=== PATIENT | female | born 1935 | race Caucasian/White ===

== ENCOUNTER 2016-12-10 10:21 | Inpatient (IN) ==
[~2016-12-10 10:21] MED LIST: Heparin 1,000 UNITS/500 mL NS 500 ML ONE
[2016-12-10] MEDS ORDERED: Lidocaine 1% 20 ML MDV ID ONE (10:38)
[2016-12-10] MEDS ORDERED: Vancomycin 1,250 MG in D5% in Water 250 ML IVPB ONE ×2 (10:38→23:00)
[2016-12-10] MEDS ORDERED: CeFAZolin Pre 2,000 MG/100 ML 2,000 MG/100 ML BAG IVPB ONE (10:38)
[2016-12-10] MEDS ORDERED: Ringers Solution, Lactated 1,000 ML IVC SCH (10:45)
--- NOTE | 2016-12-10 10:51 | Anesthesia Evaluation PreOp ---
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 History: CVA Other Medical History: Diabetes Type II Anesthesia History: No Prior Anesthetic Complications, Past Anesthesia (Rt CEA) : No Alcohol Use: none Drug use: none Medications and Allergies Albuterol Sulfate [Albuterol Inhaler] 0 puff IH Q4HR 02/27/16 [History] Aspirin [Adult Low Dose Aspirin EC] 81 mg PO DAILY 02/27/16 [History] Atorvastatin [Lipitor] 40 mg PO HS 02/27/16 [History] Cholecalciferol (Vitamin D3) [Vitamin D3] 5,000 unit PO DAILY 02/27/16 [History] Clopidogrel [Plavix] 75 mg PO DAILY 02/27/16 [History] Cyclobenzaprine HCl 5 mg PO TID 02/27/16 [History] Fluticasone/Salmeterol [Advair 250-50 Diskus] DAILY 02/27/16 [History] Furosemide [Lasix] 20 mg PO DAILY 02/27/16 [History] Insulin ASPART [Novolog Flexpen] 6 unit SQ TID 02/27/16 [History] Insulin Glargine,Hum.rec.anlog [Lantus Solostar] 20 unit SQ DAILY 02/27/16 [ History] Lisinopril [Zestril] 40 mg PO DAILY 02/27/16 [History] Pregabalin [Lyrica] 150 mg PO BID 02/27/16 [History] Tiotropium [Spiriva] 18 mcg AER DAILY 02/27/16 [History] HYDROcodone/Acet 5/325 mg [Howe 5-325 mg] 1 tab PO Q4H PRN #25 tablet 02/28/16 [Rx] Allergies No Known Allergies Allergy (Unverified 02/04/16 08:09) - Meds/Allergy Pre-op Review Medications Reviewed: Yes Allergies Reviewed: Yes Beta Blockers on Current Med List: No Anesthesia Results - Labs Laboratory Tests 12/05/16 12/05/16 12/05/16 08:34 08:34 08:34 Hgb 12.3 Hct 39.8 Plt Count 239 PT 12.2 H INR 1.1 APTT 36.1 H Sodium 140 Potassium 5.0 H BUN 11 Creatinine 0.81 - Imaging EKG: report reviewed (SR) Additional studies: 2016 Stress Test negative for ischemia...EF 70% Anesthesia Exam O2 Sat Height 1.68 m Weight 87.09 kg Height: 5'6 Weight: 192 lbs NPO (# of Hours): MN Pain Scale: 0 - HEENT Pupil (Motor): Pupils equal, EOMI Mallampati: III Denture Type: Upper: Complete Oral Opening: Less than or equal to 3 - FOREST SCIENTIST LOC: Oriented FOREST SCIENTIST Motor: Normal RUE, Normal LUE, Normal RLE, Normal LLE, Normal Face [employer]EST SCIENTIST Sensory: Normal: RUE, LUE, RLE, LLE, Face - Cardiac Rhythm: Regular Murmur: None JVD: No Carotid Bruit: No - Pulmonary Breath Sounds: bilateral Clear Respiratory Effort: Symmetrical Anesthesia Assess/Plan ASA Score: 4 (HTN PVD DM COPD on home oxygen) Modified [place] Scale for Level of Consciousness: Cooperative, oriented, and tranquil Anesthetic Plan: General Monitoring Plan: Standard Monitors, A-Line Recovery Plan: PACU (Discussed GA and A line, agrees to proceed)
[2016-12-10] MEDS ORDERED: Famotidine 20 MG/2 ML VIAL IVP ONE (10:58)
[2016-12-10] MEDS ORDERED: Acetaminophen IV 1,000 MG/100 ML INFUS..BTL IVPB ONE (10:59)
[2016-12-10] MEDS ORDERED: *HR* FentaNYL (PF) 100 MCG/2 ML VIAL ONE (11:01)
[2016-12-10] MEDS ORDERED: *HR* Propofol 200 MG/20 ML VIAL IVP ONE (11:01)
[2016-12-10] MEDS ORDERED: *HR* Remifentanil 1 MG VIAL IVP ONE (11:01)
[2016-12-10] MEDS ORDERED: Lidocaine -MPF 2% 2 ML VIAL ONE ×3 (11:04→12:47)
[2016-12-10] MEDS ORDERED: Ondansetron 4 MG/2 ML VIAL ONE (11:05)
[2016-12-10] MEDS ORDERED: *HR* Succinylcholine 200 MG/10 ML VIAL IVP ONE (11:05)
[2016-12-10] MEDS ORDERED: Bupivacaine-MPF 0.25% 10 ML VIAL ONE (11:05)
[2016-12-10] MEDS ORDERED: Dexamethasone 4 MG/ML VIAL ONE (11:05)
[2016-12-10] MEDS ORDERED: Protamine Sulfate 50 MG/5 ML VIAL IVP ONE ×2 (11:05→14:59)
[2016-12-10] MEDS ORDERED: Lidocaine 1% 20 ML MDV ONE (11:05)
[2016-12-10] MEDS ORDERED: Vancomycin 1,000 MG VIAL ONE (11:06)
[2016-12-10] MEDS ORDERED: Heparin 1,000 UNITS/500 mL NS 1,000 ML ONE (11:06)
--- NOTE | 2016-12-10 11:06 | History & Physical Report ---
Date of Encounter: 12/10/16 Time of Encounter: 11:00 24 Hour HP Update - Instructions Instructions: If the History and Physical is less than 30 days old and was completed prior to A.M. admission and or procedure and has NOT been updated on calendar day of procedure please complete this update prior to performing procedure. - Update Patient reports changes in Medical Condition: No Changes in assessment/condition: No Changes in Medication: No Preop tests/diagnostics Reviewed: Yes Surgery Remains Indicated: Yes Consent for Planned Operative Procedure(s) Verified: Yes - Pre-Operative Checklist Preoperative Checklist Indicated: Yes Prophylactic Antibiotic Ordered: Yes (Vancomycin due to risk of MRSA) Home Medications Include Beta Atif: No Beta Atif Taken Today (Day of Surgery): No Beta Atif Taken Yesterday (Day Prior to Surgery): No Is VTE Prophylaxis Indicated?: Yes
[2016-12-10] MEDS ORDERED: *HR* Phenylephrine 10 MG/ML VIAL ONE (12:47)
[2016-12-10] MEDS ORDERED: EPHEDrine 50 MG/ML VIAL ONE (12:56)
[2016-12-10] MEDS ORDERED: *HR* Heparin 5,000 UNIT/ML VIAL ONE (14:57)
[2016-12-10] MEDS ORDERED: *HR* Labetalol 100 MG/20 ML MDV IVP PRN (15:03)
[2016-12-10] MEDS ORDERED: *HR* HYDROmorphone (PF) 1 MG/ML SYRINGE IVP PRN (15:03)
[2016-12-10] MEDS ORDERED: Ondansetron 4 MG/2 ML VIAL IVP PRN ×2 (15:03→16:30)
--- NOTE | 2016-12-10 15:35 | Operative Note ---
Date of procedure: 12/10/16 Pre-op diagnosis: 80-99% Left internal carotid artery stenosis Post-op diagnosis: same Procedure: Left carotid endarterectomy with hemashield patch angioplasty. Complications: None Anesthesia: AUGUSTINAA Surgeon: Lyle Arias Estimated blood loss (cc): 100 Specimen: Left carotid plaque Condition: stable Disposition: PACU Procedure in Detail: Indications: The patient is a 81 year old female who was found to have an 80-99 % left internal carotid artery stenosis. A left carotid endarterectomy was recommended to reduce his risk of stroke. Procedure: The patient was identified in the preoperative area. The risks, benefits, and alternatives of the procedure were discussed and all questions were answered. The patient was then taken to the operating room and placed in supine position on the operating table. After induction of general endotracheal anesthesia, the patient was cleaned and draped in normal sterile fashion. A longitudinal incision was made anterior to the left sternocleidomastoid muscle. Hemostasis was obtained via electrocautery. Through a process of blunt , sharp, and electrocautery dissection, the platysma was traversed. The jugular vein was identified. The facial vein was clamped, divided and tied off with a 2-0 silk suture ligature. The jugular vein was retracted, exposing the carotid bifurcation. The patient received 2000 units of heparin intravenously at this time. Proximal dissection of the common and external carotid arteries were performed circumferentially. Dissection of the internal carotid was performed circumferentially. Vessels loops were passed around the internal and external carotid and an umbilical tape was passed from the common carotid artery. The patient received additional 3000 units of heparin intravenously. Additional heparin was given throughout the case to maintain adequate anticoagulation. After waiting adequate time for the heparin to circulate, the vessels were occluded and a longitudinal arteriotomy was made into the common carotid artery. It was then extended into the internal carotid beyond the plaque. Vigorous pulsatile retrograde flow was noted from the internal carotid artery upon release of the loop; therefore, no shunt was placed. A dental freer was used to perform a standard endarterectomy. Proximal and distal endpoints were inspected. No elevated flaps were noted. A Hemashield patch was cut to fit the defect and sutured in place with running 6 -0 Prolene. Prior to completing the closure, each vessel was flushed and then reoccluded. Heparinized saline was infused into the lumen. The patch was completed. Flow was restored in the external carotid artery, followed the common carotid artery, lastly the internal carotid artery was opened. A low resistance arterialized signal was present within the internal carotid artery beyond the patch. Thrombin and Gelfoam were used to aid in hemostasis. Meticulous hemostasis was obtained throughout the wound with electrocautery. Upon obtaining hemostasis with suture, platelet rich and platelet poor plasma were infused into the wounds. The sternocleidomastoid was reapproximated with interrupted 3-0 Vicryl. Platelet rich and platelet poor plasma were infused into the wound. A TLS drain was brought through a separate stab incision and sutured in place with 0 silk suture. The platysma was reapproximated with running 3-0 Vicryl. Local anesthetic was infused in the skin. A 3-0 Monocryl was used to reapproximate the skin. Sterile dressing was applied. The patient was extubated, taken to the recovery room in stable condition.
--- NOTE | 2016-12-10 16:17 | Anesthesia Evaluation Post Op ---
Date of Encounter: 12/10/16 Time of Encounter: 16:15 - Vital Signs Vital Signs: Vital Signs/O2 Sat, Most Current Temp Pulse Resp BP Pulse Ox 97.1 F L 110 16 124/64 100 12/10/16 15:58 12/10/16 15:58 12/10/16 15:58 12/10/16 15:58 12/10/16 15:58 - Lungs Lungs: Clear Ascult./Percussion - Airway Airway: Non-obstructed - Cardiovascular Regular Rate - Mental Status Mental Status: Alert & Oriented, Answers Appropriately - Pain Pain Scale: 0 Pain Scale used: Numeric (1 - 10) - Nausea Vomiting Nausea Vomiting: Present - Hydration Hydration: Ice chips, Saeed catheter - Discharge PostOp Status: Transfer Patient to floor
[2016-12-10] MEDS ORDERED: Acetaminophen 325 MG TABLET PO PRN (16:30)
[2016-12-10] MEDS ORDERED: *HR* Promethazine 25 MG/ML VIAL IVP PRN (16:30)
[2016-12-10] MEDS ORDERED: Dextrose Gel 15 GM PO PRN ×2 (16:30)
[2016-12-10] MEDS ORDERED: *HR* Dextrose 50 % in Water (Syg) 50 ML SYRINGE IVP PRN (16:30)
[2016-12-10] MEDS ORDERED: Naloxone 0.4 MG/ML INJ IVP PRN (16:30)
[2016-12-10] MEDS ORDERED: *HR* Labetalol 20 MG/4 ML SYRINGE IVP PRN (16:30)
[2016-12-10] MEDS ORDERED: D5% in Water 1,000 ML IV PRN (16:30)
[2016-12-10] MEDS ORDERED: *HR* HYDROcodone/Acet 5/325 mg TABLET PO PRN (16:30)
[2016-12-10] MEDS ORDERED: *HR* Morphine 2 MG/ML SYRINGE IVP PRN (16:30)
[2016-12-10] MEDS ORDERED: *HR* OxyCODONE Immed Rel 5 MG TABLET PO PRN (16:30)
[2016-12-10] MEDS: Insulin LISPRO 300 UNITS/3 ML VIAL SQ SCH (17:00)
[2016-12-10] MEDS: *HR* Metoprolol 5 MG/5 ML VIAL IVP SCH (17:38)
[2016-12-10] MEDS: ceFAZolin 2,000 MG in D5% in Water 100 ML IVPB SCH (18:47)
[2016-12-10] MEDS ORDERED: Insulin LISPRO 300 UNITS/3 ML VIAL SQ SCH (21:00)
[2016-12-10] MEDS ORDERED: NON-FORMULARY MEDICATION 1 EACH EACH (Fluticasone/Salmeterol [Advair 250-50 Diskus] 1 PUFF IH SCH (21:00)
[2016-12-10] MEDS ORDERED: Furosemide 20 MG TABLET PO SCH (21:00)
[2016-12-10] MEDS ORDERED: Lisinopril 20 MG TABLET PO SCH (21:00)
[2016-12-10] MEDS: Pregabalin 75 MG CAPSULE PO SCH (21:02)
[2016-12-10] MEDS ORDERED: Budesonide/Formoterol 80/4.5 MDI IH SCH (22:00)
[2016-12-11] MEDS: *HR* Metoprolol 5 MG/5 ML VIAL IVP SCH ×2 (00:16→06:16)
[2016-12-11 03:43] VITALS: BP 100/59
[2016-12-11] MEDS: ceFAZolin 2,000 MG in D5% in Water 100 ML IVPB SCH (04:25)
[2016-12-11] MEDS ORDERED: *HR* Heparin 5,000 UNIT/ML VIAL SQ SCH ×2 (06:00)
--- NOTE | 2016-12-11 08:02 | Discharge Summary ---
Date of Encounter: 12/11/16 Time of Encounter: 07:50 - Discharge Diagnosis (1) Carotid stenosis, symptomatic, with infarction Priority: Primary Status: Chronic Comments: The patient is postoperative day #1 after left carotid endarterectomy. She is healing well. She has no drainage or hematoma. She is neurologically intact. She will be discharged today. (2) Essential hypertension Priority: Secondary Status: Chronic Comments: The patient was counseled regarding smoking cessation. (3) Mixed hyperlipidemia Priority: Secondary Status: Chronic (4) Type 2 diabetes mellitus with other circulatory complications Priority: Secondary Status: Chronic (5) COPD (chronic obstructive pulmonary disease) Priority: Secondary Status: Chronic Qualifiers: COPD type: emphysema Emphysema type: panlobular Qualified Code(s): J43.1 - Panlobular emphysema - Discharge Medications Prescriptions: HYDROcodone/Acet 5/325 mg [Baldwin 5-325 mg] 1 tab PO Q4H PRN #30 tablet PRN Reason: POSTOPERATIVE PAIN Home Medications: Albuterol Sulfate [Albuterol Inhaler] 2 puff IH Q4HR PRN 02/27/16 [History] Aspirin [Adult Low Dose Aspirin EC] 81 mg PO DAILY 02/27/16 [History] Cholecalciferol (Vitamin D3) [Vitamin D3] 5,000 unit PO DAILY 02/27/16 [History] Clopidogrel [Plavix] 75 mg PO HS 02/27/16 [History] Cyclobenzaprine HCl 5 mg PO TID 02/27/16 [History] Fluticasone/Salmeterol [Advair 250-50 Diskus] 1 puff IH BID 02/27/16 [History] Furosemide [Lasix] 20 mg PO HS 02/27/16 [History] Insulin ASPART [Novolog Flexpen] 6 unit SQ TID 02/27/16 [History] Insulin Glargine,Hum.rec.anlog [Lantus Solostar] 16 unit SQ HS 02/27/16 [History ] Lisinopril [Zestril] 40 mg PO HS 02/27/16 [History] Pregabalin [Lyrica] 150 mg PO BID 02/27/16 [History] Tiotropium [Spiriva] 18 mcg AER DAILY 02/27/16 [History] Metformin HCl [Metformin HCl ER] 500 mg PO DAILY 12/10/16 [History] Oxygen 2 l NS AD 12/10/16 [History] Simvastatin [Zocor] 20 mg PO HS 12/10/16 [History] HYDROcodone/Acet 5/325 mg [Baldwin 5-325 mg] 1 tab PO Q4H PRN #30 tablet 12/11/16 [Rx] Allergies/Adverse Reactions: Allergies No Known Allergies Allergy (Verified 12/10/16 11:41) Date of admission: 12/10/16 16:26 Primary care physician: Joe King MD Procedure(s) Performed: Left carotid endarterectomy Discharging clinician: Lyle Arias Anticipated date of discharge: 12/11/16 - Patient Status Disposition: Home, Self-Care Condition: Good Functional capacity at discharge: independent ambulation Overall status at discharge: patient is back to baseline - Discharge Instructions Instructions: Hydrocodone/Acetaminophen (By mouth), Carotid Endarterectomy (DC) , Chronic Obstructive Pulmonary Disease (DC) Follow Up With: Joe King MD [Primary Care Provider] - 12/18/16 3:00 pm Lyle Arias MD [Partnered Physician] - 01/25/17 1:50 pm Additional Instructions: May remove bandage and shower on 12/12/16. Wash wounds gently and pat to dry. Call [phone] with questions or concerns - Diet and Activity Activity: increase activity as tolerated Diet: advance to your usual diet - Hospital Course Hospital course: Ms. Dacosta is a 81 year old female with a history of carotid stenosis. She was admitted on 12/10/16 and she underwent a left carotid endarterectomy. She was discharged in stable consition on postoperative day #1 without complication. - Time Spent with Patient Total time spent providing and/or coordinating discharge services: Exam General: Present: Conversant HEENT: Present: Trachea midline, Pupils equal Neck: Present: Other (incision clean, dry and intact without erythema, drainage or hematoma.). Absent: JVD Cardiac: Present: Reg Rate and Rhythm Lungs: Present: Normal Breath Sounds Neuro: Present: Alert and responsive, No focal deficits noted, Motor nerves grossly intact, Sensory nerves grossly intact Abdomen: Present: Soft Vascular: Present: Normal capillary refill. Absent: Cyanosis, Edema Skin: Present: No rashes noted on visualized skin - VTE Documentation of Mechanical Device: Intermittent pneumatic compression device
[2016-12-11] MEDS: Insulin LISPRO 300 UNITS/3 ML VIAL SQ SCH (08:45)
[2016-12-11] MEDS: Pregabalin 75 MG CAPSULE PO SCH (08:49)
[2016-12-11] MEDS ORDERED: Tiotropium 18 MCG inhalation IH SCH (09:00)
[2016-12-11] MEDS ORDERED: Cholecalciferol (D-3) 1,000 UNIT TABLET PO SCH (09:00)
[2016-12-11] MEDS ORDERED: *HR* Metformin 500 MG TABLET PO SCH (09:00)
[2016-12-11] MEDS ORDERED: Aspirin Enteric Coated 81 MG Tablet PO SCH (09:00)
== END 2016-12-11 10:08 | disposition home or self-care (01) | DRG 39 ==
LOC: SAMDAY 10:21 → 2NNU 16:26
PROVIDERS: ADMIT Surgery; ATTEND Surgery

== ENCOUNTER 2016-12-26 11:59 | Inpatient (IN) ==
[2016-12-26] MEDS ORDERED: 0.9 % Sodium Chloride 1,000 ML IVC ONE (12:24)
--- NOTE | 2016-12-26 12:27 | Emergency Department Note ---
Disposition Clinical Impression: COPD (chronic obstructive pulmonary disease), Frail elderly, Essential hypertension, Mixed hyperlipidemia, Type 2 diabetes mellitus with other circulatory complications, Abnormal chest x-ray, Hypoxemia, Hyperkalemia, Hiatal hernia, Diverticulosis Fall Qualifiers: Encounter type: initial encounter Qualified Code(s): W19.XXXA - Unspecified fall, initial encounter Hip injury Qualifiers: Encounter type: initial encounter Laterality: left Qualified Code(s): S79.912A - Unspecified injury of left hip, initial encounter Foot injury Qualifiers: Encounter type: initial encounter Laterality: left Qualified Code(s): S99.922A - Unspecified injury of left foot, initial encounter GI bleed Qualifiers: GI bleed type/associated pathology: melena Qualified Code(s): K92.1 - Melena Disposition: Admitted As Inpatient General Adult HPI - General Chief complaint: ED Extremity Injury, Lower Stated complaint: L hip and Foot pain Time Seen by Provider: 12/26/16 12:07 Source: patient, family, EMS Limitations: no limitations - History of Present Illness HPI Narrative: 81-year-old female with multiple medical problems reports in emergency department via EMS with her daughter, the patient lives at home. Per the daughter, the patient has been very weak and shaky, she fell out of bed onto her left side and injured her left hip and foot. She has been feeling poorly and has been symptomatic for 2 days. Per the daughter the patient is usually quite alert oriented and usually stays in bed but does not normally have shakes tremors or feelings of weakness that she does now. There is no history of acute head trauma or acute neck pain. There has been no back injury or pain no neck pain chest pain or syncope. The patient has a history of COPD and wears oxygen at home. There is no history of cough or coughing up blood. No history of karri confusion or seizure. There is no history of abdominal pain vomiting diarrhea or laceration. The patient had a recent carotid endarterectomy December 2016 at this institution. The patient has generalized body spasms per the history. She is known to take diuretic medications, she is not in renal failure and does not have a history of dialysis therapy. The patient reportedly takes Plavix but no other anticoagulant medication. She is known to be diabetic as well. There is no history of sore throat and runny nose or ear pain. No acute headache. Pain Scale: 8 - Related Data Home Medications Medication Instructions Recorded Confirmed Albuterol Sulfate [Albuterol 2 puff IH Q4HR PRN 02/27/16 12/26/16 Inhaler] Aspirin [Adult Low Dose Aspirin EC] 81 mg PO DAILY 02/27/16 12/26/16 Cholecalciferol (Vitamin D3) 5,000 unit PO DAILY 02/27/16 12/26/16 [Vitamin D3] Clopidogrel [Plavix] 75 mg PO HS 02/27/16 12/26/16 Cyclobenzaprine HCl 5 mg PO TID 02/27/16 12/26/16 Fluticasone/Salmeterol [Advair 1 puff IH BID 02/27/16 12/26/16 250-50 Diskus] Furosemide [Lasix] 20 mg PO HS 02/27/16 12/26/16 Insulin ASPART [Novolog Flexpen] 6 unit SQ TID 02/27/16 12/26/16 Insulin Glargine,Hum.rec.anlog 16 unit SQ HS 02/27/16 12/26/16 [Lantus Solostar] Lisinopril [Zestril] 40 mg PO HS 02/27/16 12/26/16 Pregabalin [Lyrica] 150 mg PO BID 02/27/16 12/26/16 Tiotropium [Spiriva] 18 mcg IH DAILY 02/27/16 12/26/16 Metformin HCl [Metformin HCl ER] 500 mg PO DAILY 12/10/16 12/26/16 Oxygen 2 l NS AD 12/10/16 12/26/16 Simvastatin [Zocor] 20 mg PO HS 12/10/16 12/26/16 Previous Rx's Medication Instructions Recorded HYDROcodone/Acet 5/325 mg [War 1 tab PO Q4H PRN #30 tablet 12/11/16 5-325 mg] Allergies Allergy/AdvReac Type Severity Reaction Status Date / Time No Known Allergies Allergy Verified 12/10/16 11:41 All systems ED: reviewed and negative except as stated. Past Medical History - Past Medical History Medical history: Reports: cancer, COPD, coronary artery disease, CVA, diabetes, hyperlipidemia, hypertension, other Surgical history: Reports: cholecystectomy, other Psychiatric history: Reports: no psych history END PACKER history: Reports: no END PACKER history - Social History Smoking Status: Unknown if ever smoked Smokeless Tobacco Status: No Alcohol use: Reports: none Drug use: Reports: none Physical Exam - General Limitations: no limitations General appearance: alert, other (The patient appears to be generally tremulous , but she is able to follow commands and set up with assistance. She is alert and oriented and does not appear to be confused and does not display dysarthria. ) - Head Head exam: atraumatic, normocephalic, normal inspection - Eye Eye exam: Present: normal appearance, PERRL, EOMI. Absent: scleral icterus, conjunctival injection, miosis, mydriasis - ENT ENT exam: normal exam, normal oropharynx, mucous membranes moist, TM's normal bilaterally, normal external ear exam - Neck Neck exam: Present: normal inspection, full ROM, trachea midline. Absent: tenderness - Chest Chest inspection: Present: normal inspection, symmetric chest wall rise. Absent : tenderness - Respiratory Respiratory exam: Present: prolonged expiratory phase. Absent: respiratory distress, accessory muscle use - Cardiovascular Cardiovascular exam: Present: normal rhythm, tachycardia - Abdominal Exam Abdominal exam: Present: soft, Non-Tender, trauma (Minimal bruising lower abdomen right side appears to be old). Absent: tenderness, distention, guarding , rebound, rigidity, normal bowel sounds, pulsatile mass - Rectal Exam Rectal exam: Present: normal inspection, normal rectal tone, black stool - Extremities Exam Extremities exam: Present: normal inspection, tenderness, normal capillary refill, other (The upper extremities are warm and well-perfused and supple without evidence of trauma. The right lower extremity is supple warm and well perfused without evidence of injury. Left lower extremity shows significant pain in the foot and hip with movement or palpation no overt trauma is noted. All 4 extremities are warm and well perfused without cyanosis or significant edema. All 4 tremors are mobile and sensate.). Absent: pedal edema, joint swelling, calf tenderness - Expanded Lower Extremity Exam Lower leg exam: Absent: Homans' sign Neurovascular/Tendon exam: Absent: pulse deficit, motor deficit, sensory deficit , tendon deficit, extremity cold to touch, pallor - Neurological Exam Neurological exam: Present: alert, oriented X3, CN II-XII intact. Absent: motor sensory deficit - Psychiatric Psychiatric exam: Present: normal affect, normal mood - Skin Skin exam: Present: warm, dry, intact, normal color. Absent: rash, cyanosis, diaphoresis, erythema, pallor, mottled Course Vital Signs Temperature 97.6 F 12/26/16 12:02 Pulse Rate 109 12/26/16 12:02 Respiratory Rate 20 12/26/16 12:02 Blood Pressure 86/67 12/26/16 12:02 O2 Sat by Pulse Oximetry 90 L 12/26/16 12:02 Temperature 98.9 F 12/26/16 17:26 Pulse Rate 108 12/26/16 17:26 Respiratory Rate 18 12/26/16 17:26 Blood Pressure 129/57 12/26/16 17:26 O2 Sat by Pulse Oximetry 94 L 12/26/16 17:26 Oxygen Delivery Oxygen Delivery Nasal Cannula Medical Decision Making - MDM Narrative Medical decision making narrative: The patient was monitored here in the emergency department, IV fluids were given , the lab had an initial report of a hemoglobin that was low, secondary final report shows a hemoglobin of 6.8. The patient's stool is black and I have ordered a transfusion and a Protonix injection and drip. A Hemoccult card was sent, but the lab reports it is negative. The patient does not appear to be septic, she had an initial blood pressure reading which was low but secondary pressure readings were normotensive. She does not express shortness of breath but has been somewhat hypoxemic on oxygen here. The patient denies any abdominal trauma. Her clinical exam suggests gastrointestinal bleeding. She has a history of Coumadin therapy, her INR is 1.2 and appears to be fairly normotensive. The patient has no personal history of intra-abdominal aneurysm. She denies blunt trauma to the abdomen. Regarding the fall her daughter reports she just sort of slipped out of bed and hurt her left foot more than anything else. Her x-rays regarding her left lower extremity do not suggest fracture. The patient has remained slightly tachycardic here in the ED she was given IV fluids, packed red cells were ordered. As a precaution, CT scan of the abdomen and pelvis were obtained to ensure there is no retroperitoneal or intra-abdominal bleeding. Currently stable. I discussed the case with the hospitalist on-call who has accepted the patient to their care. The patient is currently stable. Abdominal CT scan reveals no evidence of intra-abdominal bleeding or aneurysm. - Lab Data Lab results reviewed: Yes I reviewed the patient's lab results. Result diagrams: 12/26/16 15:09 12/26/16 15:09 Lab Results 12/26/16 12/26/16 12/26/16 Range/Units 12:52 14:28 14:28 WBC (4.3-11.1) K/mcL RBC (3.82-4.97) M/mcL Hgb (11.5-15.4) g/dL Hct (35.3-44.9) % MCV (83.0-100.0) fL MCH (28.0-33.3) pg MCHC (31.6-35.5) g/dL RDW (11.5-14.5) % Plt Count (140-400) K/mcL MPV (9.4-12.4) fL Immature Gran % (0-4) % Seg Neutrophils % % Lymphocytes % % Monocytes % % Eosinophils % % Basophils % % Neutrophils # (1.6-8.9) K/mcL Lymphocytes # (0.6-4.6) K/mcL Monocytes # (0.0-1.3) K/mcL Eosinophils # (0.0-0.6) K/mcL Basophils # (0.0-0.2) K/mcL Immature Plt Fraction (1.1-6.1) % PT 12.8 H (9.4-12.1) Seconds INR 1.2 APTT (26.0-36.0) Seconds Sodium (136-145) mEq/L Potassium (3.5-4.5) mEq/L Chloride (98-109) mEq/L Carbon Dioxide (19-29) mEq/L BUN (7-20) mg/dL Creatinine (0.57-1.11) mg/dL Est GFR ( Amer) (> 60) Est GFR (Non-Af Amer) (> 60) BUN/Creatinine Ratio (6-26) Glucose (70-99) mg/dL POC Glucose (58-89) Calculated Osmolality (280-300) Lactic Acid (0.5-2.2) mmol/L Calcium (8.6-10.8) mg/dL Phosphorus (2.3-4.7) mg/dL Magnesium (1.6-2.6) mg/dL Total Bilirubin (0.2-1.2) mg/dL Direct Bilirubin (0.0-0.5) mg/dL Indirect Bilirubin (0.0-1.2) mg/dL AST (5-34) Units/L ALT (0-55) Units/L Alkaline Phosphatase (38-126) Units/L Creatine Kinase (29-168) Units/L Troponin I (0-0.03) ng/mL C-Reactive Protein (Less than 5) mg/L B-Natriuretic Peptide (0-100) pg/mL Serum Total Protein (6.0-8.3) g/dL Albumin (3.5-5.0) g/dL Globulin (2.4-3.5) g/dL Albumin/Globulin Ratio (1.1-2.2) Lipase (8-78) Units/L Urine Color Yellow (Yellow) Urine Clarity Clear (Clear) Urine pH 5.5 (5.0-8.0) pH Units Ur Specific Nicolaus 1.019 (1.010-1.025) Urine Protein Negative (Neg-Trace) mg/dL Urine Glucose (UA) 100 H (Normal) mg/dL Urine Ketones Negative (Negative) mg/dL Urine Blood Negative (Negative) Urine Nitrite Negative (Negative) Urine Bilirubin Negative (Negative) Urine Urobilinogen Normal (Normal) mg/dL Ur Leukocyte Esterase Negative (Negative) Ur Culture Indicated? NO (NO) Stool Occult Blood (Negative) Specimen Rejected MCV Delta Blood Type Antibody Screen Crossmatch 12/26/16 12/26/16 12/26/16 Range/Units 15:07 15:09 15:09 WBC (4.3-11.1) K/mcL RBC (3.82-4.97) M/mcL Hgb (11.5-15.4) g/dL Hct (35.3-44.9) % MCV (83.0-100.0) fL MCH (28.0-33.3) pg MCHC (31.6-35.5) g/dL RDW (11.5-14.5) % Plt Count (140-400) K/mcL MPV (9.4-12.4) fL Immature Gran % (0-4) % Seg Neutrophils % % Lymphocytes % % Monocytes % % Eosinophils % % Basophils % % Neutrophils # (1.6-8.9) K/mcL Lymphocytes # (0.6-4.6) K/mcL Monocytes # (0.0-1.3) K/mcL Eosinophils # (0.0-0.6) K/mcL Basophils # (0.0-0.2) K/mcL Immature Plt Fraction (1.1-6.1) % PT (9.4-12.1) Seconds INR APTT (26.0-36.0) Seconds Sodium 144 (136-145) mEq/L Potassium 4.6 H (3.5-4.5) mEq/L Chloride 103 (98-109) mEq/L Carbon Dioxide 29 (19-29) mEq/L BUN 25 H (7-20) mg/dL Creatinine 0.89 (0.57-1.11) mg/dL Est GFR ( Amer) > 60 (> 60) Est GFR (Non-Af Amer) > 60 (> 60) BUN/Creatinine Ratio 28 H (6-26) Glucose 154 H (70-99) mg/dL POC Glucose (58-89) Calculated Osmolality 305 H (280-300) Lactic Acid 2.2 (0.5-2.2) mmol/L Calcium 8.9 (8.6-10.8) mg/dL Phosphorus 4.0 (2.3-4.7) mg/dL Magnesium 1.6 (1.6-2.6) mg/dL Total Bilirubin (0.2-1.2) mg/dL Direct Bilirubin (0.0-0.5) mg/dL Indirect Bilirubin (0.0-1.2) mg/dL AST (5-34) Units/L ALT (0-55) Units/L Alkaline Phosphatase (38-126) Units/L Creatine Kinase (29-168) Units/L Troponin I (0-0.03) ng/mL C-Reactive Protein (Less than 5) mg/L B-Natriuretic Peptide (0-100) pg/mL Serum Total Protein (6.0-8.3) g/dL Albumin (3.5-5.0) g/dL Globulin (2.4-3.5) g/dL Albumin/Globulin Ratio (1.1-2.2) Lipase (8-78) Units/L Urine Color (Yellow) Urine Clarity (Clear) Urine pH (5.0-8.0) pH Units Ur Specific Nicolaus (1.010-1.025) Urine Protein (Neg-Trace) mg/dL Urine Glucose (UA) (Normal) mg/dL Urine Ketones (Negative) mg/dL Urine Blood (Negative) Urine Nitrite (Negative) Urine Bilirubin (Negative) Urine Urobilinogen (Normal) mg/dL Ur Leukocyte Esterase (Negative) Ur Culture Indicated? (NO) Stool Occult Blood (Negative) Specimen Rejected Blood Type A POSITIVE Antibody Screen NEGATIVE Crossmatch See Detail 12/26/16 12/26/16 12/26/16 Range/Units 15:09 15:09 15:09 WBC 11.8 H (4.3-11.1) K/mcL RBC 2.26 L (3.82-4.97) M/mcL Hgb 6.8 L (11.5-15.4) g/dL Hct 22.8 L (35.3-44.9) % MCV 100.9 H D (83.0-100.0) fL MCH 30.1 (28.0-33.3) pg MCHC 29.8 L (31.6-35.5) g/dL RDW 17.0 H (11.5-14.5) % Plt Count 283 (140-400) K/mcL MPV 12.4 (9.4-12.4) fL Immature Gran % 0.6 (0-4) % Seg Neutrophils % 80.3 % Lymphocytes % 11.0 % Monocytes % 6.9 % Eosinophils % 0.9 % Basophils % 0.3 % Neutrophils # 9.5 H (1.6-8.9) K/mcL Lymphocytes # 1.3 (0.6-4.6) K/mcL Monocytes # 0.8 (0.0-1.3) K/mcL Eosinophils # 0.1 (0.0-0.6) K/mcL Basophils # 0.0 (0.0-0.2) K/mcL Immature Plt Fraction 9.4 H (1.1-6.1) % PT (9.4-12.1) Seconds INR APTT (26.0-36.0) Seconds Sodium (136-145) mEq/L Potassium (3.5-4.5) mEq/L Chloride (98-109) mEq/L Carbon Dioxide (19-29) mEq/L BUN (7-20) mg/dL Creatinine (0.57-1.11) mg/dL Est GFR ( Amer) (> 60) Est GFR (Non-Af Amer) (> 60) BUN/Creatinine Ratio (6-26) Glucose (70-99) mg/dL POC Glucose (58-89) Calculated Osmolality (280-300) Lactic Acid (0.5-2.2) mmol/L Calcium (8.6-10.8) mg/dL Phosphorus (2.3-4.7) mg/dL Magnesium (1.6-2.6) mg/dL Total Bilirubin 0.3 (0.2-1.2) mg/dL Direct Bilirubin 0.2 (0.0-0.5) mg/dL Indirect Bilirubin 0.1 (0.0-1.2) mg/dL AST 16 (5-34) Units/L ALT 12 (0-55) Units/L Alkaline Phosphatase 58 (38-126) Units/L Creatine Kinase 60 (29-168) Units/L Troponin I 0.01 (0-0.03) ng/mL C-Reactive Protein 11 H (Less than 5) mg/L B-Natriuretic Peptide (0-100) pg/mL Serum Total Protein 6.0 (6.0-8.3) g/dL Albumin 3.3 L (3.5-5.0) g/dL Globulin 2.7 (2.4-3.5) g/dL Albumin/Globulin Ratio 1.2 (1.1-2.2) Lipase 20 (8-78) Units/L Urine Color (Yellow) Urine Clarity (Clear) Urine pH (5.0-8.0) pH Units Ur Specific Nicolaus (1.010-1.025) Urine Protein (Neg-Trace) mg/dL Urine Glucose (UA) (Normal) mg/dL Urine Ketones (Negative) mg/dL Urine Blood (Negative) Urine Nitrite (Negative) Urine Bilirubin (Negative) Urine Urobilinogen (Normal) mg/dL Ur Leukocyte Esterase (Negative) Ur Culture Indicated? (NO) Stool Occult Blood (Negative) Specimen Rejected Blood Type Antibody Screen Crossmatch 12/26/16 12/26/16 12/26/16 Range/Units 15:09 15:09 15:19 WBC (4.3-11.1) K/mcL RBC (3.82-4.97) M/mcL Hgb (11.5-15.4) g/dL Hct (35.3-44.9) % MCV (83.0-100.0) fL MCH (28.0-33.3) pg MCHC (31.6-35.5) g/dL RDW (11.5-14.5) % Plt Count (140-400) K/mcL MPV (9.4-12.4) fL Immature Gran % (0-4) % Seg Neutrophils % % Lymphocytes % % Monocytes % % Eosinophils % % Basophils % % Neutrophils # (1.6-8.9) K/mcL Lymphocytes # (0.6-4.6) K/mcL Monocytes # (0.0-1.3) K/mcL Eosinophils # (0.0-0.6) K/mcL Basophils # (0.0-0.2) K/mcL Immature Plt Fraction (1.1-6.1) % PT (9.4-12.1) Seconds INR APTT 31.1 (26.0-36.0) Seconds Sodium (136-145) mEq/L Potassium (3.5-4.5) mEq/L Chloride (98-109) mEq/L Carbon Dioxide (19-29) mEq/L BUN (7-20) mg/dL Creatinine (0.57-1.11) mg/dL Est GFR ( Amer) (> 60) Est GFR (Non-Af Amer) (> 60) BUN/Creatinine Ratio (6-26) Glucose (70-99) mg/dL POC Glucose 154 H (58-89) Calculated Osmolality (280-300) Lactic Acid (0.5-2.2) mmol/L Calcium (8.6-10.8) mg/dL Phosphorus (2.3-4.7) mg/dL Magnesium (1.6-2.6) mg/dL Total Bilirubin (0.2-1.2) mg/dL Direct Bilirubin (0.0-0.5) mg/dL Indirect Bilirubin (0.0-1.2) mg/dL AST (5-34) Units/L ALT (0-55) Units/L Alkaline Phosphatase (38-126) Units/L Creatine Kinase (29-168) Units/L Troponin I (0-0.03) ng/mL C-Reactive Protein (Less than 5) mg/L B-Natriuretic Peptide 109 H (0-100) pg/mL Serum Total Protein (6.0-8.3) g/dL Albumin (3.5-5.0) g/dL Globulin (2.4-3.5) g/dL Albumin/Globulin Ratio (1.1-2.2) Lipase (8-78) Units/L Urine Color (Yellow) Urine Clarity (Clear) Urine pH (5.0-8.0) pH Units Ur Specific Nicolaus (1.010-1.025) Urine Protein (Neg-Trace) mg/dL Urine Glucose (UA) (Normal) mg/dL Urine Ketones (Negative) mg/dL Urine Blood (Negative) Urine Nitrite (Negative) Urine Bilirubin (Negative) Urine Urobilinogen (Normal) mg/dL Ur Leukocyte Esterase (Negative) Ur Culture Indicated? (NO) Stool Occult Blood (Negative) Specimen Rejected Blood Type Antibody Screen Crossmatch 12/26/16 Range/Units 15:55 WBC (4.3-11.1) K/mcL RBC (3.82-4.97) M/mcL Hgb (11.5-15.4) g/dL Hct (35.3-44.9) % MCV (83.0-100.0) fL MCH (28.0-33.3) pg MCHC (31.6-35.5) g/dL RDW (11.5-14.5) % Plt Count (140-400) K/mcL MPV (9.4-12.4) fL Immature Gran % (0-4) % Seg Neutrophils % % Lymphocytes % % Monocytes % % Eosinophils % % Basophils % % Neutrophils # (1.6-8.9) K/mcL Lymphocytes # (0.6-4.6) K/mcL Monocytes # (0.0-1.3) K/mcL Eosinophils # (0.0-0.6) K/mcL Basophils # (0.0-0.2) K/mcL Immature Plt Fraction (1.1-6.1) % PT (9.4-12.1) Seconds INR APTT (26.0-36.0) Seconds Sodium (136-145) mEq/L Potassium (3.5-4.5) mEq/L Chloride (98-109) mEq/L Carbon Dioxide (19-29) mEq/L BUN (7-20) mg/dL Creatinine (0.57-1.11) mg/dL Est GFR ( Amer) (> 60) Est GFR (Non-Af Amer) (> 60) BUN/Creatinine Ratio (6-26) Glucose (70-99) mg/dL POC Glucose (58-89) Calculated Osmolality (280-300) Lactic Acid (0.5-2.2) mmol/L Calcium (8.6-10.8) mg/dL Phosphorus (2.3-4.7) mg/dL Magnesium (1.6-2.6) mg/dL Total Bilirubin (0.2-1.2) mg/dL Direct Bilirubin (0.0-0.5) mg/dL Indirect Bilirubin (0.0-1.2) mg/dL AST (5-34) Units/L ALT (0-55) Units/L Alkaline Phosphatase (38-126) Units/L Creatine Kinase (29-168) Units/L Troponin I (0-0.03) ng/mL C-Reactive Protein (Less than 5) mg/L B-Natriuretic Peptide (0-100) pg/mL Serum Total Protein (6.0-8.3) g/dL Albumin (3.5-5.0) g/dL Globulin (2.4-3.5) g/dL Albumin/Globulin Ratio (1.1-2.2) Lipase (8-78) Units/L Urine Color (Yellow) Urine Clarity (Clear) Urine pH (5.0-8.0) pH Units Ur Specific Nicolaus (1.010-1.025) Urine Protein (Neg-Trace) mg/dL Urine Glucose (UA) (Normal) mg/dL Urine Ketones (Negative) mg/dL Urine Blood (Negative) Urine Nitrite (Negative) Urine Bilirubin (Negative) Urine Urobilinogen (Normal) mg/dL Ur Leukocyte Esterase (Negative) Ur Culture Indicated? (NO) Stool Occult Blood Negative (Negative) Specimen Rejected Blood Type Antibody Screen Crossmatch - Radiology Data Radiology results reviewed: Yes I reviewed the patient's radiology results.
[2016-12-26 13:02] LABS: Bilirubin,Urine Negative (Negative); Blood,Urine Negative (Negative); Clarity,Urine Clear (Clear); Color,Urine Yellow (Yellow); Glucose,Urine (UA) 100 mg/dL (Normal); Ketones,Urine Negative (Negative); Leukocyte Esterase,Urine Negative (Negative); Nitrite,Urine Negative (Negative); PH,Urine 5.5 pH Units (5.0-8.0); Protein,Urine Negative (Neg-Trace); Specific Gravity,Urine 1.019 (1.010-1.025); Urobilinogen,Urine Normal (Normal)
[2016-12-26] MEDS ORDERED: Lidocaine -MPF 1% 2 ML VIAL ID PRN (14:37)
[2016-12-26 14:45] LABS: INR 1.2; Prothrombin Time 12.8 Seconds (9.4-12.1)
[2016-12-26 15:20] LABS: Basophils % 0.3 %; Eosinophils # 0.1 K/mcL (0.0-0.6); Eosinophils % 0.9 %; Hematocrit 22.8 % (35.3-44.9); Hemoglobin 6.8 g/dL (11.5-15.4); Immature Granulocytes % 0.6 % (0-4); Immature Platelets 9.4 % (1.1-6.1); Lymphocytes # 1.3 K/mcL (0.6-4.6); Mean Corpuscular HGB Conc 29.8 g/dL (31.6-35.5); Mean Corpuscular Hemoglobin 30.1 pg (28.0-33.3); Mean Corpuscular Volume 100.9 fL (83.0-100.0); Mean Platelet Volume 12.4 fL (9.4-12.4); Monocytes # 0.8 K/mcL (0.0-1.3); Monocytes % 6.9 %; Neutrophils # 9.5 K/mcL (1.6-8.9); Platelet Count 283 K/mcL (140-400); Red Blood Count 2.26 M/mcL (3.82-4.97); Segmented Neutrophils % 80.3 %
[2016-12-26 15:33] LABS: BUN/Creatinine Ratio 28 (6-26); Blood Urea Nitrogen 25 mg/dL (7-20); Calcium 8.9 mg/dL (8.6-10.8); Carbon Dioxide 29 mEq/L (19-29); Chloride 103 mEq/L (98-109); Glucose 154 mg/dL (70-99); Magnesium 1.6 mg/dL (1.6-2.6); Osmolality,Calculated 305 (280-300); Potassium 4.6 mEq/L (3.5-4.5); Sodium 144 mEq/L (136-145); eGFR For African Americans > 60 (> 60); eGFR For Non-African Americans > 60 (> 60)
[2016-12-26 15:38] LABS: Albumin 3.3 g/dL (3.5-5.0); Albumin/Globulin Ratio 1.2 (1.1-2.2); Bilirubin,Direct 0.2 mg/dL (0.0-0.5); Bilirubin,Indirect 0.1 mg/dL (0.0-1.2); Bilirubin,Total 0.3 mg/dL (0.2-1.2); Globulin 2.7 g/dL (2.4-3.5)
[2016-12-26] MEDS ORDERED: *HR* LORazepam 2 MG/ML VIAL IVP ONE (15:59)
[2016-12-26] MEDS ORDERED: Pantoprazole 40 MG VIAL IVP ONE (15:59)
[2016-12-26] MEDS ORDERED: Pantoprazole 40 MG in 0.9 % Sodium Chloride Mini Bag 100 ML IVC SCH (16:00)
[2016-12-26] MEDS ORDERED: Ondansetron 4 MG/2 ML VIAL IVP PRN (16:37)
[2016-12-26] MEDS ORDERED: Acetaminophen 325 MG TABLET PO PRN (16:37)
[2016-12-26] MEDS ORDERED: D5% in Water 1,000 ML IV PRN (16:47)
[2016-12-26] MEDS ORDERED: Dextrose Gel 15 GM PO PRN ×2 (16:47)
[2016-12-26] MEDS ORDERED: *HR* Dextrose 50 % in Water (Syg) 50 ML SYRINGE IVP PRN (16:47)
[2016-12-26] MEDS ORDERED: Ipratropium/Albuterol Neb 3 ML IH PRN (16:48)
--- NOTE | 2016-12-26 17:00 | Internal Med History&Physical ---
Date of Encounter: 12/26/16 Time of Encounter: 16:30 Assessment and Plan (1) Fall Current visit: Yes Status: Acute Secondary to anemia. consult PT/OT Qualifiers: Encounter type: initial encounter Qualified Code(s): W19.XXXA - Unspecified fall, initial encounter (2) Tremor Current visit: Yes Status: Acute Generalized tremors. normal calcium, magnesium and potassium. flexeril prn. (3) Acute blood loss anemia Current visit: Yes Status: Acute Symptomatic acute blood loss anemia. Tachycardic with heart rate 115. She reports black stools and generalized weakness. Hemoglobin today was 6.8. Patient received 1 L of IV fluids and tachycardia has slowed down. Blood pressure is adequate. Transfused units of packed red blood cells. IV PPI twice a day. Consult gastroenterology for EGD and colonoscopy. Hemoglobin in the morning after blood transfusion. (4) GI bleed Current visit: Yes Status: Acute Melena for 2 days. Plan as above. Qualifiers: GI bleed type/associated pathology: melena Qualified Code(s): K92.1 - Melena (5) Foot injury Current visit: Yes Status: Acute negative X ray of foot for any acute process. pain control. Qualifiers: Encounter type: initial encounter Laterality: left Qualified Code(s): S99.922A - Unspecified injury of left foot, initial encounter (6) Hip injury Current visit: Yes Status: Acute negative X ray of hip for any acute process. pain control. Qualifiers: Encounter type: initial encounter Laterality: left Qualified Code(s): S79.912A - Unspecified injury of left hip, initial encounter (7) COPD (chronic obstructive pulmonary disease) Current visit: No Status: Chronic Stable. Symbicort. Albuterol Atrovent nebulizations when necessary. Qualifiers: COPD type: emphysema Emphysema type: panlobular Qualified Code(s): J43.1 - Panlobular emphysema (8) Chronic respiratory failure Current visit: Yes Status: Acute Patient uses 2 L of oxygen at home. At baseline. Qualifiers: Respiratory failure complication: hypoxia Qualified Code(s): J96.11 - Chronic respiratory failure with hypoxia (9) Carotid artery stenosis Current visit: Yes Status: Acute Continue Lipitor. Holding aspirin and Plavix due to acute anemia. Qualifiers: Laterality: left Qualified Code(s): I65.22 - Occlusion and stenosis of left carotid artery (10) Essential hypertension Current visit: Yes Status: Chronic Controlled. Holding home dose of lisinopril due to GI bleed. 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 Diabetic diet. Internal Medicine - H&P: HPI Chief complaint: severe generalized tremors for 2 days Admitted From: Home Plans for Post Hospital Care: Home History of present illness: Ms. Dacosta is a 81 year old female with past medical history of diabetes type 2 , COPD, oxygen dependent at 2 L, hypertension, hypercholesterolemia, tremor in left lower leg and carotid stenosis who underwent left carotid endarterectomy on 12/10/2016. She developed severe generalized tremor yesterday morning that lasted a few hours and then came back today with associated pain in her left leg. Because of her tremors and inability to control her movements and ambulation, she fell on her left side injuring her left heel and left foot. In ED, patient was tachycardic. Hemoglobin was 6.8. INR 1.2. Patient takes Clopidogrel and aspirin at home. No coumadin. Upon questioning, she reports black stools for the past few days. Rectal examination revealed balck stools. Chest x-ray showed no acute process. X rays of her left pelvis, femur, tibia, and foot were negative for any acute process. CT of the head was negative for any acute process. No family history of CVA. No history of recent EGD. Past Med Surg Social Fam HX - Past Medical History Medical history: cancer, COPD, coronary artery disease, CVA, diabetes, hyperlipidemia, hypertension, other Psychiatric history: no psych history - Past Surgical History Surgical History: cholecystectomy, other - Social History Smoking Status: Unknown if ever smoked Smokeless Tobacco Status: No Alcohol use: none Drug use: none Internal Medicine - H&P: Meds Albuterol Sulfate [Albuterol Inhaler] 2 puff IH Q4HR PRN 02/27/16 [History] Aspirin [Adult Low Dose Aspirin EC] 81 mg PO DAILY 02/27/16 [History] Cholecalciferol (Vitamin D3) [Vitamin D3] 5,000 unit PO DAILY 02/27/16 [History] Clopidogrel [Plavix] 75 mg PO HS 02/27/16 [History] Cyclobenzaprine HCl 5 mg PO TID 02/27/16 [History] Fluticasone/Salmeterol [Advair 250-50 Diskus] 1 puff IH BID 02/27/16 [History] Furosemide [Lasix] 20 mg PO HS 02/27/16 [History] Insulin ASPART [Novolog Flexpen] 6 unit SQ TID 02/27/16 [History] Insulin Glargine,Hum.rec.anlog [Lantus Solostar] 16 unit SQ HS 02/27/16 [History ] Lisinopril [Zestril] 40 mg PO HS 02/27/16 [History] Pregabalin [Lyrica] 150 mg PO BID 02/27/16 [History] Tiotropium [Spiriva] 18 mcg AER DAILY 02/27/16 [History] Metformin HCl [Metformin HCl ER] 500 mg PO DAILY 12/10/16 [History] Oxygen 2 l NS AD 12/10/16 [History] Simvastatin [Zocor] 20 mg PO HS 12/10/16 [History] HYDROcodone/Acet 5/325 mg [[place] 5-325 mg] 1 tab PO Q4H PRN #30 tablet 12/11/16 [Rx] Allergies No Known Allergies Allergy (Verified 12/10/16 11:41) All Systems PM: A 10-system review of systems was performed and is negative for pertinent findings except as documented above in the HPI. - Constitutional Vitals: Temp Pulse Resp BP Pulse Ox 97.6 F 111 18 124/89 92 L 12/26/16 12:02 12/26/16 15:50 12/26/16 16:27 12/26/16 16:27 12/26/16 15:50 General appearance: Present: cooperative, A&O X 3, pleasant, no acute distress, obese, answers questions appropriately - Eye Eye exam: Present: PERRL, sclera anicteric - ENT ENT exam: Present: mucous membranes moist - Neck Neck exam general surgery: Present: supple, trachea midline. Absent: lymphadenopathy - Respiratory Respiratory exam: Present: CTAB - Cardiovascular Cardiovascular exam: Present: RRR - GI/Abdominal GI/Abdominal exam: Present: normal bowel sounds, soft. Absent: distended, tenderness - Extremities Exam Additional comments: hyperesthesia of left leg. diffuse tremors. - Back Exam Back exam: Absent: CVA tenderness (L), CVA tenderness (R) - Neurological Exam Neurological exam: Present: alert, oriented X3, no focal deficits. Absent: facial droop, speech deficit - Skin Skin exam: Present: pallor. Absent: rash Internal Med - H&P Results - Labs CBC & Chem 7: 12/26/16 15:09 12/26/16 15:09
[2016-12-26] MEDS ORDERED: 0.9 % Sodium Chloride 1,000 ML ONE (17:05)
--- NOTE | 2016-12-26 18:53 | Event Note ---
Date of Encounter: 12/26/16 Time of Encounter: 18:[address] Ballard to see this patient due to family request. The patient has been admitted for anemia and is reciving PRBCs due to a hgb orf 6.8. She is alert and comfortable. The daughter reports recent black stools. Dr. Pollock has been consulted. Her ASA and Plavix should be held at this time. The patient has previously undergone a left carotid endarterectomy. Examination of her wound reveals that it is healing well without hematoma or drainage. She has no focal neurologic deficits. The patient has a history of intermittent tremors. She had some yesterday and they stopped. They have recurred again today and the daughter reports that they are subsiding. She did fall prior to her presentation at the hospital. She has pain in the left lower extremity. Her foot is warm without evidence of ischemia. I suspect that her pain is related to her recent fall. The patient was discussed with Dr. Ballard.
[2016-12-26] MEDS: Budesonide/Formoterol 160/4.5 MDI IH SCH (20:38)
[2016-12-26] MEDS ORDERED: 0.9 % Sodium Chloride 250 ML ONE (21:57)
[2016-12-26] MEDS: Insulin LISPRO 300 UNITS/3 ML VIAL SQ SCH (22:12)
[2016-12-27] MEDS: Pantoprazole 40 MG VIAL IVP SCH ×2 (04:08→07:51)
[2016-12-27 04:37] LABS: BUN/Creatinine Ratio 24 (6-26); Blood Urea Nitrogen 18 mg/dL (7-20); Calcium 8.3 mg/dL (8.6-10.8); Carbon Dioxide 30 mEq/L (19-29); Chloride 104 mEq/L (98-109); Glucose 163 mg/dL (70-99); Magnesium 1.8 mg/dL (1.6-2.6); Osmolality,Calculated 301 (280-300); Phosphorous 3.3 mg/dL (2.3-4.7); Potassium 3.8 mEq/L (3.5-4.5); Sodium 143 mEq/L (136-145); eGFR For African Americans > 60 (> 60); eGFR For Non-African Americans > 60 (> 60)
[2016-12-27 04:52] LABS: Basophils % 0.4 %; Eosinophils # 0.4 K/mcL (0.0-0.6); Eosinophils % 4.4 %; Hematocrit 27.5 % (35.3-44.9); Hemoglobin 8.6 g/dL (11.5-15.4); Immature Granulocytes % 0.4 % (0-4); Immature Platelets 9.6 % (1.1-6.1); Lymphocytes # 1.3 K/mcL (0.6-4.6); Lymphocytes % 13.8 %; Mean Corpuscular HGB Conc 31.3 g/dL (31.6-35.5); Mean Corpuscular Hemoglobin 29.3 pg (28.0-33.3); Mean Corpuscular Volume 93.5 fL (83.0-100.0); Mean Platelet Volume 12.2 fL (9.4-12.4); Monocytes # 0.7 K/mcL (0.0-1.3); Monocytes % 7.5 %; Neutrophils # 6.7 K/mcL (1.6-8.9); Platelet Count 236 K/mcL (140-400); Red Blood Count 2.94 M/mcL (3.82-4.97); Red Cell Distribution Width 17.8 % (11.5-14.5); Segmented Neutrophils % 73.5 %
[2016-12-27] MEDS: *HR* Morphine 2 MG/ML SYRINGE IVP PRN ×2 (04:55→22:51)
[2016-12-27] MEDS: Insulin LISPRO 300 UNITS/3 ML VIAL SQ SCH ×4 (08:03→21:14)
--- NOTE | 2016-12-27 08:46 | Internal Med Progress Note ---
Date of Encounter: 12/27/16 Time of Encounter: 08:43 - Assessment and plan (1) GI bleed Current Visit: Yes Status: Acute Assessment and plan: Reported melena but stool occult blood testing in the emergency room was negative. GI consulted and patient is scheduled for possible EGD today. Continue IV PPI and keep nothing by mouth for now. IV hydration. Supportive care. Qualifiers: GI bleed type/associated pathology: melena Qualified Code(s): K92.1 - Melena (2) Fall Current Visit: Yes Status: Acute Assessment and plan: Due to gait imbalance and lower extremity tremors of uncertain etiology. Fall precautions. Physical and occupational therapy evaluation. Qualifiers: Encounter type: initial encounter Qualified Code(s): W19.XXXA - Unspecified fall, initial encounter (3) Acute blood loss anemia Current Visit: Yes Status: Acute Assessment and plan: Acute anemia, possibly due to GI bleed. Received 2 units of PRBC and hemoglobin improved to 8.6 today. Continue to monitor hemoglobin closely. No signs of overt bleeding at this time. (4) Carotid artery disease Current Visit: Yes Status: Chronic Assessment and plan: Status post recent surgery for left carotid endarterectomy. Vascular surgery follow-up appreciated, no intervention. Qualifiers: Laterality: left Qualified Code(s): I77.9 - Disorder of arteries and arterioles, unspecified (5) COPD (chronic obstructive pulmonary disease) Current Visit: Yes Status: Chronic Assessment and plan: Not noted to be in acute exacerbation. On home oxygen. Continue bronchodilators and supplemental oxygen as needed. Qualifiers: COPD type: unspecified COPD Qualified Code(s): J44.9 - Chronic obstructive pulmonary disease, unspecified (6) Chronic respiratory failure Current Visit: Yes Status: Chronic Qualifiers: Respiratory failure complication: hypoxia Qualified Code(s): J96.11 - Chronic respiratory failure with hypoxia (7) Essential hypertension Current Visit: Yes Status: Chronic (8) Type 2 diabetes mellitus with other circulatory complications Current Visit: Yes Status: Chronic Assessment and plan: Accu-Chek blood glucose monitoring with sliding scale insulin. Blood sugars noted to be adequately controlled. Diabetic diet when tolerated. - Subjective Interval history: Reports feeling well but hungry. No chest pain, abdominal pain, shortness of breath. No vomiting or bowel movement. - Constitutional Vitals: Temp Pulse Resp BP Pulse Ox 98.2 F 94 17 111/67 98 12/27/16 06:52 12/27/16 06:52 12/27/16 06:52 12/27/16 06:52 12/27/16 06:52 General appearance: Present: A&O X 3, answers questions appropriately - Respiratory Respiratory exam: Present: CTAB. Absent: accessory muscle use, rales, rhonchi, wheezes - Cardiovascular Cardiovascular exam: Present: RRR, +S1, +S2. Absent: diastolic murmur, gallop, rubs, systolic murmur - GI/Abdominal GI/Abdominal exam: Present: normal bowel sounds, soft, no peritoneal signs. Absent: distended, tenderness - Extremities Exam Extremities exam: Present: full ROM, warm, radial pulses palpable and symetrical. Absent: calf tenderness, cyanotic, pedal edema Internal Medicine: Result - Labs CBC & Chem 7: 12/27/16 04:00 12/27/16 04:00 Labs: Short CBC 12/27/16 Range/Units 04:00 WBC 9.1 (4.3-11.1) K/mcL Hgb 8.6 L D (11.5-15.4) g/dL Hct 27.5 L (35.3-44.9) % Plt Count 236 (140-400) K/mcL Neutrophils # 6.7 (1.6-8.9) K/mcL BMP 12/27/16 04:00 Sodium 143 Potassium 3.8 Chloride 104 Carbon Dioxide 30 H BUN 18 Creatinine 0.75 Glucose 163 H Calcium 8.3 L - ABG Interpretation ABG results: PT/INR, D-dimer PT 12.8 Seconds (9.4-12.1) H 12/26/16 14:28 Consult Discharge Plan - Plan
[2016-12-27] MEDS: Budesonide/Formoterol 160/4.5 MDI IH SCH ×2 (08:50→22:36)
--- NOTE | 2016-12-27 11:54 | Gastroenterology Consult Note ---
Date of Encounter: 12/27/16 Time of Encounter: 11:00 - Time Spent With Patient Patient with blood loss anemia with melena. Hemoglobin is was down to 6. Has been transfused 2 unit of blood. Currently on twice a day PPI. Plan is for EGD today and if negative then she will need a colonoscopy GI History of Present Illness - Data of Consult Requesting Physician: Astrid Navarrete MD - Consult Narrative Reason for consult: Melena and anemia History of present illness: Ms. Dacosta is a 81 year old female with past medical history of diabetes type 2 , COPD, oxygen dependent at 2 L, hypertension, hypercholesterolemia, tremor in left lower leg and carotid stenosis who underwent left carotid endarterectomy on 12/10/2016. She developed severe generalized tremor yesterday morning that lasted a few hours and then came back today with associated pain in her left leg. Because of her tremors and inability to control her movements and ambulation, she fell on her left side injuring her left heel and left foot. In ED, patient was tachycardic. Hemoglobin was 6.8. INR 1.2. Patient takes Clopidogrel and aspirin at home. No coumadin. Upon questioning, she reports black stools for the past few days. Rectal examination revealed balck stools. Chest x-ray showed no acute process. X rays of her left pelvis, femur, tibia, and foot were negative for any acute process. CT of the head was negative for any acute process. No family history of CVA. No history of recent EGD. During her hospitalization she has received 2 units of blood her last black stool was 2 days ago. Denies any abdominal pain Past Med Surg Social Fam HX - Past Medical History Medical history: cancer, COPD, coronary artery disease, CVA, diabetes, hyperlipidemia, hypertension, other Psychiatric history: no psych history - Past Surgical History Surgical History: cholecystectomy, other - Social History Smoking Status: Unknown if ever smoked Smokeless Tobacco Status: No Alcohol use: none Drug use: none Review of Systems: GI: as per ALGAAC[employer], no abdominal pain GENERAL: denies fever, does complain of shakes in her lower extremities EYES: denies yellow discoloration ENT: denies pain with swallowing or difficulty swallowing CARDIO: denies chest pain, palpitations RESP: denies shortness of breath or wheezing : denies change in color of urine NEURO: Prior to hospitalization was complaining of feeling weak in general and also had shakes HEME: Denies any bruising MS: denies joint pain, joint swelling or back pain. DERM: denies rash or itching PSYCH: denies history of: depression or anxiety - Constitutional Vitals: Temp Pulse Resp BP Pulse Ox 98.2 F 86 17 119/54 99 12/27/16 11:19 12/27/16 11:19 12/27/16 11:19 12/27/16 11:19 12/27/16 11:19 General appearance: Present: A&O X 3, answers questions appropriately - Head Head exam: Present: atraumatic, normocephalic - Neck Additional comments: left Neck endarterectomy scar - Respiratory Additional comments: Bilateral good air entry no wheezing Results - Labs CBC & Chem 7: 12/27/16 04:00 12/27/16 04:00 Labs: Last Result Calcium 8.3 mg/dL (8.6-10.8) L 12/27/16 04:00 Troponin I 0.01 ng/mL (0-0.03) 12/26/16 15:09 C-Reactive Protein 11 mg/L (Less than 5) H 12/26/16 15:09 Stool Occult Blood Negative (Negative) 12/26/16 15:55 Entire Visit Hgb 8.6 g/dL (11.5-15.4) L D 12/27/16 04:00 Hct 27.5 % (35.3-44.9) L 12/27/16 04:00 PT 12.8 Seconds (9.4-12.1) H 12/26/16 14:28 Total Bilirubin 0.3 mg/dL (0.2-1.2) 12/26/16 15:09 AST 16 Units/L (5-34) 12/26/16 15:09 ALT 12 Units/L (0-55) 12/26/16 15:09 Lipase 20 Units/L (8-78) 12/26/16 15:09 - ABG ABG results: PT/INR, D-dimer PT 12.8 Seconds (9.4-12.1) H 12/26/16 14:28 Consult Discharge Plan - Plan Referrals: Joe King MD [Primary Care Provider] -
[2016-12-27] MEDS ORDERED: *HR* Midazolam HCl 5 MG/5 ML VIAL IVP ONE (12:00)
[2016-12-27] MEDS ORDERED: *HR* FentaNYL (PF) 100 MCG/2 ML VIAL ONE (12:00)
[2016-12-27] MEDS ORDERED: Simethicone 40 MG/0.6 ML MLS IR ONE (12:06)
[2016-12-27] MEDS ORDERED: Tetracaine/Benzocaine/Butamben 200MG/SPRAY (100SPY/BOT) MM ONE (12:06)
--- NOTE | 2016-12-27 12:07 | Pre-Sedation Evaluation ---
Pre-sedation evaluation - Pre-sedation checklist Date of procedure: 12/27/16 Recent Vitals: Last Vital Signs Temp 98.2 F 12/27/16 11:19 Pulse 86 12/27/16 11:19 Resp 17 12/27/16 11:19 BP 119/54 12/27/16 11:19 Pulse Ox 99 12/27/16 11:19 ASA Classification *see protocol: CLASS III-Severe systemic disease Plan of Care: Pt appropriate candidate for procedure/moderate/conscious sedation , Risks/benefits of procedure/sedation discussed w/ patient/family
[2016-12-27] MEDS: *HR* Midazolam HCl 5 MG/5 ML VIAL IVP PRN ×2 (12:21→12:23)
[2016-12-27] MEDS: *HR* FentaNYL (PF) 100 MCG/2 ML VIAL IVP PRN ×2 (12:21→12:23)
[2016-12-27] MEDS ORDERED: SODIUM CHLORIDE/NAHCO3/KCL/PEG 4,000 ML SOLN.RECON PO ONE (12:33)
[2016-12-28 05:33] LABS: Basophils % 0.4 %; Eosinophils # 0.6 K/mcL (0.0-0.6); Eosinophils % 7.3 %; Hematocrit 28.5 % (35.3-44.9); Immature Granulocytes % 0.4 % (0-4); Lymphocytes # 0.9 K/mcL (0.6-4.6); Lymphocytes % 11.7 %; Mean Corpuscular HGB Conc 31.6 g/dL (31.6-35.5); Mean Corpuscular Hemoglobin 29.9 pg (28.0-33.3); Mean Corpuscular Volume 94.7 fL (83.0-100.0); Mean Platelet Volume 12.4 fL (9.4-12.4); Monocytes # 0.5 K/mcL (0.0-1.3); Monocytes % 6.3 %; Neutrophils # 5.9 K/mcL (1.6-8.9); Platelet Count 221 K/mcL (140-400); Red Blood Count 3.01 M/mcL (3.82-4.97); Red Cell Distribution Width 17.2 % (11.5-14.5); Segmented Neutrophils % 73.9 %
[2016-12-28 05:44] LABS: BUN/Creatinine Ratio 19 (6-26); Blood Urea Nitrogen 14 mg/dL (7-20); Calcium 8.3 mg/dL (8.6-10.8); Carbon Dioxide 25 mEq/L (19-29); Chloride 103 mEq/L (98-109); Glucose 170 mg/dL (70-99); Osmolality,Calculated 294 (280-300); Potassium 4.3 mEq/L (3.5-4.5); Sodium 140 mEq/L (136-145); eGFR For African Americans > 60 (> 60); eGFR For Non-African Americans > 60 (> 60)
[2016-12-28] MEDS: Budesonide/Formoterol 160/4.5 MDI IH SCH ×2 (08:01→22:51)
[2016-12-28] MEDS: Pantoprazole 40 MG VIAL IVP SCH ×2 (08:05→20:33)
[2016-12-28] MEDS: Insulin LISPRO 300 UNITS/3 ML VIAL SQ SCH ×4 (08:09→20:34)
--- NOTE | 2016-12-28 09:39 | Internal Med Progress Note ---
Date of Encounter: 12/28/16 Time of Encounter: 09:37 - Assessment and plan (1) GI bleed Current Visit: Yes Status: Acute Assessment and plan: Reported melena but stool occult blood testing in the emergency room was negative. GI consulted and patient underwent EGD which showed salmon colored mucosal patches in esophagus, suggestive of As[place]'s esophagus and biopsies are pending, no active bleed/ulcers. Plan for colonoscopy today. Continue IV PPI and keep nothing by mouth for now. IV hydration. Supportive care. Qualifiers: GI bleed type/associated pathology: melena Qualified Code(s): K92.1 - Melena (2) Fall Current Visit: Yes Status: Acute Assessment and plan: Due to gait imbalance and lower extremity tremors of uncertain etiology. Fall precautions. Physical and occupational therapy evaluation pending. Qualifiers: Encounter type: initial encounter Qualified Code(s): W19.XXXA - Unspecified fall, initial encounter (3) Acute blood loss anemia Current Visit: Yes Status: Acute Assessment and plan: Acute anemia, possibly due to GI bleed. Received 2 units of PRBC and hemoglobin remained stable around 9. Continue to monitor hemoglobin closely. No signs of overt bleeding at this time. (4) Carotid artery disease Current Visit: Yes Status: Chronic Qualifiers: Laterality: left Qualified Code(s): I77.9 - Disorder of arteries and arterioles, unspecified (5) COPD (chronic obstructive pulmonary disease) Current Visit: Yes Status: Chronic Assessment and plan: Not noted to be in acute exacerbation. On home oxygen. Continue bronchodilators and supplemental oxygen as needed. Qualifiers: COPD type: unspecified COPD Qualified Code(s): J44.9 - Chronic obstructive pulmonary disease, unspecified (6) Chronic respiratory failure Current Visit: Yes Status: Chronic Qualifiers: Respiratory failure complication: hypoxia Qualified Code(s): J96.11 - Chronic respiratory failure with hypoxia (7) Essential hypertension Current Visit: Yes Status: Chronic (8) Type 2 diabetes mellitus with other circulatory complications Current Visit: Yes Status: Chronic Assessment and plan: Accu-Chek blood glucose monitoring with sliding scale insulin. Blood sugars noted to be adequately controlled. Diabetic diet when tolerated. - Subjective Interval history: Underwent EGD yesterday, which showed no evidence of active bleeding. Awaiting colonoscopy today. Has been noncompliant with bowel prep yesterday as she claims it gave her too much diarrhea. Started drinking GoLytely today. No abdominal pain, nausea, vomiting. - Constitutional Vitals: Temp Pulse Resp BP Pulse Ox 98.4 F 78 16 132/56 96 12/28/16 07:40 12/28/16 07:40 12/28/16 08:01 12/28/16 08:01 12/28/16 08:01 General appearance: Present: A&O X 3, answers questions appropriately - Respiratory Respiratory exam: Present: CTAB. Absent: accessory muscle use, rales, rhonchi, wheezes - Cardiovascular Cardiovascular exam: Present: RRR, +S1, +S2. Absent: diastolic murmur, gallop, rubs, systolic murmur - GI/Abdominal GI/Abdominal exam: Present: normal bowel sounds, soft (obese), no peritoneal signs. Absent: distended, tenderness Internal Medicine: Result - Labs CBC & Chem 7: 12/28/16 05:04 12/28/16 05:04 Labs: Short CBC 12/28/16 Range/Units 05:04 WBC 8.0 (4.3-11.1) K/mcL Hgb 9.0 L (11.5-15.4) g/dL Hct 28.5 L (35.3-44.9) % Plt Count 221 (140-400) K/mcL Neutrophils # 5.9 (1.6-8.9) K/mcL BMP 12/28/16 05:04 Sodium 140 Potassium 4.3 Chloride 103 Carbon Dioxide 25 BUN 14 Creatinine 0.74 Glucose 170 H Calcium 8.3 L - ABG Interpretation ABG results: PT/INR, D-dimer PT 12.8 Seconds (9.4-12.1) H 12/26/16 14:28 Consult Discharge Plan - Plan Referrals: Joe King MD [Primary Care Provider] -
[2016-12-28] MEDS ORDERED: *HR* Morphine 2 MG/ML SYRINGE IVP PRN (13:16)
[2016-12-28] MEDS ORDERED: Polyethylene Glycol 3350 255 GM POWDER PO ONE (15:08)
[2016-12-29 06:00] LABS: Basophils % 0.1 %; Eosinophils # 0.2 K/mcL (0.0-0.6); Eosinophils % 2.4 %; Hematocrit 30.3 % (35.3-44.9); Hemoglobin 9.6 g/dL (11.5-15.4); Immature Granulocytes % 0.4 % (0-4); Lymphocytes # 0.8 K/mcL (0.6-4.6); Lymphocytes % 9.6 %; Mean Corpuscular HGB Conc 31.7 g/dL (31.6-35.5); Mean Corpuscular Hemoglobin 29.4 pg (28.0-33.3); Mean Corpuscular Volume 92.7 fL (83.0-100.0); Mean Platelet Volume 11.9 fL (9.4-12.4); Monocytes # 0.5 K/mcL (0.0-1.3); Monocytes % 6.9 %; Neutrophils # 6.3 K/mcL (1.6-8.9); Platelet Count 235 K/mcL (140-400); Red Blood Count 3.27 M/mcL (3.82-4.97); Red Cell Distribution Width 15.9 % (11.5-14.5); Segmented Neutrophils % 80.6 %
--- NOTE | 2016-12-29 06:05 | Electrocardiograph Report ---
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
--- NOTE | 2016-12-29 06:21 | Electrocardiograph Report ---
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
[2016-12-29] MEDS: Budesonide/Formoterol 160/4.5 MDI IH SCH ×2 (07:46→20:36)
[2016-12-29] MEDS: Pantoprazole 40 MG VIAL IVP SCH ×2 (08:31→21:12)
[2016-12-29] MEDS: Insulin LISPRO 300 UNITS/3 ML VIAL SQ SCH ×4 (08:33→22:20)
[2016-12-29] MEDS ORDERED: Simethicone 40 MG/0.6 ML MLS IR ONE (12:48)
[2016-12-29] MEDS ORDERED: Tetracaine/Benzocaine/Butamben 200MG/SPRAY (100SPY/BOT) MM ONE (12:48)
--- NOTE | 2016-12-29 12:50 | Anesthesia Evaluation PreOp ---
Date of Encounter: 12/29/16 Time of Encounter: 12:48 - Past History Planned Operation: colonoscopy Cardiac History: HTN, Hyperlipidemia Pulmonary History: Former smoker, COPD (home oxygen 2L all the time) PICTURE COPYIST History: Denies Any Significant HX, Other (s/p [place] CEA for carotid stenosis - pt denies hx of CVA) Other Medical History: Diabetes Type II Anesthesia History: No Prior Anesthetic Complications, Past Anesthesia (R and L CEA) Alcohol Use: none Drug use: none Medications and Allergies Albuterol Sulfate [Albuterol Inhaler] 2 puff IH Q4HR PRN 02/27/16 [History] Aspirin [Adult Low Dose Aspirin EC] 81 mg PO DAILY 02/27/16 [History] Cholecalciferol (Vitamin D3) [Vitamin D3] 5,000 unit PO DAILY 02/27/16 [History] Clopidogrel [Plavix] 75 mg PO HS 02/27/16 [History] Cyclobenzaprine HCl 5 mg PO TID 02/27/16 [History] Fluticasone/Salmeterol [Advair 250-50 Diskus] 1 puff IH BID 02/27/16 [History] Furosemide [Lasix] 20 mg PO HS 02/27/16 [History] Insulin ASPART [Novolog Flexpen] 6 unit SQ TID 02/27/16 [History] Insulin Glargine,Hum.rec.anlog [Lantus Solostar] 16 unit SQ HS 02/27/16 [History ] Lisinopril [Zestril] 40 mg PO HS 02/27/16 [History] Pregabalin [Lyrica] 150 mg PO BID 02/27/16 [History] Tiotropium [Spiriva] 18 mcg IH DAILY 02/27/16 [History] Metformin HCl [Metformin HCl ER] 500 mg PO DAILY 12/10/16 [History] Oxygen 2 l NS AD 12/10/16 [History] Simvastatin [Zocor] 20 mg PO HS 12/10/16 [History] HYDROcodone/Acet 5/325 mg [[place] 5-325 mg] 1 tab PO Q4H PRN #30 tablet 12/11/16 [Rx] Allergies No Known Allergies Allergy (Verified 12/10/16 11:41) - Meds/Allergy Pre-op Review Medications Reviewed: Yes Allergies Reviewed: Yes Beta Blockers on Current Med List: No Anesthesia Results - Labs 12/29/16 05:18 12/28/16 05:04 - Imaging EKG: report reviewed, image reviewed (SR) Anesthesia Exam Last Vital Signs Temp 98.5 F 12/29/16 11:58 Pulse 98 12/29/16 12:47 Resp 22 12/29/16 12:47 BP 179/77 12/29/16 12:47 Pulse Ox 100 12/29/16 12:47 Weight: 78 kg NPO (# of Hours): >> 8 hrs - HEENT Pupil (Motor): Pupils equal, EOMI Mallampati: III Oral Opening: Greater than 3 - PICTURE COPYIST LOC: Oriented PICTURE COPYIST Motor: Normal RUE, Normal LUE, Normal RLE, Normal LLE, Normal Face - Cardiac Rhythm: Regular Murmur: None - Pulmonary Breath Sounds: bilateral Clear Respiratory Effort: Symmetrical Anesthesia Assess/Plan ASA Score: 4 (home O2, copd, carotid stenosis, HTN, DM 2) Modified Ruby Scale for Level of Consciousness: Cooperative, oriented, and tranquil Anesthetic Plan: MAC Monitoring Plan: Standard Monitors Recovery Plan: PACU
[2016-12-29] MEDS ORDERED: 0.9 % Sodium Chloride 500 ML IVC SCH (13:00)
--- NOTE | 2016-12-29 13:58 | Anesthesia Evaluation Post Op ---
Date of Encounter: 12/29/16 Time of Encounter: 13:56 - Vital Signs Vital Signs: 3 Vital Signs Time 1358 BP 127/51 Pulse 94 Resp 20 O2 Sat 95 - Lungs Lungs: Clear Ascult./Percussion - Airway Airway: Non-obstructed - Cardiovascular Regular Rate - Mental Status Mental Status: Alert & Oriented, Answers Appropriately - Pain Pain Scale: 0 Pain Scale used: Numeric (1 - 10) - Nausea Vomiting Nausea Vomiting: Not Present - Hydration Hydration: NPO, Has not voided - Discharge PostOp Status: Transfer Patient to floor
--- NOTE | 2016-12-29 16:33 | Internal Med Progress Note ---
Date of Encounter: 12/29/16 Time of Encounter: 14:00 - Assessment and plan (1) Episode of shaking Current Visit: Yes Status: Acute Assessment and plan: consults neurology, check MRI brain,check 25 hydroxy vitamin D, check vitamin B12, check EEG, discussed the case with neurology (2) Acute blood loss anemia Current Visit: Yes Status: Acute Assessment and plan: status post EGD and colonoscopy, no active bleeding. check anemia workup (3) Type 2 diabetes mellitus with other circulatory complications Current Visit: Yes Status: Chronic - Time Spent With Patient 25 - 35 minutes - Subjective Interval history: patient denies any chest pain or shortness of breath. Colonoscopy done today. No evidence of active bleeding. Patient daughter concerned about her shaking episodes which resulting in fall . No motor or sensory changes. NO Visual changes - Constitutional Vitals: Temp Pulse Resp BP Pulse Ox 97.8 F 89 16 156/68 100 12/29/16 14:15 12/29/16 14:15 12/29/16 14:15 12/29/16 14:15 12/29/16 14:15 General appearance: Present: A&O X 3, answers questions appropriately - Head Head exam: Present: atraumatic, normocephalic - Neck Neck exam general surgery: Present: supple, trachea midline. Absent: lymphadenopathy - Respiratory Respiratory exam: Present: CTAB. Absent: accessory muscle use, rales, rhonchi, wheezes - Cardiovascular Cardiovascular exam: Present: RRR, +S1, +S2. Absent: diastolic murmur, gallop, rubs, systolic murmur - GI/Abdominal GI/Abdominal exam: Present: normal bowel sounds, soft, no peritoneal signs. Absent: distended, tenderness - Extremities Exam Extremities exam: Present: warm, radial pulses palpable and symetrical. Absent : calf tenderness, cyanotic, pedal edema - Neurological Exam Neurological exam: Present: CN II-XII intact, oriented X3, no focal deficits. Absent: pronater drift, facial droop, speech deficit Internal Medicine: Result - Labs CBC & Chem 7: 12/29/16 05:18 12/28/16 05:04 Labs: Short CBC 12/29/16 Range/Units 05:18 WBC 7.8 (4.3-11.1) K/mcL Hgb 9.6 L (11.5-15.4) g/dL Hct 30.3 L (35.3-44.9) % Plt Count 235 (140-400) K/mcL Neutrophils # 6.3 (1.6-8.9) K/mcL - ABG Interpretation ABG results: PT/INR, D-dimer PT 12.8 Seconds (9.4-12.1) H 12/26/16 14:28 - VTE Documentation of Mechanical Device: Venous foot pump, device Consult Discharge Plan - Plan Referrals: Joe King MD [Primary Care Provider] - 01/05/17 2:00 pm
[2016-12-29] MEDS ORDERED: *HR* LORazepam 2 MG/ML VIAL IVP ONE (20:33)
[2016-12-30 05:43] LABS: Hemoglobin 9.1 g/dL (11.5-15.4)
[2016-12-30 06:00] LABS: % Iron Saturation 9 % (15-50); BUN/Creatinine Ratio 10 (6-26); Blood Urea Nitrogen 7 mg/dL (7-20); Calcium 8.4 mg/dL (8.6-10.8); Carbon Dioxide 25 mEq/L (19-29); Chloride 102 mEq/L (98-109); Glucose 200 mg/dL (70-99); Iron 26 mcg/dL (50-170); Magnesium 1.8 mg/dL (1.6-2.6); Osmolality,Calculated 290 (280-300); Phosphorous 2.5 mg/dL (2.3-4.7); Potassium 3.7 mEq/L (3.5-4.5); Sodium 138 mEq/L (136-145); Transferrin 196 mg/dL (180-382); eGFR For African Americans > 60 (> 60); eGFR For Non-African Americans > 60 (> 60)
[2016-12-30] MEDS ORDERED: Iron Sucrose Complex 400 MG in 0.9 % Sodium Chloride 250 ML IVPB ONE (10:56)
[2016-12-30] MEDS ORDERED: Insulin DETEMIR 100 UNIT/ML X5UNITS SQ SCH (11:00)
[2016-12-30] MEDS: Budesonide/Formoterol 160/4.5 MDI IH SCH ×2 (11:06→20:59)
--- NOTE | 2016-12-30 11:26 | Neurology - Consult Note ---
Date of Encounter: 12/30/16 Time of Encounter: 08:25 Assessment and Plan (1) Jerking, massive myoclonic Current Visit: Yes Status: Acute Patient's symptoms and history seems to be consistent with myoclonic type jerking and shaking, seems to be stimulus-related as according to the patient that certain movements particularly getting out of the bed seems to trigger these jerking movement which can last for several days and then it spontaneously resolved by itself. No seizures are in the differential but she did not have any altered consciousness with these spells she is already scheduled for an EEG reviewed to EEG for any interictal abnormalities. But the symptoms and history does not sound like a typical complex partial seizure, though these could be simple partial seizures for that we will review the EEG for any abnormalities. Other possibility that sometimes these generalized jerking could be related to underlying central cervical stenosis though it is a possibility but certainly need to be excluded suggest getting an MRI of the cervical spine for any critical stenosis. Also need to check for other metabolic abnormalities particularly liver functions and ammonia hypo-thyroidism, vitamin B12 deficiencies, as well as any renal abnormalities particularly high BUN/creatinine sometimes could be the contributing factors. No evidence of any stroke on current examination. CT scan has shown evidence of old cerebellar infarct, though this should not cause any myoclonic type of jerking but certainly can cause difficulty with her gait and balance. Perhaps may need an MRI of the brain as well especially if MRI of the cervical spine is negative. As far as any medical treatment is concerned that she could be started on anticonvulsive agents like Depakote that seems to help reduce myoclonic type of jerking other option will be on clonazepam but that can make difficulty of balance worse particularly in this age group. She will certainly benefit from physical therapy evaluation and particularly for gait and balance rehabilitation (2) History of bilateral carotid endarterectomy Current Visit: Yes Status: Acute She is on antiplatelet agent suggested to continue on it along with the statin, if there is a concern off GI bleed, perhaps she could be maintained only on one agent instead of aspirin and Plavix together especially if she does not have any active bleeding (3) Difficulty balancing Current Visit: Yes Status: Acute History of Present Illness HPI: Ms. Dacosta is a 81 year old female with past medical history of diabetes type 2 , COPD, oxygen dependent at 2 L, hypertension, hypercholesterolemia, tremor in left lower leg and carotid stenosis who underwent left carotid endarterectomy on 12/10/2016. admited with generalized tremor for quite some time, according to pt, she has been having these generalized shaking of her whole body for the past several months , can last for a few hours and then resolved spontaneously . She has been having these shaking off and on for the past several months it can last for several days recently she has been falling because of it and she not been able to control her balance. she fell on her left side injuring her left heel and left foot. In the emergency room X rays of her left pelvis, femur, tibia, and foot were negative for any acute process. CT of the head was negative for any acute process. According to the patient these shaking spells which comes and spontaneously but most of the time they happen when she is trying to get out of the bed or trying to get up mostly associated with certain movements but never happened when she is laying down in the bed. At the same time she is quite awake during those spells and did not have any altered consciousness. By an shaking is just all over the body without any control. She denies any weakness after the spell Past Med Surg Social Fam HX - Past Medical History Medical history: cancer, COPD, coronary artery disease, CVA, diabetes, hyperlipidemia, hypertension, other Psychiatric history: no psych history - Past Surgical History Surgical History: cholecystectomy, other - Social History Smoking Status: Unknown if ever smoked Smokeless Tobacco Status: No Alcohol use: none Drug use: none Medications and Allergies Albuterol Sulfate [Albuterol Inhaler] 2 puff IH Q4HR PRN 02/27/16 [History] Aspirin [Adult Low Dose Aspirin EC] 81 mg PO DAILY 02/27/16 [History] Cholecalciferol (Vitamin D3) [Vitamin D3] 5,000 unit PO DAILY 02/27/16 [History] Clopidogrel [Plavix] 75 mg PO HS 02/27/16 [History] Cyclobenzaprine HCl 5 mg PO TID 02/27/16 [History] Fluticasone/Salmeterol [Advair 250-50 Diskus] 1 puff IH BID 02/27/16 [History] Furosemide [Lasix] 20 mg PO HS 02/27/16 [History] Insulin ASPART [Novolog Flexpen] 6 unit SQ TID 02/27/16 [History] Insulin Glargine,Hum.rec.anlog [Lantus Solostar] 16 unit SQ HS 02/27/16 [History ] Lisinopril [Zestril] 40 mg PO HS 02/27/16 [History] Pregabalin [Lyrica] 150 mg PO BID 02/27/16 [History] Tiotropium [Spiriva] 18 mcg IH DAILY 02/27/16 [History] Metformin HCl [Metformin HCl ER] 500 mg PO DAILY 12/10/16 [History] Oxygen 2 l NS AD 12/10/16 [History] Simvastatin [Zocor] 20 mg PO HS 12/10/16 [History] HYDROcodone/Acet 5/325 mg [Point 5-325 mg] 1 tab PO Q4H PRN #30 tablet 12/11/16 [Rx] Allergies No Known Allergies Allergy (Verified 12/10/16 11:41) All Systems: A 10-system review of systems was performed and is negative for pertinent findings except as documented above in the HPI. Physical Examination - Vital Signs Vital Signs: Initial Vital Signs Temp Pulse Resp BP Pulse Ox 97.6 F 109 20 86/67 90 L 12/26/16 12:02 12/26/16 12:02 12/26/16 12:02 12/26/16 12:02 12/26/16 12:02 - Exam Exam: Heart S1 and S2 audible, abdomen is soft, lung clear to auscultation, mild extremity pedal edema. - Constitutional General appearance: comfortable - Neurologic Sensorimotor examination: other (Decreased to pinprick in lower extremities but quite inconsistent) Detailed motor examination: grossly full strength in all extremities Motor examination - right side: 4/5: deltoids, biceps, triceps, wrist flexion, wrist extension, laborer cement gun placing, hip flexors, tibialis Anterior, quadriceps, toe extension (EHL) Motor examination - left side: 4/5: deltoids, biceps, triceps, wrist flexion, wrist extension, hip flexors, laborer cement gun placing, quadriceps, tibialis Anterior, toe extension (EHL) Detailed sensory examination: intact, other (Decreased in lower extremities) Reflexes: Biceps: 1+, Triceps: 1+, Brachioradialis: 1+, Patella: 0, Achilles: 0 Mental Status Examination: awake, alert, oriented to person, oriented to place, oriented to time, follows commands appropriately, answers questions appropriately, no aphasia Cranial nerve examination: PERRL, EOMI, visual mccoy intact, no facial asymmetry is present, no dysarthria Cerebellar examination: no dysmetria Results - Laboratory Findings CBC and BMP: 12/30/16 04:51 12/30/16 04:51 Abnormal lab findings: Abnormal lab results RBC 3.27 M/mcL (3.82-4.97) L 12/29/16 05:18 Hgb 9.1 g/dL (11.5-15.4) L 12/30/16 04:51 Hct 29.0 % (35.3-44.9) L 12/30/16 04:51 RDW 15.9 % (11.5-14.5) H 12/29/16 05:18 Immature Plt Fraction 9.6 % (1.1-6.1) H 12/27/16 04:00 PT 12.8 Seconds (9.4-12.1) H 12/26/16 14:28 Glucose 200 mg/dL (70-99) H 12/30/16 04:51 POC Glucose 229 (58-89) H 12/30/16 07:26 Hemoglobin A1c 6.0 % (-5.6) H 12/29/16 05:18 Calcium 8.4 mg/dL (8.6-10.8) L 12/30/16 04:51 Iron 26 mcg/dL (50-170) L 12/30/16 04:51 % Saturation 9 % (15-50) L 12/30/16 04:51 C-Reactive Protein 11 mg/L (Less than 5) H 12/26/16 15:09 B-Natriuretic Peptide 109 pg/mL (0-100) H 12/26/16 15:09 Albumin 3.3 g/dL (3.5-5.0) L 12/26/16 15:09 Urine Glucose (UA) 100 mg/dL (Normal) H 12/26/16 12:52 - Diagnostic Findings Additional findings: CT scan of the head did not shows any acute abnormality Consult Discharge Plan - Plan Referrals: Joe King MD [Primary Care Provider] - 01/05/17 2:00 pm
[2016-12-30] MEDS: Pantoprazole 40 MG VIAL IVP SCH (11:38)
[2016-12-30] MEDS: Insulin LISPRO 300 UNITS/3 ML VIAL SQ SCH ×3 (11:46→16:36)
[2016-12-30] MEDS ORDERED: *HR* LORazepam 2 MG/ML VIAL IVP ONE (12:43)
[2016-12-30 15:22] VITALS: BP 165/82
--- NOTE | 2016-12-30 17:31 | Discharge Summary ---
Date of Encounter: 12/30/16 Time of Encounter: 17:29 - Discharge Diagnosis (1) Type 2 diabetes mellitus with other circulatory complications Priority: Secondary Status: Chronic (2) Iron (Fe) deficiency anemia Priority: Primary Status: Acute Qualifiers: Iron deficiency anemia type: chronic blood loss Qualified Code(s): D50.0 - Iron deficiency anemia secondary to blood loss (chronic) (3) CVA (cerebrovascular accident) Priority: Secondary Status: Acute Qualifiers: CVA mechanism: unspecified Qualified Code(s): I63.9 - Cerebral infarction, unspecified (4) Myoclonic jerking Priority: Primary Status: Acute (5) Fall Priority: Primary Status: Acute Qualifiers: Encounter type: initial encounter Qualified Code(s): W19.XXXA - Unspecified fall, initial encounter (6) Ashton esophagus Priority: Secondary Status: Acute Qualifiers: 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 Ferrous Sulfate 325 mg PO BIDWM #180 tablet Folic Acid 1 mg PO DAILY #90 tablet Pantoprazole Sodium [Protonix] 40 mg PO DAILY #90 granpkt. Home Medications: Albuterol Sulfate [Albuterol Inhaler] 2 puff IH Q4HR PRN 02/27/16 [History] Aspirin [Adult Low Dose Aspirin EC] 81 mg PO DAILY 02/27/16 [History] Cholecalciferol (Vitamin D3) [Vitamin D3] 5,000 unit PO DAILY 02/27/16 [History] Clopidogrel [Plavix] 75 mg PO HS 02/27/16 [History] Fluticasone/Salmeterol [Advair 250-50 Diskus] 1 puff IH BID 02/27/16 [History] Furosemide [Lasix] 20 mg PO HS 02/27/16 [History] Lisinopril [Zestril] 40 mg PO HS 02/27/16 [History] Pregabalin [Lyrica] 150 mg PO BID 02/27/16 [History] Tiotropium [Spiriva] 18 mcg IH DAILY 02/27/16 [History] Metformin HCl [Metformin HCl ER] 500 mg PO DAILY 12/10/16 [History] Oxygen 2 l NS AD 12/10/16 [History] Simvastatin [Zocor] 20 mg PO HS 12/10/16 [History] Cyanocobalamin (B-12) [Vitamin B12] 1,000 mcg PO DAILY #90 tablet 12/30/16 [Rx] Cyclobenzaprine HCl 5 mg PO TID PRN #0 12/30/16 [Rx] Divalproex Sodium [Depakote] 250 mg PO DAILY #90 tablet. 12/30/16 [Rx] Ferrous Sulfate 325 mg PO BIDWM #180 tablet 12/30/16 [Rx] Folic Acid 1 mg PO DAILY #90 tablet 12/30/16 [Rx] Insulin ASPART [Novolog Flexpen] 4 unit SQ TID #0 12/30/16 [Rx] Insulin Glargine,Hum.rec.anlog [Lantus Solostar] 10 unit SQ HS #0 12/30/16 [Rx] Pantoprazole Sodium [Protonix] 40 mg PO DAILY #90 granpkt. 12/30/16 [Rx] Allergies/Adverse Reactions: Allergies No Known Allergies Allergy (Verified 12/10/16 11:41) Procedures/tests Complete & Pending: Procedures Performed prior 72 hours Category Date Time Status MR cervical spine wo con [MR] Routine MRI 12/30/16 12:02 Completed MR head/brain wo con [MR] Stat MRI 12/29/16 16:38 Completed Date of admission: 12/26/16 16:37 Primary care physician: Joe iKng MD Consults: 12/26/16 17:07 Consult to Occupational Therapy [CONS] Routine Comment: Evaluate, develop and implement POC Consult to Physical Therapy [CONS] Routine Comment: Evaluate, develop and implement POC 12/26/16 18:29 Consult to Claim Benefit Specialist [CONS] Routine Reason for SW Consult: possible home health or ECF placement 12/26/16 18:37 Consult to Gastroenterology [CONS] Routine Consulting Provider: Josue Gonzáles Reason for Consult: melena Call Completed: Yes 12/29/16 09:22 Consult to Claim Benefit Specialist [CONS] Routine Reason for SW Consult: discharge planning 12/30/16 09:59 Consult to Interpret Exam [CONS] Routine Consulting Provider: Hakan,Howe I Consult to Interpret Exam: Interpret EEG Discharging clinician: Ligia Blevins - Patient Status Disposition: Home Health Service Condition: Good Functional capacity at discharge: uses cane/walker Overall status at discharge: patient is progressing back to baseline - Discharge Instructions Instructions: Anemia (GEN) Follow Up With: Joe King MD [Primary Care Provider] - 01/05/17 2:00 pm Forms: ED Satisfaction Letter - Diet and Activity Activity: increase activity as tolerated Diet: diabetic diet, low salt diet Hospital course: Ms. Dacosta is a 81 year old female with past medical history of diabetes type 2 , COPD, oxygen dependent at 2 L, hypertension, hypercholesterolemia, tremor in left lower leg and carotid stenosis who underwent left carotid endarterectomy on 12/10/2016. admited with generalized tremor for quite some time, according to pt, she has been having these generalized shaking of her whole body twice over last year ,Last one happened on the day of admission end up by sliding and falling from bed , No post ictal seizureand it resolved spontaneously .In the emergency room X rays of her left pelvis, femur, tibia, and foot were negative for any acute process. CT of the head was negative for any acute process. 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 The MRI C- spine done no significant spinal stenosis. Patient has history carotid stenosis who underwent left carotid endarterectomy on 12/10/2016.In ED, patient was tachycardic. Hemoglobin was 6.8. INR 1.2. Patient takes Clopidogrel and aspirin at home. No coumadin. Upon questioning, she reports black stools for the past few days. Rectal examination revealed balck stools. Chest x-ray showed no acute process. X rays of her left pelvis, femur, tibia, and foot were negative for any acute process. CT of the head was negative for any acute process. No family history of CVA. No history of recent EGD. Patient admitted to the hospital EGD was done which showed possible Ashton's esophagus. Biopsy obtained which showed consistent with the dysplasia but esophagus. Patient also had colonoscopy biopsy obtained but pending. H&H was stable during hospitalization, recommended to continue current anticoagulant in addition adding Protonix. Neurology was consulted and he recommended to add Depakote 250 daily on discharge follow-up as an outpatient. Patient needs to follow up with overhead distribution engineer may need repeated EGD down the road for her Ashton's esophagus. Discussed the results of MRI was daughter and patient at bedside. Patient stated she had episodes of hypoglycemia at home. Hemoglobin A1c is 6 which shows just that could be the patient has recurrent episodes of hypoglycemia which could be septic as secondary cause which can cause shaking episode and seizure-like activity. Discussed with patient that we need to correct Lantus try to keep hemoglobin A1c between 6.5 and 7 - Time Spent with Patient Total time spent providing and/or coordinating discharge services: Greater than 30 minutes - Constitutional Vitals: Temp Pulse Resp BP Pulse Ox 98.7 F 107 14 165/82 95 12/30/16 15:22 12/30/16 15:22 12/30/16 15:22 12/30/16 15:22 12/30/16 15:22 General appearance: Present: A&O X 3, answers questions appropriately - VTE Documentation of Mechanical Device: Venous foot pump, device
--- NOTE | 2016-12-30 18:16 | Discharge Summary ---
Date of Encounter: 12/30/16 Time of Encounter: 18:14 - Discharge Diagnosis (1) Type 2 diabetes mellitus with other circulatory complications Priority: Secondary Status: Chronic (2) Iron (Fe) deficiency anemia Priority: Secondary Status: Acute Qualifiers: Iron deficiency anemia type: chronic blood loss Qualified Code(s): D50.0 - Iron deficiency anemia secondary to blood loss (chronic) (3) CVA (cerebrovascular accident) Priority: Secondary Status: Acute Qualifiers: CVA mechanism: unspecified Qualified Code(s): I63.9 - Cerebral infarction, unspecified (4) Myoclonic jerking Priority: Primary Status: Acute (5) Fall Priority: Primary Status: Acute Qualifiers: Encounter type: initial encounter Qualified Code(s): W19.XXXA - Unspecified fall, initial encounter (6) Ashton esophagus Priority: Secondary Status: Acute Qualifiers: Ashton's esophagus type: with low grade dysplasia Qualified Code(s): K22.710 - Ashton's esophagus with low grade dysplasia - Discharge Medications Prescriptions: Cyanocobalamin (B-12) [Vitamin B12] 1,000 mcg PO DAILY #90 tablet Divalproex Sodium [Depakote] 250 mg PO DAILY #90 tablet. Ferrous Sulfate 325 mg PO BIDWM #180 tablet Folic Acid 1 mg PO DAILY #90 tablet Pantoprazole Sodium [Protonix] 40 mg PO DAILY #90 granpkt. Home Medications: Albuterol Sulfate [Albuterol Inhaler] 2 puff IH Q4HR PRN 02/27/16 [History] Aspirin [Adult Low Dose Aspirin EC] 81 mg PO DAILY 02/27/16 [History] Cholecalciferol (Vitamin D3) [Vitamin D3] 5,000 unit PO DAILY 02/27/16 [History] Clopidogrel [Plavix] 75 mg PO HS 02/27/16 [History] Fluticasone/Salmeterol [Advair 250-50 Diskus] 1 puff IH BID 02/27/16 [History] Furosemide [Lasix] 20 mg PO HS 02/27/16 [History] Lisinopril [Zestril] 40 mg PO HS 02/27/16 [History] Pregabalin [Lyrica] 150 mg PO BID 02/27/16 [History] Tiotropium [Spiriva] 18 mcg IH DAILY 04/21/16 [History] Metformin HCl [Metformin HCl ER] 500 mg PO DAILY 12/10/16 [History] Oxygen 2 l NS AD 12/10/16 [History] Simvastatin [Zocor] 20 mg PO HS 12/10/16 [History] Cyanocobalamin (B-12) [Vitamin B12] 1,000 mcg PO DAILY #90 tablet 12/30/16 [Rx] Cyclobenzaprine HCl 5 mg PO TID PRN #0 12/30/16 [Rx] Divalproex Sodium [Depakote] 250 mg PO DAILY #90 tablet. 12/30/16 [Rx] Ferrous Sulfate 325 mg PO BIDWM #180 tablet 12/30/16 [Rx] Folic Acid 1 mg PO DAILY #90 tablet 12/30/16 [Rx] Insulin ASPART [Novolog Flexpen] 4 unit SQ TID #0 12/30/16 [Rx] Insulin Glargine,Hum.rec.anlog [Lantus Solostar] 10 unit SQ HS #0 12/30/16 [Rx] Pantoprazole Sodium [Protonix] 40 mg PO DAILY #90 granpkt. 12/30/16 [Rx] Allergies/Adverse Reactions: Allergies No Known Allergies Allergy (Verified 12/10/16 11:41) Procedures/tests Complete & Pending: Procedures Performed prior 72 hours Category Date Time Status MR cervical spine wo con [MR] Routine MRI 12/30/16 12:02 Completed MR head/brain wo con [MR] Stat MRI 12/29/16 16:38 Completed Date of admission: 12/26/16 16:37 Primary care physician: Joe King MD Consults: 12/26/16 17:07 Consult to Occupational Therapy [CONS] Routine Comment: Evaluate, develop and implement POC Consult to Physical Therapy [CONS] Routine Comment: Evaluate, develop and implement POC 12/26/16 18:29 Consult to Rig Manager [CONS] Routine Reason for SW Consult: possible home health or ECF placement 12/26/16 18:37 Consult to Gastroenterology [CONS] Routine Consulting Provider: Josue Gonzáles Reason for Consult: melena Call Completed: Yes 12/29/16 09:22 Consult to Rig Manager [CONS] Routine Reason for SW Consult: discharge planning 12/30/16 09:59 Consult to Interpret Exam [CONS] Routine Consulting Provider: Hakna,Howe I Consult to Interpret Exam: Interpret EEG Discharging clinician: Ligia Blevins - Patient Status Disposition: Home Health Service Condition: Good - Discharge Instructions Follow Up With: Joe King MD [Primary Care Provider] - 01/05/17 2:00 pm Forms: ED Satisfaction Letter Hospital course: Ms. Dacosta is a 81 year old female - Time Spent with Patient Total time spent providing and/or coordinating discharge services: - Constitutional Vitals: Temp Pulse Resp BP Pulse Ox 98.7 F 107 14 165/82 95 12/30/16 15:22 12/30/16 15:22 12/30/16 15:22 12/30/16 15:22 12/30/16 15:22 General appearance: Present: A&O X 3, answers questions appropriately - VTE Documentation of Mechanical Device: Venous foot pump, device
[2016-12-30] MEDS ORDERED: *HR* Propofol 500 MG/50 ML BOTTLE IVC ONE (20:41)
--- NOTE | 2016-12-31 09:26 | Physician Discharge Referral ---
Home Health/Hosp Referral Info Transfer to: Home Health Provider in Charge Post Discharge: PCP - Diagnosis (1) Type 2 diabetes mellitus with other circulatory complications Priority: Secondary Status: Chronic (2) Iron (Fe) deficiency anemia Priority: Primary Status: Acute (3) CVA (cerebrovascular accident) Priority: Secondary Status: Acute (4) Myoclonic jerking Priority: Primary Status: Acute (5) Fall Priority: Primary Status: Acute (6) [place] esophagus Priority: Secondary Status: Acute (7) Iron deficiency anemia secondary to blood loss (chronic) Priority: Primary Status: Acute - Respiratory Orders Oxygen / L per min (2 liter) Smoking Cessation: Smoking cessation has been advised. For more information, call the [place] Tobacco Quit Line at 1-476-HOPF-NOW. - Diet/Nutrition Diet/Nutrition Orders: Cardiac - Activity Activity Orders: Ambulate, Walker - Services Needed Following services are medically necessary services: Nursing, Physical Therapy, Occupational Therapy - Transfer Medications Prescriptions: Cyanocobalamin (B-12) [Vitamin B12] 1,000 mcg PO DAILY #90 tablet Divalproex Sodium [Depakote] 250 mg PO DAILY #90 tablet. Ferrous Sulfate 325 mg PO BIDWM #180 tablet Folic Acid 1 mg PO DAILY #90 tablet Pantoprazole Sodium [Protonix] 40 mg PO DAILY #90 granpkt. Home Medications: Albuterol Sulfate [Albuterol Inhaler] 2 puff IH Q4HR PRN 02/27/16 [History] Aspirin [Adult Low Dose Aspirin EC] 81 mg PO DAILY 02/27/16 [History] Cholecalciferol (Vitamin D3) [Vitamin D3] 5,000 unit PO DAILY 02/27/16 [History] Clopidogrel [Plavix] 75 mg PO HS 02/27/16 [History] Fluticasone/Salmeterol [Advair 250-50 Diskus] 1 puff IH BID 02/27/16 [History] Furosemide [Lasix] 20 mg PO HS 02/27/16 [History] Lisinopril [Zestril] 40 mg PO HS 02/27/16 [History] Pregabalin [Lyrica] 150 mg PO BID 02/27/16 [History] Tiotropium [Spiriva] 18 mcg IH DAILY 02/27/16 [History] Metformin HCl [Metformin HCl ER] 500 mg PO DAILY 12/10/16 [History] Oxygen 2 l NS AD 12/10/16 [History] Simvastatin [Zocor] 20 mg PO HS 12/10/16 [History] Cyanocobalamin (B-12) [Vitamin B12] 1,000 mcg PO DAILY #90 tablet 12/30/16 [Rx] Cyclobenzaprine HCl 5 mg PO TID PRN #0 12/30/16 [Rx] Divalproex Sodium [Depakote] 250 mg PO DAILY #90 tablet. 12/30/16 [Rx] Ferrous Sulfate 325 mg PO BIDWM #180 tablet 12/30/16 [Rx] Folic Acid 1 mg PO DAILY #90 tablet 12/30/16 [Rx] Insulin ASPART [Novolog Flexpen] 4 unit SQ TID #0 12/30/16 [Rx] Insulin Glargine,Hum.rec.anlog [Lantus Solostar] 10 unit SQ HS #0 12/30/16 [Rx] Pantoprazole Sodium [Protonix] 40 mg PO DAILY #90 granpkt. 12/30/16 [Rx] Allergies/Adverse Reactions: Allergies No Known Allergies Allergy (Verified 12/10/16 11:41) Certification: Further, I certify that my clinical findings support that this patient is homebound (i.e. absences from home require considerable and taxing effort and are for medical reasons or yarsanism services or infrequently or short duration when for other reasons) because: Homebound Reason: Patient requires assistance of a person or device to safely leave home, Leaving home requires considerable and taxing effort due to condition Attestation: My signature below is to certify that this patient is under my care and that I, or nurse practitioner, or a physician's ophthalmic surgical assistant working with me, has a face-to -face encounter with this patient.
--- NOTE | 2016-12-31 15:28 | EEG/EMG/Oth Biometrics Report ---
EEG Procedure Report Date of procedure: 12/30/16 EEG Procedure: Routine EEG Procedure Note: PT WITH GENERALIZED JERKING OF BODY Routine EEG Routine 18-channel digital EEG was obtained to rule out any seizure activity or focal abnormalities. FINDINGS: Background rhythm during awake stage shows well-organized, well- developed, average voltage 8 to 9 hertz alpha activity in the posterior regions. It blocks with eye opening and it is bilaterally synchronous and symmetrical. No [id number] discharges or any lateralizing abnormalities are seen. Photic stimulation did not produce any abnormalities. Hyperventilation was not performed. No abnormalities were found during the procedure. Intermittent EMG artifacts were seen. Stage II sleep was not achieved. There is some intermittent slowing noted during this study do not particularly specific for any seizure abnormality IMPRESSION: Normal awake study. No epileptiform discharges or any other paroxysmal activities or focal abnormalities seen. Clinical correlation is recommended. note that normal EEG does not exclude the diagnosis of seizure epilepsy If clinical suspicion of seizure is high consider 48 hours ambulatory EEG as an outpatient
== END 2016-12-30 20:42 | disposition home health service (06) | DRG 378 ==
LOC: EMEROO 11:59 → 3ANU 11:59
PROVIDERS: ADMIT Internal Medicine; ATTEND Internal Medicine
PROC: ENDOEBX (2016-12-27 12:00)

== ENCOUNTER 2017-02-05 16:44 | Inpatient (IN) ==
--- NOTE | 2017-02-05 16:59 | Emergency Department Note ---
Disposition Clinical Impression: Frail elderly, [place] esophagus, Anemia, Tachycardia, Type 2 diabetes mellitus with other circulatory complications, COPD (chronic obstructive pulmonary disease), Weakness, Abnormal EKG, UTI (urinary tract infection) Disposition: Admitted As Inpatient Referrals: NO,PCP [Non-Partnered Physician] - Forms: Work/School Release, ED Satisfaction Letter General Adult HPI - General Chief complaint: ED General Medical Stated complaint: hyperglycemia Time Seen by Provider: 02/05/17 16:52 Source: patient, family, EMS Limitations: no limitations - History of Present Illness HPI Narrative: 81-year-old female reports to the emergency department, there is concern for a high blood sugar and weakness. The patient's daughter reports the patient sugar was 589 today, they called their primary care physician's office and he recommended the patient come to the ED. The patient has been weak and unable to stand up well. She has also been intermittently confused per the family. The patient reportedly had an outpatient carotid study yesterday and had low blood sugar and may have not taken her full dose of insulin this morning. There is no history of acute weakness or numbness of the arms or legs, she has chronic left lower extremity defects. The patient denies any chest pain, she has had a cough but no shortness of breath. No coughing of blood or leg swelling no syncope. There is no history of convulsion, there is no history of abdominal pain and vomiting or diarrhea. The patient is currently taking Plavix but is not anticoagulated otherwise. There is been no acute back pain. No history of fever headache neck stiffness or rash. No acute unilateral arm or leg weakness or numbness no dysarthria or fall or injury. Pain Scale: 0 - Related Data Home Medications Medication Instructions Recorded Confirmed Albuterol Sulfate [Albuterol 2 puff IH Q4HR PRN 02/27/16 12/26/16 Inhaler] Aspirin [Adult Low Dose Aspirin EC] 81 mg PO DAILY 02/27/16 12/26/16 Cholecalciferol (Vitamin D3) 5,000 unit PO DAILY 02/27/16 12/26/16 [Vitamin D3] Clopidogrel [Plavix] 75 mg PO HS 02/27/16 12/26/16 Fluticasone/Salmeterol [Advair 1 puff IH BID 02/27/16 12/26/16 250-50 Diskus] Furosemide [Lasix] 20 mg PO HS 02/27/16 12/26/16 Lisinopril [Zestril] 40 mg PO HS 02/27/16 12/26/16 Pregabalin [Lyrica] 150 mg PO BID 02/27/16 12/26/16 Tiotropium [Spiriva] 18 mcg IH DAILY 02/27/16 12/26/16 Metformin HCl [Metformin HCl ER] 500 mg PO DAILY 12/10/16 12/26/16 Oxygen 2 l NS AD 12/10/16 12/26/16 Simvastatin [Zocor] 20 mg PO HS 12/10/16 12/26/16 Previous Rx's Medication Instructions Recorded Cyanocobalamin (B-12) [Vitamin B12] 1,000 mcg PO DAILY #90 tablet 12/30/16 Cyclobenzaprine HCl 5 mg PO TID PRN #0 12/30/16 Divalproex Sodium [Depakote] 250 mg PO DAILY #90 tablet. 12/30/16 Ferrous Sulfate 325 mg PO BIDWM #180 tablet 12/30/16 Folic Acid 1 mg PO DAILY #90 tablet 12/30/16 Insulin ASPART [Novolog Flexpen] 4 unit SQ TID #0 12/30/16 Insulin Glargine,Hum.rec.anlog 10 unit SQ HS #0 12/30/16 [Lantus Solostar] Pantoprazole Sodium [Protonix] 40 mg PO DAILY #90 granpkt. 12/30/16 Allergies Allergy/AdvReac Type Severity Reaction Status Date / Time No Known Allergies Allergy Verified 12/10/16 11:41 All systems ED: reviewed and negative except as stated. Past Medical History - Past Medical History Medical history: Reports: cancer, COPD, coronary artery disease, CVA, diabetes, hyperlipidemia, hypertension, other Surgical history: Reports: cholecystectomy, other Psychiatric history: Reports: no psych history GROUP ACTIVITIES AIDE history: Reports: no GROUP ACTIVITIES AIDE history - Social History Smoking Status: Unknown if ever smoked Smokeless Tobacco Status: No Alcohol use: Reports: none Drug use: Reports: none Physical Exam - General Limitations: no limitations General appearance: alert, in no apparent distress - Head Head exam: atraumatic, normocephalic, normal inspection - Eye Eye exam: Present: normal appearance, PERRL, EOMI. Absent: scleral icterus, conjunctival injection, miosis, mydriasis - ENT ENT exam: normal exam, normal oropharynx, mucous membranes moist, TM's normal bilaterally, normal external ear exam - Neck Neck exam: Present: normal inspection, full ROM, trachea midline - Chest Chest inspection: Present: symmetric chest wall rise. Absent: tenderness - Respiratory Respiratory exam: Present: normal lung sounds bilaterally. Absent: respiratory distress - Cardiovascular Cardiovascular exam: Present: regular rate, normal rhythm, normal heart sounds - Abdominal Exam Abdominal exam: Present: soft, Non-Tender, normal bowel sounds. Absent: tenderness, distention, guarding, rebound, rigidity, pulsatile mass - Rectal Exam Quill Layer present during exam: Yes Rectal exam: Present: normal rectal tone, black stool. Absent: hemorrhoids - Extremities Exam Extremities exam: Present: normal inspection, full ROM, normal capillary refill. Absent: tenderness, pedal edema, joint swelling, calf tenderness - Expanded Lower Extremity Exam Lower leg exam: Absent: Homans' sign Neurovascular/Tendon exam: Present: normal capillary refill, extremity cold to touch. Absent: motor deficit, sensory deficit, tendon deficit, pallor - Back Exam Back exam: Present: normal inspection, full ROM. Absent: tenderness, CVA tenderness (R), CVA tenderness (L), vertebral tenderness - Neurological Exam Neurological exam: Present: alert, oriented X3, CN II-XII intact, motor sensory deficit (Left leg weakness versus the right. Family and patient report this is chronic.) - Psychiatric Psychiatric exam: Present: normal affect, normal mood - Skin Skin exam: Present: warm, dry, intact, normal color. Absent: rash, cyanosis, diaphoresis, erythema, pallor, mottled Course Vital Signs Temperature 98.1 F 02/05/17 16:46 Pulse Rate 104 02/05/17 16:46 Respiratory Rate 18 02/05/17 16:46 Blood Pressure 109/60 02/05/17 16:46 O2 Sat by Pulse Oximetry 100 02/05/17 16:46 Temperature 98.1 F 02/05/17 16:46 Pulse Rate 108 02/05/17 19:55 Respiratory Rate 18 02/05/17 19:55 Blood Pressure 101/70 02/05/17 19:55 O2 Sat by Pulse Oximetry 100 02/05/17 19:55 Oxygen Delivery Oxygen Delivery Nasal Cannula Medical Decision Making - [facility] Narrative Medical decision making narrative: The patient complained of generalized weakness, her cardiac testing as well as CT head were negative. The patient's hemoglobin is 6.4, on reviewing the records the patient had a recent admission for anemia and had an EGD. The patient's hemoglobin on last check was in the 10 range. A rectal exam shows blackened material on the glove. Hemoccult sent. 2 units of packed red cells were ordered transfusion. The patient has symptomatic anemia. Protonix was also ordered IV fluid was ordered. Based on the patient's age, significant weakness, UTI, very low hemoglobin and likely gastrointestinal bleeding, I have consulted with the hospitalist legal nurse consultant for admission. The patient is currently stable. - Lab Data Lab results reviewed: Yes I reviewed the patient's lab results. Result diagrams: 02/05/17 18:35 02/05/17 18:35 Lab Results 02/05/17 02/05/17 02/05/17 Range/Units 09:31 09:31 09:31 WBC (4.3-11.1) K/mcL RBC (3.82-4.97) M/mcL Hgb (11.5-15.4) g/dL Hct (35.3-44.9) % MCV (83.0-100.0) fL MCH (28.0-33.3) pg MCHC (31.6-35.5) g/dL RDW (11.5-14.5) % Plt Count (140-400) K/mcL MPV (9.4-12.4) fL Immature Gran % (0-4) % Seg Neutrophils % % Lymphocytes % % Monocytes % % Eosinophils % % Basophils % % Neutrophils # (1.6-8.9) K/mcL Lymphocytes # (0.6-4.6) K/mcL Monocytes # (0.0-1.3) K/mcL Eosinophils # (0.0-0.6) K/mcL Basophils # (0.0-0.2) K/mcL Nucleated RBCs/100 WBC (0) /100 WBC PT (9.4-12.1) Seconds INR APTT (26.0-36.0) Seconds Sodium (136-145) mEq/L Potassium (3.5-4.5) mEq/L Chloride (98-109) mEq/L Carbon Dioxide (19-29) mEq/L BUN (7-20) mg/dL Creatinine (0.57-1.11) mg/dL Est GFR ( Amer) (> 60) Est GFR (Non-Af Amer) (> 60) BUN/Creatinine Ratio (6-26) Glucose (70-99) mg/dL POC Glucose (58-89) Calculated Osmolality (280-300) Lactic Acid (0.5-2.2) mmol/L Calcium (8.6-10.8) mg/dL Total Bilirubin (0.2-1.2) mg/dL Direct Bilirubin (0.0-0.5) mg/dL Indirect Bilirubin (0.0-1.2) mg/dL AST (5-34) Units/L ALT (0-55) Units/L Alkaline Phosphatase (38-126) Units/L Ammonia (18-72) mcmol/L Troponin I (0-0.03) ng/mL C-Reactive Protein (Less than 5) mg/L Serum Total Protein (6.0-8.3) g/dL Albumin (3.5-5.0) g/dL Globulin (2.4-3.5) g/dL Albumin/Globulin Ratio (1.1-2.2) TSH (0.350-4.840) mcIU/mL Urine Color Yellow (Yellow) Urine Clarity Cloudy A (Clear) Urine pH 5.5 (5.0-8.0) pH Units Ur Specific [place] 1.022 (1.010-1.025) Urine Protein Negative (Neg-Trace) mg/dL Urine Glucose (UA) 100 H (Normal) mg/dL Urine Ketones Trace H (Negative) mg/dL Urine Blood Negative (Negative) Urine Nitrite Positive A (Negative) Urine Bilirubin Small H (Negative) Urine Urobilinogen Normal (Normal) mg/dL Ur Leukocyte Esterase Large H (Negative) Urine Microscopic RBC 5-15 H (0-3) per hpf Urine Microscopic WBC TNTC H (0-3) per hpf Ur Squamous Epith Cells Many H (None-Few) per lpf Urine Bacteria Many H (None-Few) per hpf Hyaline Casts None Seen (None-Few) per lpf Ur Culture Indicated? YES A (NO) Stool Occult Blood Negative (Negative) Urine Opiates Screen Negative (Fpwafk=879) ng/mL Ur Barbiturates Screen Negative (Nvtlrc=039) ng/mL Ur Phencyclidine Scrn Negative (Cutoff=25) ng/mL Ur Amphetamines Screen Negative (Rboytj=8865) ng/mL U Benzodiazepines Scrn Negative (Cjwfvu=311) ng/mL Urine Cocaine Screen Negative (Cutoff= 300) ng/mL U Marijuana (THC) Screen Negative (Cutoff = 50) ng/mL 02/05/17 02/05/17 02/05/17 Range/Units 16:52 18:35 18:35 WBC 9.2 (4.3-11.1) K/mcL RBC 2.08 L (3.82-4.97) M/mcL Hgb 6.4 L (11.5-15.4) g/dL Hct 21.6 L (35.3-44.9) % MCV 103.8 H (83.0-100.0) fL MCH 30.8 (28.0-33.3) pg MCHC 29.6 L (31.6-35.5) g/dL RDW 17.3 H (11.5-14.5) % Plt Count 208 (140-400) K/mcL MPV 12.7 H (9.4-12.4) fL Immature Gran % 0.7 (0-4) % Seg Neutrophils % 73.0 % Lymphocytes % 13.8 % Monocytes % 6.9 % Eosinophils % 5.2 % Basophils % 0.4 % Neutrophils # 6.7 (1.6-8.9) K/mcL Lymphocytes # 1.3 (0.6-4.6) K/mcL Monocytes # 0.6 (0.0-1.3) K/mcL Eosinophils # 0.5 (0.0-0.6) K/mcL Basophils # 0.0 (0.0-0.2) K/mcL Nucleated RBCs/100 WBC 0.3 H (0) /100 WBC PT 12.9 H (9.4-12.1) Seconds INR 1.2 APTT 28.7 (26.0-36.0) Seconds Sodium (136-145) mEq/L Potassium (3.5-4.5) mEq/L Chloride (98-109) mEq/L Carbon Dioxide (19-29) mEq/L BUN (7-20) mg/dL Creatinine (0.57-1.11) mg/dL Est GFR ( Amer) (> 60) Est GFR (Non-Af Amer) (> 60) BUN/Creatinine Ratio (6-26) Glucose (70-99) mg/dL POC Glucose 128 H (58-89) Calculated Osmolality (280-300) Lactic Acid (0.5-2.2) mmol/L Calcium (8.6-10.8) mg/dL Total Bilirubin (0.2-1.2) mg/dL Direct Bilirubin (0.0-0.5) mg/dL Indirect Bilirubin (0.0-1.2) mg/dL AST (5-34) Units/L ALT (0-55) Units/L Alkaline Phosphatase (38-126) Units/L Ammonia (18-72) mcmol/L Troponin I (0-0.03) ng/mL C-Reactive Protein (Less than 5) mg/L Serum Total Protein (6.0-8.3) g/dL Albumin (3.5-5.0) g/dL Globulin (2.4-3.5) g/dL Albumin/Globulin Ratio (1.1-2.2) TSH (0.350-4.840) mcIU/mL Urine Color (Yellow) Urine Clarity (Clear) Urine pH (5.0-8.0) pH Units Ur Specific [place] (1.010-1.025) Urine Protein (Neg-Trace) mg/dL Urine Glucose (UA) (Normal) mg/dL Urine Ketones (Negative) mg/dL Urine Blood (Negative) Urine Nitrite (Negative) Urine Bilirubin (Negative) Urine Urobilinogen (Normal) mg/dL Ur Leukocyte Esterase (Negative) Urine Microscopic RBC (0-3) per hpf Urine Microscopic WBC (0-3) per hpf Ur Squamous Epith Cells (None-Few) per lpf Urine Bacteria (None-Few) per hpf Hyaline Casts (None-Few) per lpf Ur Culture Indicated? (NO) Stool Occult Blood (Negative) Urine Opiates Screen (Ckdxfk=891) ng/mL Ur Barbiturates Screen (Rusber=211) ng/mL Ur Phencyclidine Scrn (Cutoff=25) ng/mL Ur Amphetamines Screen (Hibcgi=4277) ng/mL U Benzodiazepines Scrn (Lgoukq=068) ng/mL Urine Cocaine Screen (Cutoff= 300) ng/mL U Marijuana (THC) Screen (Cutoff = 50) ng/mL 03/31/17 03/31/17 03/31/17 Range/Units 18:35 18:35 18:35 WBC (4.3-11.1) K/mcL RBC (3.82-4.97) M/mcL Hgb (11.5-15.4) g/dL Hct (35.3-44.9) % MCV (83.0-100.0) fL MCH (28.0-33.3) pg MCHC (31.6-35.5) g/dL RDW (11.5-14.5) % Plt Count (140-400) K/mcL MPV (9.4-12.4) fL Immature Gran % (0-4) % Seg Neutrophils % % Lymphocytes % % Monocytes % % Eosinophils % % Basophils % % Neutrophils # (1.6-8.9) K/mcL Lymphocytes # (0.6-4.6) K/mcL Monocytes # (0.0-1.3) K/mcL Eosinophils # (0.0-0.6) K/mcL Basophils # (0.0-0.2) K/mcL Nucleated RBCs/100 WBC (0) /100 WBC PT (9.4-12.1) Seconds INR APTT (26.0-36.0) Seconds Sodium 141 (136-145) mEq/L Potassium 4.6 H (3.5-4.5) mEq/L Chloride 104 (98-109) mEq/L Carbon Dioxide 32 H (19-29) mEq/L BUN 29 H (7-20) mg/dL Creatinine 0.85 (0.57-1.11) mg/dL Est GFR ( Amer) > 60 (> 60) Est GFR (Non-Af Amer) > 60 (> 60) BUN/Creatinine Ratio 34 H (6-26) Glucose 132 H (70-99) mg/dL POC Glucose (58-89) Calculated Osmolality 300 (280-300) Lactic Acid (0.5-2.2) mmol/L Calcium 9.3 (8.6-10.8) mg/dL Total Bilirubin 0.2 (0.2-1.2) mg/dL Direct Bilirubin 0.1 (0.0-0.5) mg/dL Indirect Bilirubin 0.1 (0.0-1.2) mg/dL AST 12 (5-34) Units/L ALT 8 (0-55) Units/L Alkaline Phosphatase 56 (38-126) Units/L Ammonia 14 L (18-72) mcmol/L Troponin I 0.01 (0-0.03) ng/mL C-Reactive Protein 20 H (Less than 5) mg/L Serum Total Protein 6.1 (6.0-8.3) g/dL Albumin 2.9 L (3.5-5.0) g/dL Globulin 3.2 (2.4-3.5) g/dL Albumin/Globulin Ratio 0.9 L (1.1-2.2) TSH 1.569 (0.350-4.840) mcIU/mL Urine Color (Yellow) Urine Clarity (Clear) Urine pH (5.0-8.0) pH Units Ur Specific [place] (1.010-1.025) Urine Protein (Neg-Trace) mg/dL Urine Glucose (UA) (Normal) mg/dL Urine Ketones (Negative) mg/dL Urine Blood (Negative) Urine Nitrite (Negative) Urine Bilirubin (Negative) Urine Urobilinogen (Normal) mg/dL Ur Leukocyte Esterase (Negative) Urine Microscopic RBC (0-3) per hpf Urine Microscopic WBC (0-3) per hpf Ur Squamous Epith Cells (None-Few) per lpf Urine Bacteria (None-Few) per hpf Hyaline Casts (None-Few) per lpf Ur Culture Indicated? (NO) Stool Occult Blood (Negative) Urine Opiates Screen (Fmijox=506) ng/mL Ur Barbiturates Screen (Zhwwdj=894) ng/mL Ur Phencyclidine Scrn (Cutoff=25) ng/mL Ur Amphetamines Screen (Xgmfed=8398) ng/mL U Benzodiazepines Scrn (Evjlxm=235) ng/mL Urine Cocaine Screen (Cutoff= 300) ng/mL U Marijuana (THC) Screen (Cutoff = 50) ng/mL 02/05/17 Range/Units 18:35 WBC (4.3-11.1) K/mcL RBC (3.82-4.97) M/mcL Hgb (11.5-15.4) g/dL Hct (35.3-44.9) % MCV (83.0-100.0) fL MCH (28.0-33.3) pg MCHC (31.6-35.5) g/dL RDW (11.5-14.5) % Plt Count (140-400) K/mcL MPV (9.4-12.4) fL Immature Gran % (0-4) % Seg Neutrophils % % Lymphocytes % % Monocytes % % Eosinophils % % Basophils % % Neutrophils # (1.6-8.9) K/mcL Lymphocytes # (0.6-4.6) K/mcL Monocytes # (0.0-1.3) K/mcL Eosinophils # (0.0-0.6) K/mcL Basophils # (0.0-0.2) K/mcL Nucleated RBCs/100 WBC (0) /100 WBC PT (9.4-12.1) Seconds INR APTT (26.0-36.0) Seconds Sodium (136-145) mEq/L Potassium (3.5-4.5) mEq/L Chloride (98-109) mEq/L Carbon Dioxide (19-29) mEq/L BUN (7-20) mg/dL Creatinine (0.57-1.11) mg/dL Est GFR ( Amer) (> 60) Est GFR (Non-Af Amer) (> 60) BUN/Creatinine Ratio (6-26) Glucose (70-99) mg/dL POC Glucose (58-89) Calculated Osmolality (280-300) Lactic Acid 1.1 (0.5-2.2) mmol/L Calcium (8.6-10.8) mg/dL Total Bilirubin (0.2-1.2) mg/dL Direct Bilirubin (0.0-0.5) mg/dL Indirect Bilirubin (0.0-1.2) mg/dL AST (5-34) Units/L ALT (0-55) Units/L Alkaline Phosphatase (38-126) Units/L Ammonia (18-72) mcmol/L Troponin I (0-0.03) ng/mL C-Reactive Protein (Less than 5) mg/L Serum Total Protein (6.0-8.3) g/dL Albumin (3.5-5.0) g/dL Globulin (2.4-3.5) g/dL Albumin/Globulin Ratio (1.1-2.2) TSH (0.350-4.840) mcIU/mL Urine Color (Yellow) Urine Clarity (Clear) Urine pH (5.0-8.0) pH Units Ur Specific [place] (1.010-1.025) Urine Protein (Neg-Trace) mg/dL Urine Glucose (UA) (Normal) mg/dL Urine Ketones (Negative) mg/dL Urine Blood (Negative) Urine Nitrite (Negative) Urine Bilirubin (Negative) Urine Urobilinogen (Normal) mg/dL Ur Leukocyte Esterase (Negative) Urine Microscopic RBC (0-3) per hpf Urine Microscopic WBC (0-3) per hpf Ur Squamous Epith Cells (None-Few) per lpf Urine Bacteria (None-Few) per hpf Hyaline Casts (None-Few) per lpf Ur Culture Indicated? (NO) Stool Occult Blood (Negative) Urine Opiates Screen (Hkfmbq=002) ng/mL Ur Barbiturates Screen (Vygqke=961) ng/mL Ur Phencyclidine Scrn (Cutoff=25) ng/mL Ur Amphetamines Screen (Gnxqbj=0340) ng/mL U Benzodiazepines Scrn (Qecuew=982) ng/mL Urine Cocaine Screen (Cutoff= 300) ng/mL U Marijuana (THC) Screen (Cutoff = 50) ng/mL - Radiology Data Radiology results reviewed: Yes I reviewed the patient's radiology results. - EKG Data EKG #1 EKG shows normal: sinus rhythm Rate: normal Rhythm: PVC's Interpretation: no acute changes
[2017-02-05 18:46] LABS: Basophils % 0.4 %; Eosinophils # 0.5 K/mcL (0.0-0.6); Eosinophils % 5.2 %; Hematocrit 21.6 % (35.3-44.9); Hemoglobin 6.4 g/dL (11.5-15.4); Immature Granulocytes % 0.7 % (0-4); Lymphocytes # 1.3 K/mcL (0.6-4.6); Lymphocytes % 13.8 %; Mean Corpuscular HGB Conc 29.6 g/dL (31.6-35.5); Mean Corpuscular Hemoglobin 30.8 pg (28.0-33.3); Mean Corpuscular Volume 103.8 fL (83.0-100.0); Mean Platelet Volume 12.7 fL (9.4-12.4); Monocytes # 0.6 K/mcL (0.0-1.3); Monocytes % 6.9 %; Neutrophils # 6.7 K/mcL (1.6-8.9); Nucleated Red Blood Cells 0.3 /100 WBC (0); Platelet Count 208 K/mcL (140-400); Red Blood Count 2.08 M/mcL (3.82-4.97); Red Cell Distribution Width 17.3 % (11.5-14.5)
[2017-02-05 18:50] LABS: INR 1.2; Prothrombin Time 12.9 Seconds (9.4-12.1)
[2017-02-05 18:53] LABS: Activated Partial Thrombo Time 28.7 Seconds (26.0-36.0)
[2017-02-05 19:01] LABS: Alanine Aminotransferase 8 Units/L (0-55); Albumin 2.9 g/dL (3.5-5.0); Albumin/Globulin Ratio 0.9 (1.1-2.2); Alkaline Phosphatase 56 Units/L (38-126); Aspartate Amino Transferase 12 Units/L (5-34); BUN/Creatinine Ratio 34 (6-26); Bilirubin,Direct 0.1 mg/dL (0.0-0.5); Bilirubin,Indirect 0.1 mg/dL (0.0-1.2); Bilirubin,Total 0.2 mg/dL (0.2-1.2); Blood Urea Nitrogen 29 mg/dL (7-20); C-Reactive Protein 20 mg/L (Less than 5); Calcium 9.3 mg/dL (8.6-10.8); Carbon Dioxide 32 mEq/L (19-29); Chloride 104 mEq/L (98-109); Globulin 3.2 g/dL (2.4-3.5); Glucose 132 mg/dL (70-99); Osmolality,Calculated 300 (280-300); Potassium 4.6 mEq/L (3.5-4.5); Sodium 141 mEq/L (136-145); Total Protein 6.1 g/dL (6.0-8.3); eGFR For African Americans > 60 (> 60); eGFR For Non-African Americans > 60 (> 60)
[2017-02-05] MEDS ORDERED: Pantoprazole 80 MG in 0.9 % Sodium Chloride 50 ML IVPB ONE (19:35)
[2017-02-05 19:42] LABS: Thyroid Stimulating Hormone 1.569 mcIU/mL (0.350-4.840)
[2017-02-05 19:42] LABS: Bilirubin,Urine Small (Negative); Blood,Urine Negative (Negative); Clarity,Urine Cloudy (Clear); Color,Urine Yellow (Yellow); Glucose,Urine (UA) 100 mg/dL (Normal); Ketones,Urine Trace mg/dL (Negative); Leukocyte Esterase,Urine Large (Negative); Nitrite,Urine Positive (Negative); PH,Urine 5.5 pH Units (5.0-8.0); Protein,Urine Negative (Neg-Trace); Specific Gravity,Urine 1.022 (1.010-1.025); Urobilinogen,Urine Normal (Normal)
[2017-02-05 19:44] LABS: Bacteria,Urine Many per hpf (None-Few); Hyaline Casts,Urine None Seen per lpf (None-Few); Squamous Epithelial Cell,Urine Many per lpf (None-Few); WBC,Urine TNTC per hpf (0-3)
[2017-02-05 19:48] LABS: Amphetamine Screen,Urine Negative ng/mL (Cutoff=1000); Barbiturate Screen,Urine Negative ng/mL (Cutoff=200); Benzodiazepines Screen,Urine Negative ng/mL (Cutoff=200); Cannabinoid Screen,Urine Negative ng/mL (Cutoff = 50); Cocaine Screen,Urine Negative ng/mL (Cutoff= 300); Opiate Screen,Urine Negative ng/mL (Cutoff=300); Phencyclidine Screen,Urine Negative ng/mL (Cutoff=25)
[2017-02-05] MEDS: Pantoprazole 40 MG in 0.9 % Sodium Chloride Mini Bag 100 ML IVC SCH (19:53)
[2017-02-05] MEDS ORDERED: 0.9 % Sodium Chloride 1,000 ML IVC ONE (20:09)
[2017-02-05] MEDS ORDERED: *HR* Morphine 2 MG/ML SYRINGE IVP PRN (22:19)
[2017-02-05] MEDS ORDERED: Ondansetron 4 MG/2 ML VIAL IVP PRN (22:19)
[2017-02-05] MEDS ORDERED: Acetaminophen 325 MG TABLET PO ONE (22:19)
[2017-02-05] MEDS ORDERED: Acetaminophen 325 MG TABLET PO PRN (22:19)
[2017-02-05] MEDS ORDERED: Furosemide 20 MG/2 ML VIAL IVP ONE (22:19)
[2017-02-05] MEDS ORDERED: *HR* OxyCODONE Immed Rel 5 MG TABLET PO PRN (22:19)
[2017-02-05] MEDS ORDERED: Naloxone 0.4 MG/ML INJ IVP PRN (22:19)
[2017-02-05] MEDS ORDERED: 0.9 % Sodium Chloride 1,000 ML IVC SCH (22:30)
[2017-02-05] MEDS ORDERED: NON-FORMULARY MEDICATION 1 EACH EACH (Oxygen [Oxygen] 2 L) NS SCH (22:45)
--- NOTE | 2017-02-05 22:52 | Internal Med History&Physical ---
Date of Encounter: 02/05/17 Time of Encounter: 22:00 Assessment and Plan (1) Symptomatic anemia Status: Acute . (2) Generalized weakness Status: Acute . (3) Frail elderly Status: Acute . (4) UTI (urinary tract infection) Status: Acute . Qualifiers: Urinary tract infection type: acute cystitis Hematuria presence: without hematuria Qualified Code(s): N30.00 - Acute cystitis without hematuria Internal Medicine - H&P: HPI Chief complaint: High blood sugar. Generalized weakness. Admitted From: Emergency Dept Plans for Post Hospital Care: Home History of present illness: Ms. Dacosta is a 81 year old female is admitted to [facility] via the emergency department when she presents by EMS services from home in the company of family with complaints of pang weakness. Concern was also raises of high blood sugar trends. The daughter reporting that the patient's blood sugar was high as 589 the day of presentation. They called the primary care physician prior to that decision and that office recommended presented to the ED for evaluation. The patient is stated that weakness has been so severe that she is unable to stand up and becomes lightheaded simply gives away when attempting to live members also mentioned that she intermittently is confused and disoriented. A four-day history of cough and shortness of breath was also reported as well as 1 day of generalized weakness and decline in ability to complete activities of daily living independently. Chronic medical concerns include: COPD/emphysema/chronic respiratory failure continuous oxygen dependent, BRENDA/?OHS, iron def, anemia, GERD/Ashton's esophagus, diverticulosis coli, hypertension, dyslipidemia, iron deficiency, anemia of chronic disease, h/o GI bleed/melena, type II DM, peripheral neuropathy, osteoarthritis, osteoporosis, PAD/RICAocclusion/s/p LCEA , CAD, h/o CVA/TIA, ess tremor/myoclonus, chronic MSK pain, morbid obesity, nicotine dependency, h/o medical treatment noncompliance. Findings in the ED: temperature 98.1 pulse 108 respirations 18 BP 109/60 O2 saturation 100% on 2 L per nasal cannula. Urinalysis large glucose trace ketones and positive nitrite. Small bilirubin large leukocyte esterase. 15 RBC. 2 numerous to count WBC. Many squamous epithelial cells. Many bacteria. Urine drug screen negative. Stool occult blood negative. WBC 9.2 hemoglobin 6.4 hematocrit 21.6 platelets 208,000. RDW 17.3. MPV 12.6. MCV 103.9. MCHC 29.6. PT 12.9 INR 1.2 PTT 28.7. Comprehensive metabolic panel normal except potassium 4.6. Carbon dioxide 32. BUN 29. Glucose 132 osmolality 300. Hepatic function normal. Albumin 2.9-6.1. C-reactive protein 20. Ammonia 14. Troponin 0.01. TSH 1.56. Lactic acid 1.1. EKG normal sinus rhythm. Premature ventricular contractions. No acute ischemic changes. Chest x-ray finds no acute pulmonary disease. CT head no acute intracranial abnormality. Mild chronic ischemic changes. Preliminary impression suggest symptomatic acute on chronic blood loss anemia with associated somatic complaints of postural dizziness and generalized weakness. Associated abnormal urinary sediment suggestive of UTI. Modest metabolic and electrolyte derangements are noted. Lactic acidemia. Metabolic alkalosis compensatory for chronic respiratory failure. Patient is at risk for further clinical decline. Workup and treatments will proceed comprehensively. The patient was visited and interviewed and examined. Cumulative laboratory and radiographic data base will be considered and discussed. Pertinent ancillary medical records including ECW and PCI documentation when available was reviewed and considered. Given the patient's presenting concerns, past medical history, clinical findings and symptoms, she is admitted at this time will undergo further evaluation and disposition. Orders were written as per Computerized physician clerical order filler system.......................................................................... .................... Consultative opinions will be sought as clinical circumstances justify. Pain management needs will be addressed. Laboratory /radiographic data base will be updated as appropriate. Studies include: Cultures of blood urine sputum, GI stool panel, pt/inr, aptt, ddimer, cpk, UA, UDS, cardiac injury panel, BNP, metabolic and hematologic panel, magnesium, phosphorus, ionized calcium, thyroid panel, lipid profile, A1c, C- peptide, CRP, sedimentation rate, respiratory virus panel, blood gas, lactic acid, serologies, etc. Bowel rest imposed. Intravenous Protonix drip initiated following loading dose. Anti-emetics, prokinetic, probiotic therapy is initiated. Fluid rehydration and careful attention to metabolic and acid base deficit correction. Liquid diet to advance to diabetic diet reduction as clinical status permits. Type and screen: 2 units of packed red blood cells. Transfuse when available. Goal hemoglobin >9.0 as based on clinical findings and symptoms. Precautions: Aspiration, fall, delirium protocol/surveillance initiated. Telemetry with continuous hemodynamic monitoring and pulse oximetry initiated. Orthostatic vital signs. Empiric antibiotic coverage: Intravenous ciprofloxacin and metronidazole pending culture data. Special studies: CT head, chest x-ray, telemetry, EKG. Pulmonary toilet: Incentive spirometry, aerosol bronchodilator, mucolytic, antitussive, supplemental oxygen. Corticosteroid therapy PRN. CPAP/BiPAP supplemental oxygen delivery. Aerosol Mucomyst therapy. Fluid and electrolyte repletion efforts will proceed. Careful attention to fluid balance and renal recovery will be emphasized. Avoidance of nephrotoxic exposure and adverse drug drug interaction in the setting of impaired renal function will be monitored closely. Acute coronary syndrome protocol/surveillance initiated. DVT and PUD prophylaxis initiated: PPI therapy, intermittent pneumatic cuffs. Subcutaneous heparin. Early ambulation will be encouraged. Immunization updates recommended. Influenza and pneumococcal vaccinations as part of ongoing preventative healthcare recommendations strongly recommended. Smoking cessation counseling briefly addressed. Patient is a former smoker. Continue substitution will be provided on requested basis. Advanced care directive discussion briefly addressed. Patient does not declare any healthcare restrictions at this time. Cardiovascular risk appraisal and cardiovascular risk reduction efforts will be emphasized. Physical /occupational therapy may be consulted to evaluate patient's functional capacity and progress mobility if her circumstances justify. Sliding scale/basal/nutritional insulin coverage, ADA dietary restraint and schedule an as-needed basis fingerstick glucose assessments were initiated. Nutrition/diabetes education counseling requested. Outpatient medication schedules will be reviewed, confirmed and facilitated as appropriate. Reconciliation of home treatments including adjustments, substitutions and reintroduction into the treatment regimen will address necessary maintenance therapies for chronic pre-existing medical conditions. Plan of care has been reviewed and discussed in detail with the patient and family. Questions addressed. Hospital course dictated by clinical findings, treatment response and potential consultative interventions. Patient is a risk for further acute clinical decline due to advanced age, chief complaints and co-morbidities. Condition is serious. Prognosis is guarded. CODE STATUS is full. Past Med Surg Social Fam HX - Past Medical History Source: old records reviewed Medical history: arthritis, asthma, cancer, COPD (Panlobular emphysema. Obstructive sleep apnea. Continuous supplemental oxygen dependency.), coronary artery disease, CVA, diabetes, GERD (Ashton's esophagitis. Diverticulosis coli.), GI bleed, hyperlipidemia, hypertension, osteoporosis (Vitamin D deficiency.), peripheral artery disease, other (Iron deficiency anemia. Chronic musculoskeletal pain.) Psychiatric history: other - Past Surgical History Surgical History: cholecystectomy, other - Social History Smoking Status: Former smoker Smokeless Tobacco Status: No Alcohol use: none Drug use: none Occupational status: retired Current living situation: Home, With Family Activity Level: Independent ambulation, Mostly sedentary Recent Out of Country Travel Within the Last 8 Weeks: No Exposure or Possible Exposure to Illness During Travel: No - Family History Mother Hx Family Endocrine Disorder: Yes (DM) Internal Medicine - H&P: Meds Albuterol Sulfate [Albuterol Inhaler] 2 puff IH Q4HR PRN 02/27/16 [History] Aspirin [Adult Low Dose Aspirin EC] 81 mg PO DAILY 02/27/16 [History] Cholecalciferol (Vitamin D3) [Vitamin D3] 5,000 unit PO Q48H 02/27/16 [History] Clopidogrel [Plavix] 75 mg PO HS 02/27/16 [History] Fluticasone/Salmeterol [Advair 250-50 Diskus] 1 puff IH BID 02/27/16 [History] Furosemide [Lasix] 20 mg PO DAILY 02/27/16 [History] Lisinopril [Zestril] 20 mg PO HS 02/27/16 [History] Pregabalin [Lyrica] 150 mg PO BID 02/27/16 [History] Tiotropium [Spiriva] 18 mcg IH DAILY 02/27/16 [History] Oxygen 2 l NS AD 12/10/16 [History] Cyanocobalamin (B-12) [Vitamin B12] 1,000 mcg PO DAILY #90 tablet 12/30/16 [Rx] Cyclobenzaprine HCl 5 mg PO TID PRN #0 12/30/16 [Rx] Ferrous Sulfate 325 mg PO BIDWM #180 tablet 12/30/16 [Rx] Folic Acid 1 mg PO DAILY #90 tablet 12/30/16 [Rx] Insulin ASPART [Novolog Flexpen] 4 unit SQ TID #0 12/30/16 [Rx] Pantoprazole Sodium [Protonix] 40 mg PO DAILY #90 12/30/16 [Rx] Atorvastatin [Lipitor] 40 mg PO HS 02/05/17 [History] Ciprofloxacin [Cipro] 500 mg PO BID #10 tablet 02/06/17 [Rx] Insulin Glargine,Hum.rec.anlog [Lantus Solostar] 15 unit SQ HS #0 02/06/17 [Rx] Metformin HCl [Metformin HCl ER] 1,000 mg PO DAILY #30 [id number] 02/06/17 [Rx] Allergies No Known Allergies Allergy (Verified 02/08/17 15:41) All Systems PM: A 10-system review of systems was performed and is negative for pertinent findings except as documented above in the HPI. Allergies Allergy/AdvReac Type Severity Reaction Status Date / Time No Known Allergies Allergy Verified 12/10/16 11:41 Patient Problems (Last Updated 02/05/17 @ 20:09 by Kevin Victoria MD) Carotid stenosis, symptomatic, with infarction (Chronic Medical) I63.239 Type 2 diabetes mellitus with other circulatory complications (Chronic Medical) E11.59 Mixed hyperlipidemia (Chronic Medical) E78.2 COPD (chronic obstructive pulmonary disease) (Chronic Medical) J44.9 Essential hypertension (Chronic Medical) I10 Fall (Acute Medical) W19.XXXA COPD (chronic obstructive pulmonary disease) (Chronic Medical) J44.9 Hip injury (Acute Medical) S79.919A Foot injury (Acute Medical) S99.929A Frail elderly (Acute Medical) R54 Abnormal chest x-ray (Acute Medical) R93.8 GI bleed (Acute Medical) K92.2 Hypoxemia (Acute Medical) R09.02 Acute blood loss anemia (Acute Medical) D62 Chronic respiratory failure (Chronic Medical) J96.10 Carotid artery stenosis (Acute Medical) I65.29 Hyperkalemia (Acute Medical) E87.5 Hiatal hernia (Acute Medical) K44.9 Diverticulosis (Acute Medical) K57.90 Tremor (Acute Medical) R25.1 Carotid artery disease (Chronic Medical) I77.9 Episode of shaking (Acute Medical) R25.1 Jerking, massive myoclonic (Acute Medical) G40.822 History of bilateral carotid endarterectomy (Acute Surgical) Z98.890 Difficulty balancing (Acute Medical) R29.818 Iron (Fe) deficiency anemia (Acute Medical) D50.9 CVA (cerebrovascular accident) (Acute Medical) I63.9 Myoclonic jerking (Acute Medical) G25.3 Ashton esophagus (Acute Medical) K22.70 Ashton esophagus (Acute Medical) K22.70 Iron deficiency anemia secondary to blood loss (chronic) (Acute Medical) D50.0 Anemia (Acute Medical) D64.9 Tachycardia (Acute Medical) R00.0 Weakness (Acute Medical) R53.1 Abnormal EKG (Acute Medical) R94.31 UTI (urinary tract infection) (Acute Medical) N39.0 Lower extremity weakness (Inactive Medical) M62.81 Tremor (Inactive Medical) R25.1 - Constitutional Constitutional: as per HPI, fatigue, malaise, weakness, other, no chills, no fever(s), no night sweats - EENT Eyes: as per HPI, no change in vision, no discharge, no pain, no photophobia Ears: as per HPI, no ear discharge, no ear pain, no tinnitus Nose, mouth and throat: as per HPI, no dysphagia, no nasal discharge, no neck pain, no sore throat - Cardiovascular Cardiovascular ROS IM: as per HPI, no chest pain, no diaphoresis, no dyspnea, no lightheadedness, no palpitations, no syncope - Respiratory Respiratory: as per HPI, no cough, no dyspnea, no wheezing, no excessive phlegm production - Gastrointestinal Gastrointestinal: as per HPI, no abdominal pain, no diarrhea, no hematemesis, no hematochezia, no melena, no nausea, no vomiting - Genitourinary Genitourinary: as per HPI, no change in urinary stream, no dysuria, no flank pain, no hematuria - Musculoskeletal Musculoskeletal ROS IM: as per HPI, no numbness, no tingling - Integumentary Integumentary IM: as per HPI, no rash, no unusual bruising - Neurological Neurological ROS: as per HPI, no confusion, no convulsions, no focal weakness, no numbness, no tingling, no tremor(s) - Psychiatric Psychiatric: as per HPI - Endocrine Endocrine IM: as per HPI - Hematologic/Lymphatic Hematologic/Lymphatic: as per HPI, no easy bruising - Allergic/Immunologic Allergic/Immunologic: as per HPI - Constitutional Vitals: Temp Pulse Resp BP Pulse Ox 98.3 F 63 14 101/55 100 02/05/17 22:43 02/05/17 22:43 02/05/17 22:43 02/05/17 22:43 02/05/17 22:43 Vital Signs Temp Pulse Resp BP Pulse Ox 02/05/17 22:43 98.3 F 63 14 101/55 100 02/05/17 21:21 97.4 F L 18 110/74 02/05/17 19:55 108 18 101/70 100 02/05/17 18:25 102 18 119/71 100 02/05/17 16:46 98.1 F 104 18 109/60 100 Intake and Output 02/05/17 02/05/17 02/05/17 07:59 15:59 23:59 Intake Total 1050 / 1050 Output Total 0 / 0 Balance 1050 / 1050 Intake: IV Fluids 1050 / 1050 0.9 % Sodium Chloride 1, 1000 / 1000 000 ML @ 3750 mls/hr IVC .Q16M ONE Rx#:[id number] Protonix 80 MG In 0.9 % 50 / 50 Sodium Chloride 50 ML @ 600 mls/hr IVPB ONCE ONE Rx#:[id number] Oral 0 / 0 Output: Urine 0 / 0 Other: Weight 184 kg Blood Glucose* 128 Patient Weight 02/05/17 23:59 Weight 184 kg General appearance: Present: mild distress, A&O X 3, obese, answers questions appropriately - Head Head exam: Present: atraumatic, normocephalic - Eye Eye exam: Present: EOMI, PERRL, conjuntiva pink, sclera anicteric Pupils: Present: normal accommodation, PERRL - ENT ENT exam: Present: mucous membranes moist, normal oropharynx - Neck Neck exam general surgery: Present: supple, trachea midline. Absent: lymphadenopathy - Respiratory Respiratory exam: Present: chest wall tenderness, decreased breath sounds. Absent: accessory muscle use, CTAB, rales, rhonchi, wheezes - Cardiovascular Cardiovascular exam: Present: distant heart sounds, RRR, +S1, +S2. Absent: diastolic murmur, gallop, rubs, systolic murmur - GI/Abdominal GI/Abdominal exam: Present: normal bowel sounds, soft, no peritoneal signs. Absent: distended, tenderness - Extremities Exam Extremities exam: Present: full ROM, warm, radial pulses palpable and symetrical. Absent: calf tenderness, cyanotic, pedal edema - Neurological Exam Neurological exam: Present: alert, altered, CN II-XII intact, oriented X3, no focal deficits. Absent: pronater drift, facial droop, speech deficit - Psychiatric Psychiatric exam: Present: normal affect, normal mood - Skin Skin exam: Present: dry, intact, warm Internal Med - H&P Results - Labs CBC & Chem 7: 02/06/17 14:31 02/06/17 08:27 Labs: Short CBC 02/05/17 Range/Units 18:35 WBC 9.2 (4.3-11.1) K/mcL Hgb 6.4 L (11.5-15.4) g/dL Hct 21.6 L (35.3-44.9) % Plt Count 208 (140-400) K/mcL Neutrophils # 6.7 (1.6-8.9) K/mcL BMP 02/05/17 Range/Units 18:35 Sodium 141 (136-145) mEq/L Potassium 4.6 H (3.5-4.5) mEq/L Chloride 104 (98-109) mEq/L Carbon Dioxide 32 H (19-29) mEq/L BUN 29 H (7-20) mg/dL Creatinine 0.85 (0.57-1.11) mg/dL Glucose 132 H (70-99) mg/dL Calcium 9.3 (8.6-10.8) mg/dL Cardiac Enzymes 02/05/17 Range/Units 18:35 Troponin I 0.01 (0-0.03) ng/mL Liver Function 02/05/17 Range/Units 18:35 Total Bilirubin 0.2 (0.2-1.2) mg/dL Direct Bilirubin 0.1 (0.0-0.5) mg/dL AST 12 (5-34) Units/L ALT 8 (0-55) Units/L Alkaline Phosphatase 56 (38-126) Units/L Albumin 2.9 L (3.5-5.0) g/dL Urine 02/05/17 Range/Units 09:31 Urine Color Yellow (Yellow) Urine Clarity Cloudy A (Clear) Urine pH 5.5 (5.0-8.0) pH Units Ur Specific [place] 1.022 (1.010-1.025) Urine Protein Negative (Neg-Trace) mg/dL Urine Glucose (UA) 100 H (Normal) mg/dL Abnormal lab results RBC 2.08 M/mcL (3.82-4.97) L 02/05/17 18:35 Hgb 6.4 g/dL (11.5-15.4) L 02/05/17 18:35 Hct 21.6 % (35.3-44.9) L 02/05/17 18:35 MCV 103.8 fL (83.0-100.0) H 02/05/17 18:35 MCHC 29.6 g/dL (31.6-35.5) L 02/05/17 18:35 RDW 17.3 % (11.5-14.5) H 02/05/17 18:35 MPV 12.7 fL (9.4-12.4) H 02/05/17 18:35 Nucleated RBCs/100 WBC 0.3 /100 WBC (0) H 02/05/17 18:35 PT 12.9 Seconds (9.4-12.1) H 02/05/17 18:35 Potassium 4.6 mEq/L (3.5-4.5) H 02/05/17 18:35 Carbon Dioxide 32 mEq/L (19-29) H 02/05/17 18:35 BUN 29 mg/dL (7-20) H 02/05/17 18:35 BUN/Creatinine Ratio 34 (6-26) H 02/05/17 18:35 Glucose 132 mg/dL (70-99) H 02/05/17 18:35 POC Glucose 128 (58-89) H 02/05/17 16:52 Ammonia 14 mcmol/L (18-72) L 02/05/17 18:35 C-Reactive Protein 20 mg/L (Less than 5) H 02/05/17 18:35 Albumin 2.9 g/dL (3.5-5.0) L 02/05/17 18:35 Albumin/Globulin Ratio 0.9 (1.1-2.2) L 02/05/17 18:35 Urine Clarity Cloudy (Clear) A 02/05/17 09:31 Urine Glucose (UA) 100 mg/dL (Normal) H 02/05/17 09:31 Urine Ketones Trace mg/dL (Negative) H 02/05/17 09:31 Urine Nitrite Positive (Negative) A 02/05/17 09:31 Urine Bilirubin Small (Negative) H 02/05/17 09:31 Ur Leukocyte Esterase Large (Negative) H 02/05/17 09:31 Urine Microscopic RBC 5-15 per hpf (0-3) H 02/05/17 09:31 Urine Microscopic WBC TNTC per hpf (0-3) H 02/05/17 09:31 Ur Squamous Epith Cells Many per lpf (None-Few) H 02/05/17 09:31 Urine Bacteria Many per hpf (None-Few) H 02/05/17 09:31 Ur Culture Indicated? YES (NO) A 02/05/17 09:31 Laboratory Last Values WBC 9.2 K/mcL (4.3-11.1) 02/05/17 18:35 RBC 2.08 M/mcL (3.82-4.97) L 02/05/17 18:35 Hgb 6.4 g/dL (11.5-15.4) L 02/05/17 18:35 Hct 21.6 % (35.3-44.9) L 02/05/17 18:35 MCV 103.8 fL (83.0-100.0) H 02/05/17 18:35 MCH 30.8 pg (28.0-33.3) 02/05/17 18:35 MCHC 29.6 g/dL (31.6-35.5) L 02/05/17 18:35 RDW 17.3 % (11.5-14.5) H 02/05/17 18:35 Plt Count 208 K/mcL (140-400) 02/05/17 18:35 MPV 12.7 fL (9.4-12.4) H 02/05/17 18:35 Immature Gran % 0.7 % (0-4) 02/05/17 18:35 Seg Neutrophils % 73.0 % 02/05/17 18:35 Lymphocytes % 13.8 % 02/05/17 18:35 Monocytes % 6.9 % 02/05/17 18:35 Eosinophils % 5.2 % 02/05/17 18:35 Basophils % 0.4 % 02/05/17 18:35 Neutrophils # 6.7 K/mcL (1.6-8.9) 02/05/17 18:35 Lymphocytes # 1.3 K/mcL (0.6-4.6) 02/05/17 18:35 Monocytes # 0.6 K/mcL (0.0-1.3) 02/05/17 18:35 Eosinophils # 0.5 K/mcL (0.0-0.6) 02/05/17 18:35 Basophils # 0.0 K/mcL (0.0-0.2) 02/05/17 18:35 Nucleated RBCs/100 WBC 0.3 /100 WBC (0) H 02/05/17 18:35 PT 12.9 Seconds (9.4-12.1) H 02/05/17 18:35 INR 1.2 02/05/17 18:35 APTT 28.7 Seconds (26.0-36.0) 02/05/17 18:35 Sodium 141 mEq/L (136-145) 02/05/17 18:35 Potassium 4.6 mEq/L (3.5-4.5) H 02/05/17 18:35 Chloride 104 mEq/L (98-109) 02/05/17 18:35 Carbon Dioxide 32 mEq/L (19-29) H 02/05/17 18:35 BUN 29 mg/dL (7-20) H 02/05/17 18:35 Creatinine 0.85 mg/dL (0.57-1.11) 02/05/17 18:35 Est GFR ( Amer) > 60 (> 60) 02/05/17 18:35 Est GFR (Non-Af Amer) > 60 (> 60) 02/05/17 18:35 BUN/Creatinine Ratio 34 (6-26) H 02/05/17 18:35 Glucose 132 mg/dL (70-99) H 02/05/17 18:35 POC Glucose 128 (58-89) H 02/05/17 16:52 Calculated Osmolality 300 (280-300) 02/05/17 18:35 Lactic Acid 1.1 mmol/L (0.5-2.2) 02/05/17 18:35 Calcium 9.3 mg/dL (8.6-10.8) 02/05/17 18:35 Total Bilirubin 0.2 mg/dL (0.2-1.2) 02/05/17 18:35 Direct Bilirubin 0.1 mg/dL (0.0-0.5) 02/05/17 18:35 Indirect Bilirubin 0.1 mg/dL (0.0-1.2) 02/05/17 18:35 AST 12 Units/L (5-34) 02/05/17 18:35 ALT 8 Units/L (0-55) 02/05/17 18:35 Alkaline Phosphatase 56 Units/L (38-126) 02/05/17 18:35 Ammonia 14 mcmol/L (18-72) L 02/05/17 18:35 Troponin I 0.01 ng/mL (0-0.03) 02/05/17 18:35 C-Reactive Protein 20 mg/L (Less than 5) H 02/05/17 18:35 Serum Total Protein 6.1 g/dL (6.0-8.3) 02/05/17 18:35 Albumin 2.9 g/dL (3.5-5.0) L 02/05/17 18:35 Globulin 3.2 g/dL (2.4-3.5) 02/05/17 18:35 Albumin/Globulin Ratio 0.9 (1.1-2.2) L 02/05/17 18:35 TSH 1.569 mcIU/mL (0.350-4.840) 02/05/17 18:35 Urine Color Yellow (Yellow) 02/05/17 09:31 Urine Clarity Cloudy (Clear) A 02/05/17 09:31 Urine pH 5.5 pH Units (5.0-8.0) 02/05/17 09:31 Ur Specific [place] 1.022 (1.010-1.025) 02/05/17 09:31 Urine Protein Negative mg/dL (Neg-Trace) 02/05/17 09:31 Urine Glucose (UA) 100 mg/dL (Normal) H 02/05/17 09:31 Urine Ketones Trace mg/dL (Negative) H 02/05/17 09:31 Urine Blood Negative (Negative) 02/05/17 09:31 Urine Nitrite Positive (Negative) A 02/05/17 09:31 Urine Bilirubin Small (Negative) H 02/05/17 09:31 Urine Urobilinogen Normal mg/dL (Normal) 02/05/17 09:31 Ur Leukocyte Esterase Large (Negative) H 02/05/17 09:31 Urine Microscopic RBC 5-15 per hpf (0-3) H 02/05/17 09:31 Urine Microscopic WBC TNTC per hpf (0-3) H 02/05/17 09:31 Ur Squamous Epith Cells Many per lpf (None-Few) H 02/05/17 09:31 Urine Bacteria Many per hpf (None-Few) H 02/05/17 09:31 Hyaline Casts None Seen per lpf (None-Few) 02/05/17 09:31 Ur Culture Indicated? YES (NO) A 02/05/17 09:31 Stool Occult Blood Negative (Negative) 02/05/17 09:31 Urine Opiates Screen Negative ng/mL (Veigwm=955) 02/05/17 09:31 Ur Barbiturates Screen Negative ng/mL (Jdepft=634) 02/05/17 09:31 Ur Phencyclidine Scrn Negative ng/mL (Cutoff=25) 02/05/17 09:31 Ur Amphetamines Screen Negative ng/mL (Urjmrb=9582) 02/05/17 09:31 U Benzodiazepines Scrn Negative ng/mL (Eoxzhg=313) 02/05/17 09:31 Urine Cocaine Screen Negative ng/mL (Cutoff= 300) 02/05/17 09:31 U Marijuana (THC) Screen Negative ng/mL (Cutoff = 50) 02/05/17 09:31 Blood Type A POSITIVE 02/05/17 20:11 Antibody Screen NEGATIVE 02/05/17 20:11 Crossmatch See Detail 02/05/17 20:11 - Impressions Chest X-Ray 02/05/17 17:09 IMPRESSION: No acute cardiopulmonary disease. D/ / Sterling Martinez MD / Sterling Martinez MD Interpreting Provider: Sterling Martinez MD Head CT 02/05/17 17:09 IMPRESSION: No acute intracranial abnormality. . No significant change D/ / Jose Rios MD / Jose Rios MD Interpreting Provider: Jose Rios MD - Attending Attestation Allergies No Known Allergies Allergy (Verified 12/10/16 11:41) Home Medications Medication Instructions Recorded Confirmed Type Albuterol Sulfate [Albuterol 2 puff IH Q4HR PRN 02/27/16 02/05/17 History Inhaler] Aspirin [Adult Low Dose Aspirin EC] 81 mg PO DAILY 02/27/16 02/05/17 History Cholecalciferol (Vitamin D3) 5,000 unit PO Q48H 02/27/16 02/05/17 History [Vitamin D3] Clopidogrel [Plavix] 75 mg PO HS 02/27/16 02/05/17 History Fluticasone/Salmeterol [Advair 1 puff IH BID 02/27/16 02/05/17 History 250-50 Diskus] Furosemide [Lasix] 20 mg PO HS 02/27/16 02/05/17 History Lisinopril [Zestril] 20 mg PO HS 02/27/16 02/05/17 History Pregabalin [Lyrica] 150 mg PO BID 02/27/16 02/05/17 History Tiotropium [Spiriva] 18 mcg IH DAILY 02/27/16 02/05/17 History Metformin HCl [Metformin HCl ER] 500 mg PO DAILY 12/10/16 02/05/17 History Oxygen 2 l NS AD 12/10/16 02/05/17 History Atorvastatin [Lipitor] 40 mg PO HS 02/05/17 02/05/17 History I & O 02/02/17 02/03/17 02/04/17 02/05/17 23:59 23:59 23:59 23:59 Intake Total 1050 / 1050 Output Total 0 / 0 Balance 1050 / 1050 Weight 184 kg Intake: IV Fluids 1050 / 1050 0.9 % Sodium Chloride 1, 1000 / 1000 000 ML @ 3750 mls/hr IVC .Q16M ONE Rx#:[id number] Protonix 80 MG In 0.9 % 50 / 50 Sodium Chloride 50 ML @ 600 mls/hr IVPB ONCE ONE Rx#:[id number] Oral 0 / 0 Output: Urine 0 / 0 Other: Blood Glucose* 128 Medications Acetaminophen (Tylenol) 650 mg PO Q6HR PRN PRN Reason: Mild Pain (1-3) Stop: 08/07/17 22:20 Acetaminophen (Tylenol) 650 mg PO ONCE ONE Stop: 02/05/17 22:20 Albuterol Sulfate (Albuterol Inhaler) 2 puff IH Q4HR PRN PRN Reason: Shortness Of Breath Stop: 08/07/17 22:37 Aspirin (Aspirin Ec) 81 mg PO DAILY [facility] Stop: 08/08/17 09:01 Atorvastatin Calcium (Lipitor) 40 mg PO HS [facility] Stop: 08/08/17 21:01 Diphenhydramine HCl (Benadryl) 25 mg IVP ONCE ONE Stop: 02/05/17 22:20 Docusate Sodium (Colace) 100 mg PO BID PRN PRN Reason: Constipation Stop: 08/07/17 22:20 Folic Acid (Folic Acid) 1 mg PO DAILY ROZINA Stop: 08/08/17 09:01 Furosemide (Lasix) 20 mg IV ONCE ONE Stop: 02/05/17 22:20 Furosemide (Lasix) 20 mg PO HS [facility] Stop: 08/08/17 21:01 Pantoprazole Sodium 40 mg/ (Sodium Chloride) 100 mls @ 20 mls/hr IVC .Q5H ROZINA Stop: 08/07/17 19:46 Last Admin: 02/05/17 19:53 Dose: 20 mls/hr Sodium Chloride (0.9 % Sodium Chloride) 1,000 mls @ 50 mls/hr IVC .Q20H ROZINA Stop: 08/07/17 22:31 Morphine Sulfate (Morphine Sulfate) 2 mg IVP Q4HR PRN PRN Reason: Severe Pain (7-10) Stop: 08/07/17 22:20 Naloxone HCl (Narcan) 0.4 mg IVP Q2MIN PRN PRN Reason: Opioid Reversal Stop: 08/07/17 22:20 Non-Formulary Medication (Cyclobenzaprine Hcl [Cyclobenzaprine Hcl]) 5 mg PO TID PRN PRN Reason: Muscle Spasm Non-Formulary Medication (Fluticasone/Salmeterol [Advair 250-50 Diskus]) 1 puff IH BID ROZINA Stop: 08/08/17 09:01 Non-Formulary Medication (Insulin Aspart [Novolog Flexpen]) 4 unit SQ TID ROZINA Stop: 08/08/17 09:01 Non-Formulary Medication (Insulin Glargine,Hum.Rec.Anlog [Lantus Solostar]) 10 unit SQ HS ROZINA Stop: 08/08/17 21:01 Non-Formulary Medication (Lisinopril [Zestril]) 20 mg PO HS ROZINA Stop: 08/08/17 21:01 Non-Formulary Medication (Oxygen [Oxygen]) 2 l NS AD ROZINA Stop: 08/07/17 22:46 Non-Formulary Medication (Pregabalin [Lyrica]) 150 mg PO BID ROZINA Stop: 08/08/17 09:01 Ondansetron HCl (Zofran) 4 mg IVP Q8HR PRN PRN Reason: Nausea And Vomiting Stop: 08/07/17 22:20 Oxycodone HCl (Roxicodone) 5 mg PO Q6HR PRN PRN Reason: Moderate Pain (4-6) Stop: 08/07/17 22:20 Tiotropium [place] (Spiriva) 18 mcg IH DAILY ROZINA PRN Reason: Protocol Stop: 08/08/17 09:01 Discontinued Medications Pantoprazole Sodium 80 mg/ (Sodium Chloride) 50 mls @ 600 mls/hr IVPB ONCE ONE Stop: 02/05/17 19:39 Last Infusion: 02/05/17 21:20 Dose: 0 mls/hr Ceftriaxone Sodium 1,000 mg/ (Dextrose) 100 mls @ 200 mls/hr IVPB ONCE ONE Stop: 02/05/17 20:38 Last Admin: 02/05/17 20:32 Dose: 200 mls/hr Sodium Chloride (0.9 % Sodium Chloride) 1,000 mls @ 3,750 mls/hr IVC .Q16M ONE Stop: 02/05/17 20:24 Last Infusion: 02/05/17 21:19 Dose: 0 mls/hr Nursing Notes 02/05/17 21:19 Nurse Note by Ray Hernandez REPORT CALLED TO 3A. DEJUAN Cuevas/SIRENA;RN. PT READY FOR INPT UNIT AT THIS TIME. Initialized on 02/05/17 21:19 - END OF NOTE 02/05/17 19:42 Transport Report by Clara Thomas Date: 02/05/17 Transport Method: Ambulatory No Known Allergies Allergy (Verified 12/10/16 11:41) Resuscitation Status 02/05/17 17:08 ECG 12 lead ECG [ECG] Stat Mode Of Transportation: Ambulatory Reason For Exam: altered mental status Exam Performed At:: [facility] Medical Oxygen: Mental Status: Fall Risk: Isolation: Nurse Required for Transport: No ___ Yes Limb Restrictions: No ___ Yes Behavioral issue/Risk for Elopement: No ___ Yes Telemetry Room Notification: Destination: MRI XRAY STRESS ULTRASOUND CT DIALYSIS ENDO OTHER: Depart Time: Nurse: Transporter: Arrive Time: Received by: ___ Return Time: Nurse: Transporter: ] Initialized on 02/05/17 19:42 - END OF NOTE 02/05/17 17:11 Transport Report by Kyleigh Rain Date: 02/05/17 Transport Method: Ambulatory No Known Allergies Allergy (Verified 12/10/16 11:41) Resuscitation Status 02/05/17 17:08 ECG 12 lead ECG [ECG] Stat Mode Of Transportation: Ambulatory Reason For Exam: altered mental status Exam Performed At:: [facility] 02/05/17 17:09 CT head/brain wo con [CT] Stat Mode Of Transportation: Ambulatory Reason For Exam: altered mental status Exam Performed At:: [facility] Allergic to Contrast: No XR chest 2V [XR] Stat Mode Of Transportation: Ambulatory Reason For Exam: Weakness Order Doctor: Kevin Victoria Exam Performed At:: [facility] Oxygen: Mental Status: Fall Risk: Isolation: Nurse Required for Transport: No ___ Yes Limb Restrictions: No ___ Yes Behavioral issue/Risk for Elopement: No ___ Yes Telemetry Room Notification: Destination: MRI XRAY STRESS ULTRASOUND CT DIALYSIS ENDO OTHER: Depart Time: Nurse: Transporter: Arrive Time: Received by: ___ Return Time: Nurse: Transporter: ] Initialized on 02/05/17 17:11 - END OF NOTE Orders 02/05/17 09:31 Culture,Urine [RM] Stat GERI Source: [facility] [place] Specimen Description: Drug Screen, Urine [UCHEM] Stat Comment: Specimen: Has been collected Fecal Hemoccult [Occult Blood,Stool] [BF] Stat Comment: Specimen: Send someone from the department to collect Urinalysis Reflex Cult & Micro [URIN] Stat Comment: Specimen: Has been collected 02/05/17 16:52 POC Glucometer Test [POC] Routine 02/05/17 17:08 12 lead ECG assessment [RC] NOW Cardiac monitoring [RC] .ONCE NPO (Nursing Order) [RC] NOW Saline lock [RC] .ONCE Vital Signs Assessment [RC] PROTOCOL ECG 12 lead ECG [ECG] Stat Mode Of Transportation: Ambulatory Reason For Exam: altered mental status Exam Performed At:: [facility] 02/05/17 17:09 CT head/brain wo con [CT] Stat Mode Of Transportation: Ambulatory Reason For Exam: altered mental status Exam Performed At:: [facility] Allergic to Contrast: No XR chest 2V [XR] Stat Mode Of Transportation: Ambulatory Reason For Exam: Weakness Order Doctor: Kevin Victoria Exam Performed At:: [facility] 02/05/17 18:35 Activated Partial Thrombo Time [COAG] Stat Comment: Specimen: Send someone from the department to collect Ammonia Stat Comment: Specimen: Send someone from the department to collect Basic Metabolic Panel Stat Comment: Specimen: Send someone from the department to collect C-Reactive Protein Stat Complete Blood Count [HEME] Stat Comment: Specimen: Send someone from the department to collect Hepatic Panel Stat Comment: Specimen: Send someone from the department to collect Lactic Acid ([facility] Only) Stat Comment: Specimen: Send someone from the department to collect Prothrombin Time INR [COAG] Stat Comment: Specimen: Send someone from the department to collect Thyroid Stimulating Hormone Stat Troponin I Stat Comment: Specimen: Send someone from the department to collect 02/05/17 19:[address] Stat Comment: Reason for Visit: Weakness, Hg 6.4, probable GI bleed Transfusion, red blood cells [RC] .ONCE 02/05/17 19:35 Pantoprazole [Protonix] 80 mg 0.9 % Sodium Chloride 50 ml IVPB ONCE 02/05/17 19:45 0.9 % Sodium Chloride Mini Bag [0.9 % Sodium Chloride (Mini-Bag +)] 100 ml Pantoprazole [Protonix] 40 mg IVC 20 mls/hr 02/05/17 20:09 0.9 % Sodium Chloride 1,000 ml IVC 3,750 mls/hr CefTRIAXone [Rocephin] 1,000 mg D5% in Water (Mini-Bag+) [Dextrose 5% (Minibag +) 100 ML] 100 ml IVPB ONCE 02/05/17 20:11 Red Blood Cells [BBK] Stat F[employer] Wristband Number: [id number] Comment: Quantity: 1 Specimen: Send someone from the department to collect Indicate Reason for RBC Trans: Hgb < 7g/dl Indicate condition for HGB <8: Signs/Symtoms of Anemia Has pt been within the last 3 months?: No Has pt been transfused within the last 3 months?: Yes Type and Screen [BBK] Stat TAKOK Wristband Number: [id number] 02/05/17 22:19 Apply anti-embolic stockings [RC] .ONCE Continuous pulse oximetry [RC] .ONCE Comment: Intermittent pneumatic donna [RC] .ONCE Intermit Pneumatic Compression Device: Calf Pumps Vital Signs Assessment [RC] Q4H Acetaminophen [Tylenol] 650 mg PO ONCE ONE Acetaminophen [Tylenol] 650 mg PO Q6HR PRN DiphenhydraMINE [Benadryl] 25 mg IVP ONCE ONE Docusate [Colace] 100 mg PO BID PRN Furosemide [Lasix] 20 mg IV ONCE ONE Morphine [Morphine Sulfate] 2 mg IVP Q4HR PRN Naloxone [Narcan] 0.4 mg IVP Q2MIN PRN Ondansetron [Zofran] 4 mg IVP Q8HR PRN OxyCODONE Immed Rel [Roxicodone] 5 mg PO Q6HR PRN 02/05/17 22:20 Admit as Inpatient Routine Estimated Total Length of Stay (Days): 3 Plans for Post Hospital Care: Home Inpatient Status Required: Unresolved acute problem Explain each choice below Explain Concerns: Patient presents with acute illness and is at risk for further decline due to comorbid conditions Potential Adverse Outcome: Cardiac Perfusion Respiratory Failure Worsening Renal Failure Is VTE Prophylaxis Indicated?: Yes Peripheral IV [RC] CONT Signed consent on chart [RC] .ONCE 02/05/17 22:21 Bed rest [RC] .CONT Physician Instructions: Bed rest w/bedside commode [RC] .PRN Cardiac Monitoring Med/Surg [RC] .CONT Telemetry Reason: ACS/CP Continuous pulse oximetry [RC] CONT Comment: Measure intake and output [RC] QSHIFT Measure weight [RC] DAILY Oxygen via nasal cannula Nasal Cannula 2 lpm Comment: Titrate O2 to main O2 sat greater than: 92% RT has an order or consult [RC] NOW 02/05/17 22:30 0.9 % Sodium Chloride 1,000 ml IVC 50 mls/hr Up with Assist Daily Comment: Physician Instructions: 02/05/17 22:35 Aspiration precautions [RC] .CONTINUOUS Falls precautions (Luis-Briseyda [RC] ONCE 02/05/17 22:36 Albuterol Sulfate [Albuterol Inhaler] 2 puff IH Q4HR PRN Cyclobenzaprine HCl [Cyclobenzaprine HCl] 5 mg PO TID PRN How will this medication be supplied?: Pharmacy to Subsitute 02/05/17 22:41 Consult to Physical Therapy [CONS] Routine Comment: Evaluate, develop and implement POC OT [Consult to Occupational Therapy] [CONS] Routine Comment: Evaluate, develop and implement POC 02/05/17 22:45 Oxygen [Oxygen] 2 l NS AD How will this medication be supplied?: Pharmacy to Subsitute 02/05/17 Breakfast NPO Diet Diet Modifications: 02/05/17 Dinner NPO Diet Diet Modifications: ice chips. sips of water w/meds. 02/05/17 Lunch NPO Diet Diet Modifications: 02/06/17 04:00 Basic Metabolic Panel AM 0400 Comment: Specimen: Send someone from the department to collect Complete Blood Count w/o Diff [HEME] AM 0400 Comment: Specimen: Send someone from the department to collect Hgb A1C AM 0400 Comment: Specimen: Send someone from the department to collect Iron Profile AM 0400 Comment: Specimen: Send someone from the department to collect Magnesium AM 0400 Comment: Specimen: Send someone from the department to collect Phosphorous AM 0400 Comment: Specimen: Send someone from the department to collect Thyroid Stimulating Hormone AM 0400 Comment: Specimen: Send someone from the department to collect 02/06/17 09:00 Aspirin Enteric Coated [Aspirin EC] 81 mg PO DAILY Fluticasone/Salmeterol [Advair 250-50 Diskus] 1 puff IH BID How will this medication be supplied?: Pharmacy to Subsitute Folic Acid 1 mg PO DAILY Insulin ASPART [Novolog Flexpen] 4 unit SQ TID How will this medication be supplied?: Pharmacy to Subsitute Pregabalin [Lyrica] 150 mg PO BID How will this medication be supplied?: Pharmacy to Subsitute Tiotropium [Spiriva] 18 mcg IH DAILY 02/06/17 21:00 Atorvastatin [Lipitor] 40 mg PO HS Furosemide [Lasix] 20 mg PO HS Insulin Glargine,Hum.rec.anlog [Lantus Solostar] 10 unit SQ HS How will this medication be supplied?: Pharmacy to Subsitute Lisinopril [Zestril] 20 mg PO HS How will this medication be supplied?: Pharmacy to Subsitute 02/06/17 22:30 Up with Assist Daily Comment: Physician Instructions: 02/07/17 22:30 Up with Assist Daily Comment: Physician Instructions: Patient Problems (Last Updated 02/05/17 @ 20:09 by Kevin Victoria MD) 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0-100.0) fL MCH (28.0-33.3) pg MCHC (31.6-35.5) g/dL RDW (11.5-14.5) % Plt Count (140-400) K/mcL MPV (9.4-12.4) fL Immature Gran % (0-4) % Seg Neutrophils % % Lymphocytes % % Monocytes % % Eosinophils % % Basophils % % Neutrophils # (1.6-8.9) K/mcL Lymphocytes # (0.6-4.6) K/mcL Monocytes # (0.0-1.3) K/mcL Eosinophils # (0.0-0.6) K/mcL Basophils # (0.0-0.2) K/mcL Nucleated RBCs/100 WBC (0) /100 WBC PT (9.4-12.1) Seconds INR APTT (26.0-36.0) Seconds Sodium (136-145) mEq/L Potassium (3.5-4.5) mEq/L Chloride (98-109) mEq/L Carbon Dioxide (19-29) mEq/L BUN (7-20) mg/dL Creatinine (0.57-1.11) mg/dL Est GFR ( Amer) (> 60) Est GFR (Non-Af Amer) (> 60) BUN/Creatinine Ratio (6-26) Glucose (70-99) mg/dL POC Glucose (58-89) Calculated Osmolality (280-300) Lactic Acid (0.5-2.2) mmol/L Calcium (8.6-10.8) mg/dL Total Bilirubin (0.2-1.2) mg/dL Direct Bilirubin (0.0-0.5) mg/dL Indirect Bilirubin (0.0-1.2) mg/dL AST (5-34) Units/L ALT (0-55) Units/L Alkaline Phosphatase (38-126) Units/L Ammonia (18-72) mcmol/L Troponin I (0-0.03) ng/mL C-Reactive Protein (Less than 5) mg/L Serum Total Protein (6.0-8.3) g/dL Albumin (3.5-5.0) g/dL Globulin (2.4-3.5) g/dL Albumin/Globulin Ratio (1.1-2.2) TSH (0.350-4.840) mcIU/mL Urine Color Yellow (Yellow) Urine Clarity Cloudy A (Clear) Urine pH 5.5 (5.0-8.0) pH Units Ur Specific [place] 1.022 (1.010-1.025) Urine Protein Negative (Neg-Trace) mg/dL Urine Glucose (UA) 100 H (Normal) mg/dL Urine Ketones Trace H (Negative) mg/dL Urine Blood Negative (Negative) Urine Nitrite Positive A (Negative) Urine Bilirubin Small H (Negative) Urine Urobilinogen Normal (Normal) mg/dL Ur Leukocyte Esterase Large H (Negative) Urine Microscopic RBC 5-15 H (0-3) per hpf Urine Microscopic WBC TNTC H (0-3) per hpf Ur Squamous Epith Cells Many H (None-Few) per lpf Urine Bacteria Many H (None-Few) per hpf Hyaline Casts None Seen (None-Few) per lpf Ur Culture Indicated? YES A (NO) Stool Occult Blood Negative (Negative) Urine Opiates Screen Negative (Pysdif=304) ng/mL Ur Barbiturates Screen Negative (Kmuwem=852) ng/mL Ur Phencyclidine Scrn Negative (Cutoff=25) ng/mL Ur Amphetamines Screen Negative (Kdqbbj=7733) ng/mL U Benzodiazepines Scrn Negative (Asmjhm=229) ng/mL Urine Cocaine Screen Negative (Cutoff= 300) ng/mL U Marijuana (THC) Screen Negative (Cutoff = 50) ng/mL Blood Type Antibody Screen Crossmatch 02/05/17 02/05/17 02/05/17 Range/Units 16:52 18:35 18:35 WBC 9.2 (4.3-11.1) K/mcL RBC 2.08 L (3.82-4.97) M/mcL Hgb 6.4 L (11.5-15.4) g/dL Hct 21.6 L (35.3-44.9) % MCV 103.8 H (83.0-100.0) fL MCH 30.8 (28.0-33.3) pg MCHC 29.6 L (31.6-35.5) g/dL RDW 17.3 H (11.5-14.5) % Plt Count 208 (140-400) K/mcL MPV 12.7 H (9.4-12.4) fL Immature Gran % 0.7 (0-4) % Seg Neutrophils % 73.0 % Lymphocytes % 13.8 % Monocytes % 6.9 % Eosinophils % 5.2 % Basophils % 0.4 % Neutrophils # 6.7 (1.6-8.9) K/mcL Lymphocytes # 1.3 (0.6-4.6) K/mcL Monocytes # 0.6 (0.0-1.3) K/mcL Eosinophils # 0.5 (0.0-0.6) K/mcL Basophils # 0.0 (0.0-0.2) K/mcL Nucleated RBCs/100 WBC 0.3 H (0) /100 WBC PT 12.9 H (9.4-12.1) Seconds INR 1.2 APTT 28.7 (26.0-36.0) Seconds Sodium (136-145) mEq/L Potassium (3.5-4.5) mEq/L Chloride (98-109) mEq/L Carbon Dioxide (19-29) mEq/L BUN (7-20) mg/dL Creatinine (0.57-1.11) mg/dL Est GFR ( Amer) (> 60) Est GFR (Non-Af Amer) (> 60) BUN/Creatinine Ratio (6-26) Glucose (70-99) mg/dL POC Glucose 128 H (58-89) Calculated Osmolality (280-300) Lactic Acid (0.5-2.2) mmol/L Calcium (8.6-10.8) mg/dL Total Bilirubin (0.2-1.2) mg/dL Direct Bilirubin (0.0-0.5) mg/dL Indirect Bilirubin (0.0-1.2) mg/dL AST (5-34) Units/L ALT (0-55) Units/L Alkaline Phosphatase (38-126) Units/L Ammonia (18-72) mcmol/L Troponin I (0-0.03) ng/mL C-Reactive Protein (Less than 5) mg/L Serum Total Protein (6.0-8.3) g/dL Albumin (3.5-5.0) g/dL Globulin (2.4-3.5) g/dL Albumin/Globulin Ratio (1.1-2.2) TSH (0.350-4.840) mcIU/mL Urine Color (Yellow) Urine Clarity (Clear) Urine pH (5.0-8.0) pH Units Ur Specific [place] (1.010-1.025) Urine Protein (Neg-Trace) mg/dL Urine Glucose (UA) (Normal) mg/dL Urine Ketones (Negative) mg/dL Urine Blood (Negative) Urine Nitrite (Negative) Urine Bilirubin (Negative) Urine Urobilinogen (Normal) mg/dL Ur Leukocyte Esterase (Negative) Urine Microscopic RBC (0-3) per hpf Urine Microscopic WBC (0-3) per hpf Ur Squamous Epith Cells (None-Few) per lpf Urine Bacteria (None-Few) per hpf Hyaline Casts (None-Few) per lpf Ur Culture Indicated? (NO) Stool Occult Blood (Negative) Urine Opiates Screen (Wugwjt=616) ng/mL Ur Barbiturates Screen (Bpdxup=912) ng/mL Ur Phencyclidine Scrn (Cutoff=25) ng/mL Ur Amphetamines Screen (Tmfdto=0451) ng/mL U Benzodiazepines Scrn (Bqfzfs=825) ng/mL Urine Cocaine Screen (Cutoff= 300) ng/mL U Marijuana (THC) Screen (Cutoff = 50) ng/mL Blood Type Antibody Screen Crossmatch 02/05/17 02/05/17 02/05/17 Range/Units 18:35 18:35 18:35 WBC (4.3-11.1) K/mcL RBC (3.82-4.97) M/mcL Hgb (11.5-15.4) g/dL Hct (35.3-44.9) % MCV (83.0-100.0) fL MCH (28.0-33.3) pg MCHC (31.6-35.5) g/dL RDW (11.5-14.5) % Plt Count (140-400) K/mcL MPV (9.4-12.4) fL Immature Gran % (0-4) % Seg Neutrophils % % Lymphocytes % % Monocytes % % Eosinophils % % Basophils % % Neutrophils # (1.6-8.9) K/mcL Lymphocytes # (0.6-4.6) K/mcL Monocytes # (0.0-1.3) K/mcL Eosinophils # (0.0-0.6) K/mcL Basophils # (0.0-0.2) K/mcL Nucleated RBCs/100 WBC (0) /100 WBC PT (9.4-12.1) Seconds INR APTT (26.0-36.0) Seconds Sodium 141 (136-145) mEq/L Potassium 4.6 H (3.5-4.5) mEq/L Chloride 104 (98-109) mEq/L Carbon Dioxide 32 H (19-29) mEq/L BUN 29 H (7-20) mg/dL Creatinine 0.85 (0.57-1.11) mg/dL Est GFR ( Amer) > 60 (> 60) Est GFR (Non-Af Amer) > 60 (> 60) BUN/Creatinine Ratio 34 H (6-26) Glucose 132 H (70-99) mg/dL POC Glucose (58-89) Calculated Osmolality 300 (280-300) Lactic Acid (0.5-2.2) mmol/L Calcium 9.3 (8.6-10.8) mg/dL Total Bilirubin 0.2 (0.2-1.2) mg/dL Direct Bilirubin 0.1 (0.0-0.5) mg/dL Indirect Bilirubin 0.1 (0.0-1.2) mg/dL AST 12 (5-34) Units/L ALT 8 (0-55) Units/L Alkaline Phosphatase 56 (38-126) Units/L Ammonia 14 L (18-72) mcmol/L Troponin I 0.01 (0-0.03) ng/mL C-Reactive Protein 20 H (Less than 5) mg/L Serum Total Protein 6.1 (6.0-8.3) g/dL Albumin 2.9 L (3.5-5.0) g/dL Globulin 3.2 (2.4-3.5) g/dL Albumin/Globulin Ratio 0.9 L (1.1-2.2) TSH 1.569 (0.350-4.840) mcIU/mL Urine Color (Yellow) Urine Clarity (Clear) Urine pH (5.0-8.0) pH Units Ur Specific [place] (1.010-1.025) Urine Protein (Neg-Trace) mg/dL Urine Glucose (UA) (Normal) mg/dL Urine Ketones (Negative) mg/dL Urine Blood (Negative) Urine Nitrite (Negative) Urine Bilirubin (Negative) Urine Urobilinogen (Normal) mg/dL Ur Leukocyte Esterase (Negative) Urine Microscopic RBC (0-3) per hpf Urine Microscopic WBC (0-3) per hpf Ur Squamous Epith Cells (None-Few) per lpf Urine Bacteria (None-Few) per hpf Hyaline Casts (None-Few) per lpf Ur Culture Indicated? (NO) Stool Occult Blood (Negative) Urine Opiates Screen (Mlapzc=676) ng/mL Ur Barbiturates Screen (Rtvewo=129) ng/mL Ur Phencyclidine Scrn (Cutoff=25) ng/mL Ur Amphetamines Screen (Wksyeg=6315) ng/mL U Benzodiazepines Scrn (Sxddna=151) ng/mL Urine Cocaine Screen (Cutoff= 300) ng/mL U Marijuana (THC) Screen (Cutoff = 50) ng/mL Blood Type Antibody Screen Crossmatch 02/05/17 02/05/17 Range/Units 18:35 20:11 WBC (4.3-11.1) K/mcL RBC (3.82-4.97) M/mcL Hgb (11.5-15.4) g/dL Hct (35.3-44.9) % MCV (83.0-100.0) fL MCH (28.0-33.3) pg MCHC (31.6-35.5) g/dL RDW (11.5-14.5) % Plt Count (140-400) K/mcL MPV (9.4-12.4) fL Immature Gran % (0-4) % Seg Neutrophils % % Lymphocytes % % Monocytes % % Eosinophils % % Basophils % % Neutrophils # (1.6-8.9) K/mcL Lymphocytes # (0.6-4.6) K/mcL Monocytes # (0.0-1.3) K/mcL Eosinophils # (0.0-0.6) K/mcL Basophils # (0.0-0.2) K/mcL Nucleated RBCs/100 WBC (0) /100 WBC PT (9.4-12.1) Seconds INR APTT (26.0-36.0) Seconds Sodium (136-145) mEq/L Potassium (3.5-4.5) mEq/L Chloride (98-109) mEq/L Carbon Dioxide (19-29) mEq/L BUN (7-20) mg/dL Creatinine (0.57-1.11) mg/dL Est GFR ( Amer) (> 60) Est GFR (Non-Af Amer) (> 60) BUN/Creatinine Ratio (6-26) Glucose (70-99) mg/dL POC Glucose (58-89) Calculated Osmolality (280-300) Lactic Acid 1.1 (0.5-2.2) mmol/L Calcium (8.6-10.8) mg/dL Total Bilirubin (0.2-1.2) mg/dL Direct Bilirubin (0.0-0.5) mg/dL Indirect Bilirubin (0.0-1.2) mg/dL AST (5-34) Units/L ALT (0-55) Units/L Alkaline Phosphatase (38-126) Units/L Ammonia (18-72) mcmol/L Troponin I (0-0.03) ng/mL C-Reactive Protein (Less than 5) mg/L Serum Total Protein (6.0-8.3) g/dL Albumin (3.5-5.0) g/dL Globulin (2.4-3.5) g/dL Albumin/Globulin Ratio (1.1-2.2) TSH (0.350-4.840) mcIU/mL Urine Color (Yellow) Urine Clarity (Clear) Urine pH (5.0-8.0) pH Units Ur Specific [place] (1.010-1.025) Urine Protein (Neg-Trace) mg/dL Urine Glucose (UA) (Normal) mg/dL Urine Ketones (Negative) mg/dL Urine Blood (Negative) Urine Nitrite (Negative) Urine Bilirubin (Negative) Urine Urobilinogen (Normal) mg/dL Ur Leukocyte Esterase (Negative) Urine Microscopic RBC (0-3) per hpf Urine Microscopic WBC (0-3) per hpf Ur Squamous Epith Cells (None-Few) per lpf Urine Bacteria (None-Few) per hpf Hyaline Casts (None-Few) per lpf Ur Culture Indicated? (NO) Stool Occult Blood (Negative) Urine Opiates Screen (Zrrogo=910) ng/mL Ur Barbiturates Screen (Tyzjxd=160) ng/mL Ur Phencyclidine Scrn (Cutoff=25) ng/mL Ur Amphetamines Screen (Xbbauw=8379) ng/mL U Benzodiazepines Scrn (Qcwvui=328) ng/mL Urine Cocaine Screen (Cutoff= 300) ng/mL U Marijuana (THC) Screen (Cutoff = 50) ng/mL Blood Type A POSITIVE Antibody Screen NEGATIVE Crossmatch See Detail Assessments/Treatments 12 lead ECG assessment Start: 02/05/17 17: 08 Freq: NOW Status: Complete Document 02/05/17 18:38 [id number] (Rec: 02/05/17 18:38 [id number]) EKG Time EKG Completed 18:35 EKG performed by Torri WILKINSON EKG shown to and signed by Dr. Victoria Cardiac monitoring Start: 02/05/17 16: 45 Freq: Status: Active Document 02/05/17 16:55 CRB (Rec: 02/05/17 16:58 CRB [id number]) Cardiac Monitoring Heart Rate 97 Monitoring Method Staff Air Tactical Officer Number [id number] ED Discharge Assessment Start: 02/05/17 16: 45 Freq: Status: Active Document 02/05/17 21:21 CMD (Rec: 02/05/17 21:22 CMD [id number]) ED Discharge Assessment ED Discharge Disposition Admitted Med Rec/Patient Pharmacy Completed? No Admitted to 3A Bed assigned 3a34 Transported by therapeutic massage technician Transported with oxygen IV Temperature (97.6 F-99.6 F) 97.4 F L Pain Scale 0 Pain Scale Used Standard (1-10) Blood Pressure 110/74 Heart rate 78 Respiratory Rate 18 Oxygen Delivery Room Air Oxygen Saturation 98 Critical Care Minutes 0 ED General Medical Assessment Start: 02/05/17 16: 45 Freq: Status: Active Document 02/05/17 16:55 CRB (Rec: 02/05/17 16:58 CRB [id number]) General Medical Level Of Consciousness Awake Alert Appropriate Follows Commands Patient Orientation Person Place Time Name Age Date of Day of Month Day of Week Month Year Time of Day Pupil Reaction Brisk Pupil Scheller PERRLA Skin Temperature Warm Skin Moisture Dry Skin Turgor Elastic Respiratory Depth Normal Respiratory Effort Normal for Patient Spontaneous Non-Labored Chest Pain Intensity (out of 10) 0 Abdomen Description Soft Non-Tender Large Round Nausea/Vomiting Presence None Capillary Refill < 3 Seconds Glucose, blood point of care measurement Start: 02/05/17 16: 58 Freq: Status: Active Document 02/05/17 16:55 CRB (Rec: 02/05/17 16:59 CRB [id number]) Blood Glucose Assessment Blood Glucose* 128 Hyperglycemia Symptoms Fatigue Increased Thirst Initial Patient Assessment Start: 02/05/17 21: 45 Freq: .ONCE Status: Active Document 02/05/17 21:45 AMW (Rec: 02/05/17 21:51 AMW [id number]) General Questions Date of Arrival on Unit 02/05/17 Time of Arrival on Unit 21:45 Admitted From Home Chief Complaint low blood sugar shakes Onset of Chief Complaint 02/05/17 History Provided By Patient Orientation To Call Light Bed Phone TV Bathroom Smoking Policy Visiting Hours Procedures ID Bracelet On Emergency Contact Name Keagan Yao Relationship to Patient daughter Bands applied ID band Patient Health Portal Patient was provided information on Yes accessing patient portal Patient Requests Portal Enrollment No Reason No Portal Enrollment No Email Malnutrition Screening Tool (MST) Have You Recently Lost Weight Without No Trying Advance Directives Advance Directives Yes Advance Directives on File Yes Living Will Yes Power of Chain Hooker Yes [employer] [place] Name Deirdre Yao Patient Rights Copy of Rights Given and Verbalizes Yes Understanding Tobacco Free [place]: Copy of [facility] Yes Statement Given and Patient Verbalizes Understanding Communication Ability Preferred Language [place] Able to Read Yes Able to Write Yes Hearing Ability Normal Visual Assistive Devices None Pain Assessment Do You Have Any Ongoing (Chronic) Pain Yes Problems What treatment or medications are you lyrica receiving for pain management Educated on Pain Scale Yes Past Medical History Medical history cancer COPD coronary artery disease CVA diabetes hyperlipidemia hypertension other Female Surgical History cholecystectomy other Additional surgical history lumpectomy Psychiatric history no psych history Smoking Status Former smoker Smokeless Tobacco Status No Alcohol use none Drug use none Occupational status retired Current living situation Home With Family Activity level Uses cane/walker Recent Out of Country Travel Within the No Last 8 Weeks Exposure or Possible Exposure to Illness No During Travel Family History-Meaningful Use Mother Hx Family Endocrine Disorder Yes: DM Spiritual Needs Spiritual Referral None Psychosocial Over Age 75 and Lives Alone or Over Age Yes 80 Potential Need for Follow-up Care (ECF, No Home Health, ECT) Developmentally Disabled or History of No Mental Health Problems Diagnosis with Senior Care Need or No Terminal Implications Responsible for Care of Others No Financial Concerns No Suspected Abuse or Neglect No Suicidal or Homicidal Ideation No Social Service Consult Needed No Functional Assessment Employment Status Retired Community Services Used Prior to Home Health Care Services Admission Oxygen Therapy Eating (Feeding) Ability Setup Bathing Ability Standby Assistance Upper Body Dressing Ability Independent Lower Body Dressing Ability Standby Assistance Ambulation Ability Independent Toileting Ability Independent Bladder Continent Bowel Continent Normal Bowel Pattern 1 to 3 Times Weekly Intake and Output, Strict Start: 02/05/17 21: 45 Freq: Q8H Status: Active Document 02/05/17 22:43 LMO (Rec: 02/05/17 22:45 LMO [id number]) Intake and Output Intake, Oral Amount 0 Output, Urine Amount 0 Measure weight Start: 02/05/17 22: 21 Freq: DAILY Status: Active Document 02/05/17 22:43 LMO (Rec: 02/05/17 22:45 LMO [id number]) Height and Weight Height 1.68 m Weight 184 kg Weight Measurement Method Built in [facility] Body Mass Index (BMI) 65.45 BMI Classification Extreme Obesity Obesity Class III Med Rec Tech Start: 02/05/17 20: 50 Freq: Status: Active Document 02/05/17 20:50 MRB (Rec: 02/05/17 20:50 MRB [id number]) Pharmacy Med Rec Tech Home Medicatons Reconciled? Yes Was this to catch up from previous day No Does patient take 10 or more medications Yes ? Does patient request medication No education Do home meds include Coumadin, Xarelto, Yes Pradaxa, Eliquis Added Patient Preferred Pharmacy Yes Verified Allergies Yes Would Patient Like to use [facility] Patient Pharmacy Patient Belongings Start: 02/05/17 21: 45 Freq: .ONCE Status: Active Document 02/05/17 21:51 AMW (Rec: 02/05/17 21:52 AMW [id number]) Patient Belongings Belongings With Patient on Admission Yes At Bedside Patient Belongings Shoes Socks Belongings Comment shirt Patient Rounding Start: 02/05/17 21: 45 Freq: Q1H Status: Active Document 02/05/17 22:43 LMO (Rec: 02/05/17 22:45 LMO [id number]) Hourly Rounding Hourly Rounding Checked for Patient Positioning Patient Personal Items Placed Within Reach Hourly Rounding Completed Yes Patient Awake Is family present? No Safety Call Light Within Reach Bed Position Low Phone Within Reach Bed Brake On Side Rails Up X2 Are the Floors Free From Trip Hazards? Yes Is the Room Free From Clutter? Yes Turn and Postion Bedrest No Turn Q 2HR No Patient Position Back Saline lock insertion/management Start: 02/05/17 16: 45 Freq: Status: Active Document 02/05/17 16:55 CRB (Rec: 02/05/17 16:58 CRB [id number]) IV Insertion/Site Assessment Right Antecubital IV Established DIANETICIST Yes Date of Insertion 02/05/17 Reason for IV Insertion Provide Access for IV Medication(s) Provide Access for Emergency IV Catheter Type Peripheral IV Gauge (gauge) 18 Site Observation Patent [place] Dressing Applied Transparent Dressing Patient Tolerance Tolerated Well Thrombosis Risk Factor Assessment Start: 02/05/17 21: 45 Freq: .ONCE Status: Active Document 02/05/17 21:45 AMW (Rec: 02/05/17 21:51 AMW [id number]) Thrombosis Risk Factor Assessment Each Risk Factor Represents 3 Points Age over 75 years Total Risk Factor Score 3 Risk Level Higher Risk Triage Start: 02/05/17 16: 45 Freq: Status: Active Document 02/05/17 16:46 CRB (Rec: 02/05/17 16:55 CRB [id number]) Triage Chief Complaint triage ED General Medical Patient Stated Complaint hyperglycemia ARLEEN 3 Onset (ago) hour(s) Description of Symptoms family states sugar was high earlier but dosed it and now sugar under control @ 128 General Appearance alert in no apparent distress Mode of arrival EMS Source patient family EMS Limitations no limitations Ebola Risk: Travel/Contact With Anyone No From Affected Area/s Temperature (97.6 F-99.6 F) 98.1 F Temperature Source Oral Pulse Rate 104 Respiratory Rate 18 Blood Pressure 109/60 O2 Sat by Pulse Oximetry 100 Oxygen Delivery Nasal Cannula Height 1.68 m Weight 83.461 kg Weight Measurement Method Estimated by Patient Pain Scale 0 Pain Scale Used Standard (1-10) Medical history cancer COPD coronary artery disease CVA diabetes hyperlipidemia hypertension other Additional surgical history PMH back surgery, partial hyst, L carotid endartectomy 12/10/16 R carotid endartectomy Psychiatric history no psych history Smoking Status Unknown if ever smoked Smokeless Tobacco Status No Alcohol Use none Drug Use none Safety Concerns Feels Safe At This Time Do you currently feel hopless, have No thoughts of self harm, or thoughts of harming others History of fall in last 14 days? No CREW CALLER history no CREW CALLER history Coma Scale Eye Opening Spontaneous Coma Scale Motor Response Obeys Commands Coma Scale Verbal Response Oriented Coma Scale Total 15 Vital Signs Assessment Start: 02/05/17 17: 08 Freq: PROTOCOL Status: Active Document 02/05/17 18:25 CRB (Rec: 02/05/17 19:59 CRB [id number]) ED Vital Signs Pain Reported No Pain Reported Pain Scale Used Standard (1-10) Blood Pressure 119/71 Pulse Rate 102 Respiratory Rate 18 Depth Normal Effort Normal for Patient Spontaneous Non-Labored Pulse Oximetry 100 Oxygen Delivery Nasal Cannula Oxygen Flow Rate (LPM) 2 Document 02/05/17 19:55 CRB (Rec: 02/05/17 20:00 CRB [id number]) ED Vital Signs Pain Reported No Pain Reported Pain Scale Used Standard (1-10) Blood Pressure 101/70 Pulse Rate 108 Respiratory Rate 18 Depth Normal Effort Normal for Patient Spontaneous Non-Labored Pulse Oximetry 100 Oxygen Delivery Nasal Cannula Oxygen Flow Rate (LPM) 2 Vital Signs Assessment Start: 02/05/17 22: 19 Freq: Q4H Status: Active Document 02/05/17 22:43 LMO (Rec: 02/05/17 22:45 LMO [id number]) Vital Signs with MEWS Temperature (97.6 F-99.6 F) 98.3 F Temperature Source Oral Pulse Rate 63 Respiratory Rate 14 Pulse Oximetry 100 Oxygen Delivery Nasal Cannula Oxygen Flow Rate (LPM) 3.5 Blood Pressure 101/55 Blood Pressure Location Left Arm Source Automatic Cuff Position HOB Elevated Neuro Status *recalled from last Alert documentation MEWS Score 0 Discharge Information ED Provider: Kevin Victoria Status: Departed Time Seen by Provider: 02/05/17 16:52 Condition: Triaged At: 02/05/17 16:46 Emergency Discharge Date/Time: 02/05/17 21:22 Emergency Discharge Disposition: Admitted As Inpatient Clinical Impression Frail elderly Ashton esophagus Anemia Tachycardia Type 2 diabetes mellitus with other circulatory complications COPD (chronic obstructive pulmonary disease) Weakness Abnormal EKG UTI (urinary tract infection) Emergency Discharge Comment: Admit Intervention Last Done ED General Medical Assessment 02/05/17 16:55 Query Result Level Of Consciousness Awake Alert Appropriate Follows Commands Patient Orientation Person Place Time Name Age Date of Day of Month Day of Week Month Year Time of Day Pupil Reaction Brisk Pupil Scheller PERRLA Skin Temperature Warm Skin Moisture Dry Skin Turgor Elastic Respiratory Depth Normal Respiratory Effort Normal for Patient Spontaneous Non-Labored Chest Pain Intensity 0 Abdomen Description Soft Non-Tender Large Round Nausea/Vomiting Presence None Capillary Refill < 3 Seconds ED Discharge Assessment 02/05/17 21:21 Query Result ED Discharge Disposition Admitted Med Rec/Patient Phamracy completed? No ED Admit to 3A Bed assigned 3a34 Transported by therapeutic massage technician Transported with oxygen IV Temperature 97.4 F Severity scale (1-10) 0 Pain Scale Used Standard (1-10) Blood Pressure 110/74 Heart rate 78 Respiratory Rate 18 Oxygen Delivery Room Air Pulse Oximetry Reading 98 Critical Care Minutes 0 Inpatient Discharge Date/Time: Inpatient Discharge Disposition: Inpatient Discharge Comment: Instructions: Stand-Alone Forms: Prescriptions: Visit Report - Forms: - Referrals: Joe King MD (Primary Care Provider) Radiology Results Chest X-Ray 02/05/17 17:09 IMPRESSION: No acute cardiopulmonary disease. D/ / Sterling Martinez MD / Sterling Martinez MD Interpreting Provider: Sterling Martinez MD Head CT 02/05/17 17:09
[2017-02-06] MEDS ORDERED: 0.9 % Sodium Chloride 250 ML ONE ×2 (00:09→04:00)
[2017-02-06] MEDS: Pantoprazole 40 MG in 0.9 % Sodium Chloride Mini Bag 100 ML IVC SCH (07:25)
[2017-02-06] MEDS ORDERED: NON-FORMULARY MEDICATION 1 EACH EACH (Insulin Aspart [Novolog Flexpen] 4 UNIT) SQ SCH (09:00)
[2017-02-06] MEDS ORDERED: Pregabalin 75 MG CAPSULE PO SCH (09:00)
[2017-02-06] MEDS ORDERED: Aspirin Enteric Coated 81 MG Tablet PO SCH (09:00)
[2017-02-06] MEDS ORDERED: Folic Acid 1 MG TABLET PO SCH (09:00)
[2017-02-06] MEDS ORDERED: Tiotropium 18 MCG inhalation IH SCH (09:00)
[2017-02-06] MEDS ORDERED: Insulin LISPRO 300 UNITS/3 ML VIAL SQ SCH ×3 (09:00→21:00)
[2017-02-06 09:09] LABS: BUN/Creatinine Ratio 35 (6-26); Blood Urea Nitrogen 28 mg/dL (7-20); Calcium 8.8 mg/dL (8.6-10.8); Carbon Dioxide 28 mEq/L (19-29); Chloride 102 mEq/L (98-109); Glucose 291 mg/dL (70-99); Magnesium 1.6 mg/dL (1.6-2.6); Osmolality,Calculated 308 (280-300); Phosphorous 3.7 mg/dL (2.3-4.7); Potassium 4.7 mEq/L (3.5-4.5); Sodium 141 mEq/L (136-145); eGFR For African Americans > 60 (> 60); eGFR For Non-African Americans > 60 (> 60)
[2017-02-06 09:31] LABS: Thyroid Stimulating Hormone 1.516 mcIU/mL (0.350-4.840)
[2017-02-06] MEDS ORDERED: Budesonide/Formoterol 80/4.5 MDI IH SCH (10:00)
[2017-02-06 10:23] LABS: Hematocrit 27.5 % (35.3-44.9); Hemoglobin 8.8 g/dL (11.5-15.4); Immature Platelets 11.3 % (1.1-6.1); Mean Corpuscular Volume 93.9 fL (83.0-100.0); Mean Platelet Volume 12.9 fL (9.4-12.4); Red Blood Count 2.93 M/mcL (3.82-4.97)
[2017-02-06 11:00] VITALS: BP 134/62
--- NOTE | 2017-02-06 12:02 | Discharge Summary ---
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 (4) Type 2 diabetes mellitus with other circulatory complications Priority: Secondary Status: Chronic (5) UTI (urinary tract infection) Priority: Secondary Status: Acute Qualifiers: Urinary tract infection type: acute cystitis Hematuria presence: without hematuria Qualified Code(s): N30.00 - Acute cystitis without hematuria - Discharge Medications Prescriptions: Ciprofloxacin [Cipro] 500 mg PO BID #10 tablet Metformin HCl [Metformin HCl ER] 1,000 mg PO DAILY #30 [id number] Home Medications: Albuterol Sulfate [Albuterol Inhaler] 2 puff IH Q4HR PRN 02/27/16 [History] Aspirin [Adult Low Dose Aspirin EC] 81 mg PO DAILY 02/27/16 [History] Cholecalciferol (Vitamin D3) [Vitamin D3] 5,000 unit PO Q48H 02/27/16 [History] Clopidogrel [Plavix] 75 mg PO HS 02/27/16 [History] Fluticasone/Salmeterol [Advair 250-50 Diskus] 1 puff IH BID 02/27/16 [History] Furosemide [Lasix] 20 mg PO HS 02/27/16 [History] Lisinopril [Zestril] 20 mg PO HS 02/27/16 [History] Pregabalin [Lyrica] 150 mg PO BID 02/27/16 [History] Tiotropium [Spiriva] 18 mcg IH DAILY 02/27/16 [History] Oxygen 2 l NS AD 12/10/16 [History] Cyanocobalamin (B-12) [Vitamin B12] 1,000 mcg PO DAILY #90 tablet 12/30/16 [Rx] Cyclobenzaprine HCl 5 mg PO TID PRN #0 12/30/16 [Rx] Ferrous Sulfate 325 mg PO BIDWM #180 tablet 12/30/16 [Rx] Folic Acid 1 mg PO DAILY #90 tablet 12/30/16 [Rx] Insulin ASPART [Novolog Flexpen] 4 unit SQ TID #0 12/30/16 [Rx] Pantoprazole Sodium [Protonix] 40 mg PO DAILY #90 granpkt. 12/30/16 [Rx] Atorvastatin [Lipitor] 40 mg PO HS 02/05/17 [History] Ciprofloxacin [Cipro] 500 mg PO BID #10 tablet 02/06/17 [Rx] Insulin Glargine,Hum.rec.anlog [Lantus Solostar] 15 unit SQ HS #0 02/06/17 [Rx] Metformin HCl [Metformin HCl ER] 1,000 mg PO DAILY #30 [id number] 02/06/17 [Rx] Allergies/Adverse Reactions: Allergies No Known Allergies Allergy (Verified 12/10/16 11:41) Date of admission: 02/05/17 20:53 Primary care physician: Joe King MD Consults: 02/05/17 22:41 Consult to Physical Therapy [CONS] Routine Comment: Evaluate, develop and implement POC OT [Consult to Occupational Therapy] [CONS] Routine Comment: Evaluate, develop and implement POC Discharging clinician: Isabella Paris Anticipated date of discharge: 02/06/17 - Patient Status Disposition: Home Health Service Condition: Good Functional capacity at discharge: independent ambulation Overall status at discharge: patient is progressing back to baseline - Discharge Instructions Instructions: Anemia (GEN) Follow Up With: Joe King MD [Primary Care Provider] - (In one week) Additional Instructions: Follow-up with Dr. Pollock within 1 week for further workup regarding acute on chronic anemia and Ashton's esophagitis - Diet and Activity Activity: as per physical therapy Diet: diabetic diet, low salt diet Hospital course: Ms. Dacosta is a 81 year old female with a history of chronic anemia, Ashton's esophagitis, COPD, obstructive sleep apnea, hypertension presented to the ER with complaints of high blood sugars. She was worked up and was found to have severe anemia along with significant weakness. In addition to her high blood sugars. She was started on treatment for this with 2 units of packed red blood cell transfusion with improvement in her symptoms this morning. She is no longer feeling lightheadedness or dizzy. Her blood counts are much improved. Patient does have a history of Ashton's esophagitis and underwent upper GI endoscopy and colonoscopy. She does complain of dark stools but she does not also takes iron supplements. At this time, patient is clinically stable for discharge as her blood counts remained stable after transfusion. However she will need to follow up with GI next week for further workup which may include capsule endoscopy to diagnose the cause of her anemia. She will continue to take oral as iron supplements. Her urinalysis was suggestive of acute UTI and she will complete a short course of ciprofloxacin therapy. I discussed this plan with both the patient and her family in agreement with this treatment plan. Patient already has home health and will be provided with a referral to resume this once she is discharged from our facility. For her diabetes and high blood sugars, I am increasing her Lantus dosage to 15 units daily at bedtime. I am also increasing her metformin dosage to 1000 mg by mouth daily. - Time Spent with Patient Total time spent providing and/or coordinating discharge services: Less than 30 minutes (30 min) - Constitutional Vitals: Temp Pulse Resp BP Pulse Ox 97.7 F 107 16 134/62 93 02/06/17 10:58 02/06/17 10:58 02/06/17 10:58 02/06/17 10:58 02/06/17 10:58 General appearance: Present: A&O X 3, pleasant, no acute distress, obese, answers questions appropriately - Neck Neck exam general surgery: Present: supple, trachea midline. Absent: lymphadenopathy - Cardiovascular Cardiovascular exam: Present: RRR, +S1, +S2. Absent: diastolic murmur, gallop, rubs, systolic murmur - GI/Abdominal GI/Abdominal exam: Present: normal bowel sounds, soft, no peritoneal signs. Absent: distended, tenderness - Skin Skin exam: Present: dry, intact, pallor - VTE Documentation of Mechanical Device: Graduated compression elastic hosiery - Attending Attestation This document has been at least partially created by [employer] recognition technology by Dr. Paris. Errors in grammar, wording or other phrases may exist. If errors are found after the documentation is signed, they will be addressed individually in the addendum section of this document when appropriate.
--- NOTE | 2017-02-06 12:11 | Physician Discharge Referral ---
Home Health/Hosp Referral Info Transfer to: Home Health Provider in Charge Post Discharge: PCP - Diagnosis (1) Symptomatic anemia Priority: Primary Status: Acute (2) Anemia Priority: Secondary Status: Acute (3) Ashton esophagus Priority: Secondary Status: Chronic (4) Type 2 diabetes mellitus with other circulatory complications Priority: Secondary Status: Chronic (5) UTI (urinary tract infection) Priority: Secondary Status: Acute - Respiratory Orders Oxygen / L per min (2) Smoking Cessation: Smoking cessation has been advised. For more information, call the [employer] Quit Line at 3-033-QDDQ-NOW. - Diet/Nutrition Diet/Nutrition Orders: Cardiac (And diabetic), No Concentrated Sweets - Activity Activity Orders: Walker Activity: List: Activity per evaluation by physical therapy - Services Needed Following services are medically necessary services: Physical Therapy, Occupational Therapy - Transfer Medications Prescriptions: Ciprofloxacin [Cipro] 500 mg PO BID #10 tablet Metformin HCl [Metformin HCl ER] 1,000 mg PO DAILY #30 [id number] Home Medications: Albuterol Sulfate [Albuterol Inhaler] 2 puff IH Q4HR PRN 02/27/16 [History] Aspirin [Adult Low Dose Aspirin EC] 81 mg PO DAILY 02/27/16 [History] Cholecalciferol (Vitamin D3) [Vitamin D3] 5,000 unit PO Q48H 02/27/16 [History] Clopidogrel [Plavix] 75 mg PO HS 02/27/16 [History] Fluticasone/Salmeterol [Advair 250-50 Diskus] 1 puff IH BID 02/27/16 [History] Furosemide [Lasix] 20 mg PO HS 02/27/16 [History] Lisinopril [Zestril] 20 mg PO HS 02/27/16 [History] Pregabalin [Lyrica] 150 mg PO BID 02/27/16 [History] Tiotropium [Spiriva] 18 mcg IH DAILY 02/27/16 [History] Oxygen 2 l NS AD 12/10/16 [History] Cyanocobalamin (B-12) [Vitamin B12] 1,000 mcg PO DAILY #90 tablet 12/30/16 [Rx] Cyclobenzaprine HCl 5 mg PO TID PRN #0 12/30/16 [Rx] Ferrous Sulfate 325 mg PO BIDWM #180 tablet 12/30/16 [Rx] Folic Acid 1 mg PO DAILY #90 tablet 12/30/16 [Rx] Insulin ASPART [Novolog Flexpen] 4 unit SQ TID #0 12/30/16 [Rx] Pantoprazole Sodium [Protonix] 40 mg PO DAILY #90 12/30/16 [Rx] Atorvastatin [Lipitor] 40 mg PO HS 02/05/17 [History] Ciprofloxacin [Cipro] 500 mg PO BID #10 tablet 02/06/17 [Rx] Insulin Glargine,Hum.rec.anlog [Lantus Solostar] 15 unit SQ HS #0 02/06/17 [Rx] Metformin HCl [Metformin HCl ER] 1,000 mg PO DAILY #30 [id number] 02/06/17 [Rx] Allergies/Adverse Reactions: Allergies No Known Allergies Allergy (Verified 12/10/16 11:41) Certification: Further, I certify that my clinical findings support that this patient is homebound (i.e. absences from home require considerable and taxing effort and are for medical reasons or tenriism services or infrequently or short duration when for other reasons) because: Homebound Reason: Patient requires assistance of a person or device to safely leave home, Severity of cardiac or pulmonary status limits activity tolerance Attestation: My signature below is to certify that this patient is under my care and that I, or nurse practitioner, or a physician's media assistant working with me, has a face-to -face encounter with this patient.
[2017-02-06 14:47] LABS: Hematocrit 30.3 % (35.3-44.9); Hemoglobin 9.4 g/dL (11.5-15.4)
[2017-02-06] MEDS ORDERED: Insulin DETEMIR 100 UNIT/ML X5UNITS SQ SCH (21:00)
[2017-02-06] MEDS ORDERED: Lisinopril 20 MG TABLET PO SCH (21:00)
[2017-02-06] MEDS ORDERED: Furosemide 20 MG TABLET PO SCH (21:00)
--- NOTE | 2017-02-07 10:43 | Electrocardiograph Report ---
[place] [id number] Test Date: 2017-02-05 Pat Name: Kiesha Redifer Department: 103 Room: 3A34 Gender: F Court Monitor: [facility] : 1935 Requested By: Kevin Victoria Order Number: [id number] Reading MD: Diego Cummings MD Measurements Intervals Sarah Rate: 107 P: 58 AL: 142 QRS: 5 QRSD: 80 T: 62 QT: 320 QTc: 383 Interpretive Statements SINUS TACHYCARDIA WITH FREQUENT VENTRICULAR PREMATURE COMPLEXES WITH OCCASIONAL SUPRAVENTRICULAR PREMATURE COMPLEXES Electronically Signed On 02-07-2017 10:42:14 EDT by Diego Cummings MD
== END 2017-02-06 15:40 | disposition home health service (06) | DRG 638 ==
LOC: EMEROO 16:44 → 3ANU 20:53
PROVIDERS: ADMIT Internal Medicine; ATTEND Internal Medicine

== ENCOUNTER 2017-02-08 15:39 | Inpatient (IN) ==
[~2017-02-08 15:39] MED LIST changes: +*HR* Adenosine 6 MG/2 ML SYRINGE IVP ONE; -Heparin 1,000 UNITS/500 mL NS 500 ML ONE
--- NOTE | 2017-02-08 16:11 | Emergency Department Note ---
Disposition Clinical Impression: Confusion, Lower GI bleed, Tachycardia Anemia Qualifiers: Anemia type: unspecified type Qualified Code(s): D64.9 - Anemia, unspecified Disposition: Admitted As Inpatient Condition: Fair Time of Disposition: 19:57 General Adult HPI - General Chief complaint: ED General Medical Stated complaint: hyperglycemia Time Seen by Provider: 02/08/17 15:51 Source: patient, EMS Mode of arrival: EMS Limitations: altered mental status, physical limitation Nursing Notes Reviewed: Yes Vital Signs Reviewed: Yes - History of Present Illness HPI Narrative: Patient is a 81-year-old female with past medical history of hypertension, hyperlipidemia, COPD, is CAD, previous stroke and on Plavix, anemia. She presents today due to generalized weakness, confusion. She is confused on exam of only able to answer some questions appropriately. Daughter is present and gets most of the history. Daughter states that she was here 2 days ago with similar symptoms, was found to be severely anemic and required transfusions. She has had hyperglycemia at that time. She was released yesterday from the hospital. She presents today due to similar symptoms. She was found to be confused, generalized weakness just like on Wednesday. The patient herself denies any chest pain, shortness of breath, abdominal pain. She does report seeing red blood in her stool. Family member states that she had a colonoscopy about a month ago that was negative for any major findings except for some polyps. Patient denies any nausea, vomiting, fevers, urinary symptoms. Pain Scale: 0 - Related Data Home Medications Medication Instructions Recorded Confirmed Albuterol Sulfate [Albuterol 2 puff IH Q4HR PRN 02/27/16 02/08/17 Inhaler] Aspirin [Adult Low Dose Aspirin EC] 81 mg PO DAILY 02/27/16 02/08/17 Cholecalciferol (Vitamin D3) 5,000 unit PO Q48H 02/27/16 02/08/17 [Vitamin D3] Clopidogrel [Plavix] 75 mg PO HS 02/27/16 02/08/17 Fluticasone/Salmeterol [Advair 1 puff IH BID 02/27/16 02/08/17 250-50 Diskus] Furosemide [Lasix] 20 mg PO DAILY 02/27/16 02/08/17 Lisinopril [Zestril] 20 mg PO HS 02/27/16 02/08/17 Pregabalin [Lyrica] 150 mg PO BID 02/27/16 02/08/17 Tiotropium [Spiriva] 18 mcg IH DAILY 02/27/16 02/08/17 Oxygen 2 l NS AD 12/10/16 02/08/17 Atorvastatin [Lipitor] 40 mg PO HS 02/05/17 02/08/17 Previous Rx's Medication Instructions Recorded Cyanocobalamin (B-12) [Vitamin B12] 1,000 mcg PO DAILY #90 tablet 12/30/16 Cyclobenzaprine HCl 5 mg PO TID PRN #0 12/30/16 Ferrous Sulfate 325 mg PO BIDWM #180 tablet 12/30/16 Folic Acid 1 mg PO DAILY #90 tablet 12/30/16 Insulin ASPART [Novolog Flexpen] 4 unit SQ TID #0 12/30/16 Pantoprazole Sodium [Protonix] 40 mg PO DAILY #90 granpkt. 12/30/16 Ciprofloxacin [Cipro] 500 mg PO BID #10 tablet 02/06/17 Insulin Glargine,Hum.rec.anlog 15 unit SQ HS #0 02/06/17 [Lantus Solostar] Metformin HCl [Metformin HCl ER] 1,000 mg PO DAILY #30 [id number] 02/06/17 Allergies Allergy/AdvReac Type Severity Reaction Status Date / Time No Known Allergies Allergy Verified 02/08/17 15:41 Constitutional: Denies: fever Cardiovascular: Denies: chest pain, palpitations, dyspnea on exertion Respiratory: Denies: cough, dyspnea, wheezes Gastrointestinal: Denies: abdominal pain, nausea, vomiting, diarrhea Genitourinary: Denies: urgency, dysuria, frequency Musculoskeletal: Denies: back pain Integumentary: Denies: rash Neurological: Reports: weakness (generalizes). Denies: headache, numbness, paresthesias Psychiatric: Denies: anxiety Past Medical History - Past Medical History Attestation: Yes The following information was validated with the patient. Source: patient Medical history: Reports: arthritis, asthma, cancer, COPD, coronary artery disease, CVA, diabetes, GERD, GI bleed, hyperlipidemia, hypertension, osteoporosis, peripheral artery disease, other Surgical history: Reports: cholecystectomy, other Psychiatric history: Reports: other SLAB TRIPPER history: Reports: no SLAB TRIPPER history - Social History Smoking Status: Former smoker Smokeless Tobacco Status: No Alcohol use: Reports: none Drug use: Reports: none Physical Exam - General Limitations: altered mental status, physical limitation General appearance: alert, lethargic - Head Head exam: atraumatic, normocephalic, normal inspection - Eye Eye exam: Present: normal appearance, PERRL, EOMI - ENT ENT exam: normal exam, normal oropharynx, mucous membranes moist - Neck Neck exam: Present: normal inspection, full ROM, trachea midline - Chest Chest inspection: Present: normal inspection, symmetric chest wall rise - Respiratory Respiratory exam: Present: normal lung sounds bilaterally. Absent: respiratory distress, wheezes - Cardiovascular Cardiovascular exam: Present: normal rhythm, tachycardia, normal heart sounds - Abdominal Exam Abdominal exam: Present: soft, Non-Tender. Absent: tenderness, distention, guarding, rebound, rigidity - Extremities Exam Extremities exam: Present: normal inspection, full ROM. Absent: tenderness, pedal edema - Back Exam Back exam: Present: normal inspection, full ROM. Absent: tenderness - Neurological Exam Neurological exam: Present: alert, oriented X3 - Psychiatric Psychiatric exam: Present: normal affect, normal mood - Skin Skin exam: Present: warm, dry, intact, normal color, pallor Course Course Narrative: Patient mildly tachycardic otherwise rest of the vitals were within normal limits. Physical exam shows a pale patient with occasional tremors. Burning to the daughter, these tremors are chronic and she is being worked up by neurology. She is mildly confused on exam. Otherwise, no tenderness of the abdomen, lungs clear to auscultation, mildly tachycardic but regular rhythm. We will obtain head CT, chest x-ray, EKG, basic blood work, troponin, urinalysis. 19:57 blood work shows anemia of 8.7, down from 9.4 at discharge. She is tachycardic. CT of the head is negative, chest x-ray negative. BMP shows mildly increased creatinine. Negative UA. We will plan for admission for confusion, anemia, lower GI bleed, tachycardia. Chest X-Ray 02/08/17 16:03 IMPRESSION: COPD without acute cardiopulmonary process. Stable appearing chest. D/ / Sterling Moran MD / Sterling Moran MD Interpreting Provider: Sterling Moran MD Head CT 02/08/17 16:05 IMPRESSION: No acute intracranial abnormality. MRI is more sensitive for acute ischemia. D/ / Marcelo Monge MD / Marcelo Monge MD Interpreting Provider: Marcelo Monge MD Vital Signs Temperature 98.4 F 02/08/17 15:42 Pulse Rate 103 02/08/17 15:42 Respiratory Rate 24 02/08/17 15:42 Blood Pressure 122/75 02/08/17 15:42 O2 Sat by Pulse Oximetry 94 02/08/17 15:42 Temperature 98.4 F 02/08/17 15:42 Pulse Rate 104 02/08/17 20:17 Respiratory Rate 20 02/08/17 21:26 Blood Pressure 126/62 02/08/17 21:26 O2 Sat by Pulse Oximetry 96 02/08/17 20:17 Oxygen Delivery Oxygen Delivery Nasal Cannula Medical Decision Making - MDM Narrative Medical decision making narrative: Patient mildly tachycardic otherwise rest of the vitals were within normal limits. Physical exam shows a pale patient with occasional tremors. Burning to the daughter, these tremors are chronic and she is being worked up by neurology. She is mildly confused on exam. Otherwise, no tenderness of the abdomen, lungs clear to auscultation, mildly tachycardic but regular rhythm. We will obtain head CT, chest x-ray, EKG, basic blood work, troponin, urinalysis. 19:57 blood work shows anemia of 8.7, down from 9.4 at discharge. She is tachycardic. CT of the head is negative, chest x-ray negative. BMP shows mildly increased creatinine. Negative UA. We will plan for admission for confusion, anemia, lower GI bleed, tachycardia. - Medical Records Medical records reviewed: Yes I reviewed the patient's medical records. - Lab Data Lab results reviewed: Yes I reviewed the patient's lab results. Result diagrams: 02/08/17 19:03 02/08/17 17:10 Lab Results 02/08/17 02/08/17 02/08/17 Range/Units 15:51 16:50 17:10 WBC (4.3-11.1) K/mcL RBC (3.82-4.97) M/mcL Hgb (11.5-15.4) g/dL Hct (35.3-44.9) % MCV (83.0-100.0) fL MCH (28.0-33.3) pg MCHC (31.6-35.5) g/dL RDW (11.5-14.5) % Plt Count (140-400) K/mcL MPV (9.4-12.4) fL Immature Gran % (0-4) % Seg Neutrophils % % Lymphocytes % % Monocytes % % Eosinophils % % Basophils % % Neutrophils # (1.6-8.9) K/mcL Lymphocytes # (0.6-4.6) K/mcL Monocytes # (0.0-1.3) K/mcL Eosinophils # (0.0-0.6) K/mcL Basophils # (0.0-0.2) K/mcL Immature Plt Fraction (1.1-6.1) % Sodium 142 (136-145) mEq/L Potassium 5.0 H (3.5-4.5) mEq/L Chloride 106 (98-109) mEq/L Carbon Dioxide 24 (19-29) mEq/L BUN 28 H (7-20) mg/dL Creatinine 1.15 H (0.57-1.11) mg/dL Est GFR ( Amer) 55 L (> 60) Est GFR (Non-Af Amer) 46 L (> 60) BUN/Creatinine Ratio 24 (6-26) Glucose 210 H (70-99) mg/dL POC Glucose 286 H (58-89) Calculated Osmolality 306 H (280-300) Calcium 9.0 (8.6-10.8) mg/dL Total Bilirubin 0.4 (0.2-1.2) mg/dL AST 19 (5-34) Units/L ALT 8 (0-55) Units/L Alkaline Phosphatase 61 (38-126) Units/L Troponin I (0-0.03) ng/mL Serum Total Protein 5.9 L (6.0-8.3) g/dL Albumin 2.6 L (3.5-5.0) g/dL Globulin 3.3 (2.4-3.5) g/dL Albumin/Globulin Ratio 0.8 L (1.1-2.2) Urine Color Yellow (Yellow) Urine Clarity Clear (Clear) Urine pH 5.0 (5.0-8.0) pH Units Ur Specific [place] 1.019 (1.010-1.025) Urine Protein Negative (Neg-Trace) mg/dL Urine Glucose (UA) 100 H (Normal) mg/dL Urine Ketones Negative (Negative) mg/dL Urine Blood Negative (Negative) Urine Nitrite Negative (Negative) Urine Bilirubin Small H (Negative) Urine Urobilinogen Normal (Normal) mg/dL Ur Leukocyte Esterase Negative (Negative) Ur Culture Indicated? NO (NO) Stool Occult Blood (Negative) 02/08/17 02/08/17 02/08/17 Range/Units 17:10 19:03 19:40 WBC 7.9 (4.3-11.1) K/mcL RBC 2.92 L (3.82-4.97) M/mcL Hgb 8.7 L (11.5-15.4) g/dL Hct 29.2 L (35.3-44.9) % MCV 100.0 D (83.0-100.0) fL MCH 29.8 (28.0-33.3) pg MCHC 29.8 L (31.6-35.5) g/dL RDW 19.2 H (11.5-14.5) % Plt Count 218 (140-400) K/mcL MPV 12.4 (9.4-12.4) fL Immature Gran % 0.6 (0-4) % Seg Neutrophils % 73.4 % Lymphocytes % 11.5 % Monocytes % 8.9 % Eosinophils % 5.2 % Basophils % 0.4 % Neutrophils # 5.8 (1.6-8.9) K/mcL Lymphocytes # 0.9 (0.6-4.6) K/mcL Monocytes # 0.7 (0.0-1.3) K/mcL Eosinophils # 0.4 (0.0-0.6) K/mcL Basophils # 0.0 (0.0-0.2) K/mcL Immature Plt Fraction 10.7 H (1.1-6.1) % Sodium (136-145) mEq/L Potassium (3.5-4.5) mEq/L Chloride (98-109) mEq/L Carbon Dioxide (19-29) mEq/L BUN (7-20) mg/dL Creatinine (0.57-1.11) mg/dL Est GFR ( Amer) (> 60) Est GFR (Non-Af Amer) (> 60) BUN/Creatinine Ratio (6-26) Glucose (70-99) mg/dL POC Glucose (58-89) Calculated Osmolality (280-300) Calcium (8.6-10.8) mg/dL Total Bilirubin (0.2-1.2) mg/dL AST (5-34) Units/L ALT (0-55) Units/L Alkaline Phosphatase (38-126) Units/L Troponin I 0.00 (0-0.03) ng/mL Serum Total Protein (6.0-8.3) g/dL Albumin (3.5-5.0) g/dL Globulin (2.4-3.5) g/dL Albumin/Globulin Ratio (1.1-2.2) Urine Color (Yellow) Urine Clarity (Clear) Urine pH (5.0-8.0) pH Units Ur Specific [place] (1.010-1.025) Urine Protein (Neg-Trace) mg/dL Urine Glucose (UA) (Normal) mg/dL Urine Ketones (Negative) mg/dL Urine Blood (Negative) Urine Nitrite (Negative) Urine Bilirubin (Negative) Urine Urobilinogen (Normal) mg/dL Ur Leukocyte Esterase (Negative) Ur Culture Indicated? (NO) Stool Occult Blood Negative (Negative) - Radiology Data Radiology results reviewed: Yes I reviewed the patient's radiology results. Chest X-Ray 02/08/17 16:03 IMPRESSION: COPD without acute cardiopulmonary process. Stable appearing chest. D/ / Sterling Moran MD / Sterling Moran MD Interpreting Provider: Sterling Moran MD Head CT 02/08/17 16:05 IMPRESSION: No acute intracranial abnormality. MRI is more sensitive for acute ischemia. D/ / Marcelo Monge MD / Marcelo Monge MD Interpreting Provider: Marcelo Monge MD - EKG Data EKG #1 EKG attestation: Yes I reviewed and interpreted this EKG. EKG results narrative: 02/08/2017 at 15:56. Sinus tachycardia. Rate 13. QRS 86. QTc 428. Occasional PVCs. Normal axis. No acute ST elevation or depression. Unchanged from previous EKG on 02/05/2017 S.Haris - Elder Situation: Demographics, MOA Background: Presenting Complaint, Relevant PMH, Meds, & Allergies Assessment: Vital Signs, Course and respsone to treatment, Exam Concerns, Patient/Family Expectation, Pertinant Lab Results, Outstanding Labs Recommendation: Barrier(s) to disposition, Recommendation based on pending studies, treatments, or consults SKboe Report Given to: Dr. Benedict Friedman Repor Time: 20:37 Attestation Statement - Attestation Attestation: I examined this patient and my medical decision-making was reviewed with the Resident Physician. I agree with the documented findings, disposition and treatment plan as described except to the extent set forth below. Continued bleeding since discharge, Hgb down 0.7 grams last 2 days. Mildly tachycardic in ED (100-105) with stable BP.
[2017-02-08 17:01] LABS: Bilirubin,Urine Small (Negative); Blood,Urine Negative (Negative); Clarity,Urine Clear (Clear); Color,Urine Yellow (Yellow); Glucose,Urine (UA) 100 mg/dL (Normal); Ketones,Urine Negative (Negative); Leukocyte Esterase,Urine Negative (Negative); Nitrite,Urine Negative (Negative); Protein,Urine Negative (Neg-Trace); Specific Gravity,Urine 1.019 (1.010-1.025); Urobilinogen,Urine Normal (Normal)
[2017-02-08 17:37] LABS: Albumin 2.6 g/dL (3.5-5.0); Albumin/Globulin Ratio 0.8 (1.1-2.2); Bilirubin,Total 0.4 mg/dL (0.2-1.2); Globulin 3.3 g/dL (2.4-3.5); Total Protein 5.9 g/dL (6.0-8.3)
[2017-02-08 19:13] LABS: Basophils % 0.4 %; Eosinophils # 0.4 K/mcL (0.0-0.6); Eosinophils % 5.2 %; Hematocrit 29.2 % (35.3-44.9); Hemoglobin 8.7 g/dL (11.5-15.4); Immature Granulocytes % 0.6 % (0-4); Immature Platelets 10.7 % (1.1-6.1); Lymphocytes # 0.9 K/mcL (0.6-4.6); Lymphocytes % 11.5 %; Mean Corpuscular HGB Conc 29.8 g/dL (31.6-35.5); Mean Corpuscular Hemoglobin 29.8 pg (28.0-33.3); Mean Platelet Volume 12.4 fL (9.4-12.4); Monocytes # 0.7 K/mcL (0.0-1.3); Monocytes % 8.9 %; Neutrophils # 5.8 K/mcL (1.6-8.9); Platelet Count 218 K/mcL (140-400); Red Blood Count 2.92 M/mcL (3.82-4.97); Red Cell Distribution Width 19.2 % (11.5-14.5); Segmented Neutrophils % 73.4 %
--- NOTE | 2017-02-08 23:36 | Internal Med History&Physical ---
Date of Encounter: 02/08/17 Time of Encounter: 23:30 Assessment and Plan (1) Confusion Current visit: Yes Status: Acute Patient with confusion upon return to the emergency department, evaluation the patient was in what appears to be her baseline. We will continue monitoring neurological status. Head CT was unremarkable. She was recently discharged with diagnoses of urinary tract infection, she was receiving treatment with Cipro. We will continue with IV Rocephin at this point. Neuro checks. (2) UTI (urinary tract infection) Current visit: No Status: Acute therapy for UTI, switch from Cipro outpatient to IV Rocephin. Qualifiers: Urinary tract infection type: acute cystitis Hematuria presence: without hematuria Qualified Code(s): N30.00 - Acute cystitis without hematuria (3) Hyperkalemia Current visit: No Status: Acute 5.0, Will Give a Dose of Kayexalate. Monitor K Levels Tomorrow in A.M. (4) COPD (chronic obstructive pulmonary disease) Current visit: No Status: Chronic Not in acute exacerbation. Resume home medications. Qualifiers: COPD type: emphysema Emphysema type: panlobular Qualified Code(s): J43.1 - Panlobular emphysema (5) Hyperglycemia Current visit: Yes Status: Acute Insulin therapy. Monitor Accu-Cheks. (6) Essential hypertension Current visit: No Status: Chronic (7) Tremor Current visit: No Status: Acute Presented with generalized tremors. She has been evaluated by our neurologist in the office for this same issue, impression was that tremors are likely the result of a diffuse encephalopathy that may or may not be complicated by superimposed anxiety. At that point, recommendation was to obtain a sleep study to rule out possibility of obstructive sleep apnea which the patient has many risk factors for, avoidance of benzodiazepines was also recommended. (8) Difficulty balancing Current visit: No Status: Acute physical therapy. (9) Generalized weakness Current visit: No Status: Acute (10) Anemia Current visit: Yes Status: Acute Hb is stable, we will continue monitoring. Qualifiers: Anemia type: unspecified type Qualified Code(s): D64.9 - Anemia, unspecified Internal Medicine - H&P: HPI Chief complaint: tremors Admitted From: Emergency Dept Plans for Post Hospital Care: Home History of present illness: Ms. Dacosta is a 81 year old female with a history of chronic anemia, [place]'s esophagitis, COPD, obstructive sleep apnea, hypertension, severe anemia (for which she recently received 2 units of prbc). She was recently discharged from this facility due to hyperglycemia and generalized weakness with severe symptomatic anemia. She was supposed to follow-up as outpatient with gastroenterology. She had both colonoscopy and EGD a few months ago. The patient lives at home with her daughter. According to documentation in the emergency department she was confused upon initial evaluation. She also was found to be hyperglycemic. I saw and examined this patient when she was already in the inpatient unit. During my encounter with her she states it has been complaining of intermittent generalized tremors. She has been dealing with tremors for many years. The patient was alert, awake, oriented in time, place and person. She did not seem to be confused during my evaluation, however she admits having intermittent periods of confusion in the past. The patient denies chest pain, fever, chills, blood in the stools. However she admits that she has black colored stools. She was discharged on by mouth Cipro for continued to a urinary tract infection, Klebsiella was sensitive to Cipro according to microbiology results. Past Med Surg Social Fam HX - Past Medical History Medical history: arthritis, asthma, cancer, COPD, coronary artery disease, CVA, diabetes, GERD, GI bleed, hyperlipidemia, hypertension, osteoporosis, peripheral artery disease, other Psychiatric history: other - Past Surgical History Surgical History: cholecystectomy, other - Social History Smoking Status: Former smoker Smokeless Tobacco Status: No Alcohol use: none Drug use: none - Family History Mother Hx Family Endocrine Disorder: Yes (DM) Internal Medicine - H&P: Meds Albuterol Sulfate [Albuterol Inhaler] 2 puff IH Q4HR PRN 02/27/16 [History] Aspirin [Adult Low Dose Aspirin EC] 81 mg PO DAILY 02/27/16 [History] Cholecalciferol (Vitamin D3) [Vitamin D3] 5,000 unit PO Q48H 02/27/16 [History] Clopidogrel [Plavix] 75 mg PO HS 02/27/16 [History] Fluticasone/Salmeterol [Advair 250-50 Diskus] 1 puff IH BID 02/27/16 [History] Furosemide [Lasix] 20 mg PO DAILY 02/27/16 [History] Lisinopril [Zestril] 20 mg PO HS 02/27/16 [History] Pregabalin [Lyrica] 150 mg PO BID 02/27/16 [History] Tiotropium [Spiriva] 18 mcg IH DAILY 02/27/16 [History] Oxygen 2 l NS AD 12/10/16 [History] Cyanocobalamin (B-12) [Vitamin B12] 1,000 mcg PO DAILY #90 tablet 12/30/16 [Rx] Cyclobenzaprine HCl 5 mg PO TID PRN #0 12/30/16 [Rx] Ferrous Sulfate 325 mg PO BIDWM #180 tablet 12/30/16 [Rx] Folic Acid 1 mg PO DAILY #90 tablet 12/30/16 [Rx] Insulin ASPART [Novolog Flexpen] 4 unit SQ TID #0 12/30/16 [Rx] Pantoprazole Sodium [Protonix] 40 mg PO DAILY #90 gran 12/30/16 [Rx] Atorvastatin [Lipitor] 40 mg PO HS 02/05/17 [History] Ciprofloxacin [Cipro] 500 mg PO BID #10 tablet 02/06/17 [Rx] Insulin Glargine,Hum.rec.anlog [Lantus Solostar] 15 unit SQ HS #0 02/06/17 [Rx] Metformin HCl [Metformin HCl ER] 1,000 mg PO DAILY #30 [id number] 02/06/17 [Rx] Allergies No Known Allergies Allergy (Verified 02/08/17 15:41) All Systems PM: A 10-system review of systems was performed and is negative for pertinent findings except as documented above in the HPI. - Constitutional Constitutional: as per HPI, fatigue, no chills, no fever(s), no night sweats - EENT Eyes: as per HPI, no change in vision, no discharge, no pain, no photophobia Ears: as per HPI, no ear discharge, no ear pain, no tinnitus Nose, mouth and throat: as per HPI, no dysphagia, no nasal discharge, no neck pain, no sore throat - Breasts Breasts: as per HPI - Cardiovascular Cardiovascular ROS IM: as per HPI, no chest pain, no diaphoresis, no dyspnea, no lightheadedness, no palpitations, no syncope - Respiratory Respiratory: as per HPI, no cough, no dyspnea, no wheezing, no excessive phlegm production - Gastrointestinal Gastrointestinal: as per HPI, no abdominal pain, no diarrhea, no hematemesis, no hematochezia, no melena, no nausea, no vomiting - Genitourinary Genitourinary: as per HPI, no change in urinary stream, no dysuria, no flank pain, no hematuria Menstruation: as per HPI - Musculoskeletal Musculoskeletal ROS IM: as per HPI, no numbness, no tingling - Integumentary Integumentary IM: as per HPI, no rash, no unusual bruising - Neurological Neurological ROS: as per HPI, no confusion, no convulsions, no focal weakness, no numbness, no tingling, no tremor(s) - Psychiatric Psychiatric: as per HPI - Endocrine Endocrine IM: as per HPI - Hematologic/Lymphatic Hematologic/Lymphatic: as per HPI, no easy bruising - Allergic/Immunologic Allergic/Immunologic: as per HPI - Constitutional Vitals: Temp Pulse Resp BP Pulse Ox 98.0 F 89 16 101/52 95 02/08/17 22:36 02/08/17 22:36 02/08/17 22:36 02/08/17 22:36 02/08/17 22:36 General appearance: Present: cooperative, A&O X 3, pleasant, obese Exam: breathing with nasal cannula. She has tremors in both upper and lower extremities. Not in respiratory distress. - Head Head exam: Present: atraumatic, normocephalic - Eye Eye exam: Present: PERRL, conjuntiva pink, sclera anicteric Pupils: Present: PERRL - Neck Neck exam general surgery: Present: supple, trachea midline. Absent: lymphadenopathy - Respiratory Respiratory exam: Present: decreased breath sounds. Absent: accessory muscle use, rales, rhonchi, wheezes - Cardiovascular Cardiovascular exam: Present: RRR, +S1, +S2. Absent: diastolic murmur, gallop, rubs, systolic murmur - GI/Abdominal GI/Abdominal exam: Present: normal bowel sounds, soft, no peritoneal signs. Absent: distended, tenderness - Extremities Exam Extremities exam: Present: warm, radial pulses palpable and symetrical. Absent : calf tenderness, cyanotic, pedal edema - Neurological Exam Neurological exam: Present: CN II-XII intact, oriented X3, no focal deficits. Absent: pronater drift, facial droop, speech deficit - Skin Skin exam: Present: dry, intact Internal Med - H&P Results - Labs CBC & Chem 7: 02/08/17 19:03 02/08/17 17:10
[2017-02-08] MEDS ORDERED: Naloxone 0.4 MG/ML INJ IVP PRN (23:56)
[2017-02-08] MEDS ORDERED: Albuterol 2.5 MG/3 ML NEBULIZER IH PRN (23:56)
[2017-02-08] MEDS ORDERED: Acetaminophen 325 MG TABLET PO PRN (23:56)
[2017-02-08] MEDS ORDERED: *HR* HYDROcodone/Acet 5/325 mg TABLET PO PRN (23:56)
[2017-02-08] MEDS ORDERED: *HR* Dextrose 50 % in Water (Syg) 50 ML SYRINGE IVP PRN (23:56)
[2017-02-08] MEDS ORDERED: Dextrose Gel 15 GM PO PRN ×2 (23:56)
[2017-02-08] MEDS ORDERED: *HR* Morphine 2 MG/ML SYRINGE IVP PRN (23:56)
[2017-02-08] MEDS ORDERED: D5% in Water 1,000 ML IVC PRN (23:56)
[2017-02-08] MEDS ORDERED: Ondansetron 4 MG/2 ML VIAL IVP PRN (23:56)
[2017-02-09] MEDS: Cholecalciferol (D-3) 1,000 UNIT TABLET PO SCH (00:44)
[2017-02-09 06:00] LABS: Basophils # 0.1 K/mcL (0.0-0.2); Basophils % 0.6 %; Eosinophils # 0.8 K/mcL (0.0-0.6); Eosinophils % 9.1 %; Hematocrit 26.9 % (35.3-44.9); Hemoglobin 8.1 g/dL (11.5-15.4); Immature Granulocytes % 0.5 % (0-4); Lymphocytes # 1.1 K/mcL (0.6-4.6); Lymphocytes % 12.1 %; Mean Corpuscular HGB Conc 30.1 g/dL (31.6-35.5); Mean Corpuscular Hemoglobin 30.1 pg (28.0-33.3); Mean Platelet Volume 12.8 fL (9.4-12.4); Monocytes # 0.6 K/mcL (0.0-1.3); Monocytes % 6.8 %; Neutrophils # 6.2 K/mcL (1.6-8.9); Platelet Count 211 K/mcL (140-400); Red Blood Count 2.69 M/mcL (3.82-4.97); Red Cell Distribution Width 19.2 % (11.5-14.5); Segmented Neutrophils % 70.9 %
[2017-02-09 06:01] LABS: INR 1.2; Prothrombin Time 12.9 Seconds (9.4-12.1)
[2017-02-09 06:13] LABS: Hemoglobin A1C 6.1 %
[2017-02-09 06:21] LABS: Alanine Aminotransferase 8 Units/L (0-55); Albumin 2.6 g/dL (3.5-5.0); Albumin/Globulin Ratio 0.8 (1.1-2.2); Alkaline Phosphatase 61 Units/L (38-126); Aspartate Amino Transferase 15 Units/L (5-34); BUN/Creatinine Ratio 26 (6-26); Bilirubin,Total 0.3 mg/dL (0.2-1.2); Blood Urea Nitrogen 23 mg/dL (7-20); Calcium 8.7 mg/dL (8.6-10.8); Carbon Dioxide 27 mEq/L (19-29); Chloride 103 mEq/L (98-109); Globulin 3.1 g/dL (2.4-3.5); Glucose 240 mg/dL (70-99); Magnesium 1.7 mg/dL (1.6-2.6); Osmolality,Calculated 302 (280-300); Sodium 140 mEq/L (136-145); Total Protein 5.7 g/dL (6.0-8.3); eGFR For African Americans > 60 (> 60); eGFR For Non-African Americans > 60 (> 60)
[2017-02-09] MEDS: Famotidine 20 MG/2 ML VIAL IVP SCH ×2 (06:29→17:46)
[2017-02-09] MEDS: Folic Acid 1 MG TABLET PO SCH (08:17)
[2017-02-09] MEDS: Aspirin Enteric Coated 81 MG Tablet PO SCH (08:17)
[2017-02-09] MEDS: Furosemide 20 MG TABLET PO SCH (08:18)
[2017-02-09] MEDS: Cyanocobalamin (B-12) 1,000 MCG TABLET PO SCH (08:18)
[2017-02-09] MEDS: Pregabalin 75 MG CAPSULE PO SCH ×2 (08:18→21:02)
[2017-02-09] MEDS: Insulin LISPRO 300 UNITS/3 ML VIAL SQ SCH ×4 (08:30→17:50)
[2017-02-09] MEDS: Tiotropium 18 MCG inhalation IH SCH (09:15)
[2017-02-09] MEDS: Budesonide/Formoterol 80/4.5 MDI IH SCH ×2 (09:15→20:25)
--- NOTE | 2017-02-09 12:12 | Gastroenterology Consult Note ---
<Andrei Llanos Shaina - Last Filed: 02/09/17 12:19> Date of Encounter: 02/09/17 Time of Encounter: 10:40 - Assessment and plan (1) Melena Current Visit: Yes Status: Acute Assessment and plan: Patient had EGD and colonoscopy in Dec 2016, which were negative for source of bleeding. Plan for enteroscopy tomorrow. NPO at midnight. She can have regular diet today. If enteroscopy negative, consider capsule endoscopy as outpatient. 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 Restart PPI. There is a potential drug interaction between PPIs and Plavix as both are metabolized by cytochrome 450 enzymes and especially Plavix require these enzymes to become active. In the presence of PPI, there is a potential for reduced effectiveness of Plavix. Recommend spacing out the PPI and the Plavix (PPI in the morning, and Plavix at night or vice versa). Avoid omeprazole (Prilosec) and esmoprazole (Nexium) and use other PPIs. 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 Continue to monitor CBC and transfuse PRBC as needed. Plan for enteroscopy tomorrow. - Time Spent With Patient Total time spent is greater than 50% in coordination of care (as documented) at patient's floor/unit and/or counseling patient: GI History of Present Illness - Data of Consult Patient: known to practice within the last 3 years Consult date: 02/09/17 Requesting Physician: Deandre Mcmullen MD - Consult Narrative Reason for consult: anemia History of present illness: Ms. Dacosta is a 81 year old female with PMHx of arthritis, asthma, COPD, CAD, CVA, DM, GERD, GI bleed, HLD, HTN, who presented to the ED with weakness and severe symptomatic anemia. Hgb on admission was 8.7 this a.m. Hgb 8.1. Patient was admitted to the hospital in December for anemia and completed an EGD and colonoscopy which were negative for source of bleeding. Patient was able to answer all of my questions and was alert and oriented during my exam. She denies chest pain, fever, chills, abdominal pain, nausea, vomiting, or hematochezia. Procedures: EGD 12/27/2016 with Ashton's esophagus, no dysplasia noted. Colonoscopy 12/29/2016 with diverticulosis and tubular adenoma. NSAIDs: ASA Anticoagulation: Plavix Past Med Surg Social Fam HX - Past Medical History Medical history: arthritis, asthma, cancer, COPD, coronary artery disease, CVA, diabetes, GERD, GI bleed, hyperlipidemia, hypertension, osteoporosis, peripheral artery disease, other Psychiatric history: other - Past Surgical History Surgical History: cholecystectomy, other - Social History Smoking Status: Former smoker Smokeless Tobacco Status: No Alcohol use: none Drug use: none - Family History Mother Hx Family Endocrine Disorder: Yes (DM) - Gastrointestinal Gastrointestinal: Present: as per HPI - Constitutional Constitutional: as per HPI - EENT Eyes: as per HPI Ears: Present: as per HPI Nose, mouth and throat: Present: as per HPI - Cardiovascular Cardiovascular ROS: Present: as per HPI - Respiratory Respiratory IM: Present: as per HPI - Genitourinary Genitourinary: Absent: change in color, Urinary frequency - Neurological ROS Neurological GI: Present: as per HPI - Hematologic/Lymphatic Hematologic/Lymphatic pediatric: Present: as per HPI - Musculoskeletal Musculoskeletal ROS GI: Present: as per HPI - Integumentary Integumentary GI: Present: as per HPI - Psychiatric ROS Psychiatric GI: Present: as per HPI - Endocrine Endocrine IM: Present: as per HPI - Constitutional Vitals: Temp Pulse Resp BP Pulse Ox 97.7 F 88 18 104/59 92 02/09/17 08:10 02/09/17 08:10 02/09/17 09:17 02/09/17 08:10 02/09/17 09:17 General appearance: Present: cooperative, A&O X 3, no acute distress, answers questions appropriately - Head Head exam: Present: atraumatic, normocephalic - Eye Eye exam: Present: normal appearance, sclera anicteric - ENT ENT exam: Present: mucous membranes dry - Neck Neck exam general surgery: Present: normal inspection, trachea midline - Respiratory Respiratory exam: Present: CTAB. Absent: rales, rhonchi, wheezes - Cardiovascular Cardiovascular exam: Present: RRR, +S1, +S2 - GI/Abdominal GI/Abdominal exam: Present: soft, no peritoneal signs. Absent: distended, firm , guarding, tenderness - Rectal Rectal exam: Present: deferred - Extremities Exam Extremities exam: Present: warm - Neurological Exam Neurological exam: Present: no focal deficits - Psychiatric Psychiatric exam: Present: normal affect, normal mood - Skin Skin exam: Present: dry, intact, normal color, warm Results - Labs CBC & Chem 7: 02/09/17 05:45 02/09/17 05:45 Labs: Last Result Calcium 8.7 mg/dL (8.6-10.8) 02/09/17 05:45 Troponin I 0.00 ng/mL (0-0.03) 02/08/17 17:10 Stool Occult Blood Negative (Negative) 02/08/17 19:40 Entire Visit Hgb 8.1 g/dL (11.5-15.4) L 02/09/17 05:45 Hct 26.9 % (35.3-44.9) L 02/09/17 05:45 PT 12.9 Seconds (9.4-12.1) H 02/09/17 05:45 Total Bilirubin 0.3 mg/dL (0.2-1.2) 02/09/17 05:45 AST 15 Units/L (5-34) 02/09/17 05:45 ALT 8 Units/L (0-55) 02/09/17 05:45 - ABG ABG results: PT/INR, D-dimer PT 12.9 Seconds (9.4-12.1) H 02/09/17 05:45 Consult Discharge Plan - Plan Referrals: Joe King MD [Primary Care Provider] - <Mari Pollock - Last Filed: 02/09/17 12:51> Date of Encounter: 02/09/17 Time of Encounter: 11:00 - Time Spent With Patient Total time spent is greater than 50% in coordination of care (as documented) at patient's floor/unit and/or counseling patient: GI History of Present Illness - Data of Consult Requesting Physician: Deandre Mcmullen MD - Consult Narrative History of present illness: Ms. Dacosta is a 81 year old female - Constitutional Vitals: Temp Pulse Resp BP Pulse Ox 98.3 F 95 15 103/43 95 02/09/17 12:43 02/09/17 12:43 02/09/17 12:43 02/09/17 12:43 02/09/17 12:43 Results - Labs CBC & Chem 7: 02/09/17 05:45 02/09/17 05:45 Labs: Last Result Calcium 8.7 mg/dL (8.6-10.8) 02/09/17 05:45 Troponin I 0.00 ng/mL (0-0.03) 02/08/17 17:10 Stool Occult Blood Negative (Negative) 02/08/17 19:40 Entire Visit Hgb 8.1 g/dL (11.5-15.4) L 02/09/17 05:45 Hct 26.9 % (35.3-44.9) L 02/09/17 05:45 PT 12.9 Seconds (9.4-12.1) H 02/09/17 05:45 Total Bilirubin 0.3 mg/dL (0.2-1.2) 02/09/17 05:45 AST 15 Units/L (5-34) 02/09/17 05:45 ALT 8 Units/L (0-55) 02/09/17 05:45 - ABG ABG results: PT/INR, D-dimer PT 12.9 Seconds (9.4-12.1) H 02/09/17 05:45 - Attending Attestation I examined this patient and my medical decision-making was reviewed with the TRAFFIC CONTROL OPERATOR/PA/Advanced Practice Nurse/Resident Physician. I agree with the documented findings, disposition and treatment plan as described except to the extent set forth below. Patient with recurrent severe anemia with a hemoglobin down to the 6 range. EGD / colonoscopy in December were negative, patient is anemic again. She will have a enteroscopy to make sure there are no AVM in the small bowel if negative then she will have a capsule as an outpatient
--- NOTE | 2017-02-09 17:34 | Electrocardiograph Report ---
[place] [address] Test Date: 2017-02-08 Pat Name: Kiesha Redifer Department: 103 Room: 3A Gender: F Assistant Manager Quality Management: [facility] : 1935 Requested By: Tang Hylton Order Number: [id number] Reading MD: oTrri Hand Measurements Intervals [place] Rate: 103 P: ME: 0 QRS: 23 QRSD: 86 T: 58 QT: 368 QTc: 428 Interpretive Statements SINUS TACHYCARDIA WITH FREQUENT VENTRICULAR PREMATURE COMPLEXES WITH OCCASIONAL SUPRAVENTRICULAR PREMATURE COMPLEXES ABNORMAL RHYTHM ECG Electronically Signed On 02-09-2017 17:32:19 EDT by Torri Hand
--- NOTE | 2017-02-09 18:53 | Internal Med Progress Note ---
Date of Encounter: 02/09/17 Time of Encounter: 09:00 - Assessment and plan (1) DVT prophylaxis Current Visit: Yes Status: Acute Assessment and plan: No pharmacological prophylaxis due to possible GI bleeding. Will use SCDs. 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 Add insulin pre-meal coverage and continue with insulin Levemir. Monitor blood glucose 4 times daily. (3) COPD (chronic obstructive pulmonary disease) Current Visit: No Status: Chronic Assessment and plan: Inhaled bronchodilators as needed. Oxygen by nasal cannula as needed. Qualifiers: COPD type: emphysema Emphysema type: panlobular Qualified Code(s): J43.1 - Panlobular emphysema (4) Essential hypertension Current Visit: No Status: Chronic (5) GI bleed Current Visit: No Status: Acute Assessment and plan: Case was discussed with GI. We will consult GI service. She is being now evaluated for a possible push enteroscopy tomorrow. In the meantime we will monitor vital signs closely. We will check hemoglobin and hematocrit in the morning. Qualifiers: GI bleed type/associated pathology: melena Qualified Code(s): K92.1 - Melena - Subjective Interval history: She was brought to the hospital for evaluation of anemia and altered mental status. She had multiple recent admissions and workup done for GI bleed. She had recent upper endoscopy and colonoscopy which were negative. She currently reports several episodes of black tarry stools without any abdominal pain nausea or vomiting. Denies rectal bleeding. - Constitutional Vitals: Temp Pulse Resp BP Pulse Ox 98.3 F 95 15 103/43 95 02/09/17 12:43 02/09/17 12:43 02/09/17 12:43 02/09/17 12:43 02/09/17 12:43 General appearance: Present: cooperative, A&O X 3, pleasant, obese - Respiratory Respiratory exam: Present: CTAB. Absent: accessory muscle use, rales, rhonchi, wheezes - Cardiovascular Cardiovascular exam: Present: RRR, +S1, +S2. Absent: diastolic murmur, gallop, rubs, systolic murmur - GI/Abdominal GI/Abdominal exam: Present: normal bowel sounds, soft, no peritoneal signs. Absent: distended, tenderness - Extremities Exam Extremities exam: Present: warm, radial pulses palpable and symetrical. Absent : calf tenderness, cyanotic, pedal edema - Neurological Exam Neurological exam: Present: CN II-XII intact, oriented X3, no focal deficits. Absent: pronater drift, facial droop, speech deficit Additional comments: Tremors of upper and lower extremities. Internal Medicine: Result - Labs CBC & Chem 7: 02/09/17 05:45 02/09/17 05:45 Labs: Short CBC 02/09/17 Range/Units 05:45 WBC 8.7 (4.3-11.1) K/mcL Hgb 8.1 L (11.5-15.4) g/dL Hct 26.9 L (35.3-44.9) % Plt Count 211 (140-400) K/mcL Neutrophils # 6.2 (1.6-8.9) K/mcL BMP 02/09/17 05:45 Sodium 140 Potassium 4.0 D Chloride 103 Carbon Dioxide 27 BUN 23 H Creatinine 0.87 Glucose 240 H Calcium 8.7 Liver Function 02/09/17 Range/Units 05:45 Total Bilirubin 0.3 (0.2-1.2) mg/dL AST 15 (5-34) Units/L ALT 8 (0-55) Units/L Alkaline Phosphatase 61 (38-126) Units/L Albumin 2.6 L (3.5-5.0) g/dL - ABG Interpretation ABG results: PT/INR, D-dimer PT 12.9 Seconds (9.4-12.1) H 02/09/17 05:45 Consult Discharge Plan - Plan Referrals: Joe King MD [Primary Care Provider] - 02/19/17 11:15 am
[2017-02-09] MEDS ORDERED: Insulin LISPRO 300 UNITS/3 ML VIAL SQ SCH (21:00)
[2017-02-09] MEDS ORDERED: Insulin DETEMIR 100 UNIT/ML X5UNITS SQ SCH (21:00)
[2017-02-10] MEDS: Cholecalciferol (D-3) 1,000 UNIT TABLET PO SCH ×2 (00:04→23:48)
[2017-02-10 05:38] LABS: Basophils % 0.5 %; Eosinophils # 0.7 K/mcL (0.0-0.6); Hematocrit 26.6 % (35.3-44.9); Hemoglobin 8.2 g/dL (11.5-15.4); Immature Granulocytes % 0.5 % (0-4); Lymphocytes # 1.2 K/mcL (0.6-4.6); Lymphocytes % 15.2 %; Mean Corpuscular HGB Conc 30.8 g/dL (31.6-35.5); Mean Corpuscular Hemoglobin 30.3 pg (28.0-33.3); Mean Corpuscular Volume 98.2 fL (83.0-100.0); Mean Platelet Volume 12.6 fL (9.4-12.4); Monocytes # 0.7 K/mcL (0.0-1.3); Monocytes % 8.9 %; Neutrophils # 5.3 K/mcL (1.6-8.9); Platelet Count 224 K/mcL (140-400); Red Blood Count 2.71 M/mcL (3.82-4.97); Red Cell Distribution Width 18.9 % (11.5-14.5); Segmented Neutrophils % 65.9 %
[2017-02-10 05:50] LABS: BUN/Creatinine Ratio 20 (6-26); Blood Urea Nitrogen 16 mg/dL (7-20); Calcium 8.6 mg/dL (8.6-10.8); Carbon Dioxide 32 mEq/L (19-29); Chloride 100 mEq/L (98-109); Glucose 223 mg/dL (70-99); Osmolality,Calculated 296 (280-300); Potassium 3.9 mEq/L (3.5-4.5); Sodium 139 mEq/L (136-145); eGFR For African Americans > 60 (> 60); eGFR For Non-African Americans > 60 (> 60)
[2017-02-10] MEDS: Famotidine 20 MG/2 ML VIAL IVP SCH ×2 (05:52→18:50)
[2017-02-10] MEDS: Tiotropium 18 MCG inhalation IH SCH (08:34)
[2017-02-10] MEDS: Insulin LISPRO 300 UNITS/3 ML VIAL SQ SCH ×5 (08:36→18:50)
[2017-02-10] MEDS: Budesonide/Formoterol 80/4.5 MDI IH SCH ×2 (10:28→20:30)
[2017-02-10] MEDS ORDERED: Insulin LISPRO 300 UNITS/3 ML VIAL SQ SCH (14:03)
[2017-02-10] MEDS ORDERED: *HR* Propofol 200 MG/20 ML VIAL IVP ONE (15:06)
[2017-02-10] MEDS: Folic Acid 1 MG TABLET PO SCH (15:11)
[2017-02-10] MEDS: Cyanocobalamin (B-12) 1,000 MCG TABLET PO SCH (15:11)
[2017-02-10] MEDS: Aspirin Enteric Coated 81 MG Tablet PO SCH (15:11)
[2017-02-10] MEDS: Furosemide 20 MG TABLET PO SCH (15:11)
--- NOTE | 2017-02-10 17:24 | Anesthesia Evaluation PreOp ---
Date of Encounter: 02/10/17 Time of Encounter: 17:22 - Past History Planned Operation: Enteroscopy Cardiac History: HTN (maintained on Lisinopril, Lasix), Hyperlipidemia ( maintained on Atorvastatin), Other (CAD - maintained on ASA, Plavix. PVD) Pulmonary History: Former smoker, Asthma (maintained on Albuterol), COPD ( maintained on Spiriva, Advair. 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 Chronic Pain maintained on Lyrica) Other Medical History: Renal (UTI this admission), Diabetes Type II (maintained on Metformin, Insulin), GERD (Ashton's esophagus maintained on Protonix) Anesthesia History: Past Anesthesia ([place]) Alcohol Use: none Drug use: none Medications and Allergies Albuterol Sulfate [Albuterol Inhaler] 2 puff IH Q4HR PRN 02/27/16 [History] Aspirin [Adult Low Dose Aspirin EC] 81 mg PO DAILY 02/27/16 [History] Cholecalciferol (Vitamin D3) [Vitamin D3] 5,000 unit PO Q48H 02/27/16 [History] Clopidogrel [Plavix] 75 mg PO HS 02/27/16 [History] Fluticasone/Salmeterol [Advair 250-50 Diskus] 1 puff IH BID 02/27/16 [History] Furosemide [Lasix] 20 mg PO DAILY 02/27/16 [History] Lisinopril [Zestril] 20 mg PO HS 02/27/16 [History] Pregabalin [Lyrica] 150 mg PO BID 02/27/16 [History] Tiotropium [Spiriva] 18 mcg IH DAILY 02/27/16 [History] Oxygen 2 l NS AD 12/10/16 [History] Cyanocobalamin (B-12) [Vitamin B12] 1,000 mcg PO DAILY #90 tablet 12/30/16 [Rx] Cyclobenzaprine HCl 5 mg PO TID PRN #0 12/30/16 [Rx] Ferrous Sulfate 325 mg PO BIDWM #180 tablet 12/30/16 [Rx] Folic Acid 1 mg PO DAILY #90 tablet 12/30/16 [Rx] Insulin ASPART [Novolog Flexpen] 4 unit SQ TID #0 12/30/16 [Rx] Pantoprazole Sodium [Protonix] 40 mg PO DAILY #90 [id number] 12/30/16 [Rx] Atorvastatin [Lipitor] 40 mg PO HS 02/05/17 [History] Ciprofloxacin [Cipro] 500 mg PO BID #10 tablet 02/06/17 [Rx] Insulin Glargine,Hum.rec.anlog [Lantus Solostar] 15 unit SQ HS #0 02/06/17 [Rx] Metformin HCl [Metformin HCl ER] 1,000 mg PO DAILY #30 [id number] 02/06/17 [Rx] Allergies No Known Allergies Allergy (Verified 02/08/17 15:41) - Meds/Allergy Pre-op Review Medications Reviewed: Yes Allergies Reviewed: Yes Beta Blockers on Current Med List: No Anesthesia Results - Labs 02/10/17 05:00 02/10/17 05:00 Laboratory Tests 02/09/17 02/09/17 02/09/17 05:45 05:45 05:45 PT 12.9 H INR 1.2 Est GFR (Non-Af Amer) POC Glucose Est Mean Plasma Glucose 128 Hemoglobin A1c 6.1 H B-Natriuretic Peptide 171 H 02/10/17 02/10/17 05:00 17:04 PT INR Est GFR (Non-Af Amer) > 60 POC Glucose 158 H Est Mean Plasma Glucose Hemoglobin A1c B-Natriuretic Peptide Laboratory Results Impressions Chest X-Ray 02/08/17 16:03 IMPRESSION: COPD without acute cardiopulmonary process. Stable appearing chest. D/ / Sterling Moran MD / Sterling Moran MD Interpreting Provider: Sterling Moran MD Head CT 02/08/17 16:05 IMPRESSION: No acute intracranial abnormality. MRI is more sensitive for acute ischemia. D/ / Marcelo Monge MD / Marcelo Monge MD Interpreting Provider: Marcelo Monge MD - Imaging EKG: image reviewed Anesthesia Exam Vital Signs Temp Pulse Resp BP Pulse Ox 02/10/17 16:10 98.1 F 97 15 146/74 94 02/10/17 11:30 98.1 F 98 18 136/64 94 02/10/17 10:28 16 96 02/10/17 07:15 97.9 F 109 17 130/52 95 02/10/17 04:19 98.3 F 96 16 158/64 94 02/10/17 00:00 97.7 F 100 15 93/60 94 02/09/17 20:45 97.8 F 100 16 143/62 95 02/09/17 20:27 18 94 Intake and Output 02/10/17 02/10/17 02/10/17 07:59 15:59 23:59 Intake Total 0 / 0 100 / 100 Output Total 250 / 250 300 / 300 0 / 0 Balance -250 / -250 -200 / -200 0 / 0 Intake: IV Fluids 100 / 100 Rocephin 1,000 MG In 100 / 100 Dextrose 5% (Minibag+) 100 ML 100 ML @ 200 mls/ hr IVPB DAILY ROZINA Rx#: [id number] Oral 0 / 0 Output: Urine 250 / 250 300 / 300 0 / 0 Other: Meal NPO Weight 80.371 kg Blood Glucose* 266 89 158 Patient Weight 02/10/17 23:59 Weight 80.371 kg Height: 5'6" Weight: 177# bmi = 29 NPO (# of Hours): mnoC - HEENT Pupil (Motor): Pupils equal, EOMI Mallampati: II Teeth: Edentulous Denture Type: Upper: Complete, Lower: Complete Oral Opening: Greater than 3 - REFINERY OPERATOR LOC: Oriented REFINERY OPERATOR Motor: Normal RUE, Normal LUE, Normal RLE, Normal LLE, Normal Face REFINERY OPERATOR Sensory: Normal: RUE, LUE, RLE, LLE, Face - Cardiac Murmur: None - Pulmonary Breath Sounds: bilateral Clear Respiratory Effort: Symmetrical Anesthesia Assess/Plan ASA Score: 3 (COPD, DM, HTN, Chol,) Modified Ruby Scale for Level of Consciousness: Cooperative, oriented, and tranquil Anesthetic Plan: MAC Monitoring Plan: Standard Monitors Recovery Plan: Other Anes Supervising Prov Stmt: Pt seen/evaluated, R&B discussed, questions answered and consent obtained. Lawrence Mohamud MD
[2017-02-10] MEDS ORDERED: 0.9 % Sodium Chloride 1,000 ML IVC SCH (17:45)
--- NOTE | 2017-02-10 19:27 | Internal Med Progress Note ---
Date of Encounter: 02/10/17 Time of Encounter: 15:00 - Assessment and plan (1) DVT prophylaxis Current Visit: Yes Status: Acute Assessment and plan: No pharmacological prophylaxis due to possible GI bleeding. Will use SCDs. 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 Add insulin pre-meal coverage and continue with insulin Levemir. Monitor blood glucose 4 times daily. (3) COPD (chronic obstructive pulmonary disease) Current Visit: No Status: Chronic Assessment and plan: Inhaled bronchodilators as needed. Oxygen by nasal cannula as needed. Qualifiers: COPD type: emphysema Emphysema type: panlobular Qualified Code(s): J43.1 - Panlobular emphysema (4) Essential hypertension Current Visit: No Status: Chronic (5) GI bleed Current Visit: No Status: Acute Assessment and plan: 02/10/2017: Patient to get a push enteroscopy today to evaluate for possible AVMs in the small bowel. We will continue to monitor her hemoglobin and hematocrit. For constipation we will start rectal Dulcolax. February 09: Case was discussed with GI. We will consult GI service. She is being now evaluated for a possible push enteroscopy tomorrow. In the meantime we will monitor vital signs closely. We will check hemoglobin and hematocrit in the morning. Qualifiers: GI bleed type/associated pathology: melena Qualified Code(s): K92.1 - Melena - Subjective Interval history: 2017: Patient's mental status has improved. She denies any more melena. She has not had a bowel movement for last 2 days. She was brought to the hospital for evaluation of anemia and altered mental status. She had multiple recent admissions and workup done for GI bleed. She had recent upper endoscopy and colonoscopy which were negative. She currently reports several episodes of black tarry stools without any abdominal pain nausea or vomiting. Denies rectal bleeding. - Constitutional Vitals: Temp Pulse Resp BP Pulse Ox 97.6 F 104 16 164/74 99 02/10/17 19:00 02/10/17 19:00 02/10/17 19:00 02/10/17 19:00 02/10/17 19:00 General appearance: Present: cooperative, A&O X 3, pleasant, obese Internal Medicine: Result - Labs CBC & Chem 7: 02/10/17 05:00 02/10/17 05:00 Labs: Short CBC 02/10/17 Range/Units 05:00 WBC 8.0 (4.3-11.1) K/mcL Hgb 8.2 L (11.5-15.4) g/dL Hct 26.6 L (35.3-44.9) % Plt Count 224 (140-400) K/mcL Neutrophils # 5.3 (1.6-8.9) K/mcL BMP 02/10/17 05:00 Sodium 139 Potassium 3.9 Chloride 100 Carbon Dioxide 32 H BUN 16 Creatinine 0.80 Glucose 223 H Calcium 8.6 - ABG Interpretation ABG results: PT/INR, D-dimer PT 12.9 Seconds (9.4-12.1) H 02/09/17 05:45 Consult Discharge Plan - Plan Referrals: Joe King MD [Primary Care Provider] - 02/19/17 11:15 am
[2017-02-10] MEDS: Pregabalin 75 MG CAPSULE PO SCH (20:23)
[2017-02-10] MEDS ORDERED: Insulin DETEMIR 100 UNIT/ML X5UNITS SQ SCH (21:00)
[2017-02-11 05:48] LABS: Basophils % 0.4 %; Eosinophils # 0.6 K/mcL (0.0-0.6); Eosinophils % 9.4 %; Hematocrit 28.5 % (35.3-44.9); Hemoglobin 8.6 g/dL (11.5-15.4); Immature Granulocytes % 0.1 % (0-4); Lymphocytes % 14.7 %; Mean Corpuscular HGB Conc 30.2 g/dL (31.6-35.5); Mean Corpuscular Hemoglobin 29.8 pg (28.0-33.3); Mean Corpuscular Volume 98.6 fL (83.0-100.0); Mean Platelet Volume 12.5 fL (9.4-12.4); Monocytes # 0.7 K/mcL (0.0-1.3); Neutrophils # 4.4 K/mcL (1.6-8.9); Platelet Count 246 K/mcL (140-400); Red Blood Count 2.89 M/mcL (3.82-4.97); Red Cell Distribution Width 18.6 % (11.5-14.5); Segmented Neutrophils % 65.4 %
[2017-02-11] MEDS: Famotidine 20 MG/2 ML VIAL IVP SCH ×2 (06:02→16:52)
[2017-02-11 06:09] LABS: BUN/Creatinine Ratio 15 (6-26); Blood Urea Nitrogen 11 mg/dL (7-20); Calcium 8.9 mg/dL (8.6-10.8); Carbon Dioxide 32 mEq/L (19-29); Chloride 100 mEq/L (98-109); Glucose 203 mg/dL (70-99); Osmolality,Calculated 295 (280-300); Potassium 3.9 mEq/L (3.5-4.5); Sodium 140 mEq/L (136-145); eGFR For African Americans > 60 (> 60); eGFR For Non-African Americans > 60 (> 60)
[2017-02-11] MEDS: Pregabalin 75 MG CAPSULE PO SCH (07:36)
[2017-02-11] MEDS: Cyanocobalamin (B-12) 1,000 MCG TABLET PO SCH (07:36)
[2017-02-11] MEDS: Folic Acid 1 MG TABLET PO SCH (07:36)
[2017-02-11] MEDS: Furosemide 20 MG TABLET PO SCH (07:36)
[2017-02-11] MEDS: Aspirin Enteric Coated 81 MG Tablet PO SCH (07:36)
[2017-02-11] MEDS: Insulin LISPRO 300 UNITS/3 ML VIAL SQ SCH ×3 (07:37→16:51)
[2017-02-11] MEDS: Tiotropium 18 MCG inhalation IH SCH (07:45)
[2017-02-11] MEDS: Budesonide/Formoterol 80/4.5 MDI IH SCH (07:46)
[2017-02-11] MEDS ORDERED: *HR* Metformin 500 MG TABLET PO SCH (11:00)
[2017-02-11 15:11] VITALS: BP 142/61
--- NOTE | 2017-02-11 15:42 | Discharge Summary ---
Date of Encounter: 02/14/17 Time of Encounter: 15:39 - Discharge Diagnosis (1) DVT prophylaxis Priority: Secondary Status: Acute (2) Type 2 diabetes mellitus with other circulatory complications Priority: Secondary Status: Chronic (3) COPD (chronic obstructive pulmonary disease) Priority: Secondary Status: Chronic Qualifiers: COPD type: emphysema Emphysema type: panlobular Qualified Code(s): J43.1 - Panlobular emphysema (4) Essential hypertension Priority: Secondary Status: Chronic (5) GI bleed Priority: Primary Status: Acute Qualifiers: GI bleed type/associated pathology: melena Qualified Code(s): K92.1 - Melena (6) Anemia Priority: Secondary Status: Acute Qualifiers: Anemia type: iron deficiency Iron deficiency anemia type: chronic blood loss Qualified Code(s): D50.0 - Iron deficiency anemia secondary to blood loss (chronic) (7) Confusion Priority: Secondary Status: Acute (8) Frail elderly Priority: Secondary Status: Acute - Discharge Medications Prescriptions: HYDROcodone/Acet 5/325 mg [[place] 5-325 mg] 1 tab PO Q4HR PRN #20 tablet PRN Reason: Moderate Pain (4-6) Home Medications: Albuterol Sulfate [Albuterol Inhaler] 2 puff IH Q4HR PRN 02/27/16 [History] Aspirin [Adult Low Dose Aspirin EC] 81 mg PO DAILY 02/27/16 [History] Cholecalciferol (Vitamin D3) [Vitamin D3] 5,000 unit PO Q48H 02/27/16 [History] Clopidogrel [Plavix] 75 mg PO HS 02/27/16 [History] Fluticasone/Salmeterol [Advair 250-50 Diskus] 1 puff IH BID 02/27/16 [History] Furosemide [Lasix] 20 mg PO DAILY 02/27/16 [History] Lisinopril [Zestril] 20 mg PO HS 02/27/16 [History] Tiotropium [Spiriva] 18 mcg IH DAILY 02/27/16 [History] Oxygen 2 l NS AD 12/10/16 [History] Cyanocobalamin (B-12) [Vitamin B12] 1,000 mcg PO DAILY #90 tablet 12/30/16 [Rx] Cyclobenzaprine HCl 5 mg PO TID PRN #0 12/30/16 [Rx] Ferrous Sulfate 325 mg PO BIDWM #180 tablet 12/30/16 [Rx] Folic Acid 1 mg PO DAILY #90 tablet 12/30/16 [Rx] Insulin ASPART [Novolog Flexpen] 4 unit SQ TID #0 12/30/16 [Rx] Pantoprazole Sodium [Protonix] 40 mg PO DAILY #90 granpkt. 12/30/16 [Rx] Atorvastatin [Lipitor] 40 mg PO HS 02/05/17 [History] Insulin Glargine,Hum.rec.anlog [Lantus Solostar] 15 unit SQ HS #0 02/06/17 [Rx] Metformin HCl [Metformin HCl ER] 1,000 mg PO DAILY #30 [id number] 02/06/17 [Rx] Albuterol Neb [Proventil Neb] 2.5 mg IH Q2H PRN #0 inhsol 02/11/17 [Rx] HYDROcodone/Acet 5/325 mg [[place] 5-325 mg] 1 tab PO Q4HR PRN #20 tablet [Rx] Insulin DETEMIR [Levemir] 15 unit SQ HS #0 [id number] 02/11/17 [Rx] Pregabalin [Lyrica] 75 mg PO BID capsule 02/11/17 [Rx] Allergies/Adverse Reactions: Allergies No Known Allergies Allergy (Verified 02/08/17 15:41) Date of admission: 02/08/17 23:56 Primary care physician: Joe King MD Consults: 02/09/17 07:31 Consult to Physical Therapy [CONS] Routine Comment: Evaluate, develop and implement POC OT [Consult to Occupational Therapy] [CONS] Routine Comment: Evaluate, develop and implement POC 02/09/17 10:28 Consult to Gastroenterology [CONS] Routine Consulting Provider: Gastroenterology Nivia Reason for Consult: GI bleed, melena, anemia Call Completed: Yes 02/11/17 08:41 Consult to Invasive Line Access Team [CONS] Routine Reason for Consult: poor peripheral access Line Type: EPIV - Patient Status Disposition: Transfer SNF Condition: Fair Functional capacity at discharge: independent ambulation Overall status at discharge: patient is progressing back to baseline - Discharge Instructions Follow Up With: Joe King MD [Primary Care Provider] - 02/19/17 11:15 am - Diet and Activity Activity: as per physical therapy, increase activity as tolerated Diet: diabetic diet, low fat, low cholesterol, low salt diet Hospital course: Ms. Dacosta is a 81 year old female with a history of chronic anemia, Ashton's esophagitis, COPD, obstructive sleep apnea, hypertension, severe anemia (for which she recently received 2 units of prbc). She was recently discharged from this facility due to hyperglycemia and generalized weakness with severe symptomatic anemia. She was supposed to follow-up as outpatient with gastroenterology. She had both colonoscopy and EGD a few months ago. The patient lives at home with her daughter. She was admitted to the hospital due to low hemoglobin, history of black stools and confusion. She was evaluated by gastroenterology. She had a push enteroscopy done which found no evidence of jejunal bleeding AVM or any other lesions. Her hemoglobin remained stable above 8. She did not require blood transfusion. On the day of discharge she has close to her baseline but appears to be deconditioned. She was evaluated by physical therapy who recommended subacute rehabilitation and therefore she will be discharged to a fdc facility. - Time Spent with Patient Total time spent providing and/or coordinating discharge services: Greater than 30 minutes - Constitutional Vitals: Temp Pulse Resp BP Pulse Ox 98.0 F 100 18 142/61 97 02/11/17 14:59 02/11/17 14:59 02/11/17 14:59 02/11/17 14:59 02/11/17 14:59 General appearance: Present: cooperative, A&O X 3, pleasant, obese
--- NOTE | 2017-02-11 15:46 | Physician Discharge Referral ---
ExtendedCare Referral Info Transfer To: SNF Provider in Charge after Transfer: PCP Institutional Level of Care: Skilled - Diagnosis (1) DVT prophylaxis Status: Acute (2) Type 2 diabetes mellitus with other circulatory complications Status: Chronic (3) COPD (chronic obstructive pulmonary disease) Status: Chronic (4) Essential hypertension Status: Chronic (5) GI bleed Status: Acute - Transfer Medications Prescriptions: HYDROcodone/Acet 5/325 mg [[place] 5-325 mg] 1 tab PO Q4HR PRN #20 tablet PRN Reason: Moderate Pain (4-6) Home Medications: Albuterol Sulfate [Albuterol Inhaler] 2 puff IH Q4HR PRN 02/27/16 [History] Aspirin [Adult Low Dose Aspirin EC] 81 mg PO DAILY 02/27/16 [History] Cholecalciferol (Vitamin D3) [Vitamin D3] 5,000 unit PO Q48H 02/27/16 [History] Clopidogrel [Plavix] 75 mg PO HS 02/27/16 [History] Fluticasone/Salmeterol [Advair 250-50 Diskus] 1 puff IH BID 02/27/16 [History] Furosemide [Lasix] 20 mg PO DAILY 02/27/16 [History] Lisinopril [Zestril] 20 mg PO HS 02/27/16 [History] Tiotropium [Spiriva] 18 mcg IH DAILY 02/27/16 [History] Oxygen 2 l NS AD 12/10/16 [History] Cyanocobalamin (B-12) [Vitamin B12] 1,000 mcg PO DAILY #90 tablet 12/30/16 [Rx] Cyclobenzaprine HCl 5 mg PO TID PRN #0 12/30/16 [Rx] Ferrous Sulfate 325 mg PO BIDWM #180 tablet 12/30/16 [Rx] Folic Acid 1 mg PO DAILY #90 tablet 12/30/16 [Rx] Insulin ASPART [Novolog Flexpen] 4 unit SQ TID #0 12/30/16 [Rx] Pantoprazole Sodium [Protonix] 40 mg PO DAILY #90 12/30/16 [Rx] Atorvastatin [Lipitor] 40 mg PO HS 02/05/17 [History] Insulin Glargine,Hum.rec.anlog [Lantus Solostar] 15 unit SQ HS #0 02/06/17 [Rx] Metformin HCl [Metformin HCl ER] 1,000 mg PO DAILY #30 [id number] 02/06/17 [Rx] Albuterol Neb [Proventil Neb] 2.5 mg IH Q2H PRN #0 inhsol 02/11/17 [Rx] HYDROcodone/Acet 5/325 mg [[place] 5-325 mg] 1 tab PO Q4HR PRN #20 tablet [Rx] Insulin DETEMIR [Levemir] 15 unit SQ HS #0 [id number] 02/11/17 [Rx] Pregabalin [Lyrica] 75 mg PO BID capsule 02/11/17 [Rx] Allergies/Adverse Reactions: Allergies No Known Allergies Allergy (Verified 02/08/17 15:41) - Respiratory Orders Oxygen / L per min Smoking Cessation: Smoking cessation has been advised. For more information, call the [place] Tobacco Quit Line at 8-055-KEHD-NOW. - Advance Directives Living Will: Yes Power of [place] Planning Manager: Yes Code Status: Full Code - Mobility Orders Ambulate - Rehabiliation Orders Rehab Potential: Good Rehab Orders: Evaluation for Physical Therapy - Diet Orders No Added Salt (MALACHI), No Concentrated Sweets, Cardiac CERTIFICATION: I certify that the transfer of the above named patient to an Extended Care Facility is necessary for the continuing treatment of the diagnosis listed. The above information is true and accurate reflection of patient's current condition. Confidential - Redisclosure prohibited without a patient's written consent.
== END 2017-02-11 18:18 | DRG 377 ==
LOC: EMEROO 15:39 → 3ANU 15:39 → SUATTDRO 23:56
PROVIDERS: ADMIT Internal Medicine; ATTEND Internal Medicine

== ENCOUNTER 2017-03-24 10:51 | Inpatient (IN) ==
[2017-03-24] MEDS ORDERED: Ondansetron 4 MG/2 ML VIAL ONE (11:21)
[2017-03-24] MEDS ORDERED: *HR* FentaNYL (PF) 100 MCG/2 ML VIAL ONE (11:21)
[2017-03-24] MEDS ORDERED: *HR* Propofol 200 MG/20 ML VIAL IVP ONE (11:21)
[2017-03-24] MEDS ORDERED: *HR* Rocuronium Bromide 50 MG/5 ML VIAL ONE (11:21)
[2017-03-24] MEDS ORDERED: Dexamethasone 4 MG/ML VIAL ONE (11:21)
[2017-03-24] MEDS ORDERED: Lidocaine -MPF 2% 2 ML VIAL ONE (11:21)
[2017-03-24] MEDS ORDERED: Lidocaine -MPF 4% 5 ML AMPUL ONE (11:22)
[2017-03-24] MEDS ORDERED: *HR* Remifentanil 2 MG VIAL IVP ONE (11:26)
[2017-03-24] MEDS ORDERED: *HR* Phenylephrine 10 MG/ML VIAL ONE (11:27)
[2017-03-24] MEDS ORDERED: EPHEDrine 50 MG/ML VIAL ONE (11:31)
[2017-03-24] MEDS ORDERED: Heparin 1,000 UNITS/500 mL NS 500 ML ONE ×2 (11:40→11:49)
[2017-03-24] MEDS ORDERED: Albuterol 2.5 MG/3 ML NEBULIZER ONE (11:44)
[2017-03-24] MEDS ORDERED: Insulin Regular, Human 100 UNIT/ML IV ONE (11:45)
--- NOTE | 2017-03-24 11:45 | History & Physical Report ---
Date of Encounter: 03/24/17 Time of Encounter: 11:30 24 Hour HP Update - Instructions Instructions: If the History and Physical is less than 30 days old and was completed prior to A.M. admission and or procedure and has NOT been updated on calendar day of procedure please complete this update prior to performing procedure. - Update Patient reports changes in Medical Condition: No Changes in examination, assessment, or condition: No Changes in Medication: No Preop tests/diagnostics Reviewed: Yes Surgery Remains Indicated: Yes Consent for Planned Operative Procedure(s) Verified: Yes - Pre-Operative Checklist Preoperative Checklist Indicated: Yes Prophylactic Antibiotic Ordered: Yes (vancomycin due to MRSA risk) Home Medications Include Beta Atif: No Beta Atif Taken Today (Day of Surgery): No Beta Atif Taken Yesterday (Day Prior to Surgery): No
[2017-03-24] MEDS ORDERED: CeFAZolin Pre 2,000 MG/100 ML 2,000 MG/100 ML BAG IVPB ONE (11:47)
--- NOTE | 2017-03-24 11:47 | Anesthesia Evaluation PreOp ---
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, Other (L LE numbness) Other Medical History: Renal, Diabetes Type II Anesthesia History: No Prior Anesthetic Complications, Past Anesthesia ( multiple carotid surgeries in the past including on L and R in past) Alcohol Use: none Drug use: none Medications and Allergies Albuterol Sulfate [Albuterol Inhaler] 2 puff IH Q4HR PRN 02/27/16 [History] Aspirin [Adult Low Dose Aspirin EC] 81 mg PO DAILY 02/27/16 [History] Cholecalciferol (Vitamin D3) [Vitamin D3] 5,000 unit PO Q48H 02/27/16 [History] Clopidogrel [Plavix] 75 mg PO HS 02/27/16 [History] Fluticasone/Salmeterol [Advair 250-50 Diskus] 1 puff IH BID 02/27/16 [History] Furosemide [Lasix] 20 mg PO DAILY 02/27/16 [History] Lisinopril [Zestril] 20 mg PO HS 02/27/16 [History] Tiotropium [Spiriva] 18 mcg IH DAILY 02/27/16 [History] Oxygen 2 l NS AD 12/10/16 [History] Cyanocobalamin (B-12) [Vitamin B12] 1,000 mcg PO DAILY #90 tablet 12/30/16 [Rx] Cyclobenzaprine HCl 5 mg PO TID PRN #0 12/30/16 [Rx] Ferrous Sulfate 325 mg PO BIDWM #180 tablet 12/30/16 [Rx] Folic Acid 1 mg PO DAILY #90 tablet 12/30/16 [Rx] Insulin ASPART [Novolog Flexpen] 4 unit SQ TID #0 12/30/16 [Rx] Pantoprazole Sodium [Protonix] 40 mg PO DAILY #90 12/30/16 [Rx] Atorvastatin [Lipitor] 40 mg PO HS 02/05/17 [History] Insulin Glargine,Hum.rec.anlog [Lantus Solostar] 15 unit SQ HS #0 02/06/17 [Rx] Metformin HCl [Metformin HCl ER] 1,000 mg PO DAILY #30 [id number] 02/06/17 [Rx] Albuterol Neb [Proventil Neb] 2.5 mg IH Q2H PRN #0 inhsol 02/11/17 [Rx] HYDROcodone/Acet 5/325 mg [[place] 5-325 mg] 1 tab PO Q4HR PRN #20 tablet [Rx] Insulin DETEMIR [Levemir] 15 unit SQ HS #0 [id number] 02/11/17 [Rx] Pregabalin [Lyrica] 75 mg PO BID capsule 02/11/17 [Rx] Allergies No Known Allergies Allergy (Verified 02/08/17 15:41) - Meds/Allergy Pre-op Review Medications Reviewed: Yes Allergies Reviewed: Yes Beta Blockers on Current Med List: No Anesthesia Results - Labs Laboratory Tests 03/18/17 03/18/17 09:00 09:00 WBC 7.5 Hgb 9.0 L Hct 30.1 L Plt Count 250 Sodium 139 Potassium 5.0 H Chloride 102 Carbon Dioxide 29 BUN 28 H Creatinine 0.99 Est GFR ( Amer) > 60 Est GFR (Non-Af Amer) 54 L - Imaging EKG: report reviewed, image reviewed (ST with PVC's) Anesthesia Exam Last Vital Signs Temp 98.8 F 03/24/17 11:24 Pulse 122 03/24/17 11:24 Resp 18 03/24/17 11:24 BP 116/52 03/24/17 11:24 Pulse Ox 96 03/24/17 11:24 Weight: 81 kg NPO (# of Hours): >> 8 hrs - HEENT Pupil (Motor): Pupils equal, EOMI Mallampati: III Teeth: Edentulous Oral Opening: Greater than 3 - [employer]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
[2017-03-24] MEDS ORDERED: Bupivacaine-MPF 0.25% 10 ML VIAL ONE (11:48)
[2017-03-24] MEDS ORDERED: Albuterol 2.5 MG/3 ML NEBULIZER IH ONE (11:48)
[2017-03-24] MEDS ORDERED: Protamine Sulfate 50 MG/5 ML VIAL IVP ONE (11:48)
[2017-03-24] MEDS ORDERED: Vancomycin 1,000 MG VIAL ONE (11:49)
[2017-03-24] MEDS ORDERED: Ringers Solution, Lactated 1,000 ML IVC SCH (12:00)
[2017-03-24] MEDS ORDERED: Vancomycin 1,250 MG in D5% in Water 250 ML IVPB ONE (12:13)
[2017-03-24] MEDS ORDERED: *HR* Heparin 5,000 UNIT/ML VIAL ONE (14:33)
[2017-03-24] MEDS ORDERED: *HR* Vasopressin 20 UNIT/ML VIAL ONE (15:05)
--- NOTE | 2017-03-24 15:42 | Operative Note ---
Date of procedure: 03/24/17 Pre-op diagnosis: Right carotid stenosis Post-op diagnosis: same Procedure: 1. Reoperative right internal carotid endarteretomy which was discontinued intraoperatively due to hemodynamic instability. Complications: None Anesthesia: AUGUSTINAA Surgeon: Lyle Arias Estimated blood loss (cc): 10 Specimen: none Condition: stable Disposition: PACU Procedure in Detail: Indications: The patient is a 81 year old female with multiple medical comorbidities. She has a history of a right carotid endarterectomy and a reoperative right carotid endarterectomy for recurrent stenosis. She was found to have another recurrent 80-99% right internal carotid artery stenosis. Carotid endarterectomy versus carotid stent was discussed with the patient. She declined a carotid stent evaluation. Due to the degree of stenosis, carotid endarterectomy was then recommended. Procedure: The patient was identified in the preoperative area. The risks, benefits, and alternatives of the procedure were discussed and all questions were answered. The patient was then taken to the operating room and placed in supine position on the operating table. After induction of general endotracheal anesthesia, the patient was cleaned and draped in normal sterile fashion. A longitudinal incision was made through her previous scar along the anterior border of the left sternocleidomastoid muscle. Hemostasis was obtained via electrocautery. Through a process of blunt, sharp, and electrocautery dissection, the platysma was traversed. The jugular vein was identified and dissected along it's medial surface Significant scar and inflamatory tissue was encountered which required lengthy dissection. The jugular vein was retracted. This maneuver exposed the carotid bifurcation. The patient received intravenous heparin. Then proximal dissection of the common and external carotid arteries were performed circumferentially. Dissection of the internal carotid was next performed circumferentially. Again, the dissection process was lengthy due to significant scar tissue. Vessels loops were passed around the internal and external carotid and an umbilical tape was passed from the common carotid artery. The patient received additional heparin intravenously. After waiting adequate time for it to circulate, the vessels were about to be occluded when the patient was noted to have developed progressive hypotension. A through evaluation of the hypotension was performed by anesthesiology. It was also difficult to obtain her oxygen saturation during this period. A discussion was held between anesthesia and vascular surgery. Due to the patients hypotension of uncertain etiology, it was determined that it was safest to discontinue the procedure. The procedure was at a point where the surgery could be ended safely. The vessel loops and umbilical tape were removed. Thrombin and Gelfoam were used to aid in hemostasis. Meticulous hemostasis was obtained throughout the wound with electrocautery. Platelet rich and platelet poor plasma were infused into the wounds. The sternocleidomastoid was reapproximated with interrupted 3- 0 Vicryl. Platelet rich and platelet poor plasma were infused into the wound. A TLS drain was brought through a separate stab incision and sutured in place with 0 silk suture. The platysma was reapproximated with running 3-0 Vicryl. Local anesthetic was infused in the skin. A 3-0 Monocryl was used to reapproximate the skin. A sterile dressing was applied. The patient was extubated, taken to the recovery room in stable condition. She was alert and had no focal neurologic deficits.
[2017-03-24] MEDS ORDERED: Albumin Human 5% 0 GM/0 ML VIAL ONE (16:43)
[2017-03-24 17:03] LABS: Basophils % 0.5 %; Eosinophils # 0.3 K/mcL (0.0-0.6); Eosinophils % 3.2 %; Hematocrit 21.5 % (35.3-44.9); Hemoglobin 6.4 g/dL (11.5-15.4); Immature Platelets 14.7 % (1.1-6.1); Lymphocytes # 2.2 K/mcL (0.6-4.6); Lymphocytes % 26.1 %; Mean Corpuscular HGB Conc 29.8 g/dL (31.6-35.5); Mean Corpuscular Hemoglobin 30.9 pg (28.0-33.3); Mean Corpuscular Volume 103.9 fL (83.0-100.0); Mean Platelet Volume 13.1 fL (9.4-12.4); Monocytes # 0.7 K/mcL (0.0-1.3); Monocytes % 8.3 %; Neutrophils # 5.1 K/mcL (1.6-8.9); Nucleated Red Blood Cells 0.4 /100 WBC (0); Platelet Count 213 K/mcL (140-400); Red Blood Count 2.07 M/mcL (3.82-4.97); Red Cell Distribution Width 17.3 % (11.5-14.5); Segmented Neutrophils % 60.9 %
[2017-03-24] MEDS ORDERED: 0.9 % Sodium Chloride 500 ML ONE ×2 (17:10→22:51)
[2017-03-24 17:23] LABS: Hypochromasia Present (Not Present); Platelet Estimate Normal (Normal)
--- NOTE | 2017-03-24 17:28 | Anesthesia Evaluation Post Op ---
Date of Encounter: 03/24/17 Time of Encounter: 17:27 - Vital Signs Vital Signs: Last Vital Signs Temp 98.9 F 03/24/17 16:35 Pulse 107 03/24/17 16:55 Resp 22 03/24/17 16:55 BP 110/51 03/24/17 16:55 Pulse Ox 96 03/24/17 16:55 - Lungs Lungs: Clear Ascult./Percussion - Airway Airway: Non-obstructed - Cardiovascular Regular Rate - Mental Status Mental Status: Alert & Oriented, Answers Appropriately - Pain Pain Scale: 2 - Nausea Vomiting Nausea Vomiting: Not Present - Hydration Hydration: Ice chips - Discharge PostOp Status: Transfer Patient to floor
[2017-03-24] MEDS ORDERED: *HR* Morphine 2 MG/ML SYRINGE IVP PRN (17:31)
[2017-03-24] MEDS ORDERED: Acetaminophen 325 MG TABLET PO PRN (17:31)
[2017-03-24] MEDS ORDERED: NON-FORMULARY MEDICATION 1 EACH EACH (Oxygen [Oxygen] 2 L) NS SCH (17:31)
[2017-03-24] MEDS ORDERED: Ondansetron 4 MG/2 ML VIAL IVP PRN (17:31)
[2017-03-24] MEDS ORDERED: *HR* HYDROcodone/Acet 5/325 mg TABLET PO PRN (17:31)
[2017-03-24] MEDS ORDERED: *HR* Labetalol 20 MG/4 ML SYRINGE IVP PRN (17:31)
[2017-03-24] MEDS ORDERED: Naloxone 0.4 MG/ML INJ IVP PRN (17:31)
[2017-03-24] MEDS ORDERED: *HR* OxyCODONE Immed Rel 5 MG TABLET PO PRN (17:31)
[2017-03-24] MEDS ORDERED: Albuterol 2.5 MG/3 ML NEBULIZER IH PRN (17:31)
--- NOTE | 2017-03-24 17:33 | Event Note ---
Date of Encounter: 03/24/17 Time of Encounter: 17:05 The patient is seen in the recovery room. She is alert and comfortable. She is hemodynamically stable. Her hemoglobin is currently 6.4. This is not consistent with peripoerative blood loss. She has persistent anemia that has not progressed. She has a history of GI bleeding and did receive heparin intraoperatively. Gastroenterology will be consulted. Dr. Pollock has evaluated and treated the patient. The patient will also receive 2 units of PRBCs. Her care was discussed with the PACU team, Dr[facility] Trivedi, [facility] and her family.
[2017-03-24] MEDS ORDERED: D5% in Water 1,000 ML IVC PRN (17:38)
[2017-03-24] MEDS ORDERED: *HR* Dextrose 50 % in Water (Syg) 50 ML SYRINGE IVP PRN (17:38)
[2017-03-24] MEDS ORDERED: Dextrose Gel 15 GM PO PRN ×2 (17:38)
[2017-03-24] MEDS ORDERED: *HR* Heparin 5,000 UNIT/ML VIAL SQ SCH (18:00)
[2017-03-24] MEDS: *HR* Metoprolol 5 MG/5 ML VIAL IVP SCH ×2 (18:48→23:10)
[2017-03-24 19:21] LABS: INR 1.2
[2017-03-24 19:23] LABS: Activated Partial Thrombo Time 25.8 Seconds (26.0-36.0)
[2017-03-24 19:26] LABS: Prothrombin Time 13.2 Seconds (9.4-12.1)
[2017-03-24] MEDS: ceFAZolin 2,000 MG in D5% in Water 100 ML IVPB SCH (20:14)
[2017-03-24] MEDS ORDERED: Budesonide/Formoterol 80/4.5 MDI IH SCH (21:00)
[2017-03-25] MEDS: ceFAZolin 2,000 MG in D5% in Water 100 ML IVPB SCH (03:16)
[2017-03-25 05:39] LABS: BUN/Creatinine Ratio 28 (6-26); Blood Urea Nitrogen 29 mg/dL (7-20); Calcium 8.1 mg/dL (8.6-10.8); Carbon Dioxide 27 mEq/L (19-29); Chloride 103 mEq/L (98-109); Glucose 223 mg/dL (70-99); Osmolality,Calculated 303 (280-300); Potassium 4.3 mEq/L (3.5-4.5); Sodium 140 mEq/L (136-145); eGFR For African Americans > 60 (> 60); eGFR For Non-African Americans 51 (> 60)
[2017-03-25 06:32] LABS: Basophils % 0.4 %; Eosinophils # 0.3 K/mcL (0.0-0.6); Eosinophils % 4.4 %; Hematocrit 24.5 % (35.3-44.9); Hemoglobin 7.7 g/dL (11.5-15.4); Immature Granulocytes % 0.6 % (0-4); Immature Platelets 16.3 % (1.1-6.1); Lymphocytes # 1.3 K/mcL (0.6-4.6); Lymphocytes % 18.6 %; Mean Corpuscular HGB Conc 31.4 g/dL (31.6-35.5); Mean Corpuscular Hemoglobin 30.2 pg (28.0-33.3); Mean Corpuscular Volume 96.1 fL (83.0-100.0); Mean Platelet Volume 13.2 fL (9.4-12.4); Monocytes # 0.6 K/mcL (0.0-1.3); Monocytes % 9.1 %; Neutrophils # 4.6 K/mcL (1.6-8.9); Nucleated Red Blood Cells 0.4 /100 WBC (0); Platelet Count 180 K/mcL (140-400); Red Blood Count 2.55 M/mcL (3.82-4.97); Red Cell Distribution Width 18.8 % (11.5-14.5); Segmented Neutrophils % 66.9 %
[2017-03-25] MEDS: *HR* Metoprolol 5 MG/5 ML VIAL IVP SCH ×3 (07:40→18:30)
[2017-03-25] MEDS: Furosemide 20 MG TABLET PO SCH (08:16)
[2017-03-25] MEDS: Cyanocobalamin (B-12) 1,000 MCG TABLET PO SCH (08:16)
[2017-03-25] MEDS: Cholecalciferol (D-3) 1,000 UNIT TABLET PO SCH (08:16)
[2017-03-25] MEDS: Folic Acid 1 MG TABLET PO SCH (08:16)
[2017-03-25] MEDS: Aspirin Enteric Coated 81 MG Tablet PO SCH (08:16)
[2017-03-25] MEDS: Budesonide/Formoterol 80/4.5 MDI IH SCH ×2 (08:43→19:51)
[2017-03-25] MEDS ORDERED: *HR* Metformin 500 MG TABLET PO SCH (09:00)
[2017-03-25] MEDS: Insulin LISPRO 300 UNITS/3 ML VIAL SQ SCH ×3 (09:15→18:27)
--- NOTE | 2017-03-25 11:03 | Discharge Summary ---
Date of Encounter: 03/26/17 Time of Encounter: 07:45 - Discharge Diagnosis (1) Carotid stenosis, bilateral Priority: Primary Status: Chronic Comments: The patient is postoperative day #2 after a reoperative right carotid endarterectomy taht was discontinued due to intraoperative hemodynamic instability. She is alert and comfortable without focal neurologic deficits. Her wound is healing well. She will be discharged today. (2) Chronic anemia Priority: Secondary Status: Chronic Comments: The patient has chronic anemia with a history of recurrent GI bleeding. The patients intraoperative hemodynamic instability is attributed to an ongoing recurrent GI bleed that was likely present on admission. This may have been exacerbated after heparin was given intraoperatively. The patient has remained hemodyamically stable postoperatively. She was seen by GI and capsule endoscopy as an outpatient was recommended. Her hemoglobin remains stable since her transfusions. (3) Essential hypertension Priority: Secondary Status: Chronic (4) Mixed hyperlipidemia Priority: Secondary Status: Chronic (5) Sleep apnea Priority: Secondary Status: Chronic Qualifiers: Sleep apnea type: obstructive Qualified Code(s): G47.33 - Obstructive sleep apnea (adult) (pediatric) (6) GI bleed Priority: Secondary Status: Chronic Comments: The patient has chronic GI bleeding. She has been evaluated and scoped by GI more than once. She was seen in consult and capsule endoscopy was recommended as an outpatient. Qualifiers: GI bleed type/associated pathology: melena Qualified Code(s): K92.1 - Melena (7) COPD (chronic obstructive pulmonary disease) Priority: Secondary Status: Chronic Qualifiers: COPD type: emphysema Emphysema type: panlobular Qualified Code(s): J43.1 - Panlobular emphysema (8) Type 2 diabetes mellitus with other circulatory complications Priority: Secondary Status: Chronic - Discharge Medications Prescriptions: HYDROcodone/Acet 5/325 mg [[place] 5-325 mg] 1 tab PO Q4H PRN #20 tablet PRN Reason: postoperative pain Home Medications: Albuterol Sulfate [Albuterol Inhaler] 2 puff IH Q4HR PRN 02/27/16 [History] Aspirin [Adult Low Dose Aspirin EC] 81 mg PO DAILY 02/27/16 [History] Cholecalciferol (Vitamin D3) [Vitamin D3] 5,000 unit PO Q48H 02/27/16 [History] Clopidogrel [Plavix] 75 mg PO HS 02/27/16 [History] Fluticasone/Salmeterol [Advair 250-50 Diskus] 1 puff IH BID 02/27/16 [History] Furosemide [Lasix] 20 mg PO DAILY 02/27/16 [History] Lisinopril [Zestril] 20 mg PO HS 02/27/16 [History] Tiotropium [Spiriva] 1 cap IH DAILY 02/27/16 [History] Oxygen 2 l NS AD 12/10/16 [History] Cyanocobalamin (B-12) [Vitamin B12] 1,000 mcg PO DAILY #90 tablet 12/30/16 [Rx] Cyclobenzaprine HCl 5 mg PO TID PRN #0 12/30/16 [Rx] Ferrous Sulfate 325 mg PO BIDWM #180 tablet 12/30/16 [Rx] Folic Acid 1 mg PO DAILY #90 tablet 12/30/16 [Rx] Pantoprazole Sodium [Protonix] 40 mg PO DAILY #90 [id number] 12/30/16 [Rx] Atorvastatin [Lipitor] 40 mg PO HS 02/05/17 [History] Metformin HCl [Metformin HCl ER] 1,000 mg PO DAILY #30 [id number] 02/06/17 [Rx] Albuterol Neb [Proventil Neb] 2.5 mg IH Q2H PRN #0 inhsol 02/11/17 [Rx] Insulin ASPART [Novolog Flexpen] 6 - 8 unit SQ TID 03/24/17 [History] Insulin Glargine,Hum.rec.anlog [Lantus Solostar] 18 unit SQ HS 03/24/17 [History ] Lactulose [Enulose] 10 gm PO DAILY PRN 03/24/17 [History] Pregabalin [Lyrica] 150 mg PO BID 03/24/17 [History] HYDROcodone/Acet 5/325 mg [[place] 5-325 mg] 1 tab PO Q4H PRN #20 tablet 03/25/17 [Rx] Allergies/Adverse Reactions: Allergies No Known Allergies Allergy (Verified 02/08/17 15:41) Procedures/tests Complete & Pending: Procedures Performed prior 72 hours Category Date Time Status ECG 12 lead ECG [ECG] Routine Y 03/24/17 11:31 Completed Date of admission: 03/24/17 18:41 Primary care physician: Joe King MD Consults: 03/24/17 17:40 Consult to Gastroenterology [CONS] Routine Consulting Provider: Gastroenterology Nivia Reason for Consult: Recurrent anemia, history of GI bleeding Call Completed: Yes Procedure(s) Performed: Reopertive right carotid endarterectomy that was discontinued intraoperatively due to hemodynamic instability. Discharging clinician: Lyle Arias Anticipated date of discharge: 03/26/17 - Patient Status Disposition: Home, Self-Care Condition: Good Functional capacity at discharge: independent ambulation Overall status at discharge: patient is progressing back to baseline - Discharge Instructions Instructions: Hydrocodone/Acetaminophen (By mouth), Peripheral Vascular Disorders (DC), Anemia (GEN) Follow Up With: Joe King MD [Primary Care Provider] - 04/01/17 2:00 pm (YOUR APPOINTMENT FOR 04-19 WILL BE DISCUSSED AT THE APPOINTMENT ON 04-01) Lyle Arias MD [Partnered Physician] - 05/05/17 1:00 pm Mari Pollock MD [Partnered Physician] - 04/28/17 3:50 pm () - Diet and Activity Activity: increase activity as tolerated Diet: advance to your usual diet - Hospital Course Hospital course: Ms. Dacosta is a 81 year old female with a history of carotid stenosis, hypertension, hyperlipidemia, sleep apnea, chronic anemia and recurrent GI bleeding. The patient was admitted on 03/24. She as taken to the OR for a reoperative right carotid endarterectomy. She became hemodynamically unstable during the procedure and the procedure was safely discontinued. She awoke from anesthesia without neuroplogic deficits. She was noted to be severely anemic after the surgery despite minimal operative blood loss. She received PRBCs and remained hemodynamically stable postoperatively. She was evaluated by GI and given her multiple prior endoscopic procedures, it was determined that she would need capsule endoscopy. The patient did have a large melanotic stool during her hospitalization. She also had an episode of sleep apnea while resting on postoperative day #1. She was discharged on postoperative day #2 in stable condition without complication. - Time Spent with Patient Total time spent providing and/or coordinating discharge services: Exam Vital Signs, Last 4 Hours Temp Pulse Resp BP Pulse Ox 03/25/17 10:02 97.5 F L 90 16 128/58 03/25/17 09:47 98.0 F 87 18 132/59 93 03/25/17 09:37 98.0 F 89 18 124/64 93 03/25/17 08:44 20 100 03/25/17 08:09 97.5 F L 77 20 134/90 100 03/25/17 07:21 87 General: Present: Conversant, No Apparent Distress HEENT: Present: Pupils equal Neck: Present: Other (Incision clean, dry and intact without erythema or drainage, no hematoma, expected ecchymosis) Cardiac: Present: No Murmur Lungs: Present: Normal Breath Sounds Neuro: Present: Alert and responsive, No focal deficits noted Abdomen: Present: Soft Vascular: Present: Normal capillary refill Skin: Present: No rashes noted on visualized skin - VTE Documentation of Mechanical Device: Intermittent pneumatic compression device
--- NOTE | 2017-03-25 12:20 | Gastroenterology Consult Note ---
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 Continue PPI. 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 On 02/10/2017 Dr. Pollock completed small bowel enteroscopy with no evidence of bleeding noted. Recommend capsule endoscopy as an outpatient. Qualifiers: Anemia type: iron deficiency Iron deficiency anemia type: chronic blood loss Qualified Code(s): D50.0 - Iron deficiency anemia secondary to blood loss (chronic) - Time Spent With Patient Total time spent is greater than 50% in coordination of care (as documented) at patient's floor/unit and/or counseling patient: GI History of Present Illness - Data of Consult Patient: known to practice within the last 3 years Consult date: 03/25/17 Requesting Physician: Lyle Arias MD - Consult Narrative Reason for consult: anemia History of present illness: Ms. Dacosta is a 81 year old female with PMHx of arthritis, asthma, COPD, CAD, CVA, DM, GERD, GI bleed, HLD, HTN, and recurrent anemia. She was admitted and had a right neck exploration by Dr. Arias. Following the procedure, her Hgb was noted to be 6.4, which was not consistent with blood loss during the surgery. She was given 2 units PRBC and we were consulted to evaluate her anemia. Procedures: Small bowel enteroscopy 02/10/2017 Dr. Pollock: Normal esophagus, medium sized hiatal hernia. 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 Colonoscopy 12/29/2016 with diverticulosis and tubular adenoma. NSAIDs: ASA Anticoagulation: Plavix Past Med Surg Social Fam HX - Past Medical History Medical history: arthritis, asthma, cancer, COPD, coronary artery disease, CVA, diabetes, GERD, GI bleed, hyperlipidemia, hypertension, osteoporosis, peripheral artery disease, other Psychiatric history: no psych history - Past Surgical History Surgical History: cholecystectomy, other - Social History Smoking Status: Former smoker Smokeless Tobacco Status: No Alcohol use: none Drug use: none - Family History Mother Hx Family Endocrine Disorder: Yes (DM) - Gastrointestinal Gastrointestinal: Present: as per HPI - Constitutional Constitutional: as per HPI - EENT Eyes: as per HPI Ears: Present: as per HPI Nose, mouth and throat: Present: as per HPI - Cardiovascular Cardiovascular ROS: Present: as per HPI - Respiratory Respiratory IM: Present: as per HPI - Genitourinary Genitourinary: Absent: change in color, Urinary frequency - Neurological ROS Neurological GI: Present: as per HPI - Hematologic/Lymphatic Hematologic/Lymphatic pediatric: Present: as per HPI - Musculoskeletal Musculoskeletal ROS GI: Present: as per HPI - Integumentary Integumentary GI: Present: as per HPI - Psychiatric ROS Psychiatric GI: Present: as per HPI - Endocrine Endocrine IM: Present: as per HPI - Constitutional Vitals: Temp Pulse Resp BP Pulse Ox 97.6 F 89 20 134/83 93 03/25/17 11:05 03/25/17 11:25 03/25/17 11:05 03/25/17 11:05 03/25/17 09:47 General appearance: Present: cooperative, A&O X 3, no acute distress, answers questions appropriately - Head Head exam: Present: atraumatic, normocephalic - Eye Eye exam: Present: normal appearance, sclera anicteric - ENT ENT exam: Present: mucous membranes dry - Neck Neck exam general surgery: Present: normal inspection, trachea midline Additional comments: Right neck surgical dressing. - Respiratory Respiratory exam: Present: decreased breath sounds, CTAB. Absent: rales, rhonchi - Cardiovascular Cardiovascular exam: Present: RRR, +S1, +S2 - GI/Abdominal GI/Abdominal exam: Present: soft, no peritoneal signs. Absent: distended, firm , guarding, tenderness - Rectal Rectal exam: Present: deferred - Extremities Exam Extremities exam: Present: warm - Neurological Exam Neurological exam: Present: no focal deficits - Psychiatric Psychiatric exam: Present: normal affect, normal mood - Skin Skin exam: Present: dry, intact, normal color, warm Results - Labs CBC & Chem 7: 03/25/17 05:15 03/25/17 04:15 Labs: Last Result Calcium 8.1 mg/dL (8.6-10.8) L 03/25/17 04:15 Entire Visit Hgb 7.7 g/dL (11.5-15.4) L 03/25/17 05:15 Hct 24.5 % (35.3-44.9) L 03/25/17 05:15 PT 13.2 Seconds (9.4-12.1) H 03/24/17 19:08 - ABG ABG results: PT/INR, D-dimer PT 13.2 Seconds (9.4-12.1) H 03/24/17 19:08 Consult Discharge Plan - Plan Referrals: Joe King MD [Primary Care Provider] - 04/01/17 2:00 pm (YOUR APPOINTMENT FOR 04-19 WILL BE DISCUSSED AT THE APPOINTMENT ON 04-01) Lyle Arias MD [Partnered Physician] - 05/05/17 1:00 pm Mari Pollock MD [Partnered Physician] - (SENT WEB REQUEST ON 03-25-17 @ [id number]) Prescriptions: HYDROcodone/Acet 5/325 mg [[place] 5-325 mg] 1 tab PO Q4H PRN #20 tablet PRN Reason: postoperative pain <Mari Pollock - Last Filed: 03/25/17 17:32> Date of Encounter: 03/25/17 Time of Encounter: 13:00 - Time Spent With Patient Total time spent is greater than 50% in coordination of care (as documented) at patient's floor/unit and/or counseling patient: GI History of Present Illness - Data of Consult Requesting Physician: Lyle Arias MD - Consult Narrative History of present illness: Ms. Dacosta is a 81 year old female - Constitutional Vitals: Temp Pulse Resp BP Pulse Ox 98.1 F 88 18 113/85 100 03/25/17 16:28 03/25/17 16:28 03/25/17 16:28 03/25/17 16:28 03/25/17 16:28 Results - Labs CBC & Chem 7: 03/25/17 13:20 03/25/17 04:15 Labs: Last Result Calcium 8.1 mg/dL (8.6-10.8) L 03/25/17 04:15 Entire Visit Hgb 9.3 g/dL (11.5-15.4) L D 03/25/17 13:20 Hct 30.3 % (35.3-44.9) L 03/25/17 13:20 PT 13.2 Seconds (9.4-12.1) H 03/24/17 19:08 - ABG ABG results: PT/INR, D-dimer PT 13.2 Seconds (9.4-12.1) H 03/24/17 19:08 - Impressions Impressions Chest X-Ray 03/25/17 12:35 IMPRESSION: Slightly increased ground-glass attenuation in the right lower lung zone. Pattern may represent atelectasis or asymmetric edema. Developing pneumonitis cannot be excluded. D/ / Rene Hutchison MD / Rene Hutchison MD Interpreting Provider: Rene Hutchison MD - Attending Attestation I examined this patient and my medical decision-making was reviewed with the VENDING TECHNICIAN/PA/Advanced Practice Nurse/Resident Physician. I agree with the documented findings, disposition and treatment plan as described except to the extent set forth below.
--- NOTE | 2017-03-25 12:55 | Vascular/[facility] Progress Note ---
Date of Encounter: 03/25/17 Time of Encounter: 12:30 - Assessment and plan (1) Carotid artery stenosis Current Visit: No Status: Chronic The patient has a history of carotid stenosis. She was undergoing a right carotid endarterectomy yesterday when she became hemodynamically unstable. The surery was at a point were it could safely be ended. The patient awoke without any deficits and has remained stable. She has expected ecchymosis and no hematoma. SHe required 3 units of PRBCs due to her chronic anemia and recurrent GI bleeding. She was seen by GI and outpatient capsule endoscopy was recommended. The patient has sleep apnea and had a hypoxic episode while sleeping. Her chest xray is unremarkable and she has improved with breathing treatments. She will be monitored overnight and labs will be checked in the morning. (2) Sleep apnea Current Visit: Yes Status: Chronic Qualifiers: Sleep apnea type: obstructive Qualified Code(s): G47.33 - Obstructive sleep apnea (adult) (pediatric) (3) Chronic anemia Current Visit: Yes Status: Chronic (4) Mixed hyperlipidemia Current Visit: No Status: Chronic (5) Essential hypertension Current Visit: No Status: Chronic (6) COPD (chronic obstructive pulmonary disease) Current Visit: No Status: Chronic Qualifiers: COPD type: emphysema Emphysema type: panlobular Qualified Code(s): J43.1 - Panlobular emphysema - Subjective Interval history: The patient reports that she is feeling well this afternoon. She has sleep apnea and desaturated while resting this afternoon. She states that she has not stated using CPAP yet. She denies any chest pain or shortness of breath. Vital Signs, Last 4 Hours Temp Pulse Resp BP Pulse Ox 03/25/17 11:25 89 03/25/17 11:05 97.6 F 92 20 134/83 03/25/17 10:02 97.5 F L 90 16 128/58 03/25/17 09:47 98.0 F 87 18 132/59 93 03/25/17 09:37 98.0 F 89 18 124/64 93 - Physical Examination General: Present: Conversant, No Apparent Distress HEENT: Present: Pupils equal Neck: Present: Other (incision clean and dry, no significant hematoma, expected subcutaneous ecchymosis noted at inferior incision and onto chin). Absent: Lymphadenopathy, Tracheal deviation Lungs: Present: Normal Breath Sounds, No Wheeze, Rales, Rhonchi Neuro: Present: Alert and responsive, No focal deficits noted, Motor nerves grossly intact, Sensory nerves grossly intact Vascular: Present: Normal capillary refill. Absent: Cyanosis, Edema Abdomen: Present: Soft Skin: Present: No rashes noted on visualized skin - VTE Documentation of Mechanical Device: Intermittent pneumatic compression device Results 03/26/17 03:55 03/25/17 04:15 Lab Results, Last 24 hours 03/24/17 03/24/17 03/25/17 16:56 19:08 04:15 WBC 8.3 Hgb 6.4 L D Hct 21.5 L Plt Count 213 INR 1.2 APTT 25.8 L Sodium 140 Potassium 4.3 Chloride 103 Carbon Dioxide 27 BUN 29 H Creatinine 1.04 Glucose 223 H Calcium 8.1 L 03/25/17 05:15 WBC 6.9 Hgb 7.7 L Hct 24.5 L Plt Count 180 INR APTT Sodium Potassium Chloride Carbon Dioxide BUN Creatinine Glucose Calcium - Imaging / Other Tests Chest Xray: report reviewed, image reviewed Consult Discharge Plan - Plan Referrals: Joe King MD [Primary Care Provider] - 04/01/17 2:00 pm (YOUR APPOINTMENT FOR 6-12 WILL BE DISCUSSED AT THE APPOINTMENT ON 04-01) Lyle Arias MD [Partnered Physician] - 05/05/17 1:00 pm Mari Pollock MD [Partnered Physician] - (SENT WEB REQUEST ON 03-25-17 @ [id number]) Prescriptions: HYDROcodone/Acet 5/325 mg [[place] 5-325 mg] 1 tab PO Q4H PRN #20 tablet PRN Reason: postoperative pain
[2017-03-25 13:43] LABS: Basophils # 0.1 K/mcL (0.0-0.2); Basophils % 0.6 %; Eosinophils # 0.4 K/mcL (0.0-0.6); Eosinophils % 4.6 %; Hematocrit 29.7 % (35.3-44.9); Immature Granulocytes % 0.4 % (0-4); Lymphocytes # 1.2 K/mcL (0.6-4.6); Mean Corpuscular HGB Conc 31.3 g/dL (31.6-35.5); Mean Corpuscular Hemoglobin 30.4 pg (28.0-33.3); Mean Corpuscular Volume 97.1 fL (83.0-100.0); Mean Platelet Volume 12.8 fL (9.4-12.4); Monocytes # 0.6 K/mcL (0.0-1.3); Monocytes % 7.3 %; Neutrophils # 6.1 K/mcL (1.6-8.9); Nucleated Red Blood Cells 0.2 /100 WBC (0); Platelet Count 178 K/mcL (140-400); Red Blood Count 3.06 M/mcL (3.82-4.97); Red Cell Distribution Width 18.5 % (11.5-14.5); Segmented Neutrophils % 73.1 %
[2017-03-25 13:44] LABS: Hematocrit 30.3 % (35.3-44.9); Hemoglobin 9.3 g/dL (11.5-15.4)
--- NOTE | 2017-03-25 17:16 | Electrocardiograph Report ---
[facility] Test Date: 2017-03-24 Pat Name: Kiesha Redifer Department: 106 Room: 2N04 Gender: F Fingernail Technician: LORA : 1935 Requested By: Lyle Arias Order Number: [id number] Reading MD: Bishnu Trujillo MD Measurements Intervals [place] Rate: 112 P: 65 GA: 145 QRS: 13 QRSD: 83 T: 64 QT: 312 QTc: 378 Interpretive Statements SINUS TACHYCARDIA WITH OCCASIONAL VENTRICULAR PREMATURE COMPLEXES POSSIBLE RIGHT VENTRICULAR CONDUCTION DELAY MODERATE ST DEPRESSION WARNING: DATA QUALITY MAY AFFECT INTERPRETATION Electronically Signed On 03-25-2017 17:15:00 EDT by Bishnu Trujillo MD
[2017-03-25] MEDS ORDERED: Lisinopril 20 MG TABLET PO SCH (21:00)
[2017-03-25] MEDS ORDERED: Temazepam 15 MG CAPSULE PO PRN (22:44)
[2017-03-26] MEDS: *HR* Metoprolol 5 MG/5 ML VIAL IVP SCH ×2 (01:07→06:23)
[2017-03-26 04:18] LABS: Hematocrit 29.2 % (35.3-44.9); Hemoglobin 9.1 g/dL (11.5-15.4)
[2017-03-26 07:14] VITALS: BP 97/72
[2017-03-26] MEDS: Insulin LISPRO 300 UNITS/3 ML VIAL SQ SCH (07:55)
[2017-03-26] MEDS: Furosemide 20 MG TABLET PO SCH (08:00)
[2017-03-26] MEDS: Cholecalciferol (D-3) 1,000 UNIT TABLET PO SCH (08:00)
[2017-03-26] MEDS: Aspirin Enteric Coated 81 MG Tablet PO SCH (08:00)
[2017-03-26] MEDS: Folic Acid 1 MG TABLET PO SCH (08:01)
[2017-03-26] MEDS: Cyanocobalamin (B-12) 1,000 MCG TABLET PO SCH (08:01)
[2017-03-26] MEDS: Budesonide/Formoterol 80/4.5 MDI IH SCH (08:09)
== END 2017-03-26 09:59 | disposition home or self-care (01) | DRG 37 ==
LOC: SAMDAY 10:51 → 2NNU 18:41
PROVIDERS: ADMIT Surgery; ATTEND Surgery

== ENCOUNTER 2017-04-14 13:25 | Inpatient (IN) ==
[2017-04-14] MEDS ORDERED: Ipratropium/Albuterol Neb 3 ML IH ONE (13:29)
--- NOTE | 2017-04-14 13:34 | Emergency Department Note ---
Disposition Clinical Impression: Anemia, GI bleed, Dyspnea, Weakness Disposition: Admitted As Inpatient Condition: Critical General Adult HPI - General Chief complaint: ED Shortness of Breath/Dyspnea Stated complaint: SOB, CP, weakness Time Seen by Provider: 04/14/17 13:28 - Related Data Home Medications Medication Instructions Recorded Confirmed Albuterol Sulfate [Albuterol 2 puff IH Q4HR PRN 02/27/16 04/14/17 Inhaler] Aspirin [Adult Low Dose Aspirin EC] 81 mg PO DAILY 02/27/16 04/14/17 Cholecalciferol (Vitamin D3) 5,000 unit PO Q48H 02/27/16 04/14/17 [Vitamin D3] Clopidogrel [Plavix] 75 mg PO HS 02/27/16 04/14/17 Fluticasone/Salmeterol [Advair 1 puff IH BID 02/27/16 04/14/17 250-50 Diskus] Furosemide [Lasix] 20 mg PO DAILY 02/27/16 04/14/17 Tiotropium [Spiriva] 18 mcg IH DAILY 02/27/16 04/14/17 Oxygen 2 l NS AD 12/10/16 04/14/17 Atorvastatin [Lipitor] 40 mg PO HS 02/05/17 04/14/17 Insulin ASPART [Novolog Flexpen] 6 - 8 unit SQ TID 03/24/17 04/14/17 Insulin Glargine,Hum.rec.anlog 18 unit SQ HS 03/24/17 04/14/17 [Lantus Solostar] Lactulose [Enulose] 10 gm PO DAILY PRN 03/24/17 04/14/17 Pregabalin [Lyrica] 150 mg PO BID 03/24/17 04/14/17 Lisinopril [Zestril] 10 mg PO DAILY 04/14/17 04/14/17 Previous Rx's Medication Instructions Recorded Cyanocobalamin (B-12) [Vitamin B12] 1,000 mcg PO DAILY #90 tablet 12/30/16 Cyclobenzaprine HCl 5 mg PO TID PRN #0 12/30/16 Ferrous Sulfate 325 mg PO BIDWM #180 tablet 12/30/16 Folic Acid 1 mg PO DAILY #90 tablet 12/30/16 Pantoprazole Sodium [Protonix] 40 mg PO DAILY #90 12/30/16 Metformin HCl [Metformin HCl ER] 1,000 mg PO DAILY #30 [id number] 02/06/17 Allergies Allergy/AdvReac Type Severity Reaction Status Date / Time No Known Allergies Allergy Verified 02/08/17 15:41 Past Medical History - Past Medical History Medical history: Reports: arthritis, asthma, cancer, COPD, coronary artery disease, CVA, diabetes, GERD, GI bleed, hyperlipidemia, hypertension, osteoporosis, peripheral artery disease, other Surgical history: Reports: cholecystectomy, other Psychiatric history: Reports: no psych history DRYING MACHINE TENDER history: Reports: no DRYING MACHINE TENDER history - Social History Smoking Status: Former smoker Smokeless Tobacco Status: No Alcohol use: Reports: none Drug use: Reports: none Course Vital Signs Temperature 97.4 F L 04/14/17 13:27 Pulse Rate 98 04/14/17 13:27 Respiratory Rate 20 04/14/17 13:27 Blood Pressure 101/95 04/14/17 13:27 O2 Sat by Pulse Oximetry 87 04/14/17 13:27 Temperature 98.6 F 04/14/17 21:55 Pulse Rate 105 04/14/17 21:55 Respiratory Rate 20 04/14/17 21:55 Blood Pressure 112/69 04/14/17 21:55 O2 Sat by Pulse Oximetry 94 04/14/17 21:55 Oxygen Delivery Oxygen Delivery Room Air Medical Decision Making - Lab Data Result diagrams: 04/14/17 15:04 04/14/17 15:04 Lab Results 04/14/17 04/14/17 04/14/17 Range/Units 13:50 15:04 15:04 WBC 13.6 H (4.3-11.1) K/mcL RBC 1.68 L (3.82-4.97) M/mcL Hgb 5.2 L* (11.5-15.4) g/dL Hct 17.9 L (35.3-44.9) % MCV 106.5 H (83.0-100.0) fL MCH 31.0 (28.0-33.3) pg MCHC 29.1 L (31.6-35.5) g/dL RDW 17.4 H (11.5-14.5) % Plt Count 245 (140-400) K/mcL MPV 12.5 H (9.4-12.4) fL Immature Gran % 0.8 (0-4) % Seg Neutrophils % 90.9 % Lymphocytes % 4.6 % Monocytes % 3.5 % Eosinophils % 0.1 % Basophils % 0.1 % Neutrophils # 12.4 H (1.6-8.9) K/mcL Lymphocytes # 0.6 (0.6-4.6) K/mcL Monocytes # 0.5 (0.0-1.3) K/mcL Eosinophils # 0.0 (0.0-0.6) K/mcL Basophils # 0.0 (0.0-0.2) K/mcL Nucleated RBCs/100 WBC 0.1 H (0) /100 WBC Platelet Estimate Normal (Normal) Polychromasia 1+ A (Not Present) Poikilocytosis 1+ A (Not Present) Basophilic Stippling 1+ A (Not Present) Anisocytosis 1+ A (Not Present) Macrocytosis Present A (Not Present) ABG pH 7.40 (7.32-7.45) pH Units ABG pCO2 47 H (35-45) mmHg ABG pO2 237 H (85-104) mmHg ABG HCO3 29.1 H (21-27) mEQ/L ABG Total CO2 30.5 H (20-26) mEq/L ABG O2 Saturation 100 H (95-98) % ABG Base Excess 4.0 H (-2.0 to 3.0) mEq/L Blood Gas Modality BIPAP Inspired O2 60 % Sodium 145 (136-145) mEq/L Potassium 4.8 H (3.5-4.5) mEq/L Chloride 106 (98-109) mEq/L Carbon Dioxide 31 H (19-29) mEq/L BUN 48 H (7-20) mg/dL Creatinine 1.11 (0.57-1.11) mg/dL Est GFR ( Amer) 57 L (> 60) Est GFR (Non-Af Amer) 47 L (> 60) BUN/Creatinine Ratio 43 H (6-26) Glucose 115 H (70-99) mg/dL Calculated Osmolality 314 H (280-300) Calcium 8.8 (8.6-10.8) mg/dL Total Bilirubin 0.4 (0.2-1.2) mg/dL Direct Bilirubin 0.1 (0.0-0.5) mg/dL Indirect Bilirubin 0.3 (0.0-1.2) mg/dL AST 16 (5-34) Units/L ALT 9 (0-55) Units/L Alkaline Phosphatase 44 (38-126) Units/L Troponin I (0-0.03) ng/mL B-Natriuretic Peptide (0-100) pg/mL Serum Total Protein 5.7 L (6.0-8.3) g/dL Albumin 3.1 L (3.5-5.0) g/dL Globulin 2.6 (2.4-3.5) g/dL Albumin/Globulin Ratio 1.2 (1.1-2.2) Blood Type Antibody Screen Crossmatch 04/14/17 04/14/17 04/14/17 Range/Units 15:04 15:04 15:04 WBC (4.3-11.1) K/mcL RBC (3.82-4.97) M/mcL Hgb (11.5-15.4) g/dL Hct (35.3-44.9) % MCV (83.0-100.0) fL MCH (28.0-33.3) pg MCHC (31.6-35.5) g/dL RDW (11.5-14.5) % Plt Count (140-400) K/mcL MPV (9.4-12.4) fL Immature Gran % (0-4) % Seg Neutrophils % % Lymphocytes % % Monocytes % % Eosinophils % % Basophils % % Neutrophils # (1.6-8.9) K/mcL Lymphocytes # (0.6-4.6) K/mcL Monocytes # (0.0-1.3) K/mcL Eosinophils # (0.0-0.6) K/mcL Basophils # (0.0-0.2) K/mcL Nucleated RBCs/100 WBC (0) /100 WBC Platelet Estimate (Normal) Polychromasia (Not Present) Poikilocytosis (Not Present) Basophilic Stippling (Not Present) Anisocytosis (Not Present) Macrocytosis (Not Present) ABG pH (7.32-7.45) pH Units ABG pCO2 (35-45) mmHg ABG pO2 (85-104) mmHg ABG HCO3 (21-27) mEQ/L ABG Total CO2 (20-26) mEq/L ABG O2 Saturation (95-98) % ABG Base Excess (-2.0 to 3.0) mEq/L Blood Gas Modality Inspired O2 % Sodium (136-145) mEq/L Potassium (3.5-4.5) mEq/L Chloride (98-109) mEq/L Carbon Dioxide (19-29) mEq/L BUN (7-20) mg/dL Creatinine (0.57-1.11) mg/dL Est GFR ( Amer) (> 60) Est GFR (Non-Af Amer) (> 60) BUN/Creatinine Ratio (6-26) Glucose (70-99) mg/dL Calculated Osmolality (280-300) Calcium (8.6-10.8) mg/dL Total Bilirubin (0.2-1.2) mg/dL Direct Bilirubin (0.0-0.5) mg/dL Indirect Bilirubin (0.0-1.2) mg/dL AST (5-34) Units/L ALT (0-55) Units/L Alkaline Phosphatase (38-126) Units/L Troponin I 0.00 (0-0.03) ng/mL B-Natriuretic Peptide 539 H (0-100) pg/mL Serum Total Protein (6.0-8.3) g/dL Albumin (3.5-5.0) g/dL Globulin (2.4-3.5) g/dL Albumin/Globulin Ratio (1.1-2.2) Blood Type A POSITIVE Antibody Screen NEGATIVE Crossmatch See Detail Critical Care Time Critical Care Time: Yes Total Critical Care Time: 45 Attestation: She presented hypoxic requiring BiPAP therapy hemoglobin acutely low requiring consideration of transfusion of packed red blood cells Attestation Statement - Attestation Attestation: I examined this patient and my medical decision-making was reviewed with the FINE SANDER/PA/Advanced Practice Nurse/Resident Physician. I agree with the documented findings, disposition and treatment plan as described except to the extent set forth below. [id number] time provided Patient presents by EMS with reports of dyspnea. She was hypoxic prehospital requiring BiPAP therapy. She is alert and lucid at the time of my exam with a pulse ox in the high 80s on supplemental oxygen
[2017-04-14 13:57] LABS: ABG HCO3 29.1 mEQ/L (21-27); ABG Oxygen Saturation 100 % (95-98); ABG PCO2 47 mmHg (35-45); ABG PO2 237 mmHg (85-104); ABG TCO2 30.5 mEq/L (20-26)
[2017-04-14 13:59] LABS: Blood Gas FiO2 60 %
--- NOTE | 2017-04-14 14:24 | Emergency Department Note ---
Disposition Clinical Impression: Weakness Anemia Qualifiers: Anemia type: unspecified type Qualified Code(s): D64.9 - Anemia, unspecified GI bleed Qualifiers: GI bleed type/associated pathology: melena Qualified Code(s): K92.1 - Melena Dyspnea Qualifiers: Dyspnea type: unspecified Qualified Code(s): R06.00 - Dyspnea, unspecified Disposition: Admitted As Inpatient Condition: Critical Referrals: Joe King MD [Primary Care Provider] - Forms: ED Satisfaction Letter Time of Disposition: 16:21 SOB HPI - General Chief Complaint: ED Shortness of Breath/Dyspnea Stated Complaint: SOB, CP, weakness Time Seen by Provider: 04/14/17 13:28 Source: patient, EMS Limitations: no limitations Nursing Notes Reviewed: Yes Vital Signs Reviewed: Yes - History of Present Illness Mrs. Dacosta, 81-year-old female, presents from home via EMS with chief complaint of difficulty breathing, chest pain, sporadic extremity movement. Chest pain onset last night, described as focal, sharp, constant, right lower sternal border, nonradiating. Patient has history of ACS without stents. X Difficulty breathing onset last night. Has dyspnea at rest. Patient has history of COPD on 2 L oxygen continuous. She is still dyspneic on EMS' nonrebreather on arrival. Sporadic extremity movement onset last night. Described as unable to keep her arms and legs still. She has associated generalized weakness. She denies history of Parkinson's or use of any psychiatric medications. PMH: Hyperlipidemia, hypertension, diabetes type 2, COPD, short of sleep apnea, history of GI bleed with acute blood loss anemia, chronic iron deficient anemia , carotid artery stenosis one month post carotid endarterectomy, history of tremors and myoclonic jerking, [place] esophagus. Anriplatelet of aspirin and Plavix. No anticoagulant use. Patient center his bedside. She notes that, "he gets like this when her blood is low." Last transfusion was approximate 6 weeks ago. ROS: Positive: Difficulty breathing, chest pain, myoclonic jerking, generalized weakness, melena Negative: Fever, chills, nausea, vomiting, back pains, arm or jaw pains, abdominal pain, hematochezia - Related Data Home Medications Medication Instructions Recorded Confirmed Albuterol Sulfate [Albuterol 2 puff IH Q4HR PRN 02/27/16 04/14/17 Inhaler] Aspirin [Adult Low Dose Aspirin EC] 81 mg PO DAILY 02/27/16 04/14/17 Cholecalciferol (Vitamin D3) 5,000 unit PO Q48H 02/27/16 04/14/17 [Vitamin D3] Clopidogrel [Plavix] 75 mg PO HS 02/27/16 04/14/17 Fluticasone/Salmeterol [Advair 1 puff IH BID 02/27/16 04/14/17 250-50 Diskus] Furosemide [Lasix] 20 mg PO DAILY 02/27/16 04/14/17 Tiotropium [Spiriva] 18 mcg IH DAILY 02/27/16 04/14/17 Oxygen 2 l NS AD 12/10/16 04/14/17 Atorvastatin [Lipitor] 40 mg PO HS 02/05/17 04/14/17 Insulin ASPART [Novolog Flexpen] 6 - 8 unit SQ TID 03/24/17 04/14/17 Insulin Glargine,Hum.rec.anlog 18 unit SQ HS 03/24/17 04/14/17 [Lantus Solostar] Lactulose [Enulose] 10 gm PO DAILY PRN 03/24/17 04/14/17 Pregabalin [Lyrica] 150 mg PO BID 03/24/17 04/14/17 Lisinopril [Zestril] 10 mg PO DAILY 04/14/17 04/14/17 Previous Rx's Medication Instructions Recorded Cyanocobalamin (B-12) [Vitamin B12] 1,000 mcg PO DAILY #90 tablet 12/30/16 Cyclobenzaprine HCl 5 mg PO TID PRN #0 12/30/16 Ferrous Sulfate 325 mg PO BIDWM #180 tablet 12/30/16 Folic Acid 1 mg PO DAILY #90 tablet 12/30/16 Pantoprazole Sodium [Protonix] 40 mg PO DAILY #90 12/30/16 Metformin HCl [Metformin HCl ER] 1,000 mg PO DAILY #30 [id number] 02/06/17 Allergies Allergy/AdvReac Type Severity Reaction Status Date / Time No Known Allergies Allergy Verified 02/08/17 15:41 All systems ED: reviewed and negative except as stated. Past Medical History - Past Medical History Medical history: Reports: arthritis, asthma, cancer, COPD, coronary artery disease, CVA, diabetes, GERD, GI bleed, hyperlipidemia, hypertension, osteoporosis, peripheral artery disease, other Surgical history: Reports: cholecystectomy, other Psychiatric history: Reports: no psych history PHARMACIST IN CHARGE OWNER history: Reports: no PHARMACIST IN CHARGE OWNER history - Social History Smoking Status: Former smoker Smokeless Tobacco Status: No Alcohol use: Reports: none Drug use: Reports: none Physical Exam Vital Signs Reviewed General: Patient is alert, oriented, and in no acute distress. HEENT: No facial asymmetry. Head is normocephalic and atraumatic. PERRLA. Trachea midline. Cardiovascular: Heart regular rate and rhythm without clicks, rubs, gallops, or murmurs. No JVD. PMI nondisplaced. No pedal edema. Bilateral radial pulses 2 /4. Respiratory: Symmetric chest rise with good respiratory effort. Bilateral breath sounds are diminished but present on the right. Bilaterally diffuse wheezing without crackles or rhonchi. Abdomen: Obese. Bowel sounds present normoactive x-4 quadrants. Abdomen is soft, nondistended, and nontender. Rectal exam: Good sphincter tone. No observed or palpated hemorrhoids. Black stool on gloved finger. FOBT strongly positive. Musculoskeletal: Spontaneously moving all extremity. Psych: Patient's affect is appropriate for situation. - General Limitations: no limitations General appearance: alert Course Course Narrative: Patient placed on BiPAP as well as given nebulizer treatments. Her extremity movement has slowed and she is laying still and comfortable in bed. She appears to be much more comfortable on BiPAP and is tolerating it well. Patient is difficult IV access; will place midline power glide. Patient hemoglobin is 5.5. FOBT strongly positive positive; no overt red stool , coal black however patient does take iron supplements. Transfusion form has been completed. We will transfuse 2 units and provide IV bolus of Protonix.. By attending spoke with the admitting hospitalist, Dr. Ballard, who agrees to accept the patient. She remains on BiPAP and comfortable. Family and patient have been updated. They have no additional questions. They expressed some frustration as patient has been through this scenario several times with no definitive source of GI bleed found. Vital Signs Temperature 97.4 F L 04/14/17 13:27 Pulse Rate 98 04/14/17 13:27 Respiratory Rate 20 04/14/17 13:27 Blood Pressure 101/95 04/14/17 13:27 O2 Sat by Pulse Oximetry 87 04/14/17 13:27 Temperature 97.4 F L 04/14/17 13:27 Pulse Rate 110 04/14/17 15:42 Respiratory Rate 20 04/14/17 15:42 Blood Pressure 118/58 04/14/17 15:42 O2 Sat by Pulse Oximetry 100 04/14/17 15:42 Oxygen Delivery Oxygen Delivery Bipap Shortness of Breath/Dyspnea - Medical Records Medical records reviewed: Yes I reviewed the patient's medical records. - Lab Data Result diagrams: 04/14/17 15:04 04/14/17 15:04 Lab Results 04/14/17 04/14/17 04/14/17 Range/Units 13:50 15:04 15:04 WBC 13.6 H (4.3-11.1) K/mcL RBC 1.68 L (3.82-4.97) M/mcL Hgb 5.2 L* (11.5-15.4) g/dL Hct 17.9 L (35.3-44.9) % MCV 106.5 H (83.0-100.0) fL MCH 31.0 (28.0-33.3) pg MCHC 29.1 L (31.6-35.5) g/dL RDW 17.4 H (11.5-14.5) % Plt Count 245 (140-400) K/mcL MPV 12.5 H (9.4-12.4) fL Immature Gran % 0.8 (0-4) % Seg Neutrophils % 90.9 % Lymphocytes % 4.6 % Monocytes % 3.5 % Eosinophils % 0.1 % Basophils % 0.1 % Neutrophils # 12.4 H (1.6-8.9) K/mcL Lymphocytes # 0.6 (0.6-4.6) K/mcL Monocytes # 0.5 (0.0-1.3) K/mcL Eosinophils # 0.0 (0.0-0.6) K/mcL Basophils # 0.0 (0.0-0.2) K/mcL Nucleated RBCs/100 WBC 0.1 H (0) /100 WBC Platelet Estimate Normal (Normal) Polychromasia 1+ A (Not Present) Poikilocytosis 1+ A (Not Present) Basophilic Stippling 1+ A (Not Present) Anisocytosis 1+ A (Not Present) Macrocytosis Present A (Not Present) ABG pH 7.40 (7.32-7.45) pH Units ABG pCO2 47 H (35-45) mmHg ABG pO2 237 H (85-104) mmHg ABG HCO3 29.1 H (21-27) mEQ/L ABG Total CO2 30.5 H (20-26) mEq/L ABG O2 Saturation 100 H (95-98) % ABG Base Excess 4.0 H (-2.0 to 3.0) mEq/L Blood Gas Modality BIPAP Inspired O2 60 % Sodium 145 (136-145) mEq/L Potassium 4.8 H (3.5-4.5) mEq/L Chloride 106 (98-109) mEq/L Carbon Dioxide 31 H (19-29) mEq/L BUN 48 H (7-20) mg/dL Creatinine 1.11 (0.57-1.11) mg/dL Est GFR ( Amer) 57 L (> 60) Est GFR (Non-Af Amer) 47 L (> 60) BUN/Creatinine Ratio 43 H (6-26) Glucose 115 H (70-99) mg/dL Calculated Osmolality 314 H (280-300) Calcium 8.8 (8.6-10.8) mg/dL Total Bilirubin 0.4 (0.2-1.2) mg/dL Direct Bilirubin 0.1 (0.0-0.5) mg/dL Indirect Bilirubin 0.3 (0.0-1.2) mg/dL AST 16 (5-34) Units/L ALT 9 (0-55) Units/L Alkaline Phosphatase 44 (38-126) Units/L Troponin I (0-0.03) ng/mL B-Natriuretic Peptide (0-100) pg/mL Serum Total Protein 5.7 L (6.0-8.3) g/dL Albumin 3.1 L (3.5-5.0) g/dL Globulin 2.6 (2.4-3.5) g/dL Albumin/Globulin Ratio 1.2 (1.1-2.2) Blood Type Antibody Screen Crossmatch 04/14/17 04/14/17 04/14/17 Range/Units 15:04 15:04 15:04 WBC (4.3-11.1) K/mcL RBC (3.82-4.97) M/mcL Hgb (11.5-15.4) g/dL Hct (35.3-44.9) % MCV (83.0-100.0) fL MCH (28.0-33.3) pg MCHC (31.6-35.5) g/dL RDW (11.5-14.5) % Plt Count (140-400) K/mcL MPV (9.4-12.4) fL Immature Gran % (0-4) % Seg Neutrophils % % Lymphocytes % % Monocytes % % Eosinophils % % Basophils % % Neutrophils # (1.6-8.9) K/mcL Lymphocytes # (0.6-4.6) K/mcL Monocytes # (0.0-1.3) K/mcL Eosinophils # (0.0-0.6) K/mcL Basophils # (0.0-0.2) K/mcL Nucleated RBCs/100 WBC (0) /100 WBC Platelet Estimate (Normal) Polychromasia (Not Present) Poikilocytosis (Not Present) Basophilic Stippling (Not Present) Anisocytosis (Not Present) Macrocytosis (Not Present) ABG pH (7.32-7.45) pH Units ABG pCO2 (35-45) mmHg ABG pO2 (85-104) mmHg ABG HCO3 (21-27) mEQ/L ABG Total CO2 (20-26) mEq/L ABG O2 Saturation (95-98) % ABG Base Excess (-2.0 to 3.0) mEq/L Blood Gas Modality Inspired O2 % Sodium (136-145) mEq/L Potassium (3.5-4.5) mEq/L Chloride (98-109) mEq/L Carbon Dioxide (19-29) mEq/L BUN (7-20) mg/dL Creatinine (0.57-1.11) mg/dL Est GFR ( Amer) (> 60) Est GFR (Non-Af Amer) (> 60) BUN/Creatinine Ratio (6-26) Glucose (70-99) mg/dL Calculated Osmolality (280-300) Calcium (8.6-10.8) mg/dL Total Bilirubin (0.2-1.2) mg/dL Direct Bilirubin (0.0-0.5) mg/dL Indirect Bilirubin (0.0-1.2) mg/dL AST (5-34) Units/L ALT (0-55) Units/L Alkaline Phosphatase (38-126) Units/L Troponin I 0.00 (0-0.03) ng/mL B-Natriuretic Peptide 539 H (0-100) pg/mL Serum Total Protein (6.0-8.3) g/dL Albumin (3.5-5.0) g/dL Globulin (2.4-3.5) g/dL Albumin/Globulin Ratio (1.1-2.2) Blood Type A POSITIVE Antibody Screen NEGATIVE Crossmatch See Detail - EKG Data EKG attestation: Yes I reviewed and interpreted this EKG. EKG results narrative: EKG dated 14 April 2017 at 13:33 interpreted as sinus tachycardia with a rate of 100. Rare PVC. Normal intervals with LA 136, QRS 76, QT/QTC 342/399. Normal axis. Nonspecific ST-T changes. Compared to previous dated today from EMS showing no acute ischemic changes comparison; PVCs present on compared to EKG. No older EKG for comparison.
[2017-04-14 15:10] LABS: Basophils % 0.1 %; Eosinophils % 0.1 %; Hematocrit 17.9 % (35.3-44.9); Immature Granulocytes % 0.8 % (0-4); Lymphocytes # 0.6 K/mcL (0.6-4.6); Lymphocytes % 4.6 %; Mean Corpuscular HGB Conc 29.1 g/dL (31.6-35.5); Mean Corpuscular Volume 106.5 fL (83.0-100.0); Mean Platelet Volume 12.5 fL (9.4-12.4); Monocytes # 0.5 K/mcL (0.0-1.3); Monocytes % 3.5 %; Nucleated Red Blood Cells 0.1 /100 WBC (0); Platelet Count 245 K/mcL (140-400); Red Blood Count 1.68 M/mcL (3.82-4.97); Red Cell Distribution Width 17.4 % (11.5-14.5); Segmented Neutrophils % 90.9 %
[2017-04-14 15:11] LABS: Neutrophils # 12.4 K/mcL (1.6-8.9)
[2017-04-14 15:13] LABS: Hemoglobin 5.2 g/dL (11.5-15.4)
[2017-04-14] MEDS ORDERED: Pantoprazole 40 MG VIAL IVP ONE (15:21)
[2017-04-14 15:27] LABS: Albumin 3.1 g/dL (3.5-5.0); Albumin/Globulin Ratio 1.2 (1.1-2.2); Bilirubin,Direct 0.1 mg/dL (0.0-0.5); Bilirubin,Indirect 0.3 mg/dL (0.0-1.2); Bilirubin,Total 0.4 mg/dL (0.2-1.2); Calcium 8.8 mg/dL (8.6-10.8); Globulin 2.6 g/dL (2.4-3.5); Potassium 4.8 mEq/L (3.5-4.5); Total Protein 5.7 g/dL (6.0-8.3)
[2017-04-14 15:30] LABS: Platelet Estimate Normal (Normal)
[2017-04-14 15:31] LABS: Anisocytosis 1+ (Not Present); Macrocytosis Present (Not Present)
[2017-04-14 15:33] LABS: Basophilic Stippling 1+ (Not Present); Poikilocytosis 1+ (Not Present); Polychromasia 1+ (Not Present)
--- NOTE | 2017-04-14 15:49 | Electrocardiograph Report ---
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
[2017-04-14] MEDS ORDERED: 0.9 % Sodium Chloride 500 ML ONE ×2 (16:26→21:10)
[2017-04-14 17:25] LABS: Bilirubin,Urine Negative (Negative); Blood,Urine Negative (Negative); Clarity,Urine Clear (Clear); Color,Urine Yellow (Yellow); Glucose,Urine (UA) Normal (Normal); Ketones,Urine Trace mg/dL (Negative); Leukocyte Esterase,Urine Negative (Negative); Nitrite,Urine Negative (Negative); PH,Urine 5.5 pH Units (5.0-8.0); Protein,Urine Negative (Neg-Trace); Urobilinogen,Urine Normal (Normal)
[2017-04-14] MEDS ORDERED: Acetaminophen 325 MG TABLET PO PRN (17:28)
[2017-04-14] MEDS ORDERED: *HR* HYDROcodone/Acet 5/325 mg TABLET PO PRN (17:28)
[2017-04-14] MEDS ORDERED: Ondansetron 4 MG/2 ML VIAL IVP PRN (17:28)
[2017-04-14] MEDS ORDERED: Naloxone 0.4 MG/ML INJ IVP PRN (17:28)
--- NOTE | 2017-04-14 17:56 | Internal Med History&Physical ---
Date of Encounter: 04/14/17 Time of Encounter: 16:30 Assessment and Plan (1) Symptomatic anemia Current visit: No Status: Acute History of rosibel deficiency anemia due to suspected GI bleed and multiple hospitalizations for symptomatic anemia this year. She has had EGD showing Barretts esophagus and medium sized hiatal hernia, small bowel enteroscopy and colonoscopy showing diverticulosis and tubular adenoma. She is scheduled for a capsule endoscopy in April 28. Per family, every time her hemoglobin drops she develops severe myoclonus and photophobia. She was doing well with a hgb of 9.4 on 04/01 until two days ago when she developed severe myoclonus, photophobia and dizziness but today morning her symptoms were so severe that her brought her to our ED. In our ED, her hgb was 5.2 and she was hypoxic requiring BIPAP (Fio2 35%). Patient denies any BRBPR. Her stools are always black due to iron supplementation. No other source of bleeding. No new medication. Unclear etiology of anemia. No massive GI bleed but FOBT was positive. Will consult GI, transfuse 2 unit PRBC, IV PPI, hold plavix/ASA. close monitor of hemoglobin. Place patient in observation. (2) Acute on chronic respiratory failure Current visit: Yes Status: Acute Hypoxic on presentation, requiring BIPAP. ABG done while on BIPAP and it showed SaO2 100 and pO2 234. likely secondary to anemia. duonebs q6hr. symbicort. wean off oxygen to keep SaO2 >92%. Qualifiers: Respiratory failure complication: hypoxia Qualified Code(s): J96.21 - Acute and chronic respiratory failure with hypoxia (3) COPD (chronic obstructive pulmonary disease) Current visit: No Status: Chronic nebs. 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 accucheck. sliding scale. hold long-acting insulin. (8) HTN (hypertension) Current visit: Yes Status: Acute hold home medications due to low BP. Qualifiers: Hypertension type: essential hypertension Qualified Code(s): I10 - Essential (primary) hypertension Internal Medicine - H&P: HPI Chief complaint: worsening of myoclonic jerks and generalized malaise for 2 days Admitted From: Home Plans for Post Hospital Care: Home History of present illness: Mrs. Dacosta is a 81 year old female with past medical history significant for iron deficiency anemia due to suspected GI bleed and multiple hospitalizations for symptomatic anemia this year. She has had EGD showing Barretts esophagus and medium sized hiatal hernia, small bowel enteroscopy and colonoscopy showing diverticulosis and tubular adenoma. She is scheduled for a capsule endoscopy in April 28. Per family, every time her hemoglobin drops she develops severe myoclonus and photophobia. She was doing well with a hgb of 9.4 on 04/01 until two days ago when she developed severe myoclonus, photophobia and dizziness but today morning her symptoms were so severe that her brought her to our ED. In our ED, her hgb was 5.2 and she was hypoxic requiring BIPAP (Fio2 35%). Patient denies any BRBPR. Her stools are always black due to iron supplementation. No other source of bleeding. No new medication. PMH: diabetes type 2, COPD, oxygen dependent at 2 L, hypertension, hypercholesterolemia, tremors, myoclonus and carotid stenosis. Past Med Surg Social Fam HX - Past Medical History Medical history: arthritis, asthma, cancer, COPD, coronary artery disease, CVA, diabetes, GERD, GI bleed, hyperlipidemia, hypertension, osteoporosis, peripheral artery disease, other Psychiatric history: no psych history - Past Surgical History Surgical History: cholecystectomy, other - Social History Smoking Status: Former smoker Smokeless Tobacco Status: No Alcohol use: none Drug use: none - Family History Mother Hx Family Endocrine Disorder: Yes (DM) Internal Medicine - H&P: Meds Albuterol Sulfate [Albuterol Inhaler] 2 puff IH Q4HR PRN 02/27/16 [History] Aspirin [Adult Low Dose Aspirin EC] 81 mg PO DAILY 02/27/16 [History] Cholecalciferol (Vitamin D3) [Vitamin D3] 5,000 unit PO Q48H 02/27/16 [History] Clopidogrel [Plavix] 75 mg PO HS 02/27/16 [History] Fluticasone/Salmeterol [Advair 250-50 Diskus] 1 puff IH BID 02/27/16 [History] Furosemide [Lasix] 20 mg PO DAILY 02/27/16 [History] Tiotropium [Spiriva] 18 mcg IH DAILY 02/27/16 [History] Oxygen 2 l NS AD 12/10/16 [History] Cyanocobalamin (B-12) [Vitamin B12] 1,000 mcg PO DAILY #90 tablet 12/30/16 [Rx] Cyclobenzaprine HCl 5 mg PO TID PRN #0 12/30/16 [Rx] Ferrous Sulfate 325 mg PO BIDWM #180 tablet 12/30/16 [Rx] Folic Acid 1 mg PO DAILY #90 tablet 12/30/16 [Rx] Pantoprazole Sodium [Protonix] 40 mg PO DAILY #90 12/30/16 [Rx] Atorvastatin [Lipitor] 40 mg PO HS 02/05/17 [History] Metformin HCl [Metformin HCl ER] 1,000 mg PO DAILY #30 [id number] 02/06/17 [Rx] Insulin ASPART [Novolog Flexpen] 6 - 8 unit SQ TID 03/24/17 [History] Insulin Glargine,Hum.rec.anlog [Lantus Solostar] 18 unit SQ HS 03/24/17 [History ] Lactulose [Enulose] 10 gm PO DAILY PRN 03/24/17 [History] Pregabalin [Lyrica] 150 mg PO BID 03/24/17 [History] Lisinopril [Zestril] 10 mg PO DAILY 04/14/17 [History] Allergies No Known Allergies Allergy (Verified 02/08/17 15:41) All Systems PM: A 10-system review of systems was performed and is negative for pertinent findings except as documented above in the HPI. - Constitutional Vitals: Temp Pulse Resp BP Pulse Ox 97.3 F L 110 16 97/65 100 04/14/17 16:57 04/14/17 16:57 04/14/17 17:27 04/14/17 17:27 04/14/17 15:42 General appearance: Present: cooperative, mild distress (mild discomfort), pleasant, answers questions appropriately - Neck Neck exam general surgery: Present: supple, trachea midline - Respiratory Respiratory exam: Present: wheezes (in bases) - Cardiovascular Cardiovascular exam: Present: tachycardia - GI/Abdominal GI/Abdominal exam: Present: normal bowel sounds, soft. Absent: distended, tenderness - Extremities Exam Extremities exam: Present: pedal edema (ankle edema) - Back Exam Back exam: Absent: CVA tenderness (L), CVA tenderness (R) - Neurological Exam Neurological exam: Present: alert, oriented X3, no focal deficits. Absent: facial droop, speech deficit - Skin Skin exam: Absent: rash Internal Med - H&P Results - Labs CBC & Chem 7: 04/14/17 15:04 04/14/17 15:04 Labs: Urine 04/14/17 Range/Units 17:14 Urine Color Yellow (Yellow) Urine Clarity Clear (Clear) Urine pH 5.5 (5.0-8.0) pH Units Ur Specific [place] 1.020 (1.010-1.025) Urine Protein Negative (Neg-Trace) mg/dL Urine Glucose (UA) Normal (Normal) mg/dL
[2017-04-14] MEDS ORDERED: *HR* Dextrose 50 % in Water (Syg) 50 ML SYRINGE IVP PRN (18:00)
[2017-04-14] MEDS ORDERED: Dextrose Gel 15 GM PO PRN ×2 (18:00)
[2017-04-14] MEDS ORDERED: D5% in Water 1,000 ML IVC PRN (18:00)
[2017-04-14] MEDS ORDERED: Furosemide 20 MG/2 ML VIAL IVP ONE (18:02)
[2017-04-14] MEDS: Levalbuterol Neb 0.63 MG/3 ML IH SCH ×2 (19:44→22:48)
[2017-04-14] MEDS: Ipratropium Neb 0.5 MG NEBULIZER IH SCH ×2 (19:44→22:48)
[2017-04-14] MEDS: Pregabalin 75 MG CAPSULE PO SCH (21:00)
[2017-04-14] MEDS ORDERED: Insulin LISPRO 300 UNITS/3 ML VIAL SQ SCH (21:00)
[2017-04-14] MEDS: Budesonide/Formoterol 160/4.5 MDI IH SCH (22:48)
[2017-04-15] MEDS: Insulin LISPRO 300 UNITS/3 ML VIAL SQ SCH ×5 (00:38→21:32)
[2017-04-15] MEDS: Levalbuterol Neb 0.63 MG/3 ML IH SCH ×4 (04:02→22:01)
[2017-04-15] MEDS: Ipratropium Neb 0.5 MG NEBULIZER IH SCH ×4 (04:03→22:01)
[2017-04-15 05:28] LABS: Basophils % 0.3 %; Eosinophils # 0.1 K/mcL (0.0-0.6); Eosinophils % 1.1 %; Hematocrit 23.3 % (35.3-44.9); Immature Granulocytes % 0.4 % (0-4); Lymphocytes # 1.3 K/mcL (0.6-4.6); Lymphocytes % 11.5 %; Mean Corpuscular HGB Conc 31.8 g/dL (31.6-35.5); Mean Corpuscular Hemoglobin 30.2 pg (28.0-33.3); Mean Platelet Volume 13.3 fL (9.4-12.4); Monocytes % 8.4 %; Nucleated Red Blood Cells 0.2 /100 WBC (0); Platelet Count 213 K/mcL (140-400); Red Blood Count 2.45 M/mcL (3.82-4.97); Red Cell Distribution Width 20.8 % (11.5-14.5); Segmented Neutrophils % 78.3 %
[2017-04-15 05:31] LABS: Hemoglobin 7.4 g/dL (11.5-15.4)
[2017-04-15 05:33] LABS: BUN/Creatinine Ratio 42 (6-26); Blood Urea Nitrogen 39 mg/dL (7-20); Calcium 8.7 mg/dL (8.6-10.8); Carbon Dioxide 31 mEq/L (19-29); Chloride 109 mEq/L (98-109); Glucose 89 mg/dL (70-99); Magnesium 1.8 mg/dL (1.6-2.6); Osmolality,Calculated 315 (280-300); Phosphorous 3.7 mg/dL (2.3-4.7); Sodium 148 mEq/L (136-145); eGFR For African Americans > 60 (> 60); eGFR For Non-African Americans 59 (> 60)
[2017-04-15 05:38] LABS: Mean Corpuscular Volume 95.1 fL (83.0-100.0)
[2017-04-15] MEDS ORDERED: Insulin LISPRO 300 UNITS/3 ML VIAL SQ SCH (07:30)
--- NOTE | 2017-04-15 08:48 | Gastroenterology Consult Note ---
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 She has had EGD, Cscope (12/2016), small bowel enteroscopy (02/2017) with negative findings for GIB. She was recommended to have OTPT capsule endo which has not been scheduled to date. Monitor H&H, transfuse as appropriate, schedule for capsule endo. Qualifiers: Iron deficiency anemia type: unspecified iron deficiency Qualified Code(s) : D50.9 - Iron deficiency anemia, unspecified - Time Spent With Patient Total time spent is greater than 50% in coordination of care (as documented) at patient's floor/unit and/or counseling patient: less than 15 minutes GI History of Present Illness - Data of Consult Patient: known to practice within the last 3 years Consult date: 04/15/17 Requesting Physician: Prasanth Roque - Consult Narrative Reason for consult: Anemia History of present illness: Ms. Dacosta is a 81 year old female with a PMH significant for DM, COPD, oxygen dependent 2L, HTN, hypercholesterolemia, tremors, myoclonus and carotid stenosis. She has iron deficiency anemia due to suspected GI bleed and multiple hospitalizations for symptomatic anemia this year. She has had EGD showing Barretts esophagus and medium sized hiatal hernia, small bowel enteroscopy and colonoscopy showing diverticulosis and tubular adenoma, but no active bleeding. She is scheduled for a follow up with Dr. Pollock 04/28, however, capsule endoscopy was recommended but has not yet been scheduled as no signed consent has been obtained. Per family, every time her hemoglobin drops she develops severe myoclonus and photophobia. She was doing well with a hgb of 9.4 on 04/01 until two days ago when she developed severe myoclonus, photophobia and dizziness but today morning her symptoms were so severe that her brought her to our ED. In our ED, her hgb was 5.2, she received 2 units of PRBC, and she was hypoxic requiring BIPAP (Fio2 35%). Patient denies any BRBPR. Her stools are always black due to iron supplementation. No other source of bleeding. No new medication. Patient states that she has 'dark' stools daily, described as hard and small most days, about every 4-5 days, she has a cleansing bowel movement. Admits some lower abdominal cramping/pain right before a good bowel movement that resolves with the movement. Colonoscopy: 12/2016 Gul- diverticulosis, tubular adenoma EGD: 12/2016 Gul-Barretts, 02/2017 sm bowel enteroscopy, med hiatal hernia Past Med Surg Social Fam HX - Past Medical History Medical history: arthritis, asthma, cancer, COPD, coronary artery disease, CVA, diabetes, GERD, GI bleed, hyperlipidemia, hypertension, osteoporosis, peripheral artery disease, other Psychiatric history: no psych history - Past Surgical History Surgical History: cholecystectomy, other - Social History Smoking Status: Former smoker Smokeless Tobacco Status: No Alcohol use: none Drug use: none - Family History Mother Hx Family Endocrine Disorder: Yes (DM) Father Living Status: Cause of : heart attack Hx Family Endocrine Disorder: Yes - Gastrointestinal NSAID use: 81 mg Anticoagulation Use: PLAVIX Number of BM Per Day: daily Gastrointestinal: Present: abdominal pain, constipation, diarrhea - Constitutional Constitutional: as per HPI - EENT Eyes: as per HPI Ears: Present: as per HPI Nose, mouth and throat: Present: as per HPI - Cardiovascular Cardiovascular ROS: Present: as per HPI - Respiratory Respiratory IM: Present: as per HPI - Neurological ROS Neurological GI: Present: tremor(s), weakness - Hematologic/Lymphatic Hematologic/Lymphatic pediatric: Present: as per HPI - Musculoskeletal Musculoskeletal ROS GI: Present: as per HPI - Integumentary Integumentary GI: Present: as per HPI - Psychiatric ROS Psychiatric GI: Present: as per HPI - Endocrine Endocrine IM: Present: as per HPI - Constitutional Vitals: Temp Pulse Resp BP Pulse Ox 98 F 108 14 109/96 94 04/15/17 08:15 04/15/17 08:15 04/15/17 08:15 04/15/17 08:15 04/15/17 08:15 General appearance: Present: cooperative, A&O X 3, no acute distress, answers questions appropriately - Head Head exam: Present: atraumatic, normocephalic - Eye Eye exam: Present: normal appearance, sclera anicteric - ENT ENT exam: Present: mucous membranes moist - Neck Neck exam general surgery: Present: normal inspection, trachea midline - Respiratory Respiratory exam: Present: decreased breath sounds - Cardiovascular Cardiovascular exam: Present: RRR, +S1, +S2 - GI/Abdominal GI/Abdominal exam: Present: normal bowel sounds, soft, no peritoneal signs - Rectal Rectal exam: Present: deferred - Extremities Exam Extremities exam: Present: warm - Neurological Exam Neurological exam: Present: no focal deficits - Psychiatric Psychiatric exam: Present: normal affect, normal mood - Skin Skin exam: Present: dry, intact, normal color, warm Results - Labs CBC & Chem 7: 04/15/17 04:30 04/15/17 04:30 Labs: Last Result Calcium 8.7 mg/dL (8.6-10.8) 04/15/17 04:30 Troponin I 0.00 ng/mL (0-0.03) 04/14/17 15:04 Entire Visit Hgb 7.4 g/dL (11.5-15.4) L D 04/15/17 04:30 Hct 23.3 % (35.3-44.9) L 04/15/17 04:30 Total Bilirubin 0.4 mg/dL (0.2-1.2) 04/14/17 15:04 AST 16 Units/L (5-34) 04/14/17 15:04 ALT 9 Units/L (0-55) 04/14/17 15:04 - ABG ABG results: ABG ABG pH 7.40 pH Units (7.32-7.45) 04/14/17 13:50 ABG pCO2 47 mmHg (35-45) H 04/14/17 13:50 ABG pO2 237 mmHg (85-104) H 04/14/17 13:50 ABG O2 Saturation 100 % (95-98) H 04/14/17 13:50 Consult Discharge Plan - Plan Referrals: Joe King MD [Primary Care Provider] - 04/26/17 3:00 pm Lyle Arias MD [Partnered Physician] - 05/05/17 1:00 pm Mari Pollock MD [Partnered Physician] - 04/28/17 3:30 pm <Mari Pollock - Last Filed: 04/15/17 17:11> Date of Encounter: 04/15/17 Time of Encounter: 14:30 - Time Spent With Patient Total time spent is greater than 50% in coordination of care (as documented) at patient's floor/unit and/or counseling patient: GI History of Present Illness - Data of Consult Requesting Physician: Prasanth Roque - Consult Narrative History of present illness: Ms. Dacosta is a 81 year old female - Constitutional Vitals: Temp Pulse Resp BP Pulse Ox 99.1 F 76 16 109/51 97 04/15/17 15:39 04/15/17 15:39 04/15/17 16:19 04/15/17 15:39 04/15/17 16:19 Results - Labs CBC & Chem 7: 04/15/17 04:30 04/15/17 04:30 Labs: Last Result Calcium 8.7 mg/dL (8.6-10.8) 04/15/17 04:30 Troponin I 0.00 ng/mL (0-0.03) 04/14/17 15:04 Entire Visit Hgb 7.4 g/dL (11.5-15.4) L D 04/15/17 04:30 Hct 23.3 % (35.3-44.9) L 04/15/17 04:30 Total Bilirubin 0.4 mg/dL (0.2-1.2) 04/14/17 15:04 AST 16 Units/L (5-34) 04/14/17 15:04 ALT 9 Units/L (0-55) 04/14/17 15:04 - ABG ABG results: ABG ABG pH 7.40 pH Units (7.32-7.45) 04/14/17 13:50 ABG pCO2 47 mmHg (35-45) H 04/14/17 13:50 ABG pO2 237 mmHg (85-104) H 04/14/17 13:50 ABG O2 Saturation 100 % (95-98) H 04/14/17 13:50 - Attending Attestation I examined this patient and my medical decision-making was reviewed with the [employer]CH[employer] FLOW MANAGER/PA/Advanced Practice Nurse/Resident Physician. I agree with the documented findings, disposition and treatment plan as described except to the extent set forth below.
[2017-04-15] MEDS ORDERED: Pantoprazole 40 MG VIAL IVP SCH (09:00)
[2017-04-15] MEDS: Folic Acid 1 MG TABLET PO SCH (10:20)
[2017-04-15] MEDS: Cyanocobalamin (B-12) 1,000 MCG TABLET PO SCH (10:21)
[2017-04-15] MEDS: Pregabalin 75 MG CAPSULE PO SCH ×2 (10:21→21:33)
[2017-04-15] MEDS: Budesonide/Formoterol 160/4.5 MDI IH SCH ×2 (11:09→22:01)
--- NOTE | 2017-04-15 13:52 | Internal Med Progress Note ---
Date of Encounter: 04/15/17 Time of Encounter: 09:50 - Assessment and plan (1) Symptomatic anemia Current Visit: No Status: Acute Assessment and plan: H/o GI bleed - diverticulosis Patient develops Myoclonus and photophobia when H&H is severely low. H&H now stable, EGD done recently, GI consult S/p 2 units PRBC, hold ASA, Plavix (2) Acute on chronic respiratory failure Current Visit: Yes Status: Acute Assessment and plan: Improved likely due to COPD, duonebs, O2, Symbicort off BiPAP, Qualifiers: Respiratory failure complication: hypoxia Qualified Code(s): J96.21 - Acute and chronic respiratory failure with hypoxia (3) COPD (chronic obstructive pulmonary disease) Current Visit: No Status: Chronic Assessment and plan: probably causing hypoxic resp failure - now improved Duonebs, Symbicort, O2, off BiPAP Qualifiers: COPD type: emphysema Emphysema type: panlobular Qualified Code(s): J43.1 - Panlobular emphysema (4) Type 2 diabetes mellitus with other circulatory complications Current Visit: No Status: Chronic Assessment and plan: hyperglycemia, continue sliding scale (5) Essential hypertension Current Visit: No Status: Chronic Assessment and plan: controlled,monitor closely (6) Iron deficiency anemia secondary to blood loss (chronic) Current Visit: No Status: Acute Assessment and plan: chronic blood loss, s/p 2 units PRBC - Time Spent With Patient less than 15 minutes - Subjective Interval history: Patient awake and alert. Not in any distress. Denies chest pain or shortness of breath. Feels better. No fever. 2 units PRBC transfused. No other acute events or complaints. - Constitutional Vitals: Temp Pulse Resp BP Pulse Ox 97.8 F 112 18 122/89 98 04/15/17 13:14 04/15/17 13:14 04/15/17 13:14 04/15/17 13:14 04/15/17 13:14 General appearance: Present: cooperative, mild distress (mild discomfort), pleasant, answers questions appropriately - Head Head exam: Present: atraumatic - Neck Neck exam general surgery: Present: supple - Respiratory Respiratory exam: Present: CTAB. Absent: rhonchi, wheezes - Cardiovascular Cardiovascular exam: Present: +S1, +S2, tachycardia - GI/Abdominal GI/Abdominal exam: Present: soft. Absent: guarding, tenderness - Extremities Exam Extremities exam: Present: radial pulses palpable and symetrical. Absent: cyanotic, pedal edema - Neurological Exam Neurological exam: Present: alert, oriented X3, no focal deficits Internal Medicine: Result - Labs CBC & Chem 7: 04/15/17 04:30 04/15/17 04:30 Labs: Short CBC 04/15/17 Range/Units 04:30 WBC 11.4 H (4.3-11.1) K/mcL Hgb 7.4 L D (11.5-15.4) g/dL Hct 23.3 L (35.3-44.9) % Plt Count 213 (140-400) K/mcL Neutrophils # 9.0 H (1.6-8.9) K/mcL BMP 04/15/17 04:30 Sodium 148 H Potassium 4.0 Chloride 109 Carbon Dioxide 31 H BUN 39 H Creatinine 0.92 Glucose 89 Calcium 8.7 Urine 04/14/17 Range/Units 17:14 Urine Color Yellow (Yellow) Urine Clarity Clear (Clear) Urine pH 5.5 (5.0-8.0) pH Units Ur Specific [place] 1.020 (1.010-1.025) Urine Protein Negative (Neg-Trace) mg/dL Urine Glucose (UA) Normal (Normal) mg/dL - ABG Interpretation ABG results: ABG ABG pH 7.40 pH Units (7.32-7.45) 04/14/17 13:50 ABG pCO2 47 mmHg (35-45) H 04/14/17 13:50 ABG pO2 237 mmHg (85-104) H 04/14/17 13:50 ABG O2 Saturation 100 % (95-98) H 04/14/17 13:50 - VTE Reasons for not Prescribing Prophylaxis: Medical contraindication Consult Discharge Plan - Plan Referrals: Joe King MD [Primary Care Provider] - 04/26/17 3:00 pm Lyle Arias MD [Partnered Physician] - 05/05/17 1:00 pm Mari Pollock MD [Partnered Physician] - 04/28/17 3:30 pm
[2017-04-15] MEDS: Insulin DETEMIR 100 UNIT/ML X5UNITS SQ SCH (21:32)
[2017-04-16] MEDS: Levalbuterol Neb 0.63 MG/3 ML IH SCH ×4 (03:41→22:45)
[2017-04-16] MEDS: Ipratropium Neb 0.5 MG NEBULIZER IH SCH ×4 (03:41→22:45)
[2017-04-16 04:23] LABS: Basophils % 0.3 %; Eosinophils # 0.6 K/mcL (0.0-0.6); Eosinophils % 7.5 %; Hematocrit 23.8 % (35.3-44.9); Hemoglobin 7.2 g/dL (11.5-15.4); Immature Granulocytes % 0.3 % (0-4); Lymphocytes # 1.1 K/mcL (0.6-4.6); Lymphocytes % 13.7 %; Mean Corpuscular HGB Conc 30.3 g/dL (31.6-35.5); Mean Corpuscular Hemoglobin 29.4 pg (28.0-33.3); Mean Corpuscular Volume 97.1 fL (83.0-100.0); Mean Platelet Volume 13.1 fL (9.4-12.4); Monocytes # 0.6 K/mcL (0.0-1.3); Monocytes % 8.3 %; Neutrophils # 5.4 K/mcL (1.6-8.9); Platelet Count 209 K/mcL (140-400); Red Blood Count 2.45 M/mcL (3.82-4.97); Red Cell Distribution Width 20.5 % (11.5-14.5); Segmented Neutrophils % 69.9 %
[2017-04-16 04:36] LABS: BUN/Creatinine Ratio 36 (6-26); Blood Urea Nitrogen 29 mg/dL (7-20); Calcium 8.6 mg/dL (8.6-10.8); Carbon Dioxide 32 mEq/L (19-29); Chloride 107 mEq/L (98-109); Glucose 80 mg/dL (70-99); Osmolality,Calculated 305 (280-300); Sodium 145 mEq/L (136-145); eGFR For African Americans > 60 (> 60); eGFR For Non-African Americans > 60 (> 60)
[2017-04-16] MEDS: Pregabalin 75 MG CAPSULE PO SCH ×2 (07:55→21:20)
[2017-04-16] MEDS: Insulin LISPRO 300 UNITS/3 ML VIAL SQ SCH ×4 (07:55→21:20)
[2017-04-16] MEDS: Cyanocobalamin (B-12) 1,000 MCG TABLET PO SCH (07:55)
[2017-04-16] MEDS: Folic Acid 1 MG TABLET PO SCH (07:55)
[2017-04-16] MEDS: Budesonide/Formoterol 160/4.5 MDI IH SCH ×2 (10:58→22:45)
[2017-04-16] MEDS ORDERED: 0.9 % Sodium Chloride 250 ML ONE (12:36)
--- NOTE | 2017-04-16 13:03 | Discharge Summary ---
Date of Encounter: 04/16/17 Time of Encounter: 08:10 - Discharge Diagnosis (1) Symptomatic anemia Priority: Primary Status: Acute Comments: H/o GI bleed - diverticulosis Patient develops Myoclonus and photophobia when H&H is severely low. H&H now stable, EGD done recently, GI consult S/p 3 units PRBC, (2) Acute on chronic respiratory failure Priority: Secondary Status: Acute Comments: Improved likely due to COPD, duonebs, O2, Symbicort off BiPAP, Qualifiers: Respiratory failure complication: hypoxia Qualified Code(s): J96.21 - Acute and chronic respiratory failure with hypoxia (3) COPD (chronic obstructive pulmonary disease) Priority: Secondary Status: Chronic Comments: probably causing hypoxic resp failure - now improved Duonebs, Symbicort, O2, off BiPAP Qualifiers: COPD type: emphysema Emphysema type: panlobular Qualified Code(s): J43.1 - Panlobular emphysema (4) Type 2 diabetes mellitus with other circulatory complications Priority: Secondary Status: Chronic Comments: hyperglycemia (5) Essential hypertension Priority: Secondary Status: Chronic Comments: controlled,monitor closely (6) Iron deficiency anemia secondary to blood loss (chronic) Priority: Secondary Status: Acute Comments: chronic blood loss, s/p 3 units PRBC - Discharge Medications Prescriptions: RX: Ferrous Sulfate 325 mg PO BIDWM 30 Days Home Medications: RX: Albuterol Sulfate [Albuterol Inhaler] 2 puff IH Q4HR PRN 02/27/16 [History] RX: Aspirin [Adult Low Dose Aspirin EC] 81 mg PO DAILY 02/27/16 [History] RX: Cholecalciferol (Vitamin D3) [Vitamin D3] 5,000 unit PO Q48H 02/27/16 [ History] RX: Clopidogrel [Plavix] 75 mg PO HS 02/27/16 [History] RX: Fluticasone/Salmeterol [Advair 250-50 Diskus] 1 puff IH BID 02/27/16 [ History] RX: Furosemide [Lasix] 20 mg PO DAILY 02/27/16 [History] RX: Tiotropium [Spiriva] 18 mcg IH DAILY 02/27/16 [History] RX: Oxygen 2 l NS AD 12/10/16 [History] RX: Cyanocobalamin (B-12) [Vitamin B12] 1,000 mcg PO DAILY #90 tablet 12/30/16 [ Rx] RX: Cyclobenzaprine HCl 5 mg PO TID PRN #0 12/30/16 [Rx] RX: Folic Acid 1 mg PO DAILY #90 tablet 12/30/16 [Rx] RX: Pantoprazole Sodium [Protonix] 40 mg PO DAILY #90 12/30/16 [Rx] RX: Atorvastatin [Lipitor] 40 mg PO HS 02/05/17 [History] RX: Metformin HCl [Metformin HCl ER] 1,000 mg PO DAILY #30 [id number] 02/06/17 [ Rx] RX: Insulin ASPART [Novolog Flexpen] 6 - 8 unit SQ TID 03/24/17 [History] RX: Insulin Glargine,Hum.rec.anlog [Lantus Solostar] 18 unit SQ HS 03/24/17 [ History] RX: Lactulose [Enulose] 10 gm PO DAILY PRN 03/24/17 [History] RX: Pregabalin [Lyrica] 150 mg PO BID 03/24/17 [History] RX: Lisinopril [Zestril] 10 mg PO DAILY 04/14/17 [History] RX: Acetaminophen [Tylenol] 650 mg PO Q6HR PRN #0 tablet 04/16/17 [Rx] RX: Budesonide/Formoterol 160/4.5 [Symbicort 160/4.5] 1 puff IH BIDR inhaler [Rx] RX: Ferrous Sulfate 325 mg PO BIDWM 30 Days 04/16/17 [Rx] RX: Ipratropium Neb [Atrovent Neb] 0.5 mg IH [id number] 04/16/17 [Rx] Allergies/Adverse Reactions: Allergies No Known Allergies Allergy (Verified 02/08/17 15:41) Date of admission: 04/15/17 15:06 Primary care physician: Joe King MD Anticipated date of discharge: 04/16/17 - Patient Status Disposition: Home Health Service Condition: Fair Functional capacity at discharge: uses cane/walker Overall status at discharge: patient is progressing back to baseline - Discharge Instructions Follow Up With: Joe King MD [Primary Care Provider] - 04/26/17 3:00 pm Lyle Arias MD [Partnered Physician] - 05/05/17 1:00 pm Mari Pollock MD [Partnered Physician] - 04/28/17 3:30 pm - Diet and Activity Activity: ambulate only with your walker, as per physical therapy Diet: regular diet Hospital course: Ms. Dacosta is a 81 year old female with past medical history of iron deficiency anemia, GI bleed, arthritis, asthm COPD, coronary artery disease, CVA , diabetes and hyperlipidemia and hypertension. She presents to the hospital with worsening myoclonic jerks and generalized weakness but 2 days prior to admission. Patient denied any bright red blood per rectum. She also stated that her stools as black due to iron supplementation and chronic GI bleed. She had a recent EGD and colonoscopy which showed diverticulosis and tubular adenoma. She has actually been scheduled for capsule endoscopy per GI. In the ED her H&H is found to be very low at 5.2 and 17.9. She has received a total of 3 units packed cells. Her symptoms now resolved. H&H is now stable. She does not have any active GI bleeding at this point. Patient is tolerating oral diet well and ambulating well. She seems to be back to baseline. Patient has been explained about her condition and plan of care. She understood and agreed and has no unanswered questions. Echocardiogram was showing LVEF of 65% with normal LV size and systolic function and there is mild evidence of diastolic dysfunction. GI has evaluated the patient. They recommended outpatient Endoscopy. They Recommended Blood Transfusion As Needed and to Monitor H&H. No Further Workup at This Time. Patient States She Feels Better and Wants to Go Home Today. She Says She Will Follow up with her primary care physician and also GI specialist. - Time Spent with Patient Total time spent providing and/or coordinating discharge services: - Constitutional Vitals: Temp Pulse Resp BP Pulse Ox 98.3 F 84 18 97/75 90 04/16/17 12:51 04/16/17 12:51 04/16/17 12:51 04/16/17 12:51 04/16/17 12:51 General appearance: Present: cooperative, mild distress (mild discomfort), pleasant, answers questions appropriately - Head Head exam: Present: atraumatic - ENT ENT exam: Present: mucous membranes moist - Neck Neck exam general surgery: Present: supple - Respiratory Respiratory exam: Present: CTAB. Absent: rhonchi, wheezes - Cardiovascular Cardiovascular exam: Present: RRR, +S1, +S2 - GI/Abdominal GI/Abdominal exam: Present: soft. Absent: guarding, tenderness - Extremities Exam Extremities exam: Present: radial pulses palpable and symetrical. Absent: cyanotic, tenderness - Neurological Exam Neurological exam: Present: alert, oriented X3, no focal deficits - VTE Reasons for not Prescribing Prophylaxis: Medical contraindication Documentation of Mechanical Device: Venous foot pump, device
[2017-04-16 17:32] LABS: Hematocrit 30.4 % (35.3-44.9); Hemoglobin 9.4 g/dL (11.5-15.4)
[2017-04-16] MEDS: Insulin DETEMIR 100 UNIT/ML X5UNITS SQ SCH (21:19)
[2017-04-17] MEDS: Ipratropium Neb 0.5 MG NEBULIZER IH SCH ×2 (04:02→10:41)
[2017-04-17] MEDS: Levalbuterol Neb 0.63 MG/3 ML IH SCH ×2 (04:02→10:41)
[2017-04-17 07:10] VITALS: BP 110/87
[2017-04-17] MEDS: Folic Acid 1 MG TABLET PO SCH (07:52)
[2017-04-17] MEDS: Insulin LISPRO 300 UNITS/3 ML VIAL SQ SCH (07:52)
[2017-04-17] MEDS: Pregabalin 75 MG CAPSULE PO SCH (07:53)
[2017-04-17] MEDS: Cyanocobalamin (B-12) 1,000 MCG TABLET PO SCH (07:53)
[2017-04-17] MEDS: Budesonide/Formoterol 160/4.5 MDI IH SCH (10:41)
--- NOTE | 2017-04-17 11:15 | Internal Med Progress Note ---
Date of Encounter: 04/17/17 Time of Encounter: 08:20 - Assessment and plan (1) Symptomatic anemia Current Visit: No Status: Acute Assessment and plan: Improved H/o GI bleed - diverticulosis Patient develops Myoclonus and photophobia when H&H is severely low. H&H now stable, EGD done recently, GI consult S/p 3 units PRBC (2) Acute on chronic respiratory failure Current Visit: Yes Status: Acute Assessment and plan: Improved likely due to COPD - continue duonebs, O2, Symbicort Qualifiers: Respiratory failure complication: hypoxia Qualified Code(s): J96.21 - Acute and chronic respiratory failure with hypoxia (3) COPD (chronic obstructive pulmonary disease) Current Visit: No Status: Chronic Assessment and plan: probably causing hypoxic resp failure - now improved Duonebs, Symbicort, O2 Qualifiers: COPD type: emphysema Emphysema type: panlobular Qualified Code(s): J43.1 - Panlobular emphysema (4) Type 2 diabetes mellitus with other circulatory complications Current Visit: No Status: Chronic Assessment and plan: hyperglycemia (5) Essential hypertension Current Visit: No Status: Chronic Assessment and plan: controlled, continue home meds (6) Iron deficiency anemia secondary to blood loss (chronic) Current Visit: No Status: Acute - Time Spent With Patient less than 15 minutes - Subjective Interval history: Patient awake and alert. Not in any distress. Denies chest pain or shortness of breath. Feels better. Tolerating oral diet. No fever. 3 units PRBC transfused. H &H stable. Patient feels better and says she is ready to go home today. No other acute events or complaints. - Constitutional Vitals: Temp Pulse Resp BP Pulse Ox 97.9 F 84 19 110/87 95 04/17/17 07:08 04/17/17 07:08 04/17/17 10:47 04/17/17 07:08 04/17/17 10:47 General appearance: Present: cooperative, A&O X 3, pleasant, answers questions appropriately - Head Head exam: Present: atraumatic - Neck Neck exam general surgery: Present: supple - Respiratory Respiratory exam: Present: CTAB. Absent: rhonchi, wheezes - Cardiovascular Cardiovascular exam: Present: RRR, +S1, +S2 - GI/Abdominal GI/Abdominal exam: Present: soft. Absent: guarding, tenderness - Extremities Exam Extremities exam: Present: radial pulses palpable and symetrical. Absent: cyanotic, pedal edema - Neurological Exam Neurological exam: Present: alert, oriented X3, no focal deficits Internal Medicine: Result - Labs CBC & Chem 7: 04/16/17 17:24 04/16/17 03:26 Labs: Short CBC 04/16/17 Range/Units 17:24 Hgb 9.4 L D (11.5-15.4) g/dL Hct 30.4 L (35.3-44.9) % - ABG Interpretation ABG results: ABG ABG pH 7.40 pH Units (7.32-7.45) 04/14/17 13:50 ABG pCO2 47 mmHg (35-45) H 04/14/17 13:50 ABG pO2 237 mmHg (85-104) H 04/14/17 13:50 ABG O2 Saturation 100 % (95-98) H 04/14/17 13:50 - VTE Reasons for not Prescribing Prophylaxis: Medical contraindication Documentation of Mechanical Device: Venous foot pump, device Consult Discharge Plan - Plan Referrals: Joe King MD [Primary Care Provider] - 04/26/17 3:00 pm Lyle Arias MD [Partnered Physician] - 05/05/17 1:00 pm Mari Pollock MD [Partnered Physician] - 04/28/17 3:30 pm Prescriptions: Ferrous Sulfate 325 mg PO BIDWM 30 Days
== END 2017-04-17 11:44 | disposition home health service (06) | DRG 811 ==
LOC: 2NNU 13:25 → EMEROO 13:25 → 2NNU 17:31 → 3ANU 04-15 15:05
PROVIDERS: ADMIT Registered Nurse; ATTEND Family Medicine

== ENCOUNTER 2017-04-26 15:54 | Inpatient (IN) ==
[2017-04-26] MEDS ORDERED: 0.9 % Sodium Chloride 1,000 ML IVC ONE (15:57)
--- NOTE | 2017-04-26 16:00 | Emergency Department Note ---
Disposition Clinical Impression: GI bleed Qualifiers: GI bleed type/associated pathology: unspecified gastrointestinal hemorrhage type Qualified Code(s): K92.2 - Gastrointestinal hemorrhage, unspecified Anemia Qualifiers: Anemia type: iron deficiency Iron deficiency anemia type: chronic blood loss Qualified Code(s): D50.0 - Iron deficiency anemia secondary to blood loss ( chronic) Disposition: Admitted As Inpatient Condition: Undetermined Time of Disposition: 18:00 General Adult HPI - General Chief complaint: ED Dizziness Stated complaint: Dizzy/weakness Time Seen by Provider: 04/26/17 15:56 Source: patient Mode of arrival: EMS Limitations: no limitations Nursing Notes Reviewed: Yes Vital Signs Reviewed: Yes - History of Present Illness HPI Narrative: 81-year-old female with history of CAD, chronic GI bleed, iron deficiency anemia , COPD on 2 L nasal cannula chronically, arrives [facility] emergency department with concerns for symptomatic anemia which she has experienced in the past. The patient states that she was recently admitted to the hospital roughly week and a half ago where she was diagnosed with GI bleed and chronic anemia. Her hemoglobin was 5.9 here in the emergency department upon evaluation. The patient states she typically shakes when she is experiencing the symptoms which she said started yesterday. The patient states she has also had intermittent episodes of chest pain since then. The patient states she is chronically short of breath and she has not extremity new symptoms associated with this. The patient does have black stools which she says is due to her iron pills and denies any red blood stools at this time. The patient denies any other complaints including abdominal pain, nausea, vomiting, diarrhea. Onset (ago): day(s) (1) Pain Severity: mild Pain Scale: 1 Consistency: intermittent, now resolved Improves with: nothing Worsens with: nothing Associated symptoms: Reports: shortness of breath, weakness Treatments Prior to Arrival: none - Related Data Home Medications Medication Instructions Recorded Confirmed Albuterol Sulfate [Albuterol 2 puff IH Q4HR PRN 02/27/16 04/26/17 Inhaler] Aspirin [Adult Low Dose Aspirin EC] 81 mg PO DAILY 02/27/16 04/26/17 Cholecalciferol (Vitamin D3) 5,000 unit PO Q48H 02/27/16 04/26/17 [Vitamin D3] Clopidogrel [Plavix] 75 mg PO HS 02/27/16 04/26/17 Fluticasone/Salmeterol [Advair 1 puff IH BID 02/27/16 04/26/17 250-50 Diskus] Furosemide [Lasix] 20 mg PO DAILY 02/27/16 04/26/17 Tiotropium [Spiriva] 18 mcg IH DAILY 02/27/16 04/26/17 Oxygen 2 l NS AD 12/10/16 04/26/17 Atorvastatin [Lipitor] 40 mg PO HS 02/05/17 04/26/17 Insulin ASPART [Novolog Flexpen] 6 - 8 unit SQ TID 03/24/17 04/26/17 Insulin Glargine,Hum.rec.anlog 18 unit SQ HS 03/24/17 04/26/17 [Lantus Solostar] Lactulose [Enulose] 10 gm PO DAILY PRN 03/24/17 04/26/17 Pregabalin [Lyrica] 150 mg PO BID 03/24/17 04/26/17 Lisinopril [Zestril] 10 mg PO DAILY 04/14/17 04/26/17 Previous Rx's Medication Instructions Recorded Cyanocobalamin (B-12) [Vitamin B12] 1,000 mcg PO DAILY #90 tablet 12/30/16 Cyclobenzaprine HCl 5 mg PO TID PRN #0 12/30/16 Folic Acid 1 mg PO DAILY #90 tablet 12/30/16 Pantoprazole Sodium [Protonix] 40 mg PO DAILY #90 granpkt. 12/30/16 Metformin HCl [Metformin HCl ER] 1,000 mg PO DAILY #30 [id number] 02/06/17 Acetaminophen [Tylenol] 650 mg PO Q6HR PRN #0 tablet 04/16/17 Budesonide/Formoterol 160/4.5 1 puff IH BIDR inhaler 04/16/17 [Symbicort 160/4.5] Ferrous Sulfate 325 mg PO BIDWM 30 Days 04/16/17 Ipratropium Neb [Atrovent Neb] 0.5 mg IH [id number] inhsol 04/16/17 Allergies Allergy/AdvReac Type Severity Reaction Status Date / Time No Known Allergies Allergy Verified 02/08/17 15:41 All systems ED: reviewed and negative except as stated. Constitutional: Denies: fever, chills, weakness, weight change Cardiovascular: Reports: chest pain. Denies: palpitations, dyspnea on exertion , edema, syncope Respiratory: Reports: dyspnea. Denies: cough, wheezes, hemoptysis, stridor Gastrointestinal: Reports: melena. Denies: abdominal pain, nausea, vomiting, diarrhea, constipation, hematemesis, hematochezia Musculoskeletal: Denies: back pain, neck pain, arthralgia, myalgia Integumentary: Denies: rash, abrasion, lesions Neurological: Reports: weakness. Denies: headache, numbness, paresthesias, confusion, abnormal gait, vertigo Past Medical History - Past Medical History Attestation: Yes The following information was validated with the patient. 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 - Social History Smoking Status: Former smoker Smokeless Tobacco Status: No Alcohol use: Reports: none Drug use: Reports: none Physical Exam - General Limitations: no limitations General appearance: alert, in no apparent distress - Head Head exam: atraumatic, normocephalic, normal inspection - Neck Neck exam: Present: normal inspection, full ROM, trachea midline - Chest Chest inspection: Present: normal inspection, symmetric chest wall rise - Respiratory Respiratory exam: Present: other (Decreased respiratory sounds bilaterally, no wheezing, no Rales noted.) - Cardiovascular Cardiovascular exam: Present: regular rate, normal rhythm, normal heart sounds - Abdominal Exam Abdominal exam: Present: soft, Non-Tender. Absent: tenderness, distention, guarding, rebound, rigidity - Extremities Exam Extremities exam: Present: normal inspection, full ROM. Absent: tenderness, pedal edema - Neurological Exam Neurological exam: Present: alert, oriented X3 - Skin Skin exam: Present: pallor Course Vital Signs Temperature 98.7 F 04/26/17 15:56 Pulse Rate 102 04/26/17 15:56 Respiratory Rate 16 04/26/17 15:56 Blood Pressure 120/33 04/26/17 15:56 O2 Sat by Pulse Oximetry 90 04/26/17 15:56 Temperature 97.9 F 04/27/17 06:51 Pulse Rate 99 06/20/17 06:51 Respiratory Rate 15 04/27/17 06:51 Blood Pressure 113/73 04/27/17 06:51 O2 Sat by Pulse Oximetry 96 04/27/17 06:51 Oxygen Delivery Oxygen Delivery Nasal Cannula Medical Decision Making - MDM Narrative Medical decision making narrative: Patient's troponin is mildly elevated. The patient is anemic at this time. We will go ahead and transfuse 2 units of packed red blood cells. We will admit the patient for symptomatic anemia as well as elevated troponin. This is likely due to demand ischemia associated with anemia. - Lab Data Lab results reviewed: Yes I reviewed the patient's lab results. Result diagrams: 04/27/17 05:59 04/27/17 05:59 Lab Results 04/26/17 04/26/17 04/26/17 Range/Units 16:48 16:48 16:48 WBC 11.7 H (4.3-11.1) K/mcL RBC 2.37 L (3.82-4.97) M/mcL Hgb 6.9 L (11.5-15.4) g/dL Hct 23.1 L (35.3-44.9) % MCV 97.5 (83.0-100.0) fL MCH 29.1 (28.0-33.3) pg MCHC 29.9 L (31.6-35.5) g/dL RDW 18.1 H (11.5-14.5) % Plt Count 252 (140-400) K/mcL MPV 11.9 (9.4-12.4) fL Immature Gran % 0.4 (0-4) % Seg Neutrophils % 80.9 % Lymphocytes % 10.5 % Monocytes % 5.5 % Eosinophils % 2.1 % Basophils % 0.6 % Neutrophils # 9.5 H (1.6-8.9) K/mcL Lymphocytes # 1.2 (0.6-4.6) K/mcL Monocytes # 0.6 (0.0-1.3) K/mcL Eosinophils # 0.2 (0.0-0.6) K/mcL Basophils # 0.1 (0.0-0.2) K/mcL Sodium 141 (136-145) mEq/L Potassium 5.0 H (3.5-4.5) mEq/L Chloride 102 (98-109) mEq/L Carbon Dioxide 31 H (19-29) mEq/L BUN 45 H (7-20) mg/dL Creatinine 1.21 H (0.57-1.11) mg/dL Est GFR ( Amer) 52 L (> 60) Est GFR (Non-Af Amer) 43 L (> 60) BUN/Creatinine Ratio 37 H (6-26) Glucose 81 (70-99) mg/dL POC Glucose (58-89) Calculated Osmolality 303 H (280-300) Calcium 9.2 (8.6-10.8) mg/dL Total Bilirubin 0.2 (0.2-1.2) mg/dL AST 17 (5-34) Units/L ALT 11 (0-55) Units/L Alkaline Phosphatase 51 (38-126) Units/L Troponin I 0.04 H* (0-0.03) ng/mL Serum Total Protein 6.2 (6.0-8.3) g/dL Albumin 3.2 L (3.5-5.0) g/dL Globulin 3.0 (2.4-3.5) g/dL Albumin/Globulin Ratio 1.1 (1.1-2.2) Urine Color (Yellow) Urine Clarity (Clear) Urine pH (5.0-8.0) pH Units Ur Specific [place] (1.010-1.025) Urine Protein (Neg-Trace) mg/dL Urine Glucose (UA) (Normal) mg/dL Urine Ketones (Negative) mg/dL Urine Blood (Negative) Urine Nitrite (Negative) Urine Bilirubin (Negative) Urine Urobilinogen (Normal) mg/dL Ur Leukocyte Esterase (Negative) Urine Microscopic RBC (0-3) per hpf Urine Microscopic WBC (0-3) per hpf Ur Squamous Epith Cells (None-Few) per lpf Urine Bacteria (None-Few) per hpf Hyaline Casts (None-Few) per lpf Ur Culture Indicated? (NO) Blood Type Antibody Screen Crossmatch 04/26/17 04/26/17 04/26/17 Range/Units 16:48 22:07 23:42 WBC (4.3-11.1) K/mcL RBC (3.82-4.97) M/mcL Hgb (11.5-15.4) g/dL Hct (35.3-44.9) % MCV (83.0-100.0) fL MCH (28.0-33.3) pg MCHC (31.6-35.5) g/dL RDW (11.5-14.5) % Plt Count (140-400) K/mcL MPV (9.4-12.4) fL Immature Gran % (0-4) % Seg Neutrophils % % Lymphocytes % % Monocytes % % Eosinophils % % Basophils % % Neutrophils # (1.6-8.9) K/mcL Lymphocytes # (0.6-4.6) K/mcL Monocytes # (0.0-1.3) K/mcL Eosinophils # (0.0-0.6) K/mcL Basophils # (0.0-0.2) K/mcL Sodium (136-145) mEq/L Potassium (3.5-4.5) mEq/L Chloride (98-109) mEq/L Carbon Dioxide (19-29) mEq/L BUN (7-20) mg/dL Creatinine (0.57-1.11) mg/dL Est GFR ( Amer) (> 60) Est GFR (Non-Af Amer) (> 60) BUN/Creatinine Ratio (6-26) Glucose (70-99) mg/dL POC Glucose (58-89) Calculated Osmolality (280-300) Calcium (8.6-10.8) mg/dL Total Bilirubin (0.2-1.2) mg/dL AST (5-34) Units/L ALT (0-55) Units/L Alkaline Phosphatase (38-126) Units/L Troponin I 0.03 (0-0.03) ng/mL Serum Total Protein (6.0-8.3) g/dL Albumin (3.5-5.0) g/dL Globulin (2.4-3.5) g/dL Albumin/Globulin Ratio (1.1-2.2) Urine Color Yellow (Yellow) Urine Clarity Clear (Clear) Urine pH 6.0 (5.0-8.0) pH Units Ur Specific [place] 1.020 (1.010-1.025) Urine Protein Negative (Neg-Trace) mg/dL Urine Glucose (UA) Normal (Normal) mg/dL Urine Ketones Negative (Negative) mg/dL Urine Blood Small H (Negative) Urine Nitrite Negative (Negative) Urine Bilirubin Negative (Negative) Urine Urobilinogen Normal (Normal) mg/dL Ur Leukocyte Esterase Small H (Negative) Urine Microscopic RBC 15-30 H (0-3) per hpf Urine Microscopic WBC 5-15 H (0-3) per hpf Ur Squamous Epith Cells Many H (None-Few) per lpf Urine Bacteria Few (None-Few) per hpf Hyaline Casts None Seen (None-Few) per lpf Ur Culture Indicated? YES A (NO) Blood Type A POSITIVE Antibody Screen NEGATIVE Crossmatch See Detail 04/27/17 Range/Units 00:45 WBC (4.3-11.1) K/mcL RBC (3.82-4.97) M/mcL Hgb (11.5-15.4) g/dL Hct (35.3-44.9) % MCV (83.0-100.0) fL MCH (28.0-33.3) pg MCHC (31.6-35.5) g/dL RDW (11.5-14.5) % Plt Count (140-400) K/mcL MPV (9.4-12.4) fL Immature Gran % (0-4) % Seg Neutrophils % % Lymphocytes % % Monocytes % % Eosinophils % % Basophils % % Neutrophils # (1.6-8.9) K/mcL Lymphocytes # (0.6-4.6) K/mcL Monocytes # (0.0-1.3) K/mcL Eosinophils # (0.0-0.6) K/mcL Basophils # (0.0-0.2) K/mcL Sodium (136-145) mEq/L Potassium (3.5-4.5) mEq/L Chloride (98-109) mEq/L Carbon Dioxide (19-29) mEq/L BUN (7-20) mg/dL Creatinine (0.57-1.11) mg/dL Est GFR ( Amer) (> 60) Est GFR (Non-Af Amer) (> 60) BUN/Creatinine Ratio (6-26) Glucose (70-99) mg/dL POC Glucose 138 H (58-89) Calculated Osmolality (280-300) Calcium (8.6-10.8) mg/dL Total Bilirubin (0.2-1.2) mg/dL AST (5-34) Units/L ALT (0-55) Units/L Alkaline Phosphatase (38-126) Units/L Troponin I (0-0.03) ng/mL Serum Total Protein (6.0-8.3) g/dL Albumin (3.5-5.0) g/dL Globulin (2.4-3.5) g/dL Albumin/Globulin Ratio (1.1-2.2) Urine Color (Yellow) Urine Clarity (Clear) Urine pH (5.0-8.0) pH Units Ur Specific [place] (1.010-1.025) Urine Protein (Neg-Trace) mg/dL Urine Glucose (UA) (Normal) mg/dL Urine Ketones (Negative) mg/dL Urine Blood (Negative) Urine Nitrite (Negative) Urine Bilirubin (Negative) Urine Urobilinogen (Normal) mg/dL Ur Leukocyte Esterase (Negative) Urine Microscopic RBC (0-3) per hpf Urine Microscopic WBC (0-3) per hpf Ur Squamous Epith Cells (None-Few) per lpf Urine Bacteria (None-Few) per hpf Hyaline Casts (None-Few) per lpf Ur Culture Indicated? (NO) Blood Type Antibody Screen Crossmatch - Radiology Data Radiology results reviewed: Yes I reviewed the patient's radiology results. - EKG Data EKG #1 EKG attestation: Yes I reviewed and interpreted this EKG. EKG results narrative: Heart rate [address] interval 141 ms. QTC 398 ms. Normal axis. Normal sinus rhythm. No ST elevation or ST depression noted. Numerous PVCs noted. EKG similar to EKG from 04/14/2017. No acute changes noted. Attestation Statement - Attestation Attestation: I examined this patient and my medical decision-making was reviewed with the RESOURCE MANAGEMENT PLANNER/PA/Advanced Practice Nurse/Resident Physician. I agree with the documented findings, disposition and treatment plan as described except to the extent set forth below. Patient emergency department complaining of being weak and shaky. Wearing sunglasses. Patient states this is how she is when her blood count is low and she needs transfusions. Was at her PCP. A low blood pressure there. On examination she is awake and alert. She is in no distress. Oriented. Abdomen soft. Lungs clear. Plan. Labs. Type and cross. Hemoglobin 6. Starting RBC transfusion. Admitted to medicine. 30 minutes of critical care exclusive of separately billable procedures.
[2017-04-26 16:57] LABS: Basophils # 0.1 K/mcL (0.0-0.2); Basophils % 0.6 %; Eosinophils # 0.2 K/mcL (0.0-0.6); Eosinophils % 2.1 %; Hematocrit 23.1 % (35.3-44.9); Immature Granulocytes % 0.4 % (0-4); Lymphocytes # 1.2 K/mcL (0.6-4.6); Lymphocytes % 10.5 %; Mean Corpuscular HGB Conc 29.9 g/dL (31.6-35.5); Mean Corpuscular Hemoglobin 29.1 pg (28.0-33.3); Mean Corpuscular Volume 97.5 fL (83.0-100.0); Mean Platelet Volume 11.9 fL (9.4-12.4); Monocytes # 0.6 K/mcL (0.0-1.3); Monocytes % 5.5 %; Neutrophils # 9.5 K/mcL (1.6-8.9); Platelet Count 252 K/mcL (140-400); Red Blood Count 2.37 M/mcL (3.82-4.97); Red Cell Distribution Width 18.1 % (11.5-14.5); Segmented Neutrophils % 80.9 %
[2017-04-26 17:12] LABS: Albumin 3.2 g/dL (3.5-5.0); Albumin/Globulin Ratio 1.1 (1.1-2.2); Bilirubin,Total 0.2 mg/dL (0.2-1.2); Calcium 9.2 mg/dL (8.6-10.8); Total Protein 6.2 g/dL (6.0-8.3)
[2017-04-26 17:13] LABS: Hemoglobin 6.9 g/dL (11.5-15.4)
[2017-04-26] MEDS ORDERED: 0.9 % Sodium Chloride 250 ML ONE ×2 (17:55→23:40)
[2017-04-26] MEDS ORDERED: D5% in Water 1,000 ML IVC PRN (20:16)
[2017-04-26] MEDS ORDERED: *HR* Dextrose 50 % in Water (Syg) 50 ML SYRINGE IVP PRN (20:16)
[2017-04-26] MEDS ORDERED: Dextrose Gel 15 GM PO PRN ×2 (20:16)
--- NOTE | 2017-04-26 20:18 | Internal Med History&Physical ---
Date of Encounter: 04/26/17 Time of Encounter: 20:18 Assessment and Plan (1) Symptomatic anemia Current visit: No Status: Acute 1 patient experiencing increased weakness tremors photophobia she states her symptoms when her hemoglobin is low. She presented to the ER and her hemoglobin was 6.9 she was typed and screened given to units of PRBCs. We will continue to monitor CBC 2 we will obtain stool for occult 3 patient has had extensive workup in the past he certainly underwent capsule endoscopy. We will consult GI 3 oxygen as needed 4 we will hold aspirin and Plavix for now (2) COPD (chronic obstructive pulmonary disease) Current visit: No Status: Chronic Presently she is stable with no exacerbation We will continue with oxygen titrated to maintain SPO2 greater than 92% 2 bronchodilators Qualifiers: COPD type: emphysema Emphysema type: panlobular Qualified Code(s): J43.1 - Panlobular emphysema (3) Essential hypertension Current visit: No Status: Chronic 1 patient appears to have some AK I creatinine 1.21. We will hold lisinopril for now we will continue to monitor blood pressure maintaining map greater than 60 (4) Iron deficiency anemia secondary to blood loss (chronic) Current visit: No Status: Acute 1 continue with oral iron supplements-monitor CBC and transfuse as needed for hemoglobin less than 9-to 2 cardiac history (5) TOREY (acute kidney injury) Current visit: Yes Status: Acute 1 patient has been experiencing anemia, as well as receiving lisinopril metformin. We will hold for now continue with blood transfusion and monitor blood pressure maintaining M AP greater than 60 2 avoid nephrotoxins 3 monitor intake and output daily weights (6) Elevated troponin Current visit: Yes Status: Acute Most likely demand ischemia we will continue to trend troponins 2 continuous cardiac monitoring (7) DVT prophylaxis Current visit: No Status: Acute SCDs due to anemia Internal Medicine - H&P: HPI Chief complaint: weakness Admitted From: Emergency Dept Plans for Post Hospital Care: Home History of present illness: Ms. Dacosta is a 81 year old female past medical history of coronary disease chronic GI bleed and iron deficiency anemia COPD oxygen dependent. Patient had a recent hospitalization approximately a week and a half ago . She was admitted and treated for symptomatic anemia that time her hemoglobin was 5.2 she received a total of 3 units PRBCs and her symptoms resolved and she was discharged home. The patient does have a history of chronic GI bleed she is been worked up in the past per Dr. Pollock, she had a colonoscopy/EGD in December that revealed diverticulosis and tubular adenoma. 2 stated this past week she underwent a capsule endoscopy. Apparently last night the patient again to experience tremors weakness with photophobia which she states her symptoms when her hemoglobin is low. She denies any fevers chills or abdominal pain nausea vomiting bloody stools hematemesis. She states that her stools are dark because she is on iron supplements. She went to her primary care physician today who sent her to the emergency room by squad due to low blood pressure. She states while in emergency squad she did experience a fleeting moment of chest pain that resolved on its own started sharp 6 out of 10. According to ER records lab work did reveal hemoglobin of 6.9 as well as some AK with a creatinine 1.21 BUN of 45. Troponin 0.04 Patient was typed and screened for 2 units of PRBCs and transfused. She has been admitted for further workup and evaluation. Presently the patient denies any pain or discomfort she does not appear to be in any respiratory distress she denies any chest pain. Lung sounds clear except for occasional expiratory wheeze. Heart sounds are regular S1-S2 with no rubs, gallops murmurs noted. Abdomen is soft nontender to palpation. No pedal edema noted. Presently she is hemodynamically stable. I reviewed this case with who agrees with plan. Past Med Surg Social Fam HX - Past Medical History Medical history: arthritis, asthma, cancer, COPD, coronary artery disease, CVA, diabetes, GERD, GI bleed, hyperlipidemia, hypertension, osteoporosis, peripheral artery disease, other Psychiatric history: no psych history - Past Surgical History Surgical History: cholecystectomy, other - Social History Smoking Status: Former smoker Smokeless Tobacco Status: No Alcohol use: none Drug use: none - Family History Mother Hx Family Endocrine Disorder: Yes (DM) Father Living Status: Hx Family Endocrine Disorder: Yes Internal Medicine - H&P: Meds Albuterol Sulfate [Albuterol Inhaler] 2 puff IH Q4HR PRN 02/27/16 [History] Aspirin [Adult Low Dose Aspirin EC] 81 mg PO DAILY 02/27/16 [History] Cholecalciferol (Vitamin D3) [Vitamin D3] 5,000 unit PO Q48H 02/27/16 [History] Clopidogrel [Plavix] 75 mg PO HS 02/27/16 [History] Fluticasone/Salmeterol [Advair 250-50 Diskus] 1 puff IH BID 02/27/16 [History] Furosemide [Lasix] 20 mg PO DAILY 02/27/16 [History] Tiotropium [Spiriva] 18 mcg IH DAILY 02/27/16 [History] Oxygen 2 l NS AD 12/10/16 [History] Cyanocobalamin (B-12) [Vitamin B12] 1,000 mcg PO DAILY #90 tablet 12/30/16 [Rx] Cyclobenzaprine HCl 5 mg PO TID PRN #0 12/30/16 [Rx] Folic Acid 1 mg PO DAILY #90 tablet 12/30/16 [Rx] Pantoprazole Sodium [Protonix] 40 mg PO DAILY #90 granpkt. 12/30/16 [Rx] Atorvastatin [Lipitor] 40 mg PO HS 02/05/17 [History] Metformin HCl [Metformin HCl ER] 1,000 mg PO DAILY #30 [id number] 02/06/17 [Rx] Insulin ASPART [Novolog Flexpen] 6 - 8 unit SQ TID 03/24/17 [History] Insulin Glargine,Hum.rec.anlog [Lantus Solostar] 18 unit SQ HS 03/24/17 [History ] Lactulose [Enulose] 10 gm PO DAILY PRN 03/24/17 [History] Pregabalin [Lyrica] 150 mg PO BID 03/24/17 [History] Lisinopril [Zestril] 10 mg PO DAILY 04/14/17 [History] Acetaminophen [Tylenol] 650 mg PO Q6HR PRN #0 tablet 04/16/17 [Rx] Budesonide/Formoterol 160/4.5 [Symbicort 160/4.5] 1 puff IH BIDR inhaler [Rx] Ferrous Sulfate 325 mg PO BIDWM 30 Days 04/16/17 [Rx] Ipratropium Neb [Atrovent Neb] 0.5 mg IH [id number] inhsol 04/16/17 [Rx] Allergies No Known Allergies Allergy (Verified 02/08/17 15:41) All Systems PM: A 10-system review of systems was performed and is negative for pertinent findings except as documented above in the HPI. - Constitutional Constitutional: fatigue, weakness, no chills, no fever(s), no night sweats - EENT Eyes: no change in vision, no discharge, no pain, no photophobia Ears: no ear discharge, no ear pain, no tinnitus Nose, mouth and throat: no dysphagia, no nasal discharge, no neck pain, no sore throat - Cardiovascular Cardiovascular ROS IM: chest pain, dyspnea - Respiratory Respiratory: dyspnea - Gastrointestinal Gastrointestinal: no abdominal pain, no diarrhea, no hematemesis, no hematochezia, no melena, no nausea, no vomiting - Genitourinary Genitourinary: no change in urinary stream, no dysuria, no flank pain, no hematuria - Musculoskeletal Musculoskeletal ROS IM: no numbness, no tingling - Integumentary Integumentary IM: no rash, no unusual bruising - Neurological Neurological ROS: no confusion, no convulsions, no focal weakness, no numbness, no tingling, no tremor(s) - Hematologic/Lymphatic Hematologic/Lymphatic: no easy bruising - Constitutional Vitals: Temp Pulse Resp BP Pulse Ox 97.7 F 106 16 128/62 90 04/26/17 18:05 04/26/17 18:05 04/26/17 18:19 04/26/17 18:19 04/26/17 15:56 General appearance: Present: A&O X 3, answers questions appropriately - Head Head exam: Present: atraumatic, normocephalic - Eye Eye exam: Present: PERRL, conjuntiva pink, sclera anicteric Pupils: Present: PERRL - Neck Neck exam general surgery: Present: supple, trachea midline. Absent: lymphadenopathy - Respiratory Respiratory exam: Present: CTAB, wheezes. Absent: accessory muscle use, rales, rhonchi - Cardiovascular Cardiovascular exam: Present: RRR, +S1, +S2. Absent: diastolic murmur, gallop, rubs, systolic murmur - GI/Abdominal GI/Abdominal exam: Present: normal bowel sounds, soft, no peritoneal signs. Absent: distended, tenderness - Extremities Exam Extremities exam: Present: warm, radial pulses palpable and symetrical. Absent : calf tenderness, cyanotic, pedal edema - Neurological Exam Neurological exam: Present: CN II-XII intact, oriented X3, no focal deficits. Absent: pronater drift, facial droop, speech deficit - Skin Skin exam: Present: dry, intact Internal Med - H&P Results - Labs CBC & Chem 7: 04/26/17 16:48 04/26/17 16:48
[2017-04-26] MEDS ORDERED: NON-FORMULARY MEDICATION 1 EACH EACH (Fluticasone/Salmeterol [Advair 250-50 Diskus] 1 PUFF IH SCH (21:00)
[2017-04-26] MEDS: Pregabalin 75 MG CAPSULE PO SCH (21:31)
[2017-04-26] MEDS: Ipratropium Neb 0.5 MG NEBULIZER IH SCH (22:40)
[2017-04-26] MEDS: Budesonide/Formoterol 160/4.5 MDI IH SCH (22:41)
[2017-04-26 23:50] LABS: Bilirubin,Urine Negative (Negative); Blood,Urine Small (Negative); Clarity,Urine Clear (Clear); Color,Urine Yellow (Yellow); Glucose,Urine (UA) Normal (Normal); Ketones,Urine Negative (Negative); Leukocyte Esterase,Urine Small (Negative); Nitrite,Urine Negative (Negative); Protein,Urine Negative (Neg-Trace); Urobilinogen,Urine Normal (Normal)
[2017-04-26 23:51] LABS: Bacteria,Urine Few per hpf (None-Few); Hyaline Casts,Urine None Seen per lpf (None-Few); RBC,Urine 15-30 per hpf (0-3); Squamous Epithelial Cell,Urine Many per lpf (None-Few)
[2017-04-27] MEDS ORDERED: Insulin LISPRO 300 UNITS/3 ML VIAL SQ SCH
[2017-04-27] MEDS: Ipratropium Neb 0.5 MG NEBULIZER IH SCH ×4 (03:49→21:53)
[2017-04-27] MEDS: Pantoprazole 40 MG VIAL IVP SCH ×2 (05:18→18:02)
[2017-04-27 07:32] LABS: Basophils # 0.1 K/mcL (0.0-0.2); Basophils % 0.8 %; Eosinophils # 0.4 K/mcL (0.0-0.6); Eosinophils % 4.8 %; Hematocrit 29.4 % (35.3-44.9); Immature Granulocytes % 0.5 % (0-4); Lymphocytes # 1.6 K/mcL (0.6-4.6); Lymphocytes % 18.8 %; Mean Corpuscular HGB Conc 32.3 g/dL (31.6-35.5); Mean Corpuscular Hemoglobin 30.4 pg (28.0-33.3); Mean Corpuscular Volume 94.2 fL (83.0-100.0); Mean Platelet Volume 12.7 fL (9.4-12.4); Monocytes # 0.6 K/mcL (0.0-1.3); Monocytes % 6.7 %; Platelet Count 205 K/mcL (140-400); Red Blood Count 3.12 M/mcL (3.82-4.97); Red Cell Distribution Width 17.5 % (11.5-14.5); Segmented Neutrophils % 68.4 %
[2017-04-27 07:39] LABS: Hemoglobin 9.5 g/dL (11.5-15.4)
[2017-04-27 07:40] LABS: BUN/Creatinine Ratio 41 (6-26); Calcium 8.3 mg/dL (8.6-10.8); Carbon Dioxide 30 mEq/L (19-29); Chloride 106 mEq/L (98-109); Glucose 101 mg/dL (70-99); Osmolality,Calculated 302 (280-300); Potassium 4.6 mEq/L (3.5-4.5); Sodium 142 mEq/L (136-145); eGFR For African Americans > 60 (> 60); eGFR For Non-African Americans > 60 (> 60)
[2017-04-27 07:41] LABS: Blood Urea Nitrogen 34 mg/dL (7-20)
[2017-04-27] MEDS: Insulin LISPRO 300 UNITS/3 ML VIAL SQ SCH ×4 (07:49→20:36)
[2017-04-27] MEDS: Folic Acid 1 MG TABLET PO SCH (08:01)
[2017-04-27] MEDS: Pregabalin 75 MG CAPSULE PO SCH ×2 (08:01→20:44)
[2017-04-27] MEDS ORDERED: Furosemide 20 MG TABLET PO SCH (09:00)
--- NOTE | 2017-04-27 09:40 | Internal Med Progress Note ---
Date of Encounter: 04/27/17 Time of Encounter: 09:37 - Assessment and plan (1) Acute blood loss anemia Current Visit: No Status: Acute Assessment and plan: acute blood loss anemia 2ry to possible upper GI bleed had a capsule study last week ( per the patient, and had an appointment with Dr Pollock tomorrow to review the results) Received 2 untis of RBCs Hold Plavix and ASA IVF Protonix IV High risk due to gi bleed ARF improved on IVF (2) GI bleed Current Visit: No Status: Chronic Qualifiers: GI bleed type/associated pathology: melena Qualified Code(s): K92.1 - Melena (3) CVA (cerebrovascular accident) Current Visit: No Status: Acute Assessment and plan: residual left leg weakness may resume ASA and plavix when possible Qualifiers: CVA mechanism: unspecified Qualified Code(s): I63.9 - Cerebral infarction, unspecified (4) HTN (hypertension) Current Visit: No Status: Acute Assessment and plan: stable hold lisinopril Qualifiers: Hypertension type: essential hypertension Qualified Code(s): I10 - Essential (primary) hypertension (5) COPD (chronic obstructive pulmonary disease) Current Visit: No Status: Chronic Assessment and plan: stable, no exacerbation Qualifiers: COPD type: emphysema Emphysema type: panlobular Qualified Code(s): J43.1 - Panlobular emphysema (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 No vomiting - Constitutional Vitals: Temp Pulse Resp BP Pulse Ox 97.9 F 99 15 113/73 96 04/27/17 06:51 04/27/17 06:51 04/27/17 06:51 04/27/17 06:51 04/27/17 06:51 General appearance: Present: A&O X 3, answers questions appropriately - Head Head exam: Present: atraumatic, normocephalic - Eye Eye exam: Present: PERRL, conjuntiva pink, sclera anicteric Pupils: Present: PERRL - Neck Neck exam general surgery: Present: supple, trachea midline. Absent: lymphadenopathy - Respiratory Respiratory exam: Present: CTAB. Absent: accessory muscle use, rales, rhonchi, wheezes - Cardiovascular Cardiovascular exam: Present: RRR, +S1, +S2. Absent: diastolic murmur, gallop, rubs, systolic murmur - GI/Abdominal GI/Abdominal exam: Present: normal bowel sounds, soft, no peritoneal signs. Absent: distended, tenderness - Extremities Exam Extremities exam: Present: warm, radial pulses palpable and symetrical. Absent : calf tenderness, cyanotic, pedal edema - Neurological Exam Neurological exam: Present: CN II-XII intact, oriented X3. Absent: no focal deficits (left leg weakness form old CVA), pronater drift, facial droop, speech deficit - Skin Skin exam: Present: dry, intact Internal Medicine: Result - Labs CBC & Chem 7: 04/27/17 05:59 04/27/17 05:59 Labs: Short CBC 04/27/17 Range/Units 05:59 WBC 8.7 (4.3-11.1) K/mcL Hgb 9.5 L D (11.5-15.4) g/dL Hct 29.4 L (35.3-44.9) % Plt Count 205 (140-400) K/mcL Neutrophils # 6.0 (1.6-8.9) K/mcL BMP 04/27/17 05:59 Sodium 142 Potassium 4.6 H Chloride 106 Carbon Dioxide 30 H BUN 34 H D Creatinine 0.83 Glucose 101 H Calcium 8.3 L Cardiac Enzymes 04/27/17 Range/Units 05:59 Troponin I 0.03 (0-0.03) ng/mL Consult Discharge Plan - Plan Referrals: Joe King MD [Primary Care Provider] -
[2017-04-27] MEDS: Tiotropium 18 MCG inhalation IH SCH (11:35)
[2017-04-27] MEDS: Budesonide/Formoterol 160/4.5 MDI IH SCH ×2 (11:35→21:53)
[2017-04-27] MEDS: 0.9 % Sodium Chloride 1,000 ML IVC SCH (11:54)
--- NOTE | 2017-04-27 12:07 | Gastroenterology Consult Note ---
<Andrei Llanos - Last Filed: 04/27/17 12:05> Date of Encounter: 04/27/17 Time of Encounter: 10:50 - Assessment and plan (1) Iron (Fe) deficiency anemia Current Visit: No Status: Chronic Assessment and plan: She has been seen by GI for similar problems on 03/24/2017 and 04/14/2017. EGD, colonoscopy, and small bowel enteroscopy negative for bleeding. She had been instructed to complete capsule endoscopy as outpatient, and as of last admission she had not completed. Pt states she completed the capsule endoscopy last week, but no reports are in the system at this time. Will speak with Dr. Pollock regarding her capsule endoscopy. If it has not been completed, recommend getting procedure scheduled BATOOL as outpatient. Continue to monitor CBC and transfuse PRBC as needed. Qualifiers: Iron deficiency anemia type: unspecified iron deficiency Qualified Code(s) : D50.9 - Iron deficiency anemia, unspecified - Time Spent With Patient Total time spent is greater than 50% in coordination of care (as documented) at patient's floor/unit and/or counseling patient: GI History of Present Illness - Data of Consult Patient: known to practice within the last 3 years Consult date: 04/27/17 Requesting Physician: Carley Vidales MD - Consult Narrative Reason for consult: GI Bleed History of present illness: Ms. Dacosta is a 81 year old female with PMHx of arthritis, asthma, COPD, CAD, CVA, DM, GERD, GI bleed, HLD, HTN, and recurrent anemia. She presented to the ED for evaluation of anemia. She experiences photophobia and tremors when her Hgb is low, and she began to esperience these symptoms prior to admission. Hgb on arrival to the ED was 6.9 and she has received 2 units PRBC, this AM Hgb 9.6. She was recently admitted for anemia with Hgb of 5.2, she received 3 units PRBC and was discharged home. Her stools are always black due to iron supplementation. No other source of bleeding. No new medication.Her stools are always black due to iron supplementation. No other source of bleeding. No new medication. She reports she completed capsule endoscopy this past week. Procedures: Small bowel enteroscopy 02/10/2017 Dr. Pollock: Normal esophagus, medium sized hiatal hernia. 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 Colonoscopy 12/29/2016 with diverticulosis and tubular adenoma. NSAIDs: ASA Anticoagulation: Plavix Past Med Surg Social Fam HX - Past Medical History Medical history: arthritis, asthma, cancer, COPD, coronary artery disease, CVA, diabetes, GERD, GI bleed, hyperlipidemia, hypertension, osteoporosis, peripheral artery disease, other Psychiatric history: no psych history - Past Surgical History Surgical History: cholecystectomy, other - Social History Smoking Status: Former smoker Smokeless Tobacco Status: No Alcohol use: none Drug use: none - Family History Mother Hx Family Endocrine Disorder: Yes (DM) Father Living Status: Cause of : lung ca Hx Family Endocrine Disorder: Yes - Gastrointestinal Gastrointestinal: Present: as per HPI - Constitutional Constitutional: as per HPI - EENT Eyes: as per HPI Ears: Present: as per HPI Nose, mouth and throat: Present: as per HPI - Cardiovascular Cardiovascular ROS: Present: as per HPI - Respiratory Respiratory IM: Present: as per HPI - Genitourinary Genitourinary: Absent: change in color, Urinary frequency - Neurological ROS Neurological GI: Present: as per HPI - Hematologic/Lymphatic Hematologic/Lymphatic pediatric: Present: as per HPI - Musculoskeletal Musculoskeletal ROS GI: Present: as per HPI - Integumentary Integumentary GI: Present: as per HPI - Psychiatric ROS Psychiatric GI: Present: as per HPI - Endocrine Endocrine IM: Present: as per HPI - Constitutional Vitals: Temp Pulse Resp BP Pulse Ox 98.2 F 99 16 124/57 99 04/27/17 11:06 04/27/17 11:06 04/27/17 11:35 04/27/17 11:06 04/27/17 11:35 General appearance: Present: cooperative, A&O X 3, no acute distress, answers questions appropriately - Head Head exam: Present: atraumatic, normocephalic - Eye Eye exam: Present: normal appearance, sclera anicteric - ENT ENT exam: Present: mucous membranes moist - Neck Neck exam general surgery: Present: normal inspection, trachea midline - Respiratory Respiratory exam: Present: decreased breath sounds, CTAB. Absent: rales, rhonchi - Cardiovascular Cardiovascular exam: Present: RRR, +S1, +S2 - GI/Abdominal GI/Abdominal exam: Present: soft, no peritoneal signs. Absent: distended, firm , guarding, tenderness - Rectal Rectal exam: Present: deferred - Extremities Exam Extremities exam: Present: warm - Neurological Exam Neurological exam: Present: no focal deficits - Psychiatric Psychiatric exam: Present: normal affect, normal mood - Skin Skin exam: Present: dry, intact, normal color, warm Results - Labs CBC & Chem 7: 04/27/17 05:59 04/27/17 05:59 Labs: Last Result Calcium 8.3 mg/dL (8.6-10.8) L 04/27/17 05:59 Troponin I 0.03 ng/mL (0-0.03) 04/27/17 05:59 Entire Visit Hgb 9.5 g/dL (11.5-15.4) L D 04/27/17 05:59 Hct 29.4 % (35.3-44.9) L 04/27/17 05:59 Total Bilirubin 0.2 mg/dL (0.2-1.2) 04/26/17 16:48 AST 17 Units/L (5-34) 04/26/17 16:48 ALT 11 Units/L (0-55) 04/26/17 16:48 Consult Discharge Plan - Plan Referrals: Joe King MD [Primary Care Provider] - <Mari Pollock - Last Filed: 04/27/17 17:50> Date of Encounter: 04/27/17 Time of Encounter: 17:40 - Time Spent With Patient Total time spent is greater than 50% in coordination of care (as documented) at patient's floor/unit and/or counseling patient: GI History of Present Illness - Data of Consult Requesting Physician: Carley Vidales MD - Consult Narrative History of present illness: Ms. Dacosta is a 81 year old female - Constitutional Vitals: Temp Pulse Resp BP Pulse Ox 98.3 F 92 14 158/73 97 04/27/17 16:41 04/27/17 16:41 04/27/17 16:41 04/27/17 16:41 04/27/17 16:41 Results - Labs CBC & Chem 7: 04/27/17 05:59 04/27/17 05:59 Labs: Last Result Calcium 8.3 mg/dL (8.6-10.8) L 04/27/17 05:59 Troponin I 0.03 ng/mL (0-0.03) 04/27/17 05:59 Stool Occult Blood Positive (Negative) A 04/27/17 15:02 Entire Visit Hgb 9.5 g/dL (11.5-15.4) L D 04/27/17 05:59 Hct 29.4 % (35.3-44.9) L 04/27/17 05:59 Total Bilirubin 0.2 mg/dL (0.2-1.2) 04/26/17 16:48 AST 17 Units/L (5-34) 04/26/17 16:48 ALT 11 Units/L (0-55) 04/26/17 16:48 - Attending Attestation I examined this patient and my medical decision-making was reviewed with the HAMMERER TAB/PA/Advanced Practice Nurse/Resident Physician. I agree with the documented findings, disposition and treatment plan as described except to the extent set forth below. And obscure GI bleeding. Extensive workup previously is negative. Capsule endoscopy is done as an outpatient recently. We will read capsule endoscopy. Further recommendation based based on the finding on the capsule endoscopy
--- NOTE | 2017-04-27 19:00 | Electrocardiograph Report ---
[place] [id number] Test Date: 2017-04-26 Pat Name: Kiesha Redifer Department: 105 Room: 3A53 Gender: F General Repairer: [place] : 1935 Requested By: Abdullahi Bhatia Order Number: [id number] Reading MD: Torri Hand Measurements Intervals Era Rate: 99 P: 67 IL: 141 QRS: 14 QRSD: 77 T: 62 QT: 342 QTc: 398 Interpretive Statements SINUS RHYTHM WITH OCCASIONAL VENTRICULAR PREMATURE COMPLEXES LOW QRS VOLTAGE IN PRECORDIAL LEADS [QRS DEFLECTION < 1.0 mV IN CHEST LEADS] POSSIBLE RIGHT VENTRICULAR CONDUCTION DELAY [RSR (QR) IN V1/V2] Electronically Signed On 04-27-2017 18:59:09 EDT by Torri Hand
[2017-04-27] MEDS ORDERED: Insulin DETEMIR 100 UNIT/ML X5UNITS SQ SCH (21:00)
[2017-04-27] MEDS: Insulin DETEMIR 100 UNIT/ML X5UNITS SQ SCH (21:28)
[2017-04-28] MEDS: Ipratropium Neb 0.5 MG NEBULIZER IH SCH ×4 (04:33→21:11)
[2017-04-28] MEDS: Pantoprazole 40 MG VIAL IVP SCH ×2 (05:45→18:02)
[2017-04-28] MEDS: 0.9 % Sodium Chloride 1,000 ML IVC SCH (08:11)
[2017-04-28] MEDS: Folic Acid 1 MG TABLET PO SCH (08:12)
[2017-04-28] MEDS: Pregabalin 75 MG CAPSULE PO SCH ×2 (08:13→20:08)
[2017-04-28] MEDS: Tiotropium 18 MCG inhalation IH SCH (08:52)
[2017-04-28] MEDS: Insulin LISPRO 300 UNITS/3 ML VIAL SQ SCH ×4 (08:52→20:16)
[2017-04-28] MEDS: Budesonide/Formoterol 160/4.5 MDI IH SCH ×2 (08:52→21:11)
--- NOTE | 2017-04-28 11:51 | Procedure Note ---
Date of procedure: 04/22/17 Pre-op diagnosis: GI bleed Procedure: Cap Endoscopy: Procedure Information/finding: Ist gastric image: 09 after swallowing the capsule. 1st duodenal image: 8 minutes and 43 seconds after swallowing the capsule. Gastric transit time: 8 minutes and 35 seconds. 1st Cecal image: Not reached. Fresh bleeding seen in prepyloric and duodenal bulb/D2 area. Summary: Fresh bleeding seen in prepyloric and duodenal bulb/D2 area. Rec: EGD today
--- NOTE | 2017-04-28 14:18 | Anesthesia Evaluation PreOp ---
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: CVA (and s/p multiple carotid surgeries previosly) Other Medical History: Renal, Diabetes Type II Anesthesia History: No Prior Anesthetic Complications, Past Anesthesia Alcohol Use: none Drug use: none Medications and Allergies Albuterol Sulfate [Albuterol Inhaler] 2 puff IH Q4HR PRN 02/27/16 [History] Aspirin [Adult Low Dose Aspirin EC] 81 mg PO DAILY 02/27/16 [History] Cholecalciferol (Vitamin D3) [Vitamin D3] 5,000 unit PO Q48H 02/27/16 [History] Clopidogrel [Plavix] 75 mg PO HS 02/27/16 [History] Fluticasone/Salmeterol [Advair 250-50 Diskus] 1 puff IH BID 02/27/16 [History] Furosemide [Lasix] 20 mg PO DAILY 02/27/16 [History] Tiotropium [Spiriva] 18 mcg IH DAILY 02/27/16 [History] Oxygen 2 l NS AD 12/10/16 [History] Cyanocobalamin (B-12) [Vitamin B12] 1,000 mcg PO DAILY #90 tablet 12/30/16 [Rx] Cyclobenzaprine HCl 5 mg PO TID PRN #0 12/30/16 [Rx] Folic Acid 1 mg PO DAILY #90 tablet 12/30/16 [Rx] Pantoprazole Sodium [Protonix] 40 mg PO DAILY #90 12/30/16 [Rx] Atorvastatin [Lipitor] 40 mg PO HS 02/05/17 [History] Metformin HCl [Metformin HCl ER] 1,000 mg PO DAILY #30 [id number] 02/06/17 [Rx] Insulin ASPART [Novolog Flexpen] 6 - 8 unit SQ TID 03/24/17 [History] Insulin Glargine,Hum.rec.anlog [Lantus Solostar] 18 unit SQ HS 03/24/17 [History ] Lactulose [Enulose] 10 gm PO DAILY PRN 03/24/17 [History] Pregabalin [Lyrica] 150 mg PO BID 03/24/17 [History] Lisinopril [Zestril] 10 mg PO DAILY 04/14/17 [History] Acetaminophen [Tylenol] 650 mg PO Q6HR PRN #0 tablet 04/16/17 [Rx] Budesonide/Formoterol 160/4.5 [Symbicort 160/4.5] 1 puff IH BIDR inhaler [Rx] Ferrous Sulfate 325 mg PO BIDWM 30 Days 04/16/17 [Rx] Ipratropium Neb [Atrovent Neb] 0.5 mg IH [id number] inhsol 04/16/17 [Rx] Allergies No Known Allergies Allergy (Verified 02/08/17 15:41) - Meds/Allergy Pre-op Review Medications Reviewed: Yes Allergies Reviewed: Yes Beta Blockers on Current Med List: No Anesthesia Results - Labs 04/27/17 05:59 04/27/17 05:59 - Imaging EKG: report reviewed, image reviewed (SR with occ PVC's) Anesthesia Exam Last Vital Signs Temp 98.3 F 04/28/17 11:05 Pulse 98 04/28/17 11:05 Resp 18 04/28/17 11:05 BP 172/78 04/28/17 11:05 Pulse Ox 95 04/28/17 11:05 Weight: 80 kg NPO (# of Hours): >> 8 hrs - HEENT Pupil (Motor): Pupils equal Mallampati: III Teeth: Edentulous Oral Opening: Greater than 3 - PHYSICAL BIOCHEMIST LOC: Oriented PHYSICAL BIOCHEMIST Motor: Normal RUE, Normal LUE, Normal RLE, Normal LLE, Normal Face - Cardiac Rhythm: Regular Murmur: None - Pulmonary Breath Sounds: bilateral Clear Respiratory Effort: Symmetrical Anesthesia Assess/Plan ASA Score: 4 Modified [place] Scale for Level of Consciousness: Cooperative, oriented, and tranquil Anesthetic Plan: MAC Monitoring Plan: Standard Monitors Recovery Plan: PACU
--- NOTE | 2017-04-28 15:33 | Anesthesia Evaluation Post Op ---
Date of Encounter: 04/28/17 Time of Encounter: 15:29 - Vital Signs Vital Signs: Last Vital Signs Temp 97.4 F L 04/28/17 15:27 Pulse 73 04/28/17 15:27 Resp 18 04/28/17 15:27 BP 145/67 04/28/17 15:27 Pulse Ox 98 04/28/17 15:27 - Lungs Lungs: Clear Ascult./Percussion - Airway Airway: Non-obstructed - Cardiovascular Regular Rate - Mental Status Mental Status: Alert & Oriented, Answers Appropriately - Pain Pain Scale: 2 - Nausea Vomiting Nausea Vomiting: Not Present - Hydration Hydration: NPO - Discharge PostOp Status: Transfer Patient to floor
--- NOTE | 2017-04-28 16:33 | Internal Med Progress Note ---
Date of Encounter: 04/28/17 Time of Encounter: 16:31 - Assessment and plan (1) Acute blood loss anemia Current Visit: No Status: Acute Assessment and plan: acute blood loss anemia 2ry to upper GI bleed, Duodenal AVM had a capsule study last week ( per the patient, and had an appointment with Dr Pollock tomorrow to review the results) Received 2 untis of RBCs Recheck CBC today and tomorrow Hold Plavix and ASA IVF Protonix IV High risk due to gi bleed capsule endoscopy showed Fresh bleeding seen in prepyloric and duodenal bulb/ D2 area, for which the patient underwent an EGD. 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 ( second portion of the duodenum) ARF improved on IVF (2) GI bleed Current Visit: No Status: Chronic Qualifiers: GI bleed type/associated pathology: melena Qualified Code(s): K92.1 - Melena (3) CVA (cerebrovascular accident) Current Visit: No Status: Acute Assessment and plan: residual left leg weakness may resume ASA and plavix when possible Qualifiers: CVA mechanism: unspecified Qualified Code(s): I63.9 - Cerebral infarction, unspecified (4) HTN (hypertension) Current Visit: No Status: Acute Assessment and plan: stable hold lisinopril Qualifiers: Hypertension type: essential hypertension Qualified Code(s): I10 - Essential (primary) hypertension (5) COPD (chronic obstructive pulmonary disease) Current Visit: No Status: Chronic Assessment and plan: stable, no exacerbation Qualifiers: COPD type: emphysema Emphysema type: panlobular Qualified Code(s): J43.1 - Panlobular emphysema (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 No vomiting - Constitutional Vitals: Temp Pulse Resp BP Pulse Ox 97.4 F L 73 18 145/67 98 04/28/17 15:27 04/28/17 15:27 04/28/17 15:27 04/28/17 15:27 04/28/17 15:27 General appearance: Present: A&O X 3, morbidly obese, answers questions appropriately - Head Head exam: Present: atraumatic, normocephalic - Eye Eye exam: Present: PERRL, conjuntiva pink, sclera anicteric Pupils: Present: PERRL - Neck Neck exam general surgery: Present: supple, trachea midline. Absent: lymphadenopathy - Respiratory Respiratory exam: Present: CTAB. Absent: accessory muscle use, rales, rhonchi, wheezes - Cardiovascular Cardiovascular exam: Present: RRR, +S1, +S2. Absent: diastolic murmur, gallop, rubs, systolic murmur - GI/Abdominal GI/Abdominal exam: Present: normal bowel sounds, soft, no peritoneal signs. Absent: distended, tenderness Additional comments: ecchymotic areas in the right upper - Extremities Exam Extremities exam: Present: warm, radial pulses palpable and symetrical. Absent : calf tenderness, cyanotic, pedal edema - Neurological Exam Neurological exam: Present: CN II-XII intact, oriented X3, no focal deficits. Absent: pronater drift, facial droop, speech deficit - Skin Skin exam: Present: dry, intact Internal Medicine: Result - Labs CBC & Chem 7: 04/27/17 05:59 04/27/17 05:59 - VTE Documentation of Mechanical Device: Intermittent pneumatic compression device Consult Discharge Plan - Plan Referrals: Joe King MD [Primary Care Provider] - Mari Pollock MD [Partnered Physician] -
[2017-04-28 17:25] LABS: Hematocrit 33.6 % (35.3-44.9); Hemoglobin 10.5 g/dL (11.5-15.4)
[2017-04-28] MEDS ORDERED: *HR* Labetalol 20 MG/4 ML SYRINGE IVP ONE (19:48)
[2017-04-28] MEDS: Insulin DETEMIR 100 UNIT/ML X5UNITS SQ SCH (20:22)
[2017-04-28] MEDS ORDERED: Melatonin 3 MG TABLET PO PRN (22:58)
[2017-04-29] MEDS: Ipratropium Neb 0.5 MG NEBULIZER IH SCH ×2 (03:37→09:32)
[2017-04-29 05:18] LABS: Basophils % 0.3 %; Eosinophils # 0.5 K/mcL (0.0-0.6); Eosinophils % 4.7 %; Hematocrit 30.7 % (35.3-44.9); Hemoglobin 9.5 g/dL (11.5-15.4); Immature Granulocytes % 0.7 % (0-4); Lymphocytes # 1.2 K/mcL (0.6-4.6); Lymphocytes % 11.2 %; Mean Corpuscular HGB Conc 30.9 g/dL (31.6-35.5); Mean Corpuscular Hemoglobin 29.5 pg (28.0-33.3); Mean Corpuscular Volume 95.3 fL (83.0-100.0); Mean Platelet Volume 12.6 fL (9.4-12.4); Monocytes # 0.8 K/mcL (0.0-1.3); Monocytes % 8.2 %; Neutrophils # 7.7 K/mcL (1.6-8.9); Platelet Count 207 K/mcL (140-400); Red Blood Count 3.22 M/mcL (3.82-4.97); Red Cell Distribution Width 17.4 % (11.5-14.5); Segmented Neutrophils % 74.9 %
[2017-04-29 05:36] LABS: BUN/Creatinine Ratio 13 (6-26); Blood Urea Nitrogen 8 mg/dL (7-20); Calcium 8.3 mg/dL (8.6-10.8); Carbon Dioxide 26 mEq/L (19-29); Chloride 110 mEq/L (98-109); Glucose 86 mg/dL (70-99); Osmolality,Calculated 292 (280-300); Sodium 142 mEq/L (136-145); eGFR For African Americans > 60 (> 60); eGFR For Non-African Americans > 60 (> 60)
[2017-04-29] MEDS: Pantoprazole 40 MG VIAL IVP SCH (05:49)
[2017-04-29 07:33] VITALS: BP 150/69
--- NOTE | 2017-04-29 08:12 | Discharge Summary ---
Date of Encounter: 04/29/17 Time of Encounter: 08:10 - Discharge Diagnosis (1) Acute blood loss anemia Priority: Primary Status: Acute Comments: acute blood loss anemia 2ry to upper GI bleed, Duodenal AVM Exacerbated by Plavix and aspirin (2) GI bleed Priority: Primary Status: Chronic Qualifiers: GI bleed type/associated pathology: angiodysplasia of stomach and duodenum Qualified Code(s): K31.811 - Angiodysplasia of stomach and duodenum with bleeding (3) CVA (cerebrovascular accident) Priority: Secondary Status: Acute Comments: History of CVA with residual left leg weakness Qualifiers: CVA mechanism: unspecified Qualified Code(s): I63.9 - Cerebral infarction, unspecified (4) HTN (hypertension) Priority: Secondary Status: Acute Qualifiers: Hypertension type: essential hypertension Qualified Code(s): I10 - Essential (primary) hypertension (5) COPD (chronic obstructive pulmonary disease) Priority: Secondary Status: Chronic Qualifiers: COPD type: emphysema Emphysema type: panlobular Qualified Code(s): J43.1 - Panlobular emphysema (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 Priority: Secondary Status: Chronic - Discharge Medications Prescriptions: Pantoprazole Sodium [Protonix] 40 mg PO BID #[email or web address] Noel Medications: Albuterol Sulfate [Albuterol Inhaler] 2 puff IH Q4HR PRN 02/27/16 [History] Aspirin [Adult Low Dose Aspirin EC] 81 mg PO DAILY 02/27/16 [History] Cholecalciferol (Vitamin D3) [Vitamin D3] 5,000 unit PO Q48H 02/27/16 [History] Clopidogrel [Plavix] 75 mg PO HS 02/27/16 [History] Fluticasone/Salmeterol [Advair 250-50 Diskus] 1 puff IH BID 02/27/16 [History] Furosemide [Lasix] 20 mg PO DAILY 02/27/16 [History] Tiotropium [Spiriva] 18 mcg IH DAILY 02/27/16 [History] Oxygen 2 l NS AD 12/10/16 [History] Cyanocobalamin (B-12) [Vitamin B12] 1,000 mcg PO DAILY #90 tablet 12/30/16 [Rx] Cyclobenzaprine HCl 5 mg PO TID PRN #0 12/30/16 [Rx] Folic Acid 1 mg PO DAILY #90 tablet 12/30/16 [Rx] Atorvastatin [Lipitor] 40 mg PO HS 02/05/17 [History] Metformin HCl [Metformin HCl ER] 1,000 mg PO DAILY #30 [id number] 02/06/17 [Rx] Insulin ASPART [Novolog Flexpen] 6 - 8 unit SQ TID 03/24/17 [History] Insulin Glargine,Hum.rec.anlog [Lantus Solostar] 18 unit SQ HS 03/24/17 [History ] Lactulose [Enulose] 10 gm PO DAILY PRN 03/24/17 [History] Pregabalin [Lyrica] 150 mg PO BID 03/24/17 [History] Lisinopril [Zestril] 10 mg PO DAILY 04/14/17 [History] Acetaminophen [Tylenol] 650 mg PO Q6HR PRN #0 tablet 04/16/17 [Rx] Budesonide/Formoterol 160/4.5 [Symbicort 160/4.5] 1 puff IH BIDR inhaler [Rx] Ferrous Sulfate 325 mg PO BIDWM 30 Days 04/16/17 [Rx] Ipratropium Neb [Atrovent Neb] 0.5 mg IH [id number] inhsol 04/16/17 [Rx] Pantoprazole Sodium [Protonix] 40 mg PO BID #60 granpkt. 04/29/17 [Rx] Allergies/Adverse Reactions: Allergies No Known Allergies Allergy (Verified 02/08/17 15:41) Date of admission: 04/27/17 02:18 Primary care physician: Joe King MD Consults: 04/27/17 13:34 Consult to Occupational Therapy [CONS] Routine Comment: Evaluate, develop and implement POC Reason for Consult: discharge planning Consult to Physical Therapy [CONS] Routine Comment: Evaluate, develop and implement POC Reason for Consult: discharge planning - Patient Status Disposition: Home, Self-Care Condition: Good Overall status at discharge: patient is back to baseline - Discharge Instructions Follow Up With: Joe King MD [Primary Care Provider] - Mair Pollock MD [Partnered Physician] - Additional Instructions: Follow with primary care physician within the next 7 days. Follow-up with Dr. Pollock to assess the necessity of completing a capsule study as an outpatient. Continue Protonix 40 mg twice a day and iron supplements. Hold aspirin and Plavix for 1 week. - Diet and Activity Activity: increase activity as tolerated Diet: diabetic diet Hospital course: Ms. Dacosta is a 81 year old female with a past medical history of coronary disease, CVA with left residual leg weakness chronic GI bleed and iron deficiency anemia COPD oxygen dependent. Patient had a recent hospitalization approximately a week and a half prior to this admission . She was admitted and treated for symptomatic anemia, at that time her hemoglobin was 5.2 she received a total of 3 units PRBCs, her symptoms resolved and she was discharged home. The patient does have a history of chronic GI bleed she is been worked up in the past per Dr. Pollock, she had a colonoscopy/EGD in December that revealed diverticulosis and tubular adenoma. Stated this past week she underwent a capsule endoscopy. She states that her stools are dark because she is on iron supplements. She went to her primary care physician today who sent her to the emergency room by squad due to low blood pressure. Lab work did reveal hemoglobin of 6.9 as well as some TOREY with a creatinine 1.21 BUN of 45. Troponin 0.04 Patient was typed and screened for 2 units of PRBCs and transfused. Dr Pollock was consulted. Underwent an upper esophagogastroduodenoscopy that showed the second portion of the duodenum single angiodysplastic lesion treated with argon plasma coagulation and clipped. Aspirin and Plavix were held. The patient's hemoglobin today is stable at 9.5. She feels strong and stable enough to be discharged home. - Time Spent with Patient Total time spent providing and/or coordinating discharge services: Greater than 30 minutes (40 min) - Constitutional Vitals: Temp Pulse Resp BP Pulse Ox 98.1 F 79 18 150/69 96 04/29/17 07:21 04/29/17 07:21 04/29/17 07:21 04/29/17 07:21 04/29/17 07:21 General appearance: Present: A&O X 3, morbidly obese, answers questions appropriately - Head Head exam: Present: atraumatic, normocephalic - Eye Eye exam: Present: PERRL, conjuntiva pink, sclera anicteric Pupils: Present: PERRL - Neck Neck exam general surgery: Present: supple, trachea midline. Absent: lymphadenopathy - Respiratory Respiratory exam: Present: CTAB. Absent: accessory muscle use, rales, rhonchi, wheezes - Cardiovascular Cardiovascular exam: Present: RRR, +S1, +S2. Absent: diastolic murmur, gallop, rubs, systolic murmur - GI/Abdominal GI/Abdominal exam: Present: distended, normal bowel sounds, soft, no peritoneal signs. Absent: tenderness - Extremities Exam Extremities exam: Present: warm, radial pulses palpable and symetrical. Absent : calf tenderness, cyanotic, pedal edema - Neurological Exam Neurological exam: Present: CN II-XII intact, oriented X3. Absent: no focal deficits (Chronic left lower extremity weakness), pronater drift, facial droop, speech deficit - Skin Skin exam: Present: dry, intact - VTE Documentation of Mechanical Device: Intermittent pneumatic compression device
[2017-04-29] MEDS: Insulin LISPRO 300 UNITS/3 ML VIAL SQ SCH (08:27)
[2017-04-29] MEDS: Folic Acid 1 MG TABLET PO SCH (08:28)
[2017-04-29] MEDS: Pregabalin 75 MG CAPSULE PO SCH (08:29)
[2017-04-29] MEDS: Tiotropium 18 MCG inhalation IH SCH (09:32)
[2017-04-29] MEDS: Budesonide/Formoterol 160/4.5 MDI IH SCH (09:32)
[2017-04-29] MEDS ORDERED: *HR* Propofol 200 MG/20 ML VIAL IVP ONE (11:12)
== END 2017-04-29 11:13 | disposition home or self-care (01) | DRG 378 ==
LOC: 3ANU 15:54 → EMEROO 15:54 → 3ANU 18:53 → SUATTDRO 04-27 02:18
PROVIDERS: ADMIT Nurse Practitioner Family; ATTEND Internal Medicine